=== PATIENT | female | born 1980 | race Caucasian/White ===

== ENCOUNTER 2019-07-01 11:19 | Outpatient (CLI) | payer MEDICAID, SELFPAY ==
--- NOTE | 2019-07-01 | USCV_ITS ---
RhiannonisamarCindy Age: 38 Gender: F : 1980 Exam Date: 07/01/2019 12:41 Ordering Phys: Lj Joseph MD Technologist: Winter Hassan Exam Location: [facility] – [place] Indication: CHEST PAIN WITH DYSPNEA Rhythm: Sinus Patient History: Chest pain, Hyperlipidemia, Smoker Cardiac Medications: Statin Medications in past 24 hours: NONE Contrast: Stress Results Protocol: Raphael Total dose(mL): Exercise Duration (min:sec): 09:00 METS: 10.2 Resting HR: 85 Resting BP: 104 / 77 Peak HR: 164 Peak BP: 173 / 77 Max Predicted HR: 183 90 % Max Predicted HR Target HR: 156 Double Product: [id number] Stress Summary: The patient's target heart rate was achieved The hemodynamic response to exercise was normal Normal blood pressure response BP Response: Normal Reason for Termination: Test terminated after reaching target heart rate (85% max predicted) Cardiac Symptoms: Short of Breath ECG Analysis Resting ECG: Resting EKG shows sinus rhythm with an incomplete right bundle branch block and a right axis deviation. Stress ECG: Stress EKG showed no obvious ST segment depressions however at the end of exercise there was significant baseline artifact making the interpretation of the EKG impossible at that time. Otherwise, no obvious EKG changes. Arrhythmia: None MEASUREMENTS (Male/Female) Normal Values FINDINGS No ST segment changes with exercise to suggest ischemia Normal resting left ventricular size and function No wall motion disturbances with exercise to suggest ischemia. CONCLUSIONS Stress echocardiogram negative for ischemia or infarction. Dr. Grayson Georges MD (Electronically Signed) Final Date: 01 July 2019 17:46 C MTDD
[2019-07-01 11:53] VITALS: BMI 33.8
--- NOTE | 2019-07-01 11:58 | SUR.PREOP ---
Patient reports no pain or discomfort prior to the start of the procedure.
--- NOTE | 2019-07-01 12:08 | ECG_ITS ---
NAME OF STUDY: TREADMILL STRESS ECHOCARDIOGRAM INDICATION: [CHEST PAIN WITH DYSPNEA] This examination was dictated under a different electronic health record. Please see that information for details. Electronically Signed On 07-01-2019 17:43:50 [employer] by Grayson Georges M.D. [email or web address]
[2019-07-01 13:19] VITALS: BP 134/67; PULSE 91
== END 2019-07-01 11:20 | disposition home or self-care (01) ==
LOC: CDL 11:21
PROVIDERS: Family Provider Family Medicine; PCP Family Medicine; Visit Provider Family Medicine
DX: I45.10 Unspecified right bundle-branch block (principal); R07.89 Other chest pain
CPT/HCPCS: 93017; 93350

== ENCOUNTER 2019-09-14 15:57 | Outpatient (CLI) | payer MEDICAID, SELFPAY ==
--- NOTE | 2019-09-14 16:17 | XR_ITS ---
WS: [id number] XR KUB [id number] REASON FOR EXAM: right flank pain FINDINGS: The right kidney appears to be of normal size although this is poorly seen due to overridin g fecal stasis. The lumbar spine and bony pelvis were normal. No air-fluid levels are seen. A small calcified density is seen in the region of the lower left kidney. XR/XR KUB [id number] IMPRESSION: Right flank does not show definite calculi. A small calcified density of measures approximately 1 to 2 mm along the inferio r pole of the left kidney The remaining abdomen essentially normal.
== END 2019-09-14 15:58 | disposition home or self-care (01) ==
LOC: RAD 16:00
PROVIDERS: Family Provider Family Medicine; PCP Family Medicine; Visit Provider Urology
DX: R10.9 Unspecified abdominal pain (principal)
CPT/HCPCS: 74018; 81001

== ENCOUNTER 2019-09-22 17:39 | Emergency (ER) | payer MEDICAID, SELFPAY ==
[2019-09-22] VITALS (7 sets, daily range): BP systolic 113–140; BP diastolic 78–107; PULSE 90–108; RESP 16–18; TEMP 36.9; O2SAT 98–100; BMI 32.9
[2019-09-22 18:57] LABS: Basophils # 0.1 10^3/uL (0.0-0.1); Basophils % 0.7 %; Eosinophils # 0.3 10^3/uL (0.0-0.8); Eosinophils % 1.8 %; Hematocrit 46.3 % (37.0-47.0); Hemoglobin 15.1 g/dL (11.5-15.3); Lymphocytes # 3.9 10^3/uL (0.8-4.8); Mean Corpuscular HGB Conc 32.6 g/dL (30.0-36.0); Mean Corpuscular Hemoglobin 30.5 pg (28.0-34.0); Mean Corpuscular Volume 93.5 fL (81-99); Mean Platelet Volume 9.2 fL (7.4-10.4); Monocytes # 0.7 10^3/uL (0.2-0.9); Monocytes % 5.3 %; Neutrophils % 63.8 %; Nucleated Red Blood Cells % 0 %; Platelet Count 284 10^3/cmm (130-400); Red Blood Count 4.95 10^6/uL (4.1-5.3); Red Cell Distribution Width 12.5 % (12.1-15.1); White Blood Count 14.1 10^3/uL (4.0-10.0)
[2019-09-22 19:13] LABS: HCG, Serum Qual Negative (Negative)
[2019-09-22 19:19] LABS: Alanine Aminotransferase 19 U/L (0-33); Albumin Level 4.5 g/dL (3.5-5.2); Alkaline Phosphatase 78 IU/L (35-105); Aspartate Amino Transferase 17 U/L (0-32); Blood Urea Nitrogen 14 mg/dL (6-20); Calcium 9.2 mg/dL (8.5-10.5); Carbon Dioxide 22 mmol/L (22-29); Globulin 2.4 g/dL (1.3-4.6); Glomerular Filtration Rate 94.2 mL/min (90-130); Glucose 110 mg/dL (65-115); Lipase 19 U/L (13-60); Total Bilirubin 0.3 mg/dL (0.15-1.2); Total Protein 6.9 g/dL (6.6-8.7)
[2019-09-22 19:24] LABS: Anion Gap 15.4 (5-19); Chloride 106 mmol/L (98-107); Osmolality Calculated 287 mOsm/kg (285-295); Potassium 3.4 mmol/L (3.5-5.1); Sodium 140 mmol/L (136-145)
--- NOTE | 2019-09-22 19:26 | ED_ITS ---
HPI - Abdominal Pain General: Chief Complaint: Abdominal Pain Stated Complaint: RIGHT SIDE PAIN Time Seen by Provider: 09/22/19 19:26 Source: patient Mode of arrival: ambulatory Limitations: no limitations History of Present Illness: HPI narrative: Patient comes in today with a 2 to 3-week history of right upper quadrant abdominal pain. Patient states that pain has persisted for the last 2 weeks which worsened last night. Patient was seen at [facility] and noted to have elevated white count and was referred to the ER due to that. Patient appears in moderate pain. Patient appears in no acute distress. Respirations are even lungs are clear to auscultation. Vital signs are normal. Associated Symptoms: Reports nausea Review of Systems General: Reports: 10 or more systems reviewed and unremarkable except in HPI and below GI: Reports: abdominal pain and nausea PFSH ED PFSH: Medical History (Updated 09/22/19 @ 21:20 by NAYAN Travis) Asthma COPD (chronic obstructive pulmonary disease) Dyslipidemia Right flank pain Right renal stone Surgical History Hx of section Hx of exploratory laparotomy Hx of hysterectomy Hx of tonsillectomy Hx of tubal ligation Family History Other CAD (coronary artery disease) Social History Smoking and tobacco status: current every day smoker Alcohol intake: never Adopted: No Caregiver/support person: No Lives independently: No Household members: children Marital status: Single Current occupational status: disabled History of recent travel: No Current gender identity: Female Physical Exam Const: COMMON NORMALS: no acute distress and patient oriented x3 GENERAL APPEARANCE: cooperative HENMT: COMMON NORMALS: normocephalic, TM's normal bilaterally and Normal external nose present HEAD & SCALP: normal to inspection and normocephalic NOSE: Normal external nose present TYMPANIC MEMBRANE: TM's normal bilaterally MOUTH: Normal oral and palatal mucosa present THROAT: posterior oropharynx normal Eye: GENERAL EYE: appearance normal, both eyes and all related structures Neck/C-Spine: COMMON NORMALS: full ROM Lymph: LYMPHATIC: no lymphadenopathy noted Chest: COMMONS NORMALS: normal inspection of the chest Resp: COMMON NORMALS: normal respiratory effort EFFORT & INSPECTION: Yes able to speak in complete sentences Cardio: COMMON NORMALS: regular rate and regular rhythm RATE: regular rate RHYTHM: regular rhythm GI: AUSCULTATION: Yes normoactive bowel sounds PALPATION: Yes Tenderness to palpation present (GI) (Right upper quadrant tenderness to light palpation. Positive Dutton's. Negative rebound. Guarding is present.) : COMMON NORMALS: Yes no CVA tenderness BLADDER/KIDNEY EXAM: Yes no CVA tenderness Back/Pelvis: COMMON NORMALS: no CVA tenderness and thoracic and lumbar spine normal to inspection Extremity: COMMON NORMALS: normal to inspection Neuro: COMMON NORMALS: patient oriented x3 and moves all extremities Psych: COMMON NORMALS: mental status grossly normal and cooperative Skin: COMMON NORMALS: no rashes or lesions noted GENERAL SKIN EXAM: no rashes or lesions noted Course Vital Signs: Vital signs: Vital Signs Temperature 98.5 F 09/22/19 17:57 Pulse Rate 95 09/22/19 21:38 Respiratory Rate 18 09/22/19 21:38 Blood Pressure 113/78 09/22/19 21:38 Pulse Oximetry 99 09/22/19 21:38 MDM - Abdominal Pain MDM Narrative: Medical decision making narrative: Patient comes in today for concerns of right flank pain. Patient was seen in urgent care and referred to the ER due to elevated white blood cell count. On exam patient has some right upper quadrant abdominal pain with some guarding. Bowel sounds are present. Patient ambulates without discomfort. Patient appears well. Vital signs were normal. Differential diagnosis includes appendicitis, cholecystitis, bowel obstruction, pyelonephritis, renal calculi, back pain. CT scan of the abdomen pelvis noted no stool hydronephrosis, no cholecystitis, no pancreatitis, no obstructing renal calculi, a right ovarian cyst approximately 2 cm. Laboratory values noted a white count of 14,000, clean urine, and CMP with a potassium of 3.4. Patient was given 500 mL's of fluid with ondansetron and 2 mg of morphine with minimal relief. Reviewed exam with patient with recommendations for rufus atment of low back pain. Discussed the stones that were noted in her kidneys but they did not indicate any sign of infection or obstruction. Patient was recommended to follow-up with primary care for further treatment and evaluation, or return to the ER for high fever or worsening symptoms. Patient agreed with plan. Lab Data: Labs: Lab Results 09/22/19 09/22/1909/21/20 Range/Units 18:50 18:50 18:50 WBC 14.1 H (4.0-10.0) 10^3/ uL RBC 4.95 (4.1-5.3) 10^6/u L Hgb 15.1 (11.5-15.3) g/dL Hct 46.3 (37.0-47.0) % MCV 93.5 (81-99) fL MCH 30.5 (28.0-34.0) pg MCHC 32.6 (30.0-36.0) g/dL RDW 12.5 (12.1-15.1) % Plt Count 284 (130-400) 10^3/c mm MPV 9.2 (7.4-10.4) fL Neut % (Auto) 63.8 % Lymph % (Auto) 28.0 % Redwood % (Auto) 5.3 % Eos % (Auto) 1.8 % Baso % (Auto) 0.7 % Neut # (Auto) 9.0 H (1.8-7.7) 10^3/u L Lymph # (Auto) 3.9 (0.8-4.8) 10^3/u L Redwood # (Auto) 0.7 (0.2-0.9) 10^3/u L Eos # (Auto) 0.3 (0.0-0.8) 10^3/u L Baso # (Auto) 0.1 (0.0-0.1) 10^3/u L Nucleated RBC % (a uto) 0 % Nucleated RBCs # 0.0 /100WBC Sodium 140 (136-145) mmol/L Potassium 3.4 L (3.5-5.1) mmol/L Chloride 106 (98-107) mmol/L Carbon Dioxide 22 (22-29) mmol/L Anion Gap 15.4 (5-19) BUN 14 (6-20) mg/dL Creatinine 0.7 (0.5-0.9) mg/dL GFR Calculation 94.2 (90-130) mL/min Glucose 110 (65-115) mg/dL Calculated Osmolal ity 287 (285-295) mOsm/k g Calcium 9.2 (8.5-10.5) mg/dL Total Bilirubin 0.3 (0.15-1.2) mg/dL AST 17 (0-32) U/L ALT 19 (0-33) U/L Alkaline Phosphata se 78 (35-105) IU/L Total Protein 6.9 (6.6-8.7) g/dL Albumin 4.5 (3.5-5.2) g/dL Globulin 2.4 (1.3-4.6) g/dL Lipase 19 (13-60) U/L HCG, Qual Negative (Negative) Urine Color (Yellow) Urine Appearance (CLEAR) Urine pH (5-7) Ur Specific Gravit y (1.005-1.030) Urine Protein (Negative) Urine Glucose (UA) (Normal) Urine Ketones (Negative) Urine Blood (Negative) Urine Nitrate (Negative) Urine Bilirubin (NEGATIVE) Urine Urobilinogen (Negative) mg/dL Ur Leukocyte Nga ase (Negative) Urine RBC (0-2) /hpf Urine WBC (0-5) /hpf Ur Squamous Epith Cells (0-5) Urine Bacteria (NONE) 09/22/19 09/22/19 Range/Units 21:50 21:50 WBC (4.0-10.0) 10^3/ uL RBC (4.1-5.3) 10^6/u L Hgb (11.5-15.3) g/dL Hct (37.0-47.0) % MCV (81-99) fL MCH (28.0-34.0) pg MCHC (30.0-36.0) g/dL RDW (12.1-15.1) % Plt Count (130-400) 10^3/c mm MPV (7.4-10.4) fL Neut % (Auto) % Lymph % (Auto) % Redwood % (Auto) % Eos % (Auto) % Baso % (Auto) % Neut # (Auto) (1.8-7.7) 10^3/u L Lymph # (Auto) (0.8-4.8) 10^3/u L Redwood # (Auto) (0.2-0.9) 10^3/u L Eos # (Auto) (0.0-0.8) 10^3/u L Baso # (Auto) (0.0-0.1) 10^3/u L Nucleated RBC % (a uto) % Nucleated RBCs # /100WBC Sodium (136-145) mmol/L Potassium (3.5-5.1) mmol/L Chloride (98-107) mmol/L Carbon Dioxide (22-29) mmol/L Anion Gap (5-19) BUN (6-20) mg/dL Creatinine (0.5-0.9) mg/dL GFR Calculation (90-130) mL/min Glucose (65-115) mg/dL Calculated Osmolal ity (285-295) mOsm/k g Calcium (8.5-10.5) mg/dL Total Bilirubin (0.15-1.2) mg/dL AST (0-32) U/L ALT (0-33) U/L Alkaline Phosphata se (35-105) IU/L Total Protein (6.6-8.7) g/dL Albumin (3.5-5.2) g/dL Globulin (1.3-4.6) g/dL Lipase (13-60) U/L HCG, Qual Negative (Negative) Urine Color Yellow (Yellow) Urine Appearance Clear (CLEAR) Urine pH 7 (5-7) Ur Specific Gravit y 1.005 (1.005-1.030) Urine Protein Neg (Negative) Urine Glucose (UA) Norm (Normal) Urine Ketones Negative (Negative) Urine Blood Neg (Negative) Urine Nitrate Negative (Negative) Urine Bilirubin Neg (NEGATIVE) Urine Urobilinogen Norm (Negative) mg/dL Ur Leukocyte Nga ase Negative (Negative) Urine RBC None (0-2) /hpf Urine WBC None (0-5) /hpf Ur Squamous Epith Cells 0-4 H (0-5) Urine Bacteria Trace (NONE) Discharge Plan Discharge Patient Disposition: Home, Self-Care Clinical Impression: Right flank pain Condition: Stable Prescriptions: No Action bupropion HCl [Wellbutrin XL] 300 mg tablet extended release 24 hr 300 mg PO QAM RF: 0 topiramate [Topamax] 50 mg tablet 50 mg PO DAILY RF: 0 atorvastatin 40 mg tablet 10 mg PO DAILY RF: 0 albuterol sulfate 1.25 mg/3 mL solution for nebulization 1.25 mg INHALATION QID PRN (Reason: Shortness Of Breath) RF: 0 amitriptyline 100 mg tablet 100 mg PO DAILY RF: 0 hydrocodone-acetaminophen 5-325 mg tablet 1 tab PO Q6H PRN (Reason: Pain) RF: 0 budesonide-formoterol [Symbicort] 160-4.5 mcg/actuation HFA aerosol inhaler 2 puff INHALATION BID RF: 0 diclofenac sodium 75 mg tablet,delayed release (DR/EC) 75 mg PO BID RF: 0 zonisamide [Zonegran] 100 mg capsule 200 mg PO DAILY RF: 0 cetirizine [All Day Allergy (cetirizine)] 10 mg tablet 10 mg PO DAILY RF: 0 tamsulosin 0.4 mg capsule 0.4 mg PO DAILY Qty: 30 RF: 0 ibuprofen 800 mg Tablet 800 mg PO Q8H PRN (Reason: Pain) RF: 0 Discharge Orders: Discharge Order (Routine); Ordered 09/22/19 Ordered By: Noé Potter Referrals: Lj Joseph MD [Primary Care Provider] - Discharge Diet: Usual diet Discharge Activity: Increase activity as tolerated Patient Instructions: Abdominal Pain (ED) Activity Restrictions/Additional Instructions: Drink plenty of fluids. Activity as tolerated. Return to the ER for high fever or blood in the stool or vomit. Acetaminophen or ibuprofen for pain. Follow-up with primary care in 1 week for recheck. Coding Level of Care Code ED Education Department Chair for Debig Fwd Exam Comprehensive
--- NOTE | 2019-09-22 19:33 | CTR_ITS ---
PROCEDURE INFORMATION: Exam: CT Abdomen And Pelvis With Contrast Exam date and time: 09/22/2019 7:48 PM Age: 38 years old Clinical indication: Abdominal pain; Localized; Right upper quadrant (ruq); Prior surgery; Surgery type: Exploratory, , tubal, hysto; Additional info: Right upper quad pain, nausea TECHNIQUE: Imaging protocol: Computed tomography of the abdomen and pelvis with intravenous contrast. Radiation optimization: All CT scans at this facility use at least one of these dose optimization techniques: automated exposure control; mA and/or kV adjustment per patient size (includes targeted exams where dose is matched to clinical indication); or iterative reconstruction. Contrast material: OMNI 300; Contrast volume: 95 ml; Contrast route: IV; COMPARISON: CT Abdomen/Pelvis Renal [id number] 11/20/2017 5:59 PM RADIATION DOSE METRICS: Total DLP: 1231.69 mGy-cm FINDINGS: Liver: Normal. No mass. Gallbladder and bile ducts: Normal. No calcified stones. No ductal dilation. Pancreas: Normal. No ductal dilation. Spleen: Normal. No splenomegaly. Adrenals: Normal. No mass. Kidneys and ureters: Bilateral nonobstructing renal calyceal stones. Stomach and bowel: Unremarkable. No obstruction. No mucosal thickening. Appendix: Normal appendix. Intraperitoneal space: Unremarkable. No free air. No significant fluid collection. Vasculature: One or more calcified pelvic phleboliths. Lymph nodes: Unremarkable. No enlarged lymph nodes. Bladder: Unremarkable as visualized. Reproductive: 2.1 cm right ovarian cyst. Stable hysterectomy. Bones/joints: Unremarkable. No acute fracture. Soft tissues: Unremarkable. CT/CT abdomen pelvis w con* [id number] IMPRESSION: 1. Bilateral nonobstructing renal calyceal stones. 2. 2.1 cm right ovarian cyst. Radiation Dose CTDIVOL = (mGy): DLP = 1231.69 (mGy-cm)
[2019-09-22] MEDS: iohexol 300 mg/mL 100 mL Btl IV (19:54)
[2019-09-22] MEDS: sodium chloride 0.9% 500 ML 999 ML IV (20:28)
[2019-09-22] MEDS: morphine 4 mg/mL SDV 1 mL 2 MG IVP (20:29)
[2019-09-22] MEDS: ondansetron 2 mg/ML SDV 2 mL 4 MG IVP (20:34)
[2019-09-22 22:02] LABS: HCG Qualitative Urine. Negative (Negative)
[2019-09-22 22:09] LABS: Bilirubin Urine Neg (NEGATIVE); Blood Urine Neg (Negative); Glucose Urine UA Norm (Normal); Ketones Urine Negative (Negative); Leukocyte Esterase Urine Negative (Negative); Nitrate Urine Negative (Negative); Protein Urine Neg (Negative); Specific Gravity, Urine 1.005 (1.005-1.030); Urine Appearance Clear (CLEAR); Urine Color Yellow (Yellow); Urobilinogen Urine Norm (Negative); pH Urine 7 (5-7)
[2019-09-22 22:10] LABS: Add Urine Culture? No; Bacteria Urine TRACE; Squamous Epithelial Cell Urine 0-4 (0-5)
== END 2019-09-22 22:57 | disposition home or self-care (01) ==
PROVIDERS: Emergency Medicine; Emergency Provider Nurse Practitioner Family; PCP Family Medicine
DX: R10.9 Unspecified abdominal pain (principal); J44.9 Chronic obstructive pulmonary disease, unspecified; E78.5 Hyperlipidemia, unspecified; F17.210 Nicotine dependence, cigarettes, uncomplicated
CPT/HCPCS: 12345; 36415; 74177; 80053; 81001; 81025; 83690; 84703; 85025; 96361; 96374; 96375; 99283; J2270; J2405; J7040; Q9967

== ENCOUNTER → 2020-01-20 12:47 | Outpatient (BNVA) | payer MEDICAID, SELFPAY | PROVIDERS: PCP Family Medicine; Referring Provider Family Medicine; Visit Provider Anesthesiology Pain Medicine | DX: M54.42 Lumbago with sciatica, left side (principal); M47.816 Spondylosis without myelopathy or radiculopathy, lumbar region; M54.16 Radiculopathy, lumbar region; M54.9 Dorsalgia, unspecified; Z79.891 Long term (current) use of opiate analgesic | CPT/HCPCS: 99203; 99204 ==

== ENCOUNTER 2020-02-03 10:02 | Outpatient (CLI) | payer MEDICAID, SELFPAY ==
--- NOTE | 2020-02-03 10:07 | MR_ITS ---
WS: [id number] MRI LUMBAR SPINE NONCONTRAST HISTORY: M54.16 Radiculopathy, lumbar region COMPARISON: None available. TECHNIQUE: Sagittal and axial multisequence imaging is submitted. Foraminal disc osteophyte complexes at C4-5, greatest on the RIGHT Posterior lumbar alignment is normal. There is mild disc space narrowing and desiccation at L2-3. Hyp ertrophic osteophytic ridging around the L2 and L3 vertebral bodies with posterior encroachment upon the ventral thecal sac. Otherwise disc spaces are well-maintained. No marrow edema or fracture. Conus terminates normally at L1-2 disc level. L1-L2: Small amount of fluid in the RIGHT facet joint no stenosis. L2-L3: Mild annular disc bulging and osteophytic ridging. Disc osteophyte encroaches upon the ventral thecal sac resulting in mild central and bilateral foraminal stenosis. Moderate bilateral subarticul ar recess stenosis with encroachment upon the L3 nerve roots. L3-L4: Mild annular disc bulging and osteophytic ridging. Mild central, subarticular recess and bilat eral foraminal stenosis. L4-L5: Mild annular disc bulging. Very mild subarticular recess and foraminal stenosis. L5-S1: Mild annular disc bulging with mild bilateral foraminal narrowing. No focal disc protrusion. Visualized retroperitoneum is normal. LEFT renal vein is retroaortic. MR/MR lumbar spine wo con* [id number] IMPRESSION: 1. Disc osteophyte encroachment upon the thecal sac at L2-3. 2. Mild central and bilateral foraminal stenosis with moderate bilateral subar ticular recess stenosis at the L2-3 level. 3. Mild central, subarticular recess and foraminal stenosis at L3-4. 4. Mild subarticular recess and foraminal stenosis at L4-5. 5. Mild bilateral foraminal narrowing at L5-S1.
--- NOTE | 2020-02-03 11:00 | XR_ITS ---
WS: [id number] LATERAL LUMBAR SPINE: 3 view. Lateral radiographs are performed in upright neutral, flexion and extension to the patient's toleranc e. HISTORY: pain COMPARISON: 01/12/2015 Posterior lumbar alignment is normal. Mild hypertrophic endplate changes at the L2 and L3 levels proj ect posteriorly. Similar pattern to the prior study. With flexion and extension no lumbar spine insta bility. XR/XR lumbar spine f/e only [id number] IMPRESSION: No lumbar spine instability.
== END 2020-02-03 10:03 | disposition home or self-care (01) ==
LOC: RADWPI 10:04
PROVIDERS: PCP Family Medicine; Visit Provider Anesthesiology Pain Medicine
DX: M47.816 Spondylosis without myelopathy or radiculopathy, lumbar region (principal); M54.16 Radiculopathy, lumbar region; M25.78 Osteophyte, vertebrae; M48.061 Spinal stenosis, lumbar region without neurogenic claudication
CPT/HCPCS: 72120; 72148

== ENCOUNTER → 2020-02-17 10:44 | Outpatient (BNVA) | payer MEDICAID, SELFPAY | PROVIDERS: PCP Family Medicine; Visit Provider Anesthesiology Pain Medicine | DX: M25.552 Pain in left hip (principal); M25.511 Pain in right shoulder; M54.9 Dorsalgia, unspecified; F17.210 Nicotine dependence, cigarettes, uncomplicated; Z79.891 Long term (current) use of opiate analgesic | CPT/HCPCS: 99213; 99214 ==

== ENCOUNTER → 2020-04-13 14:09 | Outpatient (BNVA) | payer MEDICAID, SELFPAY | PROVIDERS: PCP Family Medicine; Visit Provider Anesthesiology Pain Medicine | DX: G89.29 Other chronic pain (principal); M54.9 Dorsalgia, unspecified; M25.552 Pain in left hip; M25.511 Pain in right shoulder; F17.210 Nicotine dependence, cigarettes, uncomplicated | CPT/HCPCS: 99212; 99213 ==

== ENCOUNTER → 2020-11-28 14:42 | Outpatient (BNVA) | payer MEDICAID, SELFPAY | PROVIDERS: PCP Family Medicine; Referring Provider Family Medicine; Visit Provider Orthopaedic Surgery | DX: M54.9 Dorsalgia, unspecified (principal) | CPT/HCPCS: 72120 ==

== ENCOUNTER 2020-12-18 00:58 | Emergency (ER) | payer MEDICAID, SELFPAY ==
[2020-12-18 01:10] VITALS: BP 130/87; PULSE 96; RESP 24; TEMP 36.4; O2SAT 98; BMI 34.7
--- NOTE | 2020-12-18 01:19 | W.ED.BACK ---
HPI - Back Pain/Injury General: Chief Complaint: Back Pain/Injury Stated Complaint: ABD AND BACK PAIN Time Seen by Provider: 12/18/20 01:06 History of Present Illness: HPI Narrative: Patient is a 40-year-old female comes to the ED with left flank pain. Patient says she has a history of kidney stones and thinks this pain is similar to her past episodes. She started having some pain yesterday in her left flank but it was mild. Today her pain continued to get worse and she rates her left flank pain a 10 out of 10. She says it radiates up to the left lower quadrant of her abdomen. She says she is having decreased urine output but denies any other urinary symptoms. Endorses having some nausea but has not had an episode of emesis. Associated symptoms: Reports nausea; Deny abdominal pain, chills, dysuria, fatigue, fever(s), hematuria or vomiting Review of Systems Const: Denies: fever(s), chills or fatigue Eyes: Denies: change in vision or eye discomfort ENMT: Denies: throat pain, odynophagia, nasal discharge or nasal congestion Card: Denies: chest pain, palpitations, edema, swelling of feet/ankles, dyspnea on exertion or orthopnea Resp: Denies: dyspnea, productive cough or non-productive cough GI: Reports: nausea; Denies: abdominal pain, vomiting, diarrhea, constipation or hematochezia : Reports: flank pain and oliguria; Denies: dysuria or hematuria Musc: Denies: neck pain, back pain or extremity swelling Skin/Breast: Denies: rash or new lesions Neuro: Denies: headache(s), numbness in extremities or weakness in extremities PFSH ED PFSH: Medical History Asthma COPD (chronic obstructive pulmonary disease) Dyslipidemia Right flank pain Right renal stone Surgical History Hx of section Hx of exploratory laparotomy Hx of hysterectomy Hx of tonsillectomy Hx of tubal ligation Family History Other CAD (coronary artery disease) Social History Smoking and tobacco status: never smoked Alcohol intake: never Adopted: No Caregiver/support person: No Lives independently: No Household members: children Marital status: Single Current occupational status: disabled History of recent travel: No Current gender identity: Female Physical Exam Const: COMMON NORMALS: patient oriented x3 and alert GENERAL APPEARANCE: cooperative; not comfortable (Uncomfortable due to left flank pain) HENMT: COMMON NORMALS: normocephalic HEAD & SCALP: normocephalic MOUTH: Normal oral and palatal mucosa present THROAT: posterior oropharynx normal and uvula midline Neck/C-Spine: COMMON NORMALS: supple GENERAL: Yes normal visual inspection Resp: COMMON NORMALS: normal respiratory effort, No retractions, No use of accessory muscles and clear to auscultation bilaterally AUSCULTATION: clear to auscultation bilaterally Cardio: COMMON NORMALS: regular rate, regular rhythm, S1 normal heart sound present, S2 normal heart sound present, No gallops present (Cardio), No clicks present (Cardio), No murmurs present (Cardio) and Peripheral pulses 2+ throughout RATE: regular rate RHYTHM: regular rhythm HEART SOUNDS: S1 normal heart sound present and S2 normal heart sound present PERIPHERAL PULSES: Peripheral pulses 2+ throughout GI: COMMON NORMALS: Normal to inspection, nondistended, normoactive bowel sounds present, Soft to palpation, non-tender and no masses PALPATION: Yes Soft to palpation : BLADDER/KIDNEY EXAM: Yes CVA tenderness Back/Pelvis: GENERAL BACK: Yes CVA tenderness CVA tenderness: left Extremity: COMMON NORMALS: normal to inspection Neuro: COMMON NORMALS: patient oriented x3 and moves all extremities SENSORIUM/ORIENTATION: Yes alert Skin: GENERAL SKIN EXAM: dry skin Course Reevaluation(s): Reevaluation #1: After patient received the dose of IV Toradol her pain had completely resolved. She now rates her pain a 0 out of 10. She is comfortable and ready to be discharged home. Time: 03:08 Vital Signs: Vital signs: Vital Signs Temperature 97.6 F 12/18/20 01:10 Pulse Rate 96 12/18/20 01:10 Respiratory Rate 22 H 12/18/20 02:33 Blood Pressure 130/87 12/18/20 01:10 Pulse Oximetry 98 12/18/20 01:10 MDM - Back Pain/Injury MDM Narrative: Medical decision making narrative: Patient is a 40-year-old female comes to the ED with left flank pain. Patient has a history of kidney stones. Patient has left CVA tenderness upon exam. White blood cell count 11.8 and creatinine was 1.3 but the rest of CBC, CMP were unremarkable. UA showed a lot of red blood cells but no signs of infection. hCG negative. CT of abdomen showed a 5 mm kidney stone on left side near the UVJ. Patient was given IV fluids, Zofran and morphine and her pain moderately improved. After patient received Toradol IV her pain went down to 0 and completely resolved. Patient diagnosed with left kidney stone and elevated creatinine level. She was discharged home with a prescription for [place] for pain, naproxen, Zofran and Flomax. I placed order with case management for patient to be referred to Dr. Bartholomew for further evaluation. I told her to strain urine to catch stone and she can bring stone and to Dr. Bartholomew's office for it to be analyzed. Return ED precautions given. Patient was told case operator will contact her in the next couple days to set up appoint with Dr. Bartholomew. Patient understood agree with plan. Lab Data: Attestation: I reviewed the patient's lab results. Labs: Lab Results 12/18/20 12/18/20 12/18/20 Range/Units 01:20 01:35 01:35 WBC 11.8 H (4.0-10.0) 10^3/ uL RBC 4.83 (4.1-5.3) 10^6/u L Hgb 14.3 (11.5-15.3) g/dL Hct 43.0 (37.0-47.0) % MCV 89.0 (81-99) fL MCH 29.6 (28.0-34.0) pg MCHC 33.3 (30.0-36.0) g/dL RDW 12.4 (12.1-15.1) % Plt Count 331 (130-400) 10^3/c mm MPV 9.6 (7.4-10.4) fL Neut % (Auto) 64.0 % Lymph % (Auto) 25.9 % [place] % (Auto) 5.9 % Eos % (Auto) 3.1 % Baso % (Auto) 0.8 % Neut # (Auto) 7.54 (1.8-7.7) 10^3/u L Lymph # (Auto) 3.1 (0.8-4.8) 10^3/u L [place] # (Auto) 0.7 (0.2-0.9) 10^3/u L Eos # (Auto) 0.4 (0.0-0.8) 10^3/u L Baso # (Auto) 0.1 (0.0-0.1) 10^3/u L Nucleated RBC % (a uto) 0 % Nucleated RBCs # 0.0 /100WBC Sodium 140 (136-145) mmol/L Potassium 4.0 (3.5-5.1) mmol/L Chloride 108 H (98-107) mmol/L Carbon Dioxide 19 L (22-29) mmol/L Anion Gap 17.0 (5-19) BUN 9 (6-20) mg/dL Creatinine 1.3 H (0.5-0.9) mg/dL GFR Calculation 45.6 L (90-130) mL/min Glucose 109 (65-115) mg/dL Calculated Osmolal ity 289 (285-295) mOsm/k g Calcium 9.0 (8.5-10.5) mg/dL Total Bilirubin 0.4 (0.15-1.2) mg/dL AST 16 (0-32) U/L ALT 17 (0-33) U/L Alkaline Phosphata se 103 (35-105) IU/L Total Protein 6.6 (6.6-8.7) g/dL Albumin 4.4 (3.5-5.2) g/dL Globulin 2.2 (1.3-4.6) g/dL Lipase 22 (13-60) U/L HCG, Qual (Negative) Urine Color Yellow (Yellow) Urine Appearance Sl hazy (CLEAR) Urine pH 5 (5-7) Ur Specific Gravit y 1.025 (1.005-1.030) Urine Protein Trace (Negative) Urine Glucose (UA) Norm (Normal) Urine Ketones Negative (Negative) Urine Blood 3+ H (Negative) Urine Nitrate Negative (Negative) Urine Bilirubin Neg (Negative) Urine Urobilinogen Norm (Negative) mg/dL Ur Leukocyte Nga ase Negative (Negative) Urine RBC >100 H (0-2) /hpf Urine WBC 0-4 H (0-5) /hpf Ur Squamous Epith Cells 5-10 H (0-5) /hpf Calcium Oxalate Cr ystal 0-4 H /hpf Amorphous Sediment Not Reportable Urine Bacteria 1+ H (NONE) /hpf 12/18/20 Range/Units 01:35 WBC (4.0-10.0) 10^3/ uL RBC (4.1-5.3) 10^6/u L Hgb (11.5-15.3) g/dL Hct (37.0-47.0) % MCV (81-99) fL MCH (28.0-34.0) pg MCHC (30.0-36.0) g/dL RDW (12.1-15.1) % Plt Count (130-400) 10^3/c mm MPV (7.4-10.4) fL Neut % (Auto) % Lymph % (Auto) % [place] % (Auto) % Eos % (Auto) % Baso % (Auto) % Neut # (Auto) (1.8-7.7) 10^3/u L Lymph # (Auto) (0.8-4.8) 10^3/u L [place] # (Auto) (0.2-0.9) 10^3/u L Eos # (Auto) (0.0-0.8) 10^3/u L Baso # (Auto) (0.0-0.1) 10^3/u L Nucleated RBC % (a uto) % Nucleated RBCs # /100WBC Sodium (136-145) mmol/L Potassium (3.5-5.1) mmol/L Chloride (98-107) mmol/L Carbon Dioxide (22-29) mmol/L Anion Gap (5-19) BUN (6-20) mg/dL Creatinine (0.5-0.9) mg/dL GFR Calculation (90-130) mL/min Glucose (65-115) mg/dL Calculated Osmolal ity (285-295) mOsm/k g Calcium (8.5-10.5) mg/dL Total Bilirubin (0.15-1.2) mg/dL AST (0-32) U/L ALT (0-33) U/L Alkaline Phosphata se (35-105) IU/L Total Protein (6.6-8.7) g/dL Albumin (3.5-5.2) g/dL Globulin (1.3-4.6) g/dL Lipase (13-60) U/L HCG, Qual Negative (Negative) Urine Color (Yellow) Urine Appearance (CLEAR) Urine pH (5-7) Ur Specific Gravit y (1.005-1.030) Urine Protein (Negative) Urine Glucose (UA) (Normal) Urine Ketones (Negative) Urine Blood (Negative) Urine Nitrate (Negative) Urine Bilirubin (Negative) Urine Urobilinogen (Negative) mg/dL Ur Leukocyte Nga ase (Negative) Urine RBC (0-2) /hpf Urine WBC (0-5) /hpf Ur Squamous Epith Cells (0-5) /hpf Calcium Oxalate Cr ystal /hpf Amorphous Sediment Urine Bacteria (NONE) /hpf Imaging Data^: CT Abd/Pel: Attestation: I personally reviewed and interpreted this imaging study as follows: Radiologist's impression: [place] [address] CT Scan Report Signed Patient: Cindy Rodarte Unit #: [id number] : 1980 Age/Sex: 40 / F ADM Date: 12/18/20 Loc: ER Room/Bed: Attending Dr: Ordering Provider/Ordering MD: Lenny Buitrago Date of Service: 12/18/20 Procedure(s): CT kidney stone [id number] Accession Number(s): [id number] Report Number: [id number] PROCEDURE INFORMATION: Exam: CT Abdomen And Pelvis Without Contrast Exam date and time: 12/18/2020 1:25 AM Age: 40 years old Clinical indication: Abdominal pain; Flank; Left; Prior surgery; Surgery date: 6+ months; Surgery type: Hyst; Additional info: Left flank pain, history of kidney stones TECHNIQUE: Imaging protocol: Computed tomography of the abdomen and pelvis without contrast. Radiation optimization: All CT scans at this facility use at least one of these dose optimization techniques: automated exposure control; mA and/or kV adjustment per patient size (includes targeted exams where dose is matched to clinical indication); or iterative reconstruction. COMPARISON: CT abdomen pelvis w con* [id number] 09/22/2019 7:52 PM RADIATION DOSE METRICS: Total DLP (mGy-cm): 1594.09 FINDINGS: Liver: Normal. No mass. Gallbladder and bile ducts: Normal. No calcified stones. No ductal dilation. Pancreas: Normal. No ductal dilation. Spleen: Normal. No splenomegaly. Adrenal glands: Normal. No mass. Kidneys and ureters: Bilateral nonobstructing renal calyceal stones. 5 mm distal left ureteral stone, 1 cm proximal to the left UVJ with moderate to severe left hydronephrosis. Stomach and bowel: Unremarkable. No obstruction. No mucosal thickening. Appendix: Normal appendix. Intraperitoneal space: Unremarkable. No free air. No significant fluid collection. Vasculature: One or more calcified pelvic phleboliths. Lymph nodes: Unremarkable. No enlarged lymph nodes. Urinary bladder: Unremarkable as visualized. Reproductive: Unremarkable as visualized. Bones/joints: Mild to moderate multilevel spine degenerative changes including degenerative disc disease, spondylosis and facet degenerative changes. Soft tissues: Unremarkable. CT/CT kidney stone [id number] IMPRESSION: 5 mm distal left ureteral stone, 1 cm proximal to the left UVJ with moderate to severe left hydronephrosis. Radiation Dose CTDIVOL = (mGy): DLP = 1594.09 (mGy-cm) Dictated By: Gume Cartwright MD Signed By: Gume Cartwright MD Signed Date/Time: 12/18/20232 DD/ 0 Discharge Plan Discharge Patient Disposition: Home Clinical Impression: Kidney stone on left side, Creatinine elevation Condition: Stable Prescriptions: New naproxen 500 mg tablet 500 mg PO BID PRN (Reason: pain) Qty: 20 RF: 0 Zofran 4 mg tablet 4 mg PO Q8H PRN (Reason: nausea and vomiting) Qty: 15 RF: 0 tamsulosin 0.4 mg capsule 0.4 mg PO DAILY Qty: 20 RF: 0 No Action tizanidine 4 mg tablet 4 mg PO BID PRN (Reason: muscle spasticity) Qty: 60 RF: 0 bupropion HCl [Wellbutrin XL] 300 mg tablet extended release 24 hr 300 mg PO QAM RF: 0 topiramate [Topamax] 50 mg tablet 50 mg PO DAILY RF: 0 atorvastatin 40 mg tablet 10 mg PO DAILY RF: 0 albuterol sulfate 1.25 mg/3 mL solution for nebulization 1.25 mg INHALATION QID PRN (Reason: Shortness Of Breath) RF: 0 amitriptyline 100 mg tablet 100 mg PO DAILY RF: 0 budesonide-formoterol [Symbicort] 160-4.5 mcg/actuation HFA aerosol inhaler 2 puff INHALATION BID RF: 0 diclofenac sodium 75 mg tablet,delayed release (DR/EC) 75 mg PO BID RF: 0 zonisamide [Zonegran] 100 mg capsule 200 mg PO DAILY RF: 0 cetirizine [All Day Allergy (cetirizine)] 10 mg tablet 10 mg PO DAILY RF: 0 ibuprofen 800 mg Tablet 800 mg PO Q8H PRN (Reason: Pain) RF: 0 Discharge Orders: Discharge ED (Routine); Ordered 12/18/20 Ordered By: Lenny Buitrago Referrals: Lj Joseph MD [Primary Care Provider] - Discharge Diet: Regular Discharge Activity: Resume usual activity Patient Instructions: Kidney Stones (ED), Opioid Safety Activity Restrictions/Additional Instructions: Follow-up with medical provider as directed. Case management should be contacting you in the next several days to set up an appointment with Dr. Bartholomew the urologist. Strain urine to catch stone and drink lots of fluid to stay hydrated and help pass stone. Bring passed kidney stone in to Dr. Bartholomew at appointment for it to be analyzed. Take medications as prescribed. You can take ibuprofen or Aleve for any pain or fevers. Return to the ER or your medical provider if condition worsens. Please read and understand discharge instructions. If any questions, please ask. Coding Level of Care Code ED Silk Screen Cutter for Nannette Fwd Exam Comprehensive
--- NOTE | 2020-12-18 01:25 | CTR_ITS ---
PROCEDURE INFORMATION: Exam: CT Abdomen And Pelvis Without Contrast Exam date and time: 12/18/2020 1:25 AM Age: 40 years old Clinical indication: Abdominal pain; Flank; Left; Prior surgery; Surgery date: 6+ months; Surgery type: Hyst; Additional info: Left flank pain, history of kidney stones TECHNIQUE: Imaging protocol: Computed tomography of the abdomen and pelvis without contrast. Radiation optimization: All CT scans at this facility use at least one of these dose optimization techniques: automated exposure control; mA and/or kV adjustment per patient size (includes targeted exams where dose is matched to clinical indication); or iterative reconstruction. COMPARISON: CT abdomen pelvis w con* [id number] 09/22/2019 7:52 PM RADIATION DOSE METRICS: Total DLP (mGy-cm): 1594.09 FINDINGS: Liver: Normal. No mass. Gallbladder and bile ducts: Normal. No calcified stones. No ductal dilation. Pancreas: Normal. No ductal dilation. Spleen: Normal. No splenomegaly. Adrenal glands: Normal. No mass. Kidneys and ureters: Bilateral nonobstructing renal calyceal stones. 5 mm distal left ureteral stone, 1 cm proximal to the left UVJ with moderate to severe left hydronephrosis. Stomach and bowel: Unremarkable. No obstruction. No mucosal thickening. Appendix: Normal appendix. Intraperitoneal space: Unremarkable. No free air. No significant fluid collection. Vasculature: One or more calcified pelvic phleboliths. Lymph nodes: Unremarkable. No enlarged lymph nodes. Urinary bladder: Unremarkable as visualized. Reproductive: Unremarkable as visualized. Bones/joints: Mild to moderate multilevel spine degenerative changes including degenerative disc disease, spondylosis and facet degenerative changes. Soft tissues: Unremarkable. CT/CT kidney stone [id number] IMPRESSION: 5 mm distal left ureteral stone, 1 cm proximal to the left UVJ with moderate to severe left hydronephrosis. Radiation Dose CTDIVOL = (mGy): DLP = 1594.09 (mGy-cm)
[2020-12-18 01:32] LABS: Urine Appearance SL Hazy (CLEAR); Urine Color Yellow (Yellow)
[2020-12-18 01:33] LABS: Bilirubin Urine Neg (Negative); Blood Urine 3+ (Negative); Glucose Urine UA Norm (Normal); Ketones Urine Negative (Negative); Leukocyte Esterase Urine Negative (Negative); Nitrate Urine Negative (Negative); Protein Urine Trace (Negative); Specific Gravity, Urine 1.025 (1.005-1.030); Urobilinogen Urine Norm (Negative); pH Urine 5 (5-7)
[2020-12-18 01:34] LABS: Add Urine Culture? Yes; Bacteria Urine 1+ /hpf; Calcium Oxalate Crystals Urine 0-4 /hpf; RBC Urine >100 /hpf (0-2); WBC Urine 0-4 /hpf (0-5)
[2020-12-18 01:36] VITALS: RESP 22
[2020-12-18] MEDS: morphine 4 mg/mL SDV 1 mL IVP ×2 (01:36→02:33)
[2020-12-18] MEDS: sodium chloride 0.9% 500 ML 999 ML IV (01:37)
[2020-12-18] MEDS: ondansetron 2 mg/ML SDV 2 mL 4 MG IVP (01:39)
[2020-12-18 01:41] LABS: Basophils # 0.1 10^3/uL (0.0-0.1); Basophils % 0.8 %; Eosinophils # 0.4 10^3/uL (0.0-0.8); Eosinophils % 3.1 %; Hemoglobin 14.3 g/dL (11.5-15.3); Lymphocytes # 3.1 10^3/uL (0.8-4.8); Lymphocytes % 25.9 %; Mean Corpuscular HGB Conc 33.3 g/dL (30.0-36.0); Mean Corpuscular Hemoglobin 29.6 pg (28.0-34.0); Mean Platelet Volume 9.6 fL (7.4-10.4); Monocytes # 0.7 10^3/uL (0.2-0.9); Monocytes % 5.9 %; Neutrophils # 7.54 10^3/uL (1.8-7.7); Nucleated Red Blood Cells % 0 %; Platelet Count 331 10^3/cmm (130-400); Red Blood Count 4.83 10^6/uL (4.1-5.3); Red Cell Distribution Width 12.4 % (12.1-15.1); White Blood Count 11.8 10^3/uL (4.0-10.0)
[2020-12-18 01:52] LABS: HCG, Serum Qual Negative (Negative)
[2020-12-18 02:03] LABS: Alanine Aminotransferase 17 U/L (0-33); Albumin Level 4.4 g/dL (3.5-5.2); Alkaline Phosphatase 103 IU/L (35-105); Aspartate Amino Transferase 16 U/L (0-32); Blood Urea Nitrogen 9 mg/dL (6-20); Carbon Dioxide 19 mmol/L (22-29); Chloride 108 mmol/L (98-107); Globulin 2.2 g/dL (1.3-4.6); Glomerular Filtration Rate 45.6 mL/min (90-130); Glucose 109 mg/dL (65-115); Lipase 22 U/L (13-60); Osmolality Calculated 289 mOsm/kg (285-295); Sodium 140 mmol/L (136-145); Total Bilirubin 0.4 mg/dL (0.15-1.2); Total Protein 6.6 g/dL (6.6-8.7)
[2020-12-18 02:33] VITALS: RESP 22
[2020-12-18] MEDS: sodium chloride 0.9% 1,000 ML 999 ML IV (02:34)
[2020-12-18] MEDS: tamsulosin 0.4 mg Capsule PO (02:40)
[2020-12-18] MEDS: ketorolac 30 mg/mL INJ IVP (02:40)
[2020-12-18] MEDS: HYDROcodone-acetaminophen 7.5-325 mg Tablet 1 TAB PO (03:34)
[2020-12-18 03:38] VITALS: BP 130/87; PULSE 101; RESP 22; TEMP 36.4; O2SAT 98
--- NOTE | 2020-12-18 09:33 | DCPLANNER ---
employee communications manager had message to schedule a follow up appointment for patient with Dr. Bartholomew. employee communications manager called the office of Dr. Bartholomew, spoke with Yaya. employee communications manager was told that patients information would be printed and reviewed. Clinic will call patient with appointment information.
--- NOTE | 2020-12-19 07:41 | DCPLANNER ---
Patient has a follow up appointment scheduled for Saturday, December 19, 2020 at 10:[address] Bartholomew. Clinic will call patient with appointment information.
--- NOTE | 2020-12-29 14:44 | DCPLANNER ---
Patient had a follow up appointment scheduled for 12.19.[address] Bartholomew - patient did not attend appointment.
== END 2020-12-18 03:43 | disposition home or self-care (01) ==
PROVIDERS: Emergency Provider Physician Assistant; PCP Family Medicine
DX: N20.0 Calculus of kidney (principal); R79.89 Other specified abnormal findings of blood chemistry; J44.9 Chronic obstructive pulmonary disease, unspecified; E78.5 Hyperlipidemia, unspecified; Z87.442 Personal history of urinary calculi
CPT/HCPCS: 74176; 80053; 81001; 83690; 84703; 85025; 87086; 96361; 96374; 96375; 96376; 99284; J1885; J2270; J2405; J7030; J7040

== ENCOUNTER → 2020-12-20 11:09 | Outpatient (BNVA) | payer MEDICAID, SELFPAY | PROVIDERS: PCP Family Medicine; Visit Provider Internal Medicine Rheumatology | DX: M25.511 Pain in right shoulder (principal); M25.552 Pain in left hip; N20.0 Calculus of kidney | CPT/HCPCS: 99203; 99204 ==

== ENCOUNTER 2020-12-25 14:32 | Outpatient (CLI) | payer MEDICAID, SELFPAY ==
--- NOTE | 2020-12-25 14:40 | XRR_ITS ---
PROCEDURE INFORMATION: Exam: XR Abdomen Exam date and time: 12/25/2020 2:40 PM Age: 40 years old Clinical indication: Condition or disease; Kidney or ureter condition; Calculus (stone) in kidney; Prior surgery; Surgery type: C section x5, tubal, partial hysterectomy; Additional info: Stones, kub ozh 12/19/20 @ 2:15 pm appt to follow TECHNIQUE: Imaging protocol: XR of the abdomen. Views: Frontal supine view of the abdomen. 1 View. COMPARISON: CT kidney stone [id number] 12/18/2020 1:51 AM FINDINGS: Gastrointestinal tract: Prominent stool, without bowel dilatation. Organs: Subcentimeter pelvic calcifications, in the setting of three mm obstructing distal left ureteral calculus on previous CT. Partial obscuration of the renal fossa by bowel gas and stool. Subcentimeter bilateral renal calculi or demonstrated on previous CT. Bones/joints: Unremarkable. XR/XR KUB [id number] IMPRESSION: 1. Subcentimeter pelvic calcifications, in the setting of three mm obstructing distal left ureteral calculus on previous CT. 2. Partial obscuration of the renal fossa by bowel gas and stool. Subcentimeter bilateral renal calculi or demonstrated on previous CT.
== END 2020-12-25 14:33 | disposition home or self-care (01) ==
PROVIDERS: PCP Family Medicine; Visit Provider Nurse Practitioner Family
DX: N20.0 Calculus of kidney (principal)
CPT/HCPCS: 74018; 81003

== ENCOUNTER 2021-01-02 15:16 | Outpatient (CLI) | payer MEDICAID, SELFPAY ==
--- NOTE | 2021-01-02 15:15 | XR_ITS ---
WS: [id number] Exam: XR KUB [id number] Date/Time of Exam: 01/02/2021 3:15 PM Reason For Exam: ureteral stone Comparison 12/25/2020. At least one 3 mm calcification superimposes the lower pole the right kidney and may represent a bola l stone. No calcifications seen over the left kidney. No bowel obstruction or free air. Organ margins are unremarkable in appearance. Regional bony structures appear normal. XR/XR KUB [id number] IMPRESSION: 1. 3 mm calcification superimposing the lower pole the right kidney that may re present a renal stone. 2. No acute abdominal process.
== END 2021-01-02 15:17 | disposition home or self-care (01) ==
LOC: RAD 15:19
PROVIDERS: PCP Family Medicine; Visit Provider Urology
DX: N20.1 Calculus of ureter (principal); N20.0 Calculus of kidney
CPT/HCPCS: 74018; 81003

== ENCOUNTER 2021-01-04 16:32 | Outpatient (CLI) | payer MEDICAID, SELFPAY ==
--- NOTE | 2021-01-04 16:45 | MR_ITS ---
WS: [id number] MRI RIGHT SHOULDER HISTORY: M25.511 - Pain in right shoulder COMPARISON: None available. TECHNIQUE: Multiplanar sequences of the shoulder joint are submitted. Minimal hypertrophic changes at the AC joint. No significant encroachment upon the rotator cuff. Ther e is a very small amount of fluid in the subdeltoid bursa. No os acromion. Biceps tendon remains norm ally positioned. Tiny insertion site tear supraspinatus tendon anteriorly. There is also additional moderate tendinopa thy in the distal few centimeters of the supraspinatus tendon. No additional rotator cuff tears are i dentified. No muscle atrophy or retraction. No significant degenerative changes at the glenohumeral j oint and humeral head. No labral tear. MR/MR shoulder RT wo con* [id number] IMPRESSION: 1. Tiny insertion site tear of the anterior supraspinatus tendon with addition al moderate tendinopathy in the distal tendon. 2. No muscle atrophy or retraction. 3. No significant AC joint arthritis.
== END 2021-01-04 16:33 | disposition home or self-care (01) ==
LOC: RADSHAW 16:37
PROVIDERS: PCP Family Medicine; Visit Provider Internal Medicine Rheumatology
DX: M25.511 Pain in right shoulder (principal)
CPT/HCPCS: 73221

== ENCOUNTER 2021-02-06 15:49 | Outpatient (CLI) | payer MEDICAID, SELFPAY ==
--- NOTE | 2021-02-06 | MR_ITS ---
NOTE: Report was unsigned for reason: Order was edited. Original Signature date and time was: 02/06/21 @ [id number] MRI CERVICAL SPINE NONCONTRAST TECHNIQUE: Sagittal T1, T2 and STIR imaging. Axial T2, gradient, and fiesta imaging. CLINICAL INFORMATION: Numbness COMPARISON: None. FINDINGS: Straightening with slight reversal of the normal cervical lordosis. Small central protrusions at C3-C4 and C4-C5 with mild central canal stenosis C3-4 and mild to moderate central canal stenosis C4-5 with slight contact of the cervical cord. C2-C3: Normal. C3-C4: Left pericentral disc osteophyte protrusion with slight indentation left ventral cervical cord. Mild central canal stenosis. Mild left foraminal narrowing. Right foramen is patent. C4-C5: Disc osteophyte complex with endplate ridging. Mild to moderate central canal stenosis. Moderate right and mild left bony foraminal narrowing. C5-C6: No significant disc bulging. Spinal canal and foramen are patent. Mild facet arthropathy. C6-C7: Mild osteophytic ridging. Mild left and no significant right foraminal narrowing. Spinal canal is patent. C7-T1: Mild disc osteophytic ridging. Mild left and no significant right foraminal narrowing. Spinal canal is patent. Visualized brain stem structures: Normal. Prevertebral soft tissues: Normal. [facility] spin wo con* [id number] IMPRESSION: 1. Straightening with slight reversal of the normal cervical lordosis. Small d isc osteophyte protrusions C3-C4 and C4-C5. 2. Left pericentral disc osteophyte protrusion C3-C4 with slight indentation o n cervical cord and mild central canal stenosis. 3. Disc osteophyte complex C4-5 with mild to moderate central canal stenosis. Moderate right bony foraminal narrowing. 4. Mild left C6-7 and C7-T1 bony foraminal narrowing.
--- NOTE | 2021-02-06 15:58 | MR_ITS ---
WS: [id number] MRI CERVICAL SPINE NONCONTRAST TECHNIQUE: Sagittal T1, T2 and STIR imaging. Axial T2, gradient, and fiesta imaging. CLINICAL INFORMATION: Numbness COMPARISON: None. FINDINGS: Straightening with slight reversal of the normal cervical lordosis. Small central protrusions at C3-C 4 and C4-C5 with mild central canal stenosis C3-4 and mild to moderate central canal stenosis C4-5 wi th slight contact of the cervical cord. C2-C3: Normal. C3-C4: Left pericentral disc osteophyte protrusion with slight indentation left ventral cervical cord . Mild central canal stenosis. Mild left foraminal narrowing. Right foramen is patent. C4-C5: Disc osteophyte complex with endplate ridging. Mild to moderate central canal stenosis. Modera te right and mild left bony foraminal narrowing. C5-C6: No significant disc bulging. Spinal canal and foramen are patent. Mild facet arthropathy. C6-C7: Mild osteophytic ridging. Mild left and no significant right foraminal narrowing. Spinal canal is patent. C7-T1: Mild disc osteophytic ridging. Mild left and no significant right foraminal narrowing. Spinal canal is patent. Visualized brain stem structures: Normal. Prevertebral soft tissues: Normal.
== END 2021-02-06 15:50 | disposition home or self-care (01) ==
PROVIDERS: PCP Family Medicine; Visit Provider Orthopaedic Surgery
DX: R20.0 Anesthesia of skin (principal); M48.02 Spinal stenosis, cervical region
CPT/HCPCS: 72141; 72148

== ENCOUNTER → 2021-02-27 16:16 | Outpatient (BNVA) | payer MEDICAID, SELFPAY | PROVIDERS: PCP Family Medicine; Referring Provider Orthopaedic Surgery; Visit Provider Orthopaedic Surgery | DX: M47.892 Other spondylosis, cervical region (principal); M54.2 Cervicalgia | CPT/HCPCS: 72050 ==

== ENCOUNTER → 2021-03-08 10:16 | Outpatient (BNVA) | payer MEDICAID, SELFPAY | PROVIDERS: PCP Family Medicine; Referring Provider Orthopaedic Surgery; Visit Provider Anesthesiology Pain Medicine | DX: G89.29 Other chronic pain (principal); M25.511 Pain in right shoulder; R20.0 Anesthesia of skin; M54.2 Cervicalgia; M54.50 Low back pain, unspecified; M25.552 Pain in left hip | CPT/HCPCS: 99214 ==

== ENCOUNTER 2021-05-02 20:00 | Outpatient (CLI) | payer MEDICAID, SELFPAY | END 2021-05-02 20:01 | disposition home or self-care (01) | LOC: SLEEP 05-03 07:37 | PROVIDERS: PCP Family Medicine; Visit Provider Family Medicine | DX: G47.10 Hypersomnia, unspecified (principal); R06.83 Snoring; R53.83 Other fatigue | CPT/HCPCS: 95810 ==

== ENCOUNTER → 2021-06-19 10:32 | Outpatient (BNVA) | payer MEDICAID, SELFPAY | PROVIDERS: PCP Family Medicine; Referring Provider Orthopaedic Surgery; Visit Provider Specialist | DX: R20.0 Anesthesia of skin (principal); R20.2 Paresthesia of skin; Z87.891 Personal history of nicotine dependence | CPT/HCPCS: 95909 ==

== ENCOUNTER → 2021-06-26 10:37 | Outpatient (BNVA) | payer MEDICAID, SELFPAY | PROVIDERS: PCP Family Medicine; Visit Provider Anesthesiology Pain Medicine | DX: G89.29 Other chronic pain (principal); M54.2 Cervicalgia; M54.50 Low back pain, unspecified; M25.552 Pain in left hip; Z87.891 Personal history of nicotine dependence | CPT/HCPCS: 99214 ==

== ENCOUNTER → 2021-07-16 13:23 | Outpatient (BNVA) | payer MEDICAID, SELFPAY | PROVIDERS: PCP Family Medicine; Visit Provider Anesthesiology Pain Medicine | DX: G89.29 Other chronic pain (principal); F17.210 Nicotine dependence, cigarettes, uncomplicated; M54.12 Radiculopathy, cervical region | CPT/HCPCS: 62321; J1100 ==

== ENCOUNTER → 2021-07-31 09:10 | Outpatient (BNVA) | payer MEDICAID, SELFPAY | PROVIDERS: PCP Family Medicine; Visit Provider Anesthesiology Pain Medicine | DX: G89.29 Other chronic pain (principal); M54.2 Cervicalgia; M54.50 Low back pain, unspecified; Z87.891 Personal history of nicotine dependence | CPT/HCPCS: 99214 ==

== ENCOUNTER → 2021-08-06 12:38 | Outpatient (BNVA) | payer MEDICAID, SELFPAY | PROVIDERS: PCP Family Medicine; Visit Provider Anesthesiology Pain Medicine | DX: G89.29 Other chronic pain (principal); M54.16 Radiculopathy, lumbar region; M54.2 Cervicalgia; M25.551 Pain in right hip; Z87.891 Personal history of nicotine dependence | CPT/HCPCS: 64483; 64484; J1100; J3490 ==

== ENCOUNTER → 2021-08-10 10:12 | Outpatient (BNVA) | payer MEDICAID, SELFPAY | PROVIDERS: PCP Family Medicine; Visit Provider Internal Medicine Critical Care Medicine | DX: J45.909 Unspecified asthma, uncomplicated (principal); J31.0 Chronic rhinitis; J32.9 Chronic sinusitis, unspecified; Z87.891 Personal history of nicotine dependence; E78.5 Hyperlipidemia, unspecified; J44.9 Chronic obstructive pulmonary disease, unspecified; R06.02 Shortness of breath | CPT/HCPCS: 36415; 82785; 86003; 99214 ==

== ENCOUNTER → 2021-08-16 12:12 | Outpatient (BNVA) | payer MEDICAID, SELFPAY | PROVIDERS: PCP Family Medicine; Referring Provider Orthopaedic Surgery; Visit Provider Specialist | DX: M54.2 Cervicalgia (principal); M54.9 Dorsalgia, unspecified; G89.29 Other chronic pain; Z87.891 Personal history of nicotine dependence | CPT/HCPCS: 95886; 95907; 99202 ==

== ENCOUNTER → 2021-08-21 10:21 | Outpatient (BNVA) | payer MEDICAID, SELFPAY | PROVIDERS: PCP Family Medicine; Visit Provider Anesthesiology Pain Medicine | DX: G89.29 Other chronic pain (principal); M54.50 Low back pain, unspecified; M54.2 Cervicalgia; M25.511 Pain in right shoulder; M25.552 Pain in left hip; Z87.891 Personal history of nicotine dependence | CPT/HCPCS: 99214 ==

== ENCOUNTER → 2021-08-29 14:56 | Outpatient (BNVA) | payer MEDICAID, SELFPAY | PROVIDERS: PCP Family Medicine; Visit Provider Anesthesiology Pain Medicine | DX: G89.29 Other chronic pain (principal); M54.2 Cervicalgia; M25.511 Pain in right shoulder; M25.551 Pain in right hip; Z87.891 Personal history of nicotine dependence; M47.816 Spondylosis without myelopathy or radiculopathy, lumbar region | CPT/HCPCS: 64493; 64494; 64495; J3490 ==

== ENCOUNTER → 2021-09-12 09:48 | Outpatient (BNVA) | payer MEDICAID, SELFPAY | PROVIDERS: PCP Family Medicine; Visit Provider Anesthesiology Pain Medicine | DX: G89.29 Other chronic pain (principal); M54.50 Low back pain, unspecified; M54.2 Cervicalgia; Z87.891 Personal history of nicotine dependence | CPT/HCPCS: 99214 ==

== ENCOUNTER 2021-11-01 22:57 | Observation (INO) | payer MEDICAID, SELFPAY ==
[2021-11-01 23:38] VITALS: BP 121/83; PULSE 93; RESP 18; TEMP 36.7; O2SAT 99; BMI 37.0
--- NOTE | 2021-11-02 01:14 | CTR_ITS ---
PROCEDURE INFORMATION: Exam: CT Abdomen And Pelvis Without Contrast Exam date and time: 11/02/2021 1:26 AM Age: 40 years old Clinical indication: Abdominal pain; Right; Prior surgery; Surgery type: Csection. Partial hysterectomy. Tubal ligation. Patient HX: C/O RT flank pain. ; Additional info: Right flank pain TECHNIQUE: Imaging protocol: Computed tomography of the abdomen and pelvis without contrast. Radiation optimization: All CT scans at this facility use at least one of these dose optimization techniques: automated exposure control; mA and/or kV adjustment per patient size (includes targeted exams where dose is matched to clinical indication); or iterative reconstruction. COMPARISON: CT kidney stone [id number] 12/18/2020 1:51 AM RADIATION DOSE METRICS: Total DLP (mGy-cm): 1578.87 FINDINGS: Liver: Normal. No mass. Gallbladder and bile ducts: The gallbladder appears contracted. Pancreas: Normal. No ductal dilation. Spleen: Normal. No splenomegaly. Adrenal glands: Normal. No mass. Kidneys and ureters: There are bilateral nonobstructing renal calculi present. The largest the right measures 4.2 mm, the largest on the left measures 3.3 mm. Stomach and bowel: Unremarkable. No obstruction. No mucosal thickening. Appendix: The appendix is dilated to 7.6 mm. There is hyperdense material seen within the appendiceal lumen. There are gas densities seen intraluminally within the appendix is well. There are no inflammatory changes seen however to suggest appendicitis. In view of the patient's symptoms however, mild appendicitis cannot be excluded. Intraperitoneal space: Unremarkable. No free air. No significant fluid collection. Vasculature: Unremarkable. No abdominal aortic aneurysm. Lymph nodes: Unremarkable. No enlarged lymph nodes. Urinary bladder: Unremarkable as visualized. Reproductive: Status post hysterectomy. Bones/joints: Unremarkable. No acute fracture. Soft tissues: Unremarkable. CT/CT kidney stone [id number] IMPRESSION: 1. The appendix is mildly prominent measuring 7.6 mm and contains hyperdense material intraluminally. However, there are some intraluminal gas densities present and there are no inflammatory changes seen within the adjacent appendiceal mesentery to suggest appendicitis. However in view the patient's clinical findings, mild appendicitis cannot be entirely excluded. 2. Bilateral nonobstructing renal calculi
--- NOTE | 2021-11-02 01:16 | W.ED.ABDPA2 ---
HPI - Abdominal Pain General: Chief Complaint: Abdominal Pain Stated Complaint: R side pain Time Seen by Provider: 11/02/21 01:10 Source: patient Mode of arrival: ambulatory Limitations: no limitations History of Present Illness: 40-year-old female states roughly 7 to 8 hours ago he started having right flank pain. States it seemed to be intermittent but is gotten worse. States pain is currently an 8 out of 10 she states she had hit kidney stones before and it feels similar. She denies any worsening improving factors denies any dysuria she has had nausea denies any vomiting. Denies any fevers. Associated Symptoms: Denies chills, diarrhea, fever(s), nausea and vomiting Review of Systems Const: Denies: fever(s), chills, body aches or change in appetite Eyes: Denies: blurry vision or eye discomfort ENMT: Denies: throat pain or dental pain Card: Denies: chest pain Resp: Denies: dyspnea GI: Denies: abdominal pain, nausea, vomiting or diarrhea : Reports: flank pain Musc: Denies: neck pain or back pain Skin/Breast: Denies: rash Neuro: Denies: headache(s) Psych: Denies: depression Keith/Lymph: Denies: easy bruising All/Imm: Denies: urticaria PFSH ED PFSH: Medical History Asthma COPD (chronic obstructive pulmonary disease) Dyslipidemia Greater trochanteric pain syndrome Left hip Left ureteral stone Right flank pain Right renal stone Right shoulder pain Urolithiasis Surgical History Hx of section Hx of exploratory laparotomy Hx of hysterectomy Hx of tonsillectomy Hx of tubal ligation Family History Father Bleeding disorder Diabetes Hyperlipidemia CAD (coronary artery disease) Chronic kidney disease (CKD) Hypertension Seizure Family/Other Lung disease Liver disease Seizure Grandfather Lung disease Mother Stroke Migraine Liver disease Grandmother Cancer Social History Smoking and tobacco status: former smoker Second hand smoke exposure: No Smoking risk assessment/counseling performed?: No Alcohol intake: never Counseling given: No Counseling given: No Lives independently: Yes Household members: children Marital status: Single Current occupational status: disabled History of recent travel: No Current gender identity: Female Physical Exam Const: COMMON NORMALS: no acute distress, patient oriented x3 and healthy appearing HENMT: COMMON NORMALS: normocephalic and atraumatic HEAD & SCALP: normocephalic and atraumatic Eye: COMMON NORMALS: Equal, round and reactive pupils present and EOMs intact bilaterally PUPIL: Yes Equal, round and reactive pupils present Neck/C-Spine: COMMON NORMALS: full ROM and supple Chest: COMMONS NORMALS: normal inspection of the chest and normal palpation of entire chest wall Resp: COMMON NORMALS: normal respiratory effort, No retractions, No use of accessory muscles and clear to auscultation bilaterally AUSCULTATION: clear to auscultation bilaterally Cardio: COMMON NORMALS: regular rate, regular rhythm and No murmurs present (Cardio) RATE: regular rate RHYTHM: regular rhythm GI: COMMON NORMALS: Normal to inspection, nondistended, normoactive bowel sounds present, Soft to palpation, non-tender and no masses PALPATION: Yes Soft to palpation Extremity: COMMON NORMALS: normal to inspection and full ROM Neuro: COMMON NORMALS: patient oriented x3, moves all extremities and no focal motor deficits Psych: COMMON NORMALS: mental status grossly normal, Normal thought process present and cooperative THOUGHT PROCESS: Normal thought process present Skin: COMMON NORMALS: no rashes or lesions noted and no wounds GENERAL SKIN EXAM: no rashes or lesions noted Course Vital Signs: Vital signs: Vital Signs Temperature 98.0 F 11/01/21 23:38 Pulse Rate 93 11/01/21 23:38 Respiratory Rate 16 11/02/21 02:09 Blood Pressure 121/83 11/01/21 23:38 Pulse Oximetry 99 11/01/21 23:38 MDM - Abdominal Pain Medical Decision Making Patient presents here with abdominal pain. CT showed a possible early appendicitis. She does have some very mild tenderness I spoke to the surgeon along with patient will admit for observation for serial exams and white counts at this time. Lab Data : 11/02/21 01:42 11/02/21 01:42 Labs/Radiology: Radiology Impressions Abdomen/Pelvis CT 11/02/21 01:14 IMPRESSION: 1. The appendix is mildly prominent measuring 7.6 mm and contains hyperdense material intraluminally. However, there are some intraluminal gas densities present and there are no inflammatory changes seen within the adjacent appendiceal mesentery to suggest appendicitis. However in view the patient's clinical findings, mild appendicitis cannot be entirely excluded. 2. Bilateral nonobstructing renal calculi ADDENDUM: 11/02/21 0419 CRITICAL RESULT: THIS REPORT CONTAINS FINDINGS THAT MAY BE CRITICAL TO PATIENT CARE. The findings were verbally communicated via telephone conference with CARMELA Hemphill at 4:17 AM CDT on 11/02/2021. The findings were acknowledged and understood. Laboratory Results WBC 11.7 10^3/uL (4.0-10.0) H 11/02/21 01:42 RBC 4.76 10^6/uL (4.1-5.3) 11/02/21 01:42 Hgb 14.3 g/dL (11.5-15.3) 11/02/21 01:42 Hct 42.1 % (37.0-47.0) 11/02/21 01:42 MCV 88.4 fl (81-99) 11/02/21 01:42 MCH 30.0 pg (28.0-34.0) 11/02/21 01:42 MCHC 34.0 g/dL (30.0-36.0) 11/02/21 01:42 RDW 12.3 % (12.1-15.1) 11/02/21 01:42 Plt Count 298 10^3/cmm (130-400) 11/02/21 01:42 MPV 9.6 fL (7.4-10.4) 11/02/21 01:42 Lymph % (Auto) Not Reportable 11/02/21 01:42 [facility] % (Auto) Not Reportable 11/02/21 01:42 Lymph # (Auto) Not Reportable 11/02/21 01:42 [facility] # (Auto) Not Reportable 11/02/21 01:42 Total Counted 100 (0-100) 11/02/21 01:42 Atypical Lymphs % 3.0 % (0-5) 11/02/21 01:42 Absolute Neutrophils 6.6 10^3/cmm (1.4-6.5) H 11/02/21 01:42 Segmented Neutrophils 56 % 11/02/21 01:42 Abs Segm Neuts (Man) 6.6 10/cmm (1.6-7.1) 11/02/21 01:42 Band Neutrophils 0.0 % 11/02/21 01:42 Abs Band Neuts (Man) 0.0 10^3/cmm (0.0-1.2) 11/02/21 01:42 Absolute Lymphocytes 4.4 10^3/cmm (1.2-3.4) H 11/02/21 01:42 Lymphocytes (Manual) 35 % 11/02/21 01:42 Monocytes (Manual) 4.0 % 11/02/21 01:42 Absolute Monocytes 0.5 10^3/cmm (0.1-0.6) 11/02/21 01:42 Eosinophils (Manual) 2 % 11/02/21 01:42 Absolute Eosinophils 0.2 10^3/cmm (0.0-0.7) 11/02/21 01:42 Basophils (Manual) 0.0 % 11/02/21 01:42 Absolute Basophils 0.0 10^3/cmm (0.0-0.2) 11/02/21 01:42 Platelet Estimate Normal (Normal) 11/02/21 01:42 Sodium 139 mmol/L (136-145) 11/02/21 01:42 Potassium 4.1 mmol/L (3.5-5.1) 11/02/21 01:42 Chloride 107 mmol/L (98-107) 11/02/21 01:42 Carbon Dioxide 21 mmol/L (22-29) L 11/02/21 01:42 Anion Gap 15.1 (5-19) 11/02/21 01:42 BUN 12 mg/dL (6-20) 11/02/21 01:42 Creatinine 0.7 mg/dL (0.5-0.9) 11/02/21 01:42 GFR Calculation 93.2 mL/min (90-130) 11/02/21 01:42 Glucose 119 mg/dL (65-115) H 11/02/21 01:42 Calculated Osmolality 289 mOsm/kg (285-295) 11/02/21 01:42 Calcium 9.0 mg/dL (8.5-10.5) 11/02/21 01:42 Total Bilirubin 0.3 mg/dL (0.15-1.2) 11/02/21 01:42 AST 14 U/L (0-32) 11/02/21 01:42 ALT 16 U/L (0-33) 11/02/21 01:42 Alkaline Phosphatase 85 IU/L (35-105) 11/02/21 01:42 Total Protein 6.9 g/dL (6.6-8.7) 11/02/21 01:42 Albumin 4.5 g/dL (3.5-5.2) 11/02/21 01:42 Globulin 2.4 g/dL (1.3-4.6) 11/02/21 01:42 Lipase 21 U/L (13-60) 11/02/21 01:42 Urine Color Yellow (Yellow) 11/02/21 00:01 Urine Appearance Cloudy (CLEAR) 11/02/21 00:01 Urine pH 7 (5-7) 11/02/21 00:01 Ur Specific [place] 1.015 (1.005-1.030) 11/02/21 00:01 Urine Protein Neg (Negative) 11/02/21 00:01 Urine Glucose (UA) Norm (Normal) 11/02/21 00:01 Urine Ketones Negative (Negative) 11/02/21 00:01 Urine Blood Neg (Negative) 11/02/21 00:01 Urine Nitrate Negative (Negative) 11/02/21 00:01 Urine Bilirubin Neg (Negative) 11/02/21 00:01 Urine Urobilinogen Norm mg/dL (Negative) 11/02/21 00:01 Ur Leukocyte Esterase Negative (Negative) 11/02/21 00:01 Discharge Plan Discharge Patient Disposition: Placed in Observation Clinical Impression: Appendicitis Qualifiers: Appendicitis type: unspecified Qualified Code(s): K37 - Unspecified appendicitis Coding Level of Care Code ED [employer]r for [facility] Fwd Exam Comprehensive
[2021-11-02 01:54] LABS: Hematocrit 42.1 % (37.0-47.0); Hemoglobin 14.3 g/dL (11.5-15.3); Mean Corpuscular Volume 88.4 fl (81-99); Mean Platelet Volume 9.6 fL (7.4-10.4); Platelet Count 298 10^3/cmm (130-400); Red Blood Count 4.76 10^6/uL (4.1-5.3); Red Cell Distribution Width 12.3 % (12.1-15.1); White Blood Count 11.7 10^3/uL (4.0-10.0)
[2021-11-02 02:09] VITALS: RESP 16
[2021-11-02 02:09] LABS: Add Urine Microscopic? NO; Charge for UA Resulting for Rev
[2021-11-02] MEDS: sodium chloride 0.9% 1,000 ML 999 ML IV (02:09)
[2021-11-02] MEDS: HYDROmorphone 1 mg/mL INJ 1 mL IVP (02:09)
[2021-11-02] MEDS: ondansetron 2 mg/ML SDV 2 mL 4 MG IVP ×2 (02:10→05:10)
[2021-11-02 02:11] LABS: Alanine Aminotransferase 16 U/L (0-33); Albumin Level 4.5 g/dL (3.5-5.2); Alkaline Phosphatase 85 IU/L (35-105); Anion Gap 15.1 (5-19); Aspartate Amino Transferase 14 U/L (0-32); Blood Urea Nitrogen 12 mg/dL (6-20); Carbon Dioxide 21 mmol/L (22-29); Chloride 107 mmol/L (98-107); Globulin 2.4 g/dL (1.3-4.6); Glomerular Filtration Rate 93.2 mL/min (90-130); Glucose 119 mg/dL (65-115); Lipase 21 U/L (13-60); Osmolality Calculated 289 mOsm/kg (285-295); Potassium 4.1 mmol/L (3.5-5.1); Sodium 139 mmol/L (136-145); Total Bilirubin 0.3 mg/dL (0.15-1.2); Total Protein 6.9 g/dL (6.6-8.7)
[2021-11-02 02:18] LABS: Absolute Eosinophils 0.2 10^3/cmm (0.0-0.7); Absolute Neutrophil 6.6 10^3/cmm (1.4-6.5); Absolute Segmented Neutrophil 6.6 10/cmm (1.6-7.1); Eosinophils 2 %; Lymphocytes 35 %; Lymphocytes Absolute 4.4 10^3/cmm (1.2-3.4); Monocytes Absolute 0.5 10^3/cmm (0.1-0.6); Platelet Estimate Normal (Normal); Segmented Neutrophils 56 %; Total Cells Counted 100 (0-100)
[2021-11-02 02:21] LABS: Bilirubin Urine Neg (Negative); Blood Urine Neg (Negative); Glucose Urine UA Norm (Normal); Ketones Urine Negative (Negative); Leukocyte Esterase Urine Negative (Negative); Nitrate Urine Negative (Negative); Protein Urine Neg (Negative); Specific Gravity, Urine 1.015 (1.005-1.030); Urine Appearance Cloudy (CLEAR); Urine Color Yellow (Yellow); Urobilinogen Urine Norm (Negative); pH Urine 7 (5-7)
[2021-11-02] MEDS: piperacillin-tazobactam 3.375 GM in sodium chloride 0.9% (plus) 50 ML IV (05:00)
[2021-11-02] MEDS: sodium chloride 0.9% 1,000 ML 100 ML IV ×2 (05:37→15:25)
--- NOTE | 2021-11-02 05:42 | PM.HP ---
Providers/Chief Complaint Admitting Physician: Bhaskar Drew MD Primary Care Provider: Lj Joseph MD Chief Complaint: R side pain History of Present Illness Ms. Cindy Rodarte is a pleasant 40 year old female presents to the emergency department with right flank pain. Mostly intermittent yet it did get worse. Patient had history of kidney stones in the past and she feels it is about the same. Nothing seems to make it better or worse. Reports nausea but no vomiting. No evidence of fevers chills dysuria or diarrhea. Further blood work showed leukocytosis of 11.7, hemoglobin 14.3, creatinine 0.7 otherwise normal lab values. CT of the abdomen pelvis was done and showed; 1. The appendix is mildly prominent measuring 7.6 mm and contains hyperdense material intraluminally. However, there are some intraluminal gas densities present and there are no inflammatory changes seen within the adjacent appendiceal mesentery to suggest appendicitis. However in view the patient's clinical findings, mild appendicitis cannot be entirely excluded. 2. Bilateral nonobstructing renal calculi. General surgery was consulted for further evaluation and potential management. On further evaluating the patient on the floor. Patient reports that the pain started on the right flank not at the periumbilical area. Currently she feels better and she denies any abdominal pain. Review of Systems General: Reports: 10 or more systems reviewed and unremarkable except in HPI and below Medications/Allergies Home Medications Medication Instructions Recorded Confirmed Last Taken Type amitriptyline 100 mg tablet 100 mg PO DAILY 09/14/19 09/12/21 Unknown History bupropion HCl 300 mg 24 hr tablet, 300 mg PO QAM 09/14/19 09/12/21 09/21/19 History extended release (Wellbutrin XL) cetirizine 10 mg tablet (All Day 10 mg PO DAILY 09/14/19 09/12/21 Unknown History Allergy (cetirizine)) diclofenac sodium 75 mg 75 mg PO BID 09/14/19 09/12/21 Unknown History tablet,delayed release zonisamide 100 mg capsule 200 mg PO DAILY cap 09/14/19 09/12/21 09/20/19 History (Zonegran) ibuprofen 800 mg tablet 800 mg PO Q8H PRN 09/22/19 09/12/21 Unknown History spironolactone 25 mg tablet 25 mg PO DAILY 01/02/21 09/12/21 Unknown History albuterol sulfate 1.25 mg/3 mL 1.25 mg INHALATION QID PRN 01/24/21 09/12/21 Unknown History solution for nebulization albuterol sulfate 90 mcg/actuation 2 puff INHALATION Q6H PRN 01/24/21 09/12/21 Unknown History aerosol inhaler bacitracin zinc 500 unit/gram 1 applic TOPICAL DAILY 01/24/21 09/12/21 Unknown History topical ointment (Antibiotic (bacitracin zinc)) potassium chloride 20 mEq 20 meq PO DAILY 01/24/21 09/12/21 Unknown History tablet,extended release(part/cryst) topiramate 50 mg capsule 50 mg PO DAILY 03/08/21 09/12/21 Unknown History sprinkle,extended release 24 hr atorvastatin 40 mg tablet 20 mg PO DAILY tab 06/19/21 09/12/21 Unknown History cholecalciferol (vitamin D3) 1,250 PO 06/19/21 09/12/21 Unknown History mcg (50,000 unit) capsule mecobalamin (vitamin B12) 1,000 3,000 mcg PO DAILY tab 06/19/21 09/12/21 Unknown History mcg chewable tablet (B12 Active) mupirocin 2 % topical ointment 1 applic TOPICAL BID 06/19/21 09/12/21 Unknown History terbinafine HCl 1 % topical cream 1 applic TOPICAL BID 06/19/21 09/12/21 Unknown History (Antifungal (terbinafine)) fluticasone propionate 110 2 puff INHALATION BID 30 Days #12 g 08/10/21 09/12/21 Unknown Rx mcg/actuation HFA aerosol inhaler (Flovent HFA) fluticasone propionate 50 1 spray INTRANASAL BID 30 Days #16 08/10/21 09/12/21 Unknown Rx mcg/actuation nasal g spray,suspension (Flonase Allergy Relief) magnesium oxide mg PO 08/10/21 09/12/21 Unknown History acyclovir 400 mg tablet 400 mg PO DAILY 09/12/21 09/12/21 Unknown History metformin 500 mg 24 hr 500 mg PO DAILY 09/12/21 09/12/21 Unknown History tablet,extended release Allergies Allergy/AdvReac Type Severity Reaction Status Date / Time adhesive tape Allergy ALGY-Rash Verified 11/02/21 05:45 Tetracyclines Allergy ALGY-Rash Verified 11/02/21 05:45 PFSH Acute PFSH: Medical History Asthma COPD (chronic obstructive pulmonary disease) Dyslipidemia Greater trochanteric pain syndrome Left hip Left ureteral stone Right flank pain Right renal stone Right shoulder pain Urolithiasis Surgical History Hx of section Hx of exploratory laparotomy Hx of hysterectomy Hx of tonsillectomy Hx of tubal ligation Family History Father Bleeding disorder Diabetes Hyperlipidemia CAD (coronary artery disease) Chronic kidney disease (CKD) Hypertension Seizure Family/Other Lung disease Liver disease Seizure Grandfather Lung disease Mother Stroke Migraine Liver disease Grandmother Cancer Social History Smoking and tobacco status: former smoker Second hand smoke exposure: No Smoking risk assessment/counseling performed?: No Alcohol intake: never Counseling given: No Counseling given: No Lives independently: Yes Household members: children Marital status: Single Current occupational status: disabled History of recent travel: No Current gender identity: Female Vitals/I&O/Wt Last Vital Signs Temp 98.0 F 11/01/21 23:38 Pulse 93 11/01/21 23:38 Resp 16 11/02/21 02:09 BP 121/83 11/01/21 23:38 Pulse Ox 99 11/01/21 23:38 11/01/21 11/01/21 11/02/21 14:59 22:59 06:59 Intake Total 1050 / 1050 Balance 1050 / 1050 Weight last 48 hrs Weight 196 lb Physical Exam Const: COMMON NORMALS: no acute distress and patient oriented x3 GENERAL APPEARANCE: cooperative ORIENTATION/CONSCIOUSNESS: Yes awake, Yes oriented to person, Yes oriented to place and Yes oriented to time HENMT: COMMON NORMALS: normocephalic HEAD & SCALP: normocephalic Eye: COMMON NORMALS: Equal, round and reactive pupils present and no scleral icterus PUPIL: Yes Equal, round and reactive pupils present Lymph: LYMPHATIC: no lymphadenopathy noted Chest: COMMONS NORMALS: normal inspection of the chest Resp: COMMON NORMALS: normal respiratory effort and clear to auscultation bilaterally AUSCULTATION: clear to auscultation bilaterally Cardio: COMMON NORMALS: S1 normal heart sound present and S2 normal heart sound present; negative for No murmurs present (Cardio) HEART SOUNDS: S1 normal heart sound present and S2 normal heart sound present GI: COMMON NORMALS: Soft to palpation; negative for No hepatosplenomegaly present INSPECTION: Yes normal to inspection PALPATION: Yes Soft to palpation, No Firmness to palpation present (GI), Yes Tenderness to palpation present (GI) Details: RUQ and other (No evidence of localized tenderness or rigidity at McBurney's point), No Guarding due to palpation present (GI), No Rigid due to palpation and No No hepatosplenomegaly present Neuro: COMMON NORMALS: patient oriented x3 SENSORIUM/ORIENTATION: Yes oriented to person, Yes oriented to place and Yes oriented to time Psych: COMMON NORMALS: mental status grossly normal Skin: COMMON NORMALS: no rashes or lesions noted GENERAL SKIN EXAM: no rashes or lesions noted Data : 11/02/21 01:42 11/02/21 01:42 A&P Assessment and plan (1) Appendicitis: After history taking which the patient does not give a classic history of acute appendicitis, and per physical examination there are no distinct tenderness at the right lower quadrant and after reviewing the chart with my personal interpretation. I do appreciate intraluminal gas within the appendix. IV fluid hydration Patient was started on Zosyn in the ER we will continue that Repeated physical exam We will plan to review the images with our radiologist Assurance and education All questions have been answered and all concerns have been addressed to patient's satisfaction. Status: Suspected Qualifiers: Appendicitis type: unspecified Qualified Code(s): K37 - Unspecified appendicitis Attestations Medical Necessity Statement*: Observation status for repeated physical examination and IV fluid resuscitation with potential intervention Time Spent in Patient Care: 16 - 35 minutes Coding Level of Care Code Acute Title Assistant for [facility] Fwd Exam Comprehensive Diagnoses Appendicitis K37 Appendicitis type: unspecified
[2021-11-02 05:45] VITALS: BMI 37.2
[2021-11-02 06:39] VITALS: BP 107/74; PULSE 74; RESP 16; TEMP 36.4; O2SAT 98
[2021-11-02 07:28] VITALS: BP 104/68; PULSE 78; RESP 14; TEMP 36.2; O2SAT 97
[2021-11-02 11:25] VITALS: BP 104/68; PULSE 75; RESP 16; TEMP 36.4; O2SAT 97
[2021-11-02 16:42] VITALS: BP 99/63; PULSE 75; RESP 18; TEMP 36.6; O2SAT 96
[2021-11-02] MEDS: famotidine 20 mg/2 mL INJ IVP (18:39)
[2021-11-02 20:00] VITALS: BP 100/69; PULSE 69; RESP 18; TEMP 36.6; O2SAT 98
[2021-11-03] VITALS (7 sets, daily range): BP systolic 99–123; BP diastolic 65–84; PULSE 70–85; RESP 16–19; TEMP 36.5–36.8; O2SAT 97–98
[2021-11-03] MEDS: sodium chloride 0.9% 1,000 ML 100 ML IV ×2 (01:08→11:09)
[2021-11-03 05:18] LABS: Basophils # 0.1 10^3/uL (0.0-0.1); Basophils % 0.7 %; Eosinophils # 0.4 10^3/uL (0.0-0.8); Hematocrit 37.4 % (37.0-47.0); Hemoglobin 12.6 g/dL (11.5-15.3); Lymphocytes # 3.7 10^3/uL (0.8-4.8); Lymphocytes % 37.3 %; Mean Corpuscular HGB Conc 33.7 g/dL (30.0-36.0); Mean Corpuscular Hemoglobin 29.9 pg (28.0-34.0); Mean Corpuscular Volume 88.8 fl (81-99); Mean Platelet Volume 9.7 fL (7.4-10.4); Monocytes # 0.5 10^3/uL (0.2-0.9); Monocytes % 5.2 %; Neutrophils # 5.17 10^3/uL (1.8-7.7); Neutrophils % 52.6 %; Nucleated Red Blood Cells % 0 %; Platelet Count 255 10^3/cmm (130-400); Red Blood Count 4.21 10^6/uL (4.1-5.3); Red Cell Distribution Width 12.3 % (12.1-15.1); White Blood Count 9.8 10^3/uL (4.0-10.0)
[2021-11-03 05:34] LABS: Blood Urea Nitrogen 6 mg/dL (6-20); Carbon Dioxide 18 mmol/L (22-29); Chloride 112 mmol/L (98-107); Glomerular Filtration Rate 111.3 mL/min (90-130); Glucose 81 mg/dL (65-115); Osmolality Calculated 285 mOsm/kg (285-295); Sodium 139 mmol/L (136-145)
[2021-11-03] MEDS: famotidine 20 mg/2 mL INJ IVP (06:15)
--- NOTE | 2021-11-03 07:21 | P.SS_ITS ---
Short Stay Summary Providers Date of Admit/Discharge: 11/03/21 Attending Provider: Bhaskar Drew MD Primary Care Provider: Lj Joseph MD Chief Complaint: R side pain HPI History of Present Illness Ms. Cindy Rodarte is a pleasant 40 year old female presents to the emergency department with right flank pain.? Mostly intermittent yet it did get worse.? Patient had history of kidney stones in the past and she feels it is about the same.? Nothing seems to make it better or worse.? Reports nausea but no vomiting.? No evidence of fevers chills dysuria or diarrhea. Further blood work showed leukocytosis of 11.7, hemoglobin 14.3, creatinine 0.[address] lab values. CT of the abdomen pelvis was done and showed; 1. The appendix is mildly prominent measuring 7.6 mm and contains hyperdense material intraluminally. However, there are some intraluminal gas densities present and there are no inflammatory changes seen within the adjacent appendiceal mesentery to suggest appendicitis. However in view the patient's clinical findings, mild appendicitis cannot be entirely excluded. 2. Bilateral nonobstructing renal calculi. General surgery was consulted for further evaluation and potential management. On further evaluating the patient on the floor.? Patient reports that the pain started on the right flank not at the periumbilical area.? Currently she feels better and she denies any abdominal pain. Patient is responding well to conservative measures. Images were discussed with our radiologist and no evidence of acute appendicitis. I did review the images of the CT scan with Dr. Ahumada our radiologist.? And she does not believe that the patient has radiological appendicitis.? From surgical standpoint of view on repeat clinical examination no appreciated tenderness or localized rigidity. I will plan to start the patient on clear liquid diet and keep her n.p.o. after midnight for repeated physical exam in the morning with repeat CBC and BMP in the a.m. Assurance and education All questions have been answered and all concerns have been addressed to pat costa's satisfaction. Review of Systems General: Reports: 10 or more systems reviewed and unremarkable except in HPI and below Home Meds/Allergies Home Medications and Allergies Home Medications Medication Instructions Recorded Confirmed Type amitriptyline 100 mg tablet 100 mg PO BEDTIME PRN 09/14/19 11/02/21 History bupropion HCl 300 mg 24 hr tablet, 300 mg PO QAM 09/14/19 11/02/21 History extended release (Wellbutrin XL) cetirizine 10 mg tablet (All Day 10 mg PO DAILY PRN 09/14/19 11/02/21 History Allergy (cetirizine)) diclofenac sodium 75 mg 75 mg PO BID PRN 09/14/19 11/02/21 History tablet,delayed release zonisamide 100 mg capsule 300 mg PO QAM cap 09/14/19 11/02/21 History (Zonegran) ibuprofen 800 mg tablet 800 mg PO Q8H PRN 09/22/19 11/02/21 History spironolactone 25 mg tablet 25 mg PO DAILY 01/02/21 11/02/21 History albuterol sulfate 90 mcg/actuation 2 puff INHALATION QID PRN 01/24/21 11/02/21 History aerosol inhaler bacitracin zinc 500 unit/gram 1 applic TOPICAL DAILY PRN 01/24/21 11/02/21 History topical ointment (Antibiotic (bacitracin zinc)) mupirocin 2 % topical ointment 1 applic TOPICAL BID PRN 06/19/21 11/02/21 History terbinafine HCl 1 % topical cream 1 applic TOPICAL BID PRN 06/19/21 11/02/21 History (Antifungal (terbinafine)) acyclovir 400 mg tablet 400 mg PO TID PRN 09/12/21 11/02/21 History albuterol sulfate 2.5 mg INHALATION QID PRN 11/02/21 11/02/21 History atorvastatin 20 mg tablet 20 mg PO QAM 11/02/21 11/02/21 History cholecalciferol (vitamin D3) 1,250 50,000 unit PO .TWICE A WEEK 11/02/21 11/02/21 History mcg (50,000 unit) tablet (Dialyvite Vitamin D3 Max) cyanocobalamin (vitamin B-12) 2,500 mcg PO Q7D 11/02/21 11/02/21 History 2,500 mcg sublingual tablet (Vitamin B-12) magnesium 200 mg tablet 200 mg PO DAILY 11/02/21 11/02/21 History metformin 500 mg tablet,extended 500 mg PO DAILY 11/02/21 11/02/21 History release 24 hr potassium chloride 10 mEq 10 meq PO DAILY 11/02/21 11/02/21 History tablet,extended release prednisone 20 mg tablet 40 mg PO DAILY 11/02/21 11/02/21 History topiramate 50 mg tablet 50 mg PO QAM 11/02/21 11/02/21 History Allergies Allergy/AdvReac Type Severity Reaction Status Date / Time adhesive tape Allergy ALGY-Rash Verified 11/02/21 05:45 Tetracyclines Allergy ALGY-Rash Verified 11/02/21 05:45 PFSH Acute PFSH: Medical History (Updated 11/03/21 @ 07:23 by Bhaskar Drew MD) Appendicitis Asthma COPD (chronic obstructive pulmonary disease) Dyslipidemia Greater trochanteric pain syndrome Left hip Left ureteral stone Right flank pain Right renal stone Right shoulder pain Urolithiasis Surgical History Hx of section Hx of exploratory laparotomy Hx of hysterectomy Hx of tonsillectomy Hx of tubal ligation Family History Father Bleeding disorder Diabetes Hyperlipidemia CAD (coronary artery disease) Chronic kidney disease (CKD) Hypertension Seizure Family/Other Lung disease Liver disease Seizure Grandfather Lung disease Mother Stroke Migraine Liver disease Grandmother Cancer Social History Smoking and tobacco status: former smoker Second hand smoke exposure: No Smoking risk assessment/counseling performed?: No Alcohol intake: never Counseling given: No Counseling given: No Lives independently: Yes Household members: children Marital status: Single Current occupational status: disabled History of recent travel: No Current gender identity: Female Vitals/I&O/Wt Last Vital Signs Temp 97.8 F 11/03/21 04:00 Pulse 70 11/03/21 07:19 Resp 17 11/03/21 07:19 BP 100/65 11/03/21 07:19 Pulse Ox 97 11/03/21 07:19 11/02/21 11/03/21 11/03/21 22:59 06:59 14:59 Intake Total 1609 1970 971.667 / 2941.667 Output Total 725 / 725 Balance 885 / 1245 971.667 / 2216.667 Weight last 48 hrs Weight 197 lb 2 oz Weight 196 lb Physical Exam Narrative: Patient is conscious alert oriented X3 No apparent distress BMI 37 Head and neck examination PERRLA no masses no cervical lymphadenopathy no jaundice Cardiac examination audible S1-S2 no murmurs no gallops no arrhythmias Chest is clear bilateral,abscence of Rhonchi or wheezes,no surgical emphysema Abdomen nontender nondistended soft no organomegaly guarding or rigidity/no signs of peritonitis Extremities no cyanosis no clubbing no edema Hospital Course Admission Diagnoses Suspecting acute appendicitis Hospital Course Patient maintained to have adequate urine output, stable vital signs and trending down leukocytosis to normal levels. Tolerating p.o. and adequate urine output, passing gas had a bowel movement. Complaining of right-sided abdominal pain but less intense otherwise physical examination does not show any evidence of clinically detected acute appendicitis. Patient's pain is slightly referred to the right groin but no guarding or rigidity at McBurney's point. Patient reports history of kidney stones in the past. On evening rounds around 4 PM Patient's clinical exam is unremarkable and she feels a lot better after she had a bowel movement. Discharge Summary Patient is meeting the appropriate criteria for safe discharge home with the plan to follow-up as an outpatient at my office. With focus on appropriate hydration and avoid constipation. SSS Data Data Completed and Pending: Completed Studies During Hospitalization Category Date Time Status CT abdomen renal stone [CT kidney s tone 51105] Urgent Cat Scan 11/02/21 01:14 Completed Diagnoses at Discharge Discharge Diagnosis (1) Appendicitis: Status: Ruled-out Qualifiers: Appendicitis type: unspecified Qualified Code(s): K37 - Unspecified appendicitis Discharge Plan Discharge Patient Disposition: Home Condition: Stable Prescriptions: Continued spironolactone 25 mg tablet 25 mg PO DAILY 0RF albuterol sulfate 90 mcg/actuation HFA aerosol inhaler 2 puff inhalation QID PRN (Reason: Shortness Of Breath Or Wheezing) 0RF bacitracin zinc [Antibiotic (bacitracin zinc)] 500 unit/gram ointment 1 applic topical DAILY PRN (Reason: unknown) 0RF fluticasone propionate [Flonase Allergy Relief] 50 mcg/actuation spray,suspension 1 spray intranasal BID 30 Days Qty: 16 3RF Rx Instructions: administer into each nostril Flovent HFA 110 mcg/actuation HFA aerosol inhaler 2 puff inhalation BID 30 Days Qty: 12 5RF mupirocin 2 % ointment 1 applic topical BID PRN (Reason: unknown) 0RF terbinafine HCl [Antifungal (terbinafine)] 1 % cream 1 applic topical BID PRN (Reason: unknown) 0RF bupropion HCl [Wellbutrin XL] 300 mg tablet extended release 24 hr 300 mg PO QAM 0RF amitriptyline 100 mg tablet 100 mg PO BEDTIME PRN (Reason: unknown) 0RF diclofenac sodium 75 mg tablet,delayed release (DR/EC) 75 mg PO BID PRN (Reason: Pain) 0RF zonisamide [Zonegran] 100 mg capsule 300 mg PO QAM 0RF cetirizine [All Day Allergy (cetirizine)] 10 mg tablet 10 mg PO DAILY PRN (Reason: Allergy Symptoms) 0RF acyclovir 400 mg tablet 400 mg PO TID PRN (Reason: Cold Sores) 0RF ibuprofen 800 mg Tablet 800 mg PO Q8H PRN (Reason: Pain) 0RF atorvastatin 20 mg Tablet 20 mg PO QAM 0RF Vitamin B-12 2,500 mcg Tablet, Sublingual 2,500 mcg PO Q7D 0RF Rx Instructions: on fri albuterol sulfate 2.5 mg /3 mL (0.083 %) Solution For Nebulization 2.5 mg INHALATION QID PRN (Reason: Shortness Of Breath) 0RF prednisone 20 mg Tablet 40 mg PO DAILY 0RF Rx Instructions: for 5 days (rx filled 11/01/21) potassium chloride 10 mEq Tablet Extended Release 10 meq PO DAILY 0RF metformin 500 mg Tablet Extended Release 24 Hr 500 mg PO DAILY 0RF magnesium 200 mg Tablet 200 mg PO DAILY 0RF topiramate 50 mg Tablet 50 mg PO QAM 0RF Dialyvite Vitamin D3 Max 1,250 mcg (50,000 unit) Tablet 50,000 unit PO .TWICE A WEEK 0RF Discharge Orders: Discharge Order (Routine); Ordered 11/03/21 Ordered By: Bhaskar Drew Referrals: Bhaskar Drew MD [Physician] - 6 Weeks (Return to surgery office in 1 week) Lj Joseph MD [Primary Care Provider] - 7-10 days (Please call [phone] to schedule a follow up appointment with Dr. Joseph's office for 7- 10 days. Thank you.) Discharge Diet: Advance as tolerated Discharge Activity: Increase activity as tolerated Patient Instructions: Acute Abdominal Pain (DC), Opioid Safety Activity Restrictions/Additional Instructions: Plan of care; Review the CT scan findings with the patient Return to primary care provider Avoid constipation High Fiber diet; As Fiber softens the stool and helps prevent constipation. High-fiber foods include: ? Beans and legumes ? Bran, whole wheat bread and whole grain cereals such as oatmeal ? Brown and wild rice ? Fruits such as apples, bananas and pears ? Vegetables such as broccoli, carrots, corn and squash ? Whole wheat pasta The target is to eat 25 to 30 grams of fiber daily. Drink at least 8 cups of fluid daily. Fluid will help soften your stool.Exercise also promotes bowel movement and helps prevent constipation. Weight management Return to the ER for any worsening symptoms in the form of nausea, vomiting, fevers or abdominal pain. Assurance and education All questions have been answered Attestations Medical Necessity Statement*: Observation status Time Spent in Patient Care*: greater than 30 min Status at Discharge: Cognitive status at discharge: cognitively intact , Behavioral status at discharge: cooperative , Functional status at discharge: independent ambulation Overall status at discharge: patient is progressing back to baseline Quality Metrics Clinical Quality Measures: [ No reported AMI, CVA or VTE this stay ] Coding Level of Care Code [employer] Diagnoses Appendicitis K37 Appendicitis type: unspecified
[2021-11-03] MEDS: predniSONE 20 mg Tablet 40 MG PO (08:29)
[2021-11-03] MEDS: glycerin adult supp 1 EACH PR (09:34)
== END 2021-11-03 17:05 | disposition home or self-care (01) ==
LOC: ER 11-02 04:27 → MEDSURG 11-02 04:32
PROVIDERS: Admitting Provider Surgery; Emergency Provider Emergency Medicine; PCP Family Medicine; Visit Provider Surgery
DX: K37 Unspecified appendicitis (principal); Z87.891 Personal history of nicotine dependence; J44.9 Chronic obstructive pulmonary disease, unspecified; E78.5 Hyperlipidemia, unspecified
CPT/HCPCS: 36415; 74176; 80048; 80053; 81003; 83690; 85007; 85025; 96365; 96375; 99285; G0378; J1170; J2405; J2543; J3490; J7030; J7512

== ENCOUNTER → 2021-11-08 13:56 | Outpatient (BNVA) | payer MEDICAID, SELFPAY | PROVIDERS: PCP Family Medicine; Visit Provider Surgery | DX: Z09 Encounter for follow-up examination after completed treatment for conditions other than malignant neoplasm (principal) | CPT/HCPCS: 99213 ==

== ENCOUNTER → 2021-11-09 09:32 | Outpatient (BNVA) | payer MEDICAID, SELFPAY | PROVIDERS: PCP Family Medicine; Visit Provider Internal Medicine Critical Care Medicine | DX: J45.909 Unspecified asthma, uncomplicated (principal); J31.0 Chronic rhinitis; J32.9 Chronic sinusitis, unspecified; F17.210 Nicotine dependence, cigarettes, uncomplicated; E78.5 Hyperlipidemia, unspecified | CPT/HCPCS: 99214 ==

== ENCOUNTER 2021-12-19 07:46 | Outpatient (CLI) | payer MEDICAID, SELFPAY ==
--- NOTE | 2021-12-19 08:10 | XRR_ITS ---
PROCEDURE INFORMATION: Exam: XR Chest Exam date and time: 12/19/2021 8:45 AM Age: 41 years old Clinical indication: Shortness of breath; Patient HX: No chest complaints right now do get short of breath on excertion x 2 years TECHNIQUE: Imaging protocol: Radiologic exam of the chest. Views: 2 views. PA and Lateral COMPARISON: CR Chest 1 [place] [id number] 10/16/2018 4:00 AM FINDINGS: Lungs: There are normal lung volumes without interstitial or airspace opacities. Pleural spaces: There are no pleural effusions or pneumothorax. Heart/Mediastinum: The heart size is normal. The pulmonary vasculature is normal. The mediastinal contour is normal. The trachea is in the midline. Bones/joints: No acute abnormalities. XR/XR chest 2V* [id number] IMPRESSION: No chest radiographic evidence of acute cardiopulmonary disease.
--- NOTE | 2021-12-19 14:15 | PFTS_ITS ---
Date of Study:12/19/21 Date of Dictation: 12/24/2021 MECHANICS: Postbronchodilator forced vital capacity (FVC) is reduced. Postbronchodilator forced expiratory volume in one second (FEV1) is moderately reduced. FEV1/FVC is normal. There is no significant response to bronchodilator. FLOW VOLUME LOOP: Sloping of end expiratory limb suggestive of airflow obstruction . LUNG VOLUMES: Total lung capacity (TLC) is mildly reduced. Residual volume (RV) is increased. DIFFUSING CAPACITY FOR CARBON MONOXIDE: Normal . INTERPRETATION: The PFTs show mixed pattern. There is moderate restriction on spirometry. Lung volumes reflect air trapping and hyperinflation. There is no significant postbronchodilator response.? Gas transfer is normal.? Clinical correlation recommended. MTDD
== END 2021-12-19 07:47 | disposition home or self-care (01) ==
LOC: RT 07:47
PROVIDERS: PCP Family Medicine; Visit Provider Internal Medicine Critical Care Medicine
DX: R06.02 Shortness of breath (principal); J45.909 Unspecified asthma, uncomplicated
CPT/HCPCS: 71046; 94060; 94726; 94729; J7611

== ENCOUNTER 2022-01-07 13:07 | Outpatient (CLI) | payer MEDICAID, SELFPAY ==
--- NOTE | 2022-01-07 13:00 | XR_ITS ---
WS: [id number] Exam: XR KUB [id number] Date/Time of Exam: 01/07/2022 1:00 PM Reason For Exam: LEFT URETERAL STONE Comparison 01/02/2021. Small calcification superimposes the lower pole the left kidney and may represent renal calculi. No b owel obstruction or free air. No sign of organ enlargement. Nonspecific bilateral pelvic calcificatio ns. Bony structures are intact. XR/XR KUB [id number] IMPRESSION: 1. Small calcification superimposing the lower pole of the left kidney and may represent a small renal calculus. 2. No acute abdominal process.
== END 2022-01-07 13:08 | disposition home or self-care (01) ==
PROVIDERS: PCP Family Medicine; Visit Provider Urology
DX: N20.1 Calculus of ureter (principal); N20.9 Urinary calculus, unspecified; R35.0 Frequency of micturition
CPT/HCPCS: 74018; 81003; 99213

== ENCOUNTER 2022-01-28 06:45 | Outpatient (CLI) | payer MEDICAID, SELFPAY ==
--- NOTE | 2022-01-28 07:16 | MR_ITS ---
WS: [id number] MRI LUMBAR SPINE NONCONTRAST HISTORY: CHRONIC BACK PAIN COMPARISON: 02/03/2020 TECHNIQUE: Sagittal and axial multisequence imaging is submitted. Disc and osteophyte encroachment upon the cervical canal at C4-5. Normal lumbar alignment with no compression fractures or marrow edema. Mild disc desiccation at L2-3 with disc space narrowing. Similar to the prior examination. Conus terminates normally at L1-2 disc level. L1-L2: Mild ligamentum flavum hypertrophy and a small amount of fluid in the RIGHT facet joint. L2-L3: Moderate annular disc bulging with osteophytic ridging. Shallow central disc protrusion. Ligam entum flavum and facet joint hypertrophy. Encroachment into the ventral thecal sac. There is moderate central with bilateral subarticular recess and mild foraminal stenosis. Most significant encroachmen t upon the traversing L3 nerve roots bilaterally. Similar to the prior study. L3-L4: Mild annular disc bulging with ligamentum flavum and facet arthritis. Very shallow LEFT forami nal disc protrusion. No significant stenosis. There is only mild central, subarticular recess and laureen ateral foraminal narrowing. L4-L5: Mild annular disc bulging with ligamentum flavum and facet arthritis. Very mild encroachment i nto the subarticular recesses and foramen. No high-grade stenosis. L5-S1: LEFT foraminal shallow disc protrusion. There may be very slight encroachment and contact on t he LEFT exiting L5 nerve root. Paravertebral soft tissues are negative. MR/MR lumbar spine wo con* [id number] IMPRESSION: 1. No significant interval change in appearance of the lumbar spine since 02/02. 2. Continued moderate central and bilateral subarticular recess and mild louie inal stenosis at L2-3. There is moderate encroachment upon the traversing L3 ne rve roots. 3. Very shallow LEFT foraminal disc protrusion L5-S1 with very slight encroach ment upon the LEFT L5 nerve root. 4. Mild central, bilateral subarticular recess and foraminal stenosis at L3-4.
== END 2022-01-28 06:46 | disposition home or self-care (01) ==
LOC: RAD 06:46
PROVIDERS: PCP Family Medicine; Visit Provider Family Medicine
DX: M54.9 Dorsalgia, unspecified (principal)
CPT/HCPCS: 72148

== ENCOUNTER → 2022-02-11 08:48 | Outpatient (BNVA) | payer MEDICAID, SELFPAY | PROVIDERS: PCP Family Medicine; Visit Provider Internal Medicine Critical Care Medicine | DX: J45.909 Unspecified asthma, uncomplicated (principal); J31.0 Chronic rhinitis; J32.9 Chronic sinusitis, unspecified; J82.83 Eosinophilic asthma; R05.9 Cough, unspecified; F17.210 Nicotine dependence, cigarettes, uncomplicated | CPT/HCPCS: 71046; 99214 ==

== ENCOUNTER 2022-03-17 08:08 | Emergency (ER) | payer MEDICAID, SELFPAY ==
[2022-03-17 08:14] VITALS: BP 135/99; PULSE 100; RESP 17; TEMP 36.8; O2SAT 100; BMI 36.1
[2022-03-17] MEDS: ketorolac 30 mg/mL INJ IVP (08:36)
[2022-03-17 08:38] VITALS: BP 116/94; PULSE 85; RESP 25; O2SAT 97
--- NOTE | 2022-03-17 08:51 | ED_ITS ---
Documented by User: Evy Stock PA-C 03/17/22 10:34 HPI - Female Genitourinary General: Chief complaint: Urogenital-Female Stated complaint: urinary pain Time Seen by Provider: 03/17/22 08:13 Source: patient Mode of arrival: ambulatory Limitations: no limitations History of Present Illness: 41-year-old female presents to the ER today for right flank, low back, and urinary pain. Patient reports this started 2 days ago. Patient was seen at [facility] and started on Bactrim at that time. Patient was told her UA showed red cells and white cells. Patient was started on the Bactrim and began it and Azo Standard that night. Patient reports she had no symptoms until about 4 AM this morning. Patient reports she woke up with significant right low back pain and pain in her bladder. Patient reports she feels the need to constantly go to the bathroom. Patient does report a history of kidney stones and this feels similar. Patient denies any fever or chills. Patient denies any nausea or vomiting at this time. Patient rates her pain a 9 out of 10 currently. She reports this pain is not spasm-like but rather constant. Review of Systems General: Reports: 10 or more systems reviewed and unremarkable except in HPI and below PFSH ED 2 PFSH: Medical History Appendicitis Asthma COPD (chronic obstructive pulmonary disease) Dyslipidemia Greater trochanteric pain syndrome Left hip Left ureteral stone Right flank pain Right renal stone Right shoulder pain Urinary frequency Urolithiasis Surgical History Hx of section Hx of exploratory laparotomy Hx of hysterectomy Hx of tonsillectomy Hx of tubal ligation Family History Father Bleeding disorder Diabetes Hyperlipidemia CAD (coronary artery disease) Chronic kidney disease (CKD) Hypertension Seizure Family/Other Lung disease Liver disease Seizure Grandfather Lung disease Mother Stroke Migraine Liver disease Grandmother Cancer Social History Smoking and tobacco status: current every day smoker (0.5 ppd) cigarettes Packs smoked per day: 1 Years cigarettes smoked: 23 [ Other cigarette details: started at age 17] Second hand smoke exposure: No Smoking risk assessment/counseling performed?: No Alcohol intake: never Counseling given: No Counseling given: No Lives independently: Yes Household members: children Marital status: Single Current occupational status: disabled History of recent travel: No Current gender identity: Female Physical Exam Const: COMMON NORMALS: average body habitus, patient oriented x3, no limitati ons, healthy appearing, alert and well nourished; apparent distress (Patient is tearful and uncomfortable) HENMT: COMMON NORMALS: normocephalic, atraumatic, external ears normal and moist oral mucous membranes HEAD & SCALP: normocephalic and atraumatic EXTERNAL EAR: Yes external ears normal Eye: COMMON NORMALS: conjunctivae normal CONJUNCTIVA: Yes conjunctivae normal Resp: COMMON NORMALS: normal respiratory effort EFFORT & INSPECTION: Yes able to speak in complete sentences Cardio: COMMON NORMALS: regular rate and regular rhythm RATE: regular rate RHYTHM: regular rhythm GI: COMMON NORMALS: Normal to inspection, nondistended, normoactive bowel sounds present and Soft to palpation; negative for non-tender (Patient has suprapubic tenderness in addition to right flank tenderness) PALPATION: Yes Soft to palpation : COMMON NORMALS: Yes no CVA tenderness BLADDER/KIDNEY EXAM: Yes no CVA tenderness Back/Pelvis: COMMON NORMALS: no CVA tenderness Extremity: COMMON NORMALS: normal to inspection and full ROM Neuro: COMMON NORMALS: patient oriented x3 SENSORIUM/ORIENTATION: Yes alert Psych: COMMON NORMALS: mental status grossly normal, Normal thought process present and cooperative THOUGHT PROCESS: Normal thought process present Skin: COMMON NORMALS: no rashes or lesions noted and no wounds GENERAL SKIN EXAM: no rashes or lesions noted Course ED course: Patient presents for bladder and right flank pain x3 days. Patient reports she was started on Bactrim 2 days ago in addition to Azo Standard. Patient reports she is feeling okay until about 4 AM this morning when the pain worsened. Patient reports a constant need to urinate in addition to constant pain into the right flank. Patient has a history of kidney stones. We will go ahead and get a UA and lab work at this time. We will consider a CT pending lab and UA results. Vital Signs: Vital signs: Vital Signs Temperature 98.3 F 03/17/22 08:14 Pulse Rate 89 03/17/22 10:41 Respiratory Rate 25 H 03/17/22 08:38 Blood Pressure 116/94 03/17/22 08:38 Pulse Oximetry 98 03/17/22 10:41 Oxygen Delivery Me thod 03/17/22 08:38 MDM - Female Medical Decision Making Labs mostly unremarkable. CT was performed and patient appears to have a 3 to 4 mm calculus in the distal right ureter. This likely will pass without any problems. We will treat patient with tamsulosin, ketorolac, and Zofran for nausea. Patient does report significant improvement with the Toradol given in the ER. Patient has a history of kidney stones and is established with Dr. Bartholomew here in [facility]. She will contact him for a follow-up appointment. Patient knows to push fluids and strain urine. She will finish the Bactrim she was given at the walk-in. Return to the ER with new or worsening symptoms. Patient verbalized understanding and was in agreement with the treatment plan. Lab Data : 03/17/22 08:03 03/17/22 08:03 Radiology Impressions Abdomen/Pelvis CT 03/17/22 09:34 IMPRESSION: Mild right hydroureteronephrosis secondary to a 3-4 mm calculus in the distal right ureter. Laboratory Results WBC 8.6 10^3/uL (4.0-10.0) 03/17/22 08:03 RBC 5.01 10^6/uL (4.1-5.3) 03/17/22 08:03 Hgb 14.9 g/dL (11.5-15.3) 03/17/22 08:03 Hct 45.6 % (37.0-47.0) 03/17/22 08:03 MCV 91.0 fl (81-99) 03/17/22 08:03 MCH 29.7 pg (28.0-34.0) 03/17/22 08:03 MCHC 32.7 g/dL (30.0-36.0) 03/17/22 08:03 RDW 12.2 % (12.1-15.1) 03/17/22 08:03 Plt Count 315 10^3/cmm (130-400) 03/17/22 08:03 MPV 9.4 fL (7.4-10.4) 03/17/22 08:03 Neut % (Auto) 57.4 % 03/17/22 08:03 Lymph % (Auto) 31.3 % 03/17/22 08:03 Bee % (Auto) 5.9 % 03/17/22 08:03 Eos % (Auto) 4.2 % 03/17/22 08:03 Baso % (Auto) 0.9 % 03/17/22 08:03 Neut # (Auto) 4.93 10^3/uL (1.8-7.7) 03/17/22 08:03 Lymph # (Auto) 2.7 10^3/uL (0.8-4.8) 03/17/22 08:03 Bee # (Auto) 0.5 10^3/uL (0.2-0.9) 03/17/22 08:03 Eos # (Auto) 0.4 10^3/uL (0.0-0.8) 03/17/22 08:03 Baso # (Auto) 0.1 10^3/uL (0.0-0.1) 03/17/22 08:03 Nucleated RBC % (auto) 0 % 03/17/22 08:03 Nucleated RBCs # 0.0 /100WBC 03/17/22 08:03 Sodium 136 mmol/L (136-145) 03/17/22 08:03 Potassium 3.6 mmol/L (3.5-5.1) 03/17/22 08:03 Chloride 104 mmol/L (98-107) 03/17/22 08:03 Carbon Dioxide 19 mmol/L (22-29) L 03/17/22 08:03 Anion Gap 16.6 (5-19) 03/17/22 08:03 BUN 13 mg/dL (6-20) 03/17/22 08:03 Creatinine 0.9 mg/dL (0.5-0.9) 03/17/22 08:03 GFR Calculation 69.3 mL/min (90-130) L 03/17/22 08:03 Glucose 90 mg/dL (65-115) 03/17/22 08:03 Calculated Osmolality 282 mOsm/kg (285-295) L 03/17/22 08:03 Calcium 9.3 mg/dL (8.5-10.5) 03/17/22 08:03 Total Bilirubin 0.3 mg/dL (0.15-1.2) 03/17/22 08:03 AST 16 U/L (0-32) 03/17/22 08:03 ALT 17 U/L (0-33) 03/17/22 08:03 Alkaline Phosphatase 96 U/L (35-105) 03/17/22 08:03 Total Protein 7.6 g/dL (6.6-8.7) 03/17/22 08:03 Albumin 4.6 g/dL (3.5-5.2) 03/17/22 08:03 Globulin 3.0 g/dL (1.3-4.6) 03/17/22 08:03 HCG, Qual Negative (Negative) 03/17/22 08:03 Urine Color [place] (Yellow) 03/17/22 08:03 Urine Appearance Clear (CLEAR) 03/17/22 08:03 Urine pH 5 (5-7) 03/17/22 08:03 Ur Specific [place] 1.030 (1.005-1.030) 03/17/22 08:03 Urine Protein TNP 03/17/22 08:03 Urine Glucose (UA) TNP 03/17/22 08:03 Urine Ketones TNP 03/17/22 08:03 Urine Blood TNP 03/17/22 08:03 Urine Nitrate TNP 03/17/22 08:03 Urine Bilirubin TNP 03/17/22 08:03 Urine Urobilinogen TNP 03/17/22 08:03 Ur Leukocyte Esterase TNP 03/17/22 08:03 Urine RBC 15-25 /hpf (0-2) H 03/17/22 08:03 Urine WBC None /hpf (0-5) 03/17/22 08:03 Ur Squamous Epith Cells 5-10 /hpf (0-5) H 03/17/22 08:03 Amorphous Sediment Not Reportable 03/17/22 08:03 Urine Bacteria 1+ /hpf (NONE) H 03/17/22 08:03 Urine Mucus Trace /hpf 03/17/22 08:03 Critical Care Time Critical Care Time: Critical Care Time: No Discharge Plan Discharge Patient Disposition: Home Clinical Impression: Urolithiasis Qualifiers: Urinary calculus location: ureter Qualified Code(s): N20.1 - Calculus of ureter Condition: Stable Prescriptions: New tamsulosin 0.4 mg capsule 0.4 mg PO DAILY Qty: 14 0RF ketorolac 10 mg tablet 10 mg PO Q8H PRN (Reason: pain) 3 Days Qty: 9 0RF ondansetron HCl 4 mg tablet 4 mg PO Q8H PRN (Reason: nausea and vomiting) 4 Days Qty: 12 0RF No Action spironolactone 25 mg tablet 25 mg PO DAILY albuterol sulfate 90 mcg/actuation HFA aerosol inhaler 2 puff inhalation QID PRN (Reason: Shortness Of Breath Or Wheezing) bacitracin zinc [Antibiotic (bacitracin zinc)] 500 unit/gram ointment 1 applic topical DAILY PRN (Reason: unknown) mupirocin 2 % ointment 1 applic topical BID PRN (Reason: unknown) terbinafine HCl [Antifungal (terbinafine)] 1 % cream 1 applic topical BID PRN (Reason: unknown) bupropion HCl [Wellbutrin XL] 300 mg tablet extended release 24 hr 300 mg PO QAM amitriptyline 100 mg tablet 100 mg PO BEDTIME PRN (Reason: unknown) diclofenac sodium 75 mg tablet,delayed release (DR/EC) 75 mg PO BID PRN (Reason: Pain) zonisamide [Zonegran] 100 mg capsule 300 mg PO QAM cetirizine [All Day Allergy (cetirizine)] 10 mg tablet 10 mg PO DAILY PRN (Reason: Allergy Symptoms) acyclovir 400 mg tablet 400 mg PO TID PRN (Reason: Cold Sores) benzonatate 200 mg capsule 200 mg PO TID PRN (Reason: cough) 30 Days Qty: 90 4RF budesonide-formoterol [Symbicort] 160-4.5 mcg/actuation HFA aerosol inhaler 2 puff inhalation Q12H 30 Days Qty: 10.2 4RF fluticasone propionate [Flonase Allergy Relief] 50 mcg/actuation spray,suspension 1 spray intranasal BID 30 Days Qty: 16 3RF Rx Instructions: administer into each nostril montelukast [Singulair] 10 mg tablet 10 mg PO DAILY 90 Days Qty: 90 0RF ibuprofen 800 mg Tablet 800 mg PO Q8H PRN (Reason: Pain) atorvastatin 20 mg Tablet 20 mg PO QAM Vitamin B-12 2,500 mcg Tablet, Sublingual 2,500 mcg PO Q7D Rx Instructions: on fri albuterol sulfate 2.5 mg /3 mL (0.083 %) Solution For Nebulization 2.5 mg INHALATION QID PRN (Reason: Shortness Of Breath) potassium chloride 10 mEq Tablet Extended Release 10 meq PO DAILY metformin 500 mg Tablet Extended Release 24 Hr 500 mg PO DAILY magnesium 200 mg Tablet 200 mg PO DAILY topiramate 50 mg Tablet 50 mg PO QAM Dialyvite Vitamin D3 Max 1,250 mcg (50,000 unit) Tablet 50,000 unit PO .TWICE A WEEK Discharge Orders: Discharge ED (Routine); Ordered 03/17/22 Ordered By: Evy Stock Referrals: Lj Joseph MD [Primary Care Provider] - Discharge Diet: Usual diet Discharge Activity: Resume usual activity Patient Instructions: Opioid Safety, Pain Management Activity Restrictions/Additional Instructions: Take medications as prescribed. Finish Bactrim as previously prescribed. Follow-up with urologist this week. Strain urine. Return to the ER with new or worsening symptoms. Coding Level of Care Code ED Corn Detasseler for Chg Fwd Exam Comprehensive Documented by User: Darrell Landa DO 03/19/22 10:19 HPI - Female Genitourinary General: Chief complaint: Urogenital-Female Stated complaint: urinary pain Time Seen by Provider: 03/17/22 08:13 [facility] ED PFSH: Medical History Appendicitis Asthma COPD (chronic obstructive pulmonary disease) Dyslipidemia Greater trochanteric pain syndrome Left hip Left ureteral stone Right flank pain Right renal stone Right shoulder pain Urinary frequency Urolithiasis Surgical History Hx of section Hx of exploratory laparotomy Hx of hysterectomy Hx of tonsillectomy Hx of tubal ligation Family History Father Bleeding disorder Diabetes Hyperlipidemia CAD (coronary artery disease) Chronic kidney disease (CKD) Hypertension Seizure Family/Other Lung disease Liver disease Seizure Grandfather Lung disease Mother Stroke Migraine Liver disease Grandmother Cancer Social History Smoking and tobacco status: current every day smoker (0.5 ppd) cigarettes Packs smoked per day: 1 Years cigarettes smoked: 23 [ Other cigarette details: started at age 17] Second hand smoke exposure: No Smoking risk assessment/counseling performed?: No Alcohol intake: never Counseling given: No Counseling given: No Lives independently: Yes Household members: children Marital status: Single Current occupational status: disabled History of recent travel: No Current gender identity: Female Course Vital Signs: Vital signs: Vital Signs Temperature 98.3 F 03/17/22 08:14 Pulse Rate 89 03/17/22 10:41 Respiratory Rate 25 H 03/17/22 08:38 Blood Pressure 116/94 03/17/22 08:38 Pulse Oximetry 98 03/17/22 10:41 Oxygen Delivery Me thod 03/17/22 08:38 MDM - Female Medical Decision Making Labs mostly unremarkable. CT was performed and patient appears to have a 3 to 4 mm calculus in the distal right ureter. This likely will pass without any problems. We will treat patient with tamsulosin, ketorolac, and Zofran for nausea. Patient does report significant improvement with the Toradol given in the ER. Patient has a history of kidney stones and is established with Dr. Abiel soares here in [facility]. She will contact him for a follow-up appointment. Patient knows to push fluids and strain urine. She will finish the Bactrim she was given at the walk-in. Return to the ER with new or worsening symptoms. Patient verbalized understanding and was in agreement with the treatment plan. Chart reviewed and patient discussed with midlevel. Agree with assessment and plan. Lab Data : 03/17/22 08:03 03/17/22 08:03 Radiology Impressions Abdomen/Pelvis CT 03/17/22 09:34 IMPRESSION: Mild right hydroureteronephrosis secondary to a 3-4 mm calculus in the distal right ureter. Laboratory Results WBC 8.6 10^3/uL (4.0-10.0) 03/17/22 08:03 RBC 5.01 10^6/uL (4.1-5.3) 03/17/22 08:03 Hgb 14.9 g/dL (11.5-15.3) 03/17/22 08:03 Hct 45.6 % (37.0-47.0) 03/17/22 08:03 MCV 91.0 fl (81-99) 03/17/22 08:03 MCH 29.7 pg (28.0-34.0) 03/17/22 08:03 MCHC 32.7 g/dL (30.0-36.0) 03/17/22 08:03 RDW 12.2 % (12.1-15.1) 03/17/22 08:03 Plt Count 315 10^3/cmm (130-400) 03/17/22 08:03 MPV 9.4 fL (7.4-10.4) 03/17/22 08:03 Neut % (Auto) 57.4 % 03/17/22 08:03 Lymph % (Auto) 31.3 % 03/17/22 08:03 Bee % (Auto) 5.9 % 03/17/22 08:03 Eos % (Auto) 4.2 % 03/17/22 08:03 Baso % (Auto) 0.9 % 03/17/22 08:03 Neut # (Auto) 4.93 10^3/uL (1.8-7.7) 03/17/22 08:03 Lymph # (Auto) 2.7 10^3/uL (0.8-4.8) 03/17/22 08:03 Bee # (Auto) 0.5 10^3/uL (0.2-0.9) 03/17/22 08:03 Eos # (Auto) 0.4 10^3/uL (0.0-0.8) 03/17/22 08:03 Baso # (Auto) 0.1 10^3/uL (0.0-0.1) 03/17/22 08:03 Nucleated RBC % (auto) 0 % 03/17/22 08:03 Nucleated RBCs # 0.0 /100WBC 03/17/22 08:03 Sodium 136 mmol/L (136-145) 03/17/22 08:03 Potassium 3.6 mmol/L (3.5-5.1) 03/17/22 08:03 Chloride 104 mmol/L (98-107) 03/17/22 08:03 Carbon Dioxide 19 mmol/L (22-29) L 03/17/22 08:03 Anion Gap 16.6 (5-19) 03/17/22 08:03 BUN 13 mg/dL (6-20) 03/17/22 08:03 Creatinine 0.9 mg/dL (0.5-0.9) 03/17/22 08:03 GFR Calculation 69.3 mL/min (90-130) L 03/17/22 08:03 Glucose 90 mg/dL (65-115) 03/17/22 08:03 Calculated Osmolality 282 mOsm/kg (285-295) L 03/17/22 08:03 Calcium 9.3 mg/dL (8.5-10.5) 03/17/22 08:03 Total Bilirubin 0.3 mg/dL (0.15-1.2) 03/17/22 08:03 AST 16 U/L (0-32) 03/17/22 08:03 ALT 17 U/L (0-33) 03/17/22 08:03 Alkaline Phosphatase 96 U/L (35-105) 03/17/22 08:03 Total Protein 7.6 g/dL (6.6-8.7) 03/17/22 08:03 Albumin 4.6 g/dL (3.5-5.2) 03/17/22 08:03 Globulin 3.0 g/dL (1.3-4.6) 03/17/22 08:03 HCG, Qual Negative (Negative) 03/17/22 08:03 Urine Color [place] (Yellow) 03/17/22 08:03 Urine Appearance Clear (CLEAR) 03/17/22 08:03 Urine pH 5 (5-7) 03/17/22 08:03 Ur Specific [place] 1.030 (1.005-1.030) 03/17/22 08:03 Urine Protein TNP 03/17/22 08:03 Urine Glucose (UA) TNP 03/17/22 08:03 Urine Ketones TNP 03/17/22 08:03 Urine Blood TNP 03/17/22 08:03 Urine Nitrate TNP 03/17/22 08:03 Urine Bilirubin TNP 03/17/22 08:03 Urine Urobilinogen TNP 03/17/22 08:03 Ur Leukocyte Esterase TNP 03/17/22 08:03 Urine RBC 15-25 /hpf (0-2) H 03/17/22 08:03 Urine WBC None /hpf (0-5) 03/17/22 08:03 Ur Squamous Epith Cells 5-10 /hpf (0-5) H 03/17/22 08:03 Amorphous Sediment Not Reportable 03/17/22 08:03 Urine Bacteria 1+ /hpf (NONE) H 03/17/22 08:03 Urine Mucus Trace /hpf 03/17/22 08:03 Discharge Plan Discharge Patient Disposition: Home Clinical Impression: Urolithiasis Qualifiers: Urinary calculus location: ureter Qualified Code(s): N20.1 - Calculus of ureter Condition: Stable Prescriptions: New tamsulosin 0.4 mg capsule 0.4 mg PO DAILY Qty: 14 0RF ketorolac 10 mg tablet 10 mg PO Q8H PRN (Reason: pain) 3 Days Qty: 9 0RF ondansetron HCl 4 mg tablet 4 mg PO Q8H PRN (Reason: nausea and vomiting) 4 Days Qty: 12 0RF No Action spironolactone 25 mg tablet 25 mg PO DAILY albuterol sulfate 90 mcg/actuation HFA aerosol inhaler 2 puff inhalation QID PRN (Reason: Shortness Of Breath Or Wheezing) bacitracin zinc [Antibiotic (bacitracin zinc)] 500 unit/gram ointment 1 applic topical DAILY PRN (Reason: unknown) mupirocin 2 % ointment 1 applic topical BID PRN (Reason: unknown) terbinafine HCl [Antifungal (terbinafine)] 1 % cream 1 applic topical BID PRN (Reason: unknown) bupropion HCl [Wellbutrin XL] 300 mg tablet extended release 24 hr 300 mg PO QAM amitriptyline 100 mg tablet 100 mg PO BEDTIME PRN (Reason: unknown) diclofenac sodium 75 mg tablet,delayed release (DR/EC) 75 mg PO BID PRN (Reason: Pain) zonisamide [Zonegran] 100 mg capsule 300 mg PO QAM cetirizine [All Day Allergy (cetirizine)] 10 mg tablet 10 mg PO DAILY PRN (Reason: Allergy Symptoms) acyclovir 400 mg tablet 400 mg PO TID PRN (Reason: Cold Sores) benzonatate 200 mg capsule 200 mg PO TID PRN (Reason: cough) 30 Days Qty: 90 4RF budesonide-formoterol [Symbicort] 160-4.5 mcg/actuation HFA aerosol inhaler 2 puff inhalation Q12H 30 Days Qty: 10.2 4RF fluticasone propionate [Flonase Allergy Relief] 50 mcg/actuation spray,suspension 1 spray intranasal BID 30 Days Qty: 16 3RF Rx Instructions: administer into each nostril montelukast [Singulair] 10 mg tablet 10 mg PO DAILY 90 Days Qty: 90 0RF ibuprofen 800 mg Tablet 800 mg PO Q8H PRN (Reason: Pain) atorvastatin 20 mg Tablet 20 mg PO QAM Vitamin B-12 2,500 mcg Tablet, Sublingual 2,500 mcg PO Q7D Rx Instructions: on fri albuterol sulfate 2.5 mg /3 mL (0.083 %) Solution For Nebulization 2.5 mg INHALATION QID PRN (Reason: Shortness Of Breath) potassium chloride 10 mEq Tablet Extended Release 10 meq PO DAILY metformin 500 mg Tablet Extended Release 24 Hr 500 mg PO DAILY magnesium 200 mg Tablet 200 mg PO DAILY topiramate 50 mg Tablet 50 mg PO QAM Dialyvite Vitamin D3 Max 1,250 mcg (50,000 unit) Tablet 50,000 unit PO .TWICE A WEEK Discharge Orders: Discharge ED (Routine); Ordered 03/17/22 Ordered By: Evy Stock Referrals: Lj Joseph MD [Primary Care Provider] - Discharge Diet: Usual diet Discharge Activity: Resume usual activity Patient Instructions: Opioid Safety, Pain Management Activity Restrictions/Additional Instructions: Take medications as prescribed. Finish Bactrim as previously prescribed. Follow-up with urologist this week. Strain urine. Return to the ER with new or worsening symptoms. Coding Level of Care Code ED Corn Detasseler for Nannette Fwes Exam Comprehensive
[2022-03-17 09:03] LABS: Basophils # 0.1 10^3/uL (0.0-0.1); Basophils % 0.9 %; Eosinophils # 0.4 10^3/uL (0.0-0.8); Eosinophils % 4.2 %; Hematocrit 45.6 % (37.0-47.0); Hemoglobin 14.9 g/dL (11.5-15.3); Lymphocytes # 2.7 10^3/uL (0.8-4.8); Lymphocytes % 31.3 %; Mean Corpuscular HGB Conc 32.7 g/dL (30.0-36.0); Mean Corpuscular Hemoglobin 29.7 pg (28.0-34.0); Mean Platelet Volume 9.4 fL (7.4-10.4); Monocytes # 0.5 10^3/uL (0.2-0.9); Monocytes % 5.9 %; Neutrophils # 4.93 10^3/uL (1.8-7.7); Neutrophils % 57.4 %; Nucleated Red Blood Cells % 0 %; Platelet Count 315 10^3/cmm (130-400); Red Blood Count 5.01 10^6/uL (4.1-5.3); Red Cell Distribution Width 12.2 % (12.1-15.1); White Blood Count 8.6 10^3/uL (4.0-10.0)
[2022-03-17 09:17] LABS: Alanine Aminotransferase 17 U/L (0-33); Albumin Level 4.6 g/dL (3.5-5.2); Alkaline Phosphatase 96 U/L (35-105); Anion Gap 16.6 (5-19); Aspartate Amino Transferase 16 U/L (0-32); Blood Urea Nitrogen 13 mg/dL (6-20); Calcium 9.3 mg/dL (8.5-10.5); Carbon Dioxide 19 mmol/L (22-29); Chloride 104 mmol/L (98-107); Glomerular Filtration Rate 69.3 mL/min (90-130); Glucose 90 mg/dL (65-115); Osmolality Calculated 282 mOsm/kg (285-295); Potassium 3.6 mmol/L (3.5-5.1); Sodium 136 mmol/L (136-145); Total Bilirubin 0.3 mg/dL (0.15-1.2); Total Protein 7.6 g/dL (6.6-8.7)
[2022-03-17 09:20] LABS: HCG Qualitative Urine. Negative (Negative)
[2022-03-17 09:30] LABS: Urine Appearance Clear (CLEAR); Urine Color Orange (Yellow); pH Urine 5 (5-7)
[2022-03-17 09:31] LABS: Add Urine Microscopic? YES
--- NOTE | 2022-03-17 09:34 | CTR_ITS ---
PROCEDURE INFORMATION: Exam: CT Abdomen And Pelvis Without Contrast Exam date and time: 03/17/2022 10:57 AM Age: 41 years old Clinical indication: Abdominal pain; Flank; Right; Additional info: R flank pain TECHNIQUE: Imaging protocol: Computed tomography of the abdomen and pelvis without contrast. Radiation optimization: All CT scans at this facility use at least one of these dose optimization techniques: automated exposure control; mA and/or kV adjustment per patient size (includes targeted exams where dose is matched to clinical indication); or iterative reconstruction. COMPARISON: CT kidney stone [id number] 11/02/2021 1:26 AM RADIATION DOSE METRICS: Total DLP (mGy-cm): 798.9 FINDINGS: Liver: Normal. No mass. Gallbladder and bile ducts: Normal. No calcified stones. No ductal dilation. Pancreas: Normal. No ductal dilation. Spleen: Normal. No splenomegaly. Adrenal glands: Normal. No mass. Kidneys and ureters: Tiny nonobstructing bilateral renal calculi. Mild right hydroureteronephrosis secondary to a 3-4 mm calculus in the distal right ureter. Stomach and bowel: Unremarkable. No obstruction. No mucosal thickening. Appendix: No evidence of appendicitis. Intraperitoneal space: Unremarkable. No free air. No significant fluid collection. Vasculature: Unremarkable. No abdominal aortic aneurysm. Lymph nodes: Unremarkable. No enlarged lymph nodes. Urinary bladder: Unremarkable as visualized. Reproductive: Hysterectomy. Bones/joints: Unremarkable. No acute fracture. Soft tissues: Tiny fat containing periumbilical hernia. CT/CT abdomen pelvis wo con [id number] IMPRESSION: Mild right hydroureteronephrosis secondary to a 3-4 mm calculus in the distal right ureter.
[2022-03-17 09:35] LABS: RBC Urine 15-25 /hpf (0-2)
[2022-03-17 09:37] LABS: Mucus Urine TRACE /hpf
[2022-03-17 09:38] LABS: Add Urine Culture? No; Bacteria Urine 1+ /hpf
[2022-03-17 10:41] VITALS: PULSE 89; O2SAT 98
== END 2022-03-17 10:44 | disposition home or self-care (01) ==
PROVIDERS: Emergency Provider Physician Assistant; PCP Family Medicine
DX: N13.2 Hydronephrosis with renal and ureteral calculous obstruction (principal); F17.210 Nicotine dependence, cigarettes, uncomplicated
CPT/HCPCS: 74176; 80053; 81001; 81025; 85025; 96374; 99285; J1885

== ENCOUNTER 2022-03-20 10:20 | Outpatient (CLI) | payer MEDICAID, SELFPAY ==
--- NOTE | 2022-03-20 10:48 | XR_ITS ---
WS: [id number] KUB, AP view, 03/20/2022 Clinical Data: STONES Comparison: KUB, 01/07/2022. Findings: No abnormal intraabdominal masses or calcifications are seen. There is no dilatated small bowel or ev idence of obstruction. There is a moderate amount of fecal material throughout the colon. There are phleboliths in the true pelvis. XR/XR KUB [id number] Impression: Negative KUB.
== END 2022-03-20 10:21 | disposition home or self-care (01) ==
LOC: RAD 10:21
PROVIDERS: PCP Family Medicine; Visit Provider Urology
DX: N20.1 Calculus of ureter (principal)
CPT/HCPCS: 74018; 81003; 82365; 88300; 99213

== ENCOUNTER → 2022-06-14 09:33 | Outpatient (BNVA) | payer MEDICAID, SELFPAY | PROVIDERS: PCP Family Medicine; Visit Provider Internal Medicine Pulmonary Disease | DX: J45.909 Unspecified asthma, uncomplicated (principal); J31.0 Chronic rhinitis; J32.9 Chronic sinusitis, unspecified; F17.210 Nicotine dependence, cigarettes, uncomplicated | CPT/HCPCS: 99214 ==

== ENCOUNTER 2022-08-17 15:21 | Emergency (ER) | payer MEDICAID, SELFPAY ==
[2022-08-17 15:29] VITALS: BP 145/108; PULSE 87; RESP 16; TEMP 36.7; O2SAT 99
--- NOTE | 2022-08-17 15:40 | ECG_ITS ---
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 Measurements Intervals [place] Rate: 82 P: 137 VT: 159 QRS: 135 QRSD: 105 T: 115 QT: 372 QTc: 437 Interpretive Statements SINUS RHYTHM POSSIBLE RIGHT VENTRICULAR HYPERTROPHY [SOME/ALL OF: PROMINENT R IN V1, LATE TRANSITION, RAD, CYRIL, SSS] Compared to ECG 10/16/2018 03:42:54 Incomplete right bundle-branch block no longer present Electronically Signed On 08-17-2022 21:45:55 CDT by Solitario Nettles M.D. [id number]
--- NOTE | 2022-08-17 15:40 | CTR_ITS ---
PROCEDURE INFORMATION: Exam: CT Head Without Contrast Exam date and time: 08/17/2022 3:49 PM Age: 41 years old Clinical indication: Numbness / parasthesia; Bilateral; Additional info: Facial numbness TECHNIQUE: Imaging protocol: Computed tomography of the head without contrast. Radiation optimization: All CT scans at this facility use at least one of these dose optimization techniques: automated exposure control; mA and/or kV adjustment per patient size (includes targeted exams where dose is matched to clinical indication); or iterative reconstruction. REPORTING DATA: Count of CT and Cardiac NM exams in prior 12 months: This patient has received 2 known CTs and 0 known cardiac nuclear medicine studies in the 12 months prior to the current study. COMPARISON: MR cervical spin wo con* [id number] 02/06/2021 4:04 PM RADIATION DOSE METRICS: Total DLP (mGy-cm): 1069.98 FINDINGS: Brain: Normal. No hemorrhage. Unremarkable white matter. No mass effect. Cerebral ventricles: No ventriculomegaly. Paranasal sinuses: Visualized sinuses are unremarkable. No fluid levels. Mastoid air cells: Visualized mastoid air cells are well aerated. Bones/joints: Unremarkable. No acute fracture. Soft tissues: Unremarkable. CT/CT head wo con* [id number] IMPRESSION: No acute intracranial abnormality.
--- NOTE | 2022-08-17 15:43 | W.ED.NEUROSD ---
HPI - Neuro Symptoms/Deficit General: Chief Complaint: Neuro Symptoms/Deficit Stated Complaint: dizziness, n/v Time Seen by Provider: 08/17/22 15:26 History of Present Illness: Patient presents to the ER with complaints of nausea and not feeling good x3 days. Patient has had a sinus infection and is finishing up her 10-day round of antibiotics. Patient complains of nausea to the point that she is not taking her diabetes medicine. Patient also complains of facial numbness for about the last 3 hours. Onset (ago): day(s) (Nausea not feeling good x3 days numbness x3 hours) Location: left face and right face History of same: No Severity: mild Quality: numb (Mild numbness things do not feel right) Relieving factors: none Exacerbating factors: none On Anticoagulants: No Associated symptoms: Reports nausea; Deny chest pain or headache(s) Treatments Prior to Arrival: none Review of Systems General: Reports: 10 or more systems reviewed and unremarkable except in HPI and below Const: Denies: fever(s) or chills Eyes: Denies: change in vision or photophobia ENMT: Denies: throat pain Card: Denies: chest pain, palpitations or irregular heart rhythm Resp: Denies: dyspnea, productive cough or non-productive cough GI: Reports: nausea; Denies: abdominal pain : Denies: flank pain, difficulty voiding or dysuria Musc: Denies: neck pain, back pain or extremity pain Skin/Breast: Denies: rash or pruritus Neuro: Denies: headache(s), numbness in extremities or weakness in extremities Psych: Denies: anxiety or depression PFSH ED PFSH: Medical History Appendicitis Asthma COPD (chronic obstructive pulmonary disease) Dyslipidemia Greater trochanteric pain syndrome Left hip Left ureteral stone Right flank pain Right renal stone Right shoulder pain Urinary frequency Urolithiasis Surgical History Hx of section Hx of exploratory laparotomy Hx of hysterectomy Hx of tonsillectomy Hx of tubal ligation Family History Father Bleeding disorder Diabetes Hyperlipidemia CAD (coronary artery disease) Chronic kidney disease (CKD) Hypertension Seizure Family/Other Lung disease Liver disease Seizure Grandfather Lung disease Mother Stroke Migraine Liver disease Grandmother Cancer Social History Smoking and tobacco status: current every day smoker (0.5 ppd) cigarettes Packs smoked per day: 1 Years cigarettes smoked: 23 [ Other cigarette details: started at age 17] Second hand smoke exposure: No Smoking risk assessment/counseling performed?: No Alcohol intake: never Counseling given: No Counseling given: No Lives independently: Yes Household members: children Marital status: Single Current occupational status: disabled Current gender identity: Female Physical Exam Const: COMMON NORMALS: no acute distress, average body habitus, patient oriented x3, no limitations, healthy appearing, alert and well nourished HENMT: COMMON NORMALS: normocephalic, atraumatic, hearing grossly normal bilaterally, external ears normal, Normal external nose present and moist oral mucous membranes HEAD & SCALP: normocephalic and atraumatic NOSE: Normal external nose present EXTERNAL EAR: Yes external ears normal Eye: COMMON NORMALS: Equal, round and reactive pupils present, EOMs intact bilaterally, conjunctivae normal and no scleral icterus CONJUNCTIVA: Yes conjunctivae normal PUPIL: Yes Equal, round and reactive pupils present Neck/C-Spine: COMMON NORMALS: full ROM, no lymphadenopathy, supple, no meningeal signs, no JVD and Thyroid normal THYROID: Thyroid normal Lymph: LYMPHATIC: no lymphadenopathy noted Chest: COMMONS NORMALS: normal inspection of the chest and normal palpation of entire chest wall Resp: COMMON NORMALS: normal respiratory effort, No retractions, No use of accessory muscles and clear to auscultation bilaterally AUSCULTATION: clear to auscultation bilaterally Cardio: COMMON NORMALS: no JVD, regular rate, regular rhythm, S1 normal heart sound present, S2 normal heart sound present, No gallops present (Cardio), No clicks present (Cardio), No murmurs present (Cardio) and No rub (Cardio) RATE: regular rate RHYTHM: regular rhythm HEART SOUNDS: S1 normal heart sound present and S2 normal heart sound present GI: COMMON NORMALS: Normal to inspection, nondistended, normoactive bowel sounds present, Soft to palpation, non-tender, No hepatosplenomegaly present and no masses PALPATION: Yes Soft to palpation and Yes No hepatosplenomegaly present Extremity: COMMON NORMALS: normal to inspection Neuro: COMMON NORMALS: patient oriented x3, CN's II-XII intact bilaterally, moves all extremities, no focal motor deficits and no sensory deficits noted SENSORIUM/ORIENTATION: Yes alert MENINGEAL SIGNS: Yes no meningeal signs Course Vital Signs: Vital signs: Vital Signs Temperature 98.1 F 08/17/22 15:29 Pulse Rate 80 08/17/22 17:05 Respiratory Rate 16 08/17/22 17:05 Blood Pressure 123/85 08/17/22 17:05 Pulse Oximetry 97 08/17/22 17:05 Oxygen Delivery Me thod 08/17/22 17:05 MDM - Neuro Symptoms/Deficit Medical Decision Making Patient presents to the ER with complaints of nausea not feeling good times last 3 days and development of facial numbness since about 1:00 today upon talking to the patient and performing a physical exam lab work was ordered that showed white count 12,000 hemoglobin 16.4, platelets of 330, metabolic panel, magnesium, CRP were benign. Also a head CT was performed that was negative. All of these were discussed with the patient. Patient will be discharged home with some Zofran to Control her nausea and she is to follow-up with her family practice doctor in the next week. Differential Diagnosis Unlikely carpal tunnel syndrome, convulsions, delirium, subarachnoid hemorrhage, peripheral neuropathy, cerebrovascular accident, multiple sclerosis or transient cerebral ischemia Medical Records I reviewed the patient's medical records. Lab Data I reviewed the patient's lab results. 08/17/22 17:02 08/17/22 17:[address] 08/17/22 15:40 IMPRESSION: No acute intracranial abnormality. Laboratory Results WBC 12.0 10^3/uL (4.0-10.0) H 08/17/22 17:02 RBC 5.48 10^6/uL (4.1-5.3) H 08/17/22 17:02 Hgb 16.4 g/dL (11.5-15.3) H 08/17/22 17:02 Hct 49.7 % (37.0-47.0) H 08/17/22 17:02 MCV 90.7 fl (81-99) 08/17/22 17:02 MCH 29.9 pg (28.0-34.0) 08/17/22 17:02 MCHC 33.0 g/dL (30.0-36.0) 08/17/22 17:02 RDW 12.6 % (12.1-15.1) 08/17/22 17:02 Plt Count 330 10^3/cmm (130-400) 08/17/22 17:02 MPV 9.3 fL (7.4-10.4) 08/17/22 17:02 Neut % (Auto) 63.6 % 08/17/22 17:02 Lymph % (Auto) 28.5 % 08/17/22 17:02 [place] % (Auto) 5.0 % 08/17/22 17:02 Eos % (Auto) 1.9 % 08/17/22 17:02 Baso % (Auto) 0.6 % 08/17/22 17:02 Neut # (Auto) 7.63 10^3/uL (1.8-7.7) 08/17/22 17:02 Lymph # (Auto) 3.4 10^3/uL (0.8-4.8) 08/17/22 17:02 [place] # (Auto) 0.6 10^3/uL (0.2-0.9) 08/17/22 17:02 Eos # (Auto) 0.2 10^3/uL (0.0-0.8) 08/17/22 17:02 Baso # (Auto) 0.1 10^3/uL (0.0-0.1) 08/17/22 17:02 Nucleated RBC % (auto) 0 % 08/17/22 17:02 Nucleated RBCs # 0.0 /100WBC 08/17/22 17:02 Sodium 136 mmol/L (136-145) 08/17/22 17:31 Potassium 4.4 mmol/L (3.5-5.1) 08/17/22 17:31 Chloride 102 mmol/L (98-107) 08/17/22 17:31 Carbon Dioxide 22 mmol/L (22-29) 08/17/22 17:31 Anion Gap 16.4 (5-19) 08/17/22 17:31 BUN 10 mg/dL (6-20) 08/17/22 17:31 Creatinine 0.6 mg/dL (0.5-0.9) 08/17/22 17:31 GFR Calculation 110.7 mL/min (90-130) 08/17/22 17:31 Glucose 84 mg/dL (65-115) 08/17/22 17:31 Calculated Osmolality 280 mOsm/kg (285-295) L 08/17/22 17:31 Calcium 8.9 mg/dL (8.5-10.5) 08/17/22 17:31 Magnesium 2.2 mg/dL (1.7-2.3) 08/17/22 17:31 Total Bilirubin 0.4 mg/dL (0.15-1.2) 08/17/22 17:31 AST 24 U/L (0-32) 08/17/22 17:31 ALT 22 U/L (0-33) 08/17/22 17:31 Alkaline Phosphatase 66 U/L (35-105) 08/17/22 17:31 C-Reactive Protein 3.6 mg/L (0.0-4.9) 08/17/22 17:31 Total Protein 7.0 g/dL (6.6-8.7) 08/17/22 17:31 Albumin 3.9 g/dL (3.5-5.2) 08/17/22 17:31 Globulin 3.1 g/dL (1.3-4.6) 08/17/22 17:31 Urine Color Straw (Yellow) 08/17/22 16:14 Urine Appearance Clear (CLEAR) 08/17/22 16:14 Urine pH 7 (5-7) 08/17/22 16:14 Ur Specific [place] 1.005 (1.005-1.030) 08/17/22 16:14 Urine Protein Neg (Negative) 08/17/22 16:14 Urine Glucose (UA) Norm (Normal) 08/17/22 16:14 Urine Ketones Negative (Negative) 08/17/22 16:14 Urine Blood Neg (Negative) 08/17/22 16:14 Urine Nitrate Negative (Negative) 08/17/22 16:14 Urine Bilirubin Neg (Negative) 08/17/22 16:14 Urine Urobilinogen Norm mg/dL (Negative) 08/17/22 16:14 Ur Leukocyte Esterase Negative (Negative) 08/17/22 16:14 EKG Data EKG 1: I personally reviewed and interpreted this EKG as follows: EKG interpretation date: 08/17/22 EKG interpretation time: 15:59 Prior EKG tracings: not available for review Interpretation: EKG showed normal sinus rhythm with ventricular rate 82 bpm, MA interval 159, QRS duration 105, QTc of 411, possible right ventricular hypertrophy, no ST-T wave changes Discharge Plan Discharge Patient Disposition: Home Clinical Impression: Facial paresthesia, Nausea Condition: Stable Prescriptions: New ondansetron 4 mg tablet,disintegrating 4 mg PO Q8H PRN (Reason: nausea and vomiting) Qty: 10 0RF No Action spironolactone 25 mg tablet 25 mg PO DAILY albuterol sulfate 90 mcg/actuation HFA aerosol inhaler 2 puff inhalation QID PRN (Reason: Shortness Of Breath Or Wheezing) bacitracin zinc [Antibiotic (bacitracin zinc)] 500 unit/gram ointment 1 applic topical DAILY PRN (Reason: unknown) mupirocin 2 % ointment 1 applic topical BID PRN (Reason: unknown) terbinafine HCl [Antifungal (terbinafine)] 1 % cream 1 applic topical BID PRN (Reason: unknown) bupropion HCl [Wellbutrin XL] 300 mg tablet extended release 24 hr 300 mg PO QAM amitriptyline 100 mg tablet 100 mg PO BEDTIME PRN (Reason: unknown) diclofenac sodium 75 mg tablet,delayed release (DR/EC) 75 mg PO BID PRN (Reason: Pain) zonisamide [Zonegran] 100 mg capsule 300 mg PO QAM cetirizine [All Day Allergy (cetirizine)] 10 mg tablet 10 mg PO DAILY PRN (Reason: Allergy Symptoms) acyclovir 400 mg tablet 400 mg PO TID PRN (Reason: Cold Sores) benzonatate 200 mg capsule 200 mg PO TID PRN (Reason: cough) 30 Days Qty: 90 4RF budesonide-formoterol [Symbicort] 160-4.5 mcg/actuation HFA aerosol inhaler 2 puff inhalation Q12H 30 Days Qty: 10.2 4RF montelukast [Singulair] 10 mg tablet 10 mg PO DAILY 90 Days Qty: 90 0RF fluticasone propionate [Flonase Allergy Relief] 50 mcg/actuation spray,suspension 1 spray intranasal BID 30 Days Qty: 16 3RF Rx Instructions: administer into each nostril ibuprofen 800 mg Tablet 800 mg PO Q8H PRN (Reason: Pain) atorvastatin 20 mg Tablet 20 mg PO QAM Vitamin B-12 2,500 mcg Tablet, Sublingual 2,500 mcg PO Q7D Rx Instructions: on fri albuterol sulfate 2.5 mg /3 mL (0.083 %) Solution For Nebulization 2.5 mg INHALATION QID PRN (Reason: Shortness Of Breath) potassium chloride 10 mEq Tablet Extended Release 10 meq PO DAILY metformin 500 mg Tablet Extended Release 24 Hr 500 mg PO DAILY magnesium 200 mg Tablet 200 mg PO DAILY topiramate 50 mg Tablet 50 mg PO QAM Dialyvite Vitamin D3 Max 1,250 mcg (50,000 unit) Tablet 50,000 unit PO .TWICE A WEEK tamsulosin 0.4 mg capsule 0.4 mg PO DAILY Qty: 14 0RF Discharge Orders: Discharge ED (Routine); Ordered 08/17/22 Ordered By: Sean Cuevas Referrals: Lj Joseph MD [Primary Care Provider] - 1 week Discharge Activity: Resume usual activity Patient Instructions: Acute Nausea and Vomiting (ED), Paresthesia (ED) Coding Level of Care Code ED Science Education Professor for Nannette Levin
[2022-08-17 16:45] LABS: Add Urine Microscopic? NO; Charge for UA Resulting for Rev
[2022-08-17 16:54] LABS: Urine Appearance Clear (CLEAR); Urine Color Straw (Yellow)
[2022-08-17 16:55] LABS: Bilirubin Urine Neg (Negative); Blood Urine Neg (Negative); Glucose Urine UA Norm (Normal); Ketones Urine Negative (Negative); Leukocyte Esterase Urine Negative (Negative); Nitrate Urine Negative (Negative); Protein Urine Neg (Negative); Specific Gravity, Urine 1.005 (1.005-1.030); Urobilinogen Urine Norm (Negative); pH Urine 7 (5-7)
[2022-08-17] MEDS: sodium chloride 0.9% 1,000 ML 999 ML IV (17:03)
[2022-08-17 17:05] VITALS: BP 123/85; PULSE 80; RESP 16; O2SAT 97
[2022-08-17 17:13] LABS: Basophils # 0.1 10^3/uL (0.0-0.1); Basophils % 0.6 %; Eosinophils # 0.2 10^3/uL (0.0-0.8); Eosinophils % 1.9 %; Hematocrit 49.7 % (37.0-47.0); Hemoglobin 16.4 g/dL (11.5-15.3); Lymphocytes # 3.4 10^3/uL (0.8-4.8); Lymphocytes % 28.5 %; Mean Corpuscular Hemoglobin 29.9 pg (28.0-34.0); Mean Corpuscular Volume 90.7 fl (81-99); Mean Platelet Volume 9.3 fL (7.4-10.4); Monocytes # 0.6 10^3/uL (0.2-0.9); Neutrophils # 7.63 10^3/uL (1.8-7.7); Neutrophils % 63.6 %; Nucleated Red Blood Cells % 0 %; Platelet Count 330 10^3/cmm (130-400); Red Blood Count 5.48 10^6/uL (4.1-5.3); Red Cell Distribution Width 12.6 % (12.1-15.1)
[2022-08-17 17:59] LABS: Albumin Level 3.9 g/dL (3.5-5.2); Alkaline Phosphatase 66 U/L (35-105); Blood Urea Nitrogen 10 mg/dL (6-20); C Reactive Protein 3.6 mg/L (0.0-4.9); Calcium 8.9 mg/dL (8.5-10.5); Carbon Dioxide 22 mmol/L (22-29); Chloride 102 mmol/L (98-107); Globulin 3.1 g/dL (1.3-4.6); Glomerular Filtration Rate 110.7 mL/min (90-130); Glucose 84 mg/dL (65-115); Magnesium 2.2 mg/dL (1.7-2.3); Osmolality Calculated 280 mOsm/kg (285-295); Sodium 136 mmol/L (136-145); Total Bilirubin 0.4 mg/dL (0.15-1.2)
[2022-08-17 18:07] LABS: Alanine Aminotransferase 22 U/L (0-33); Anion Gap 16.4 (5-19); Aspartate Amino Transferase 24 U/L (0-32); Potassium 4.4 mmol/L (3.5-5.1)
== END 2022-08-17 18:41 | disposition home or self-care (01) ==
PROVIDERS: Emergency Provider Emergency Medicine; PCP Family Medicine
DX: R11.0 Nausea (principal); R20.2 Paresthesia of skin; Z79.84 Long term (current) use of oral hypoglycemic drugs; F17.210 Nicotine dependence, cigarettes, uncomplicated; J44.9 Chronic obstructive pulmonary disease, unspecified; E78.5 Hyperlipidemia, unspecified
CPT/HCPCS: 36415; 70450; 80053; 81003; 83735; 85025; 86140; 93005; 99285; J7030

== ENCOUNTER → 2022-12-24 15:34 | Outpatient (BNVA) | payer MEDICAID, SELFPAY | PROVIDERS: PCP Family Medicine; Referring Provider Family Medicine; Visit Provider Orthopaedic Surgery | DX: M48.061 Spinal stenosis, lumbar region without neurogenic claudication (principal); M50.221 Other cervical disc displacement at C4-C5 level; M50.222 Other cervical disc displacement at C5-C6 level; G89.29 Other chronic pain | CPT/HCPCS: 72110; 99214 ==

== ENCOUNTER 2023-03-05 13:43 | Emergency (ER) | payer MEDICAID, SELFPAY ==
[2023-03-05 14:02] VITALS: BP 119/82; PULSE 91; RESP 18; TEMP 36.6; O2SAT 97; BMI 38.7
--- NOTE | 2023-03-05 14:20 | CTR_ITS ---
PROCEDURE INFORMATION: Exam: CT Abdomen And Pelvis With Contrast Exam date and time: 03/05/2023 3:31 PM Age: 42 years old Clinical indication: Abdominal tenderness; Abdominal pain; Other: Generalized; Prior surgery; Surgery date: 6+ months; Surgery type: Hyst, c-sections, btl; Additional info: Abd pain TECHNIQUE: Imaging protocol: Computed tomography of the abdomen and pelvis with contrast. Radiation optimization: All CT scans at this facility use at least one of these dose optimization techniques: automated exposure control; mA and/or kV adjustment per patient size (includes targeted exams where dose is matched to clinical indication); or iterative reconstruction. Contrast material: OMNI 350; Contrast volume: 100 ml; Contrast route: INTRAVENOUS (IV); REPORTING DATA: Count of CT and Cardiac NM exams in prior 12 months: This patient has received 2 known CTs and 0 known cardiac nuclear medicine studies in the 12 months prior to the current study. COMPARISON: CT abdomen pelvis wo con [id number] 03/17/2022 10:57 AM RADIATION DOSE METRICS: Total DLP (mGy-cm): 947.13 FINDINGS: Liver: Normal. No mass. Gallbladder and bile ducts: Normal. No calcified stones. No ductal dilation. Pancreas: Normal. No ductal dilation. Spleen: Normal. No splenomegaly. Adrenal glands: Normal. No mass. Kidneys and ureters: Normal. No hydronephrosis. Stomach and bowel: Unremarkable. No obstruction. No mucosal thickening. Appendix: No evidence of appendicitis. Intraperitoneal space: Unremarkable. No free air. No significant fluid collection. Vasculature: Calcified phleboliths noted in the pelvis. No abdominal aortic aneurysm. Lymph nodes: Unremarkable. No enlarged lymph nodes. Urinary bladder: Unremarkable as visualized. Reproductive: 3.4 cm simple appearing right adnexal cyst noted. There is also a simple appearing 2.2 cm right ovarian cyst. Hysterectomy. Bones/joints: No acute fracture. Soft tissues: Unremarkable. CT/CT abdomen pelvis w con* [id number] IMPRESSION: 1. No acute findings. 2. A couple of right ovarian/adnexal cyst noted measuring up to 3.4 cm in size.
--- NOTE | 2023-03-05 14:33 | ED_ITS ---
HPI - Abdominal Pain General: Chief Complaint: Abdominal Pain Stated Complaint: urogenital/abd pain, itching Time Seen by Provider: 03/05/23 14:15 Source: patient Mode of arrival: ambulatory Limitations: no limitations History of Present Illness: 42-year-old female states she been having lower abdominal pain over the last 2 days she was seen by her PCP yesterday and states she had a urinalysis that was negative. States continued to have sharp pain in her pelvic region she denies any vaginal discharge. She denies any fevers or dysuria. States she also had a rash to her arms and her neck that is very pruritic but states that does not seem to be causing the pain. Associated Symptoms: Denies chills, diarrhea, dysuria, fever(s), nausea and vomiting Review of Systems Const: Denies: fever(s), chills, body aches or change in appetite Eyes: Denies: blurry vision or eye discomfort ENMT: Denies: throat pain or dental pain Card: Denies: chest pain Resp: Denies: dyspnea GI: Reports: abdominal pain; Denies: nausea, vomiting or diarrhea : Denies: dysuria Musc: Denies: neck pain or back pain Skin/Breast: Reports: rash Neuro: Denies: headache(s) PFSH ED PFSH: Medical History Appendicitis Asthma COPD (chronic obstructive pulmonary disease) Dyslipidemia Greater trochanteric pain syndrome Left hip Left ureteral stone Right flank pain Right renal stone Right shoulder pain Urinary frequency Urolithiasis Surgical History Hx of section Hx of exploratory laparotomy Hx of hysterectomy Hx of tonsillectomy Hx of tubal ligation Family History Father Bleeding disorder Diabetes Hyperlipidemia CAD (coronary artery disease) Chronic kidney disease (CKD) Hypertension Seizure Family/Other Lung disease Liver disease Seizure Grandfather Lung disease Mother Stroke Migraines Liver disease Grandmother Cancer Social History Smoking and tobacco/nicotine status: current every day tobacco/nicotine user (0.5 ppd) cigarettes Packs smoked per day: 1 Years cigarettes smoked: 23 [ Other cigarette details: started at age 17] Second hand smoke exposure: No Alcohol intake: never Substance/Drug Use: never Lives independently: Yes Household members: children Marital status: Single Current occupational status: disabled Do you think of yourself as: Straight/Heterosexual Current gender identity: Female Physical Exam Const: COMMON NORMALS: no acute distress, patient oriented x3 and healthy appearing HENMT: COMMON NORMALS: normocephalic and atraumatic HEAD & SCALP: normocephalic and atraumatic Neck/C-Spine: COMMON NORMALS: full ROM and supple Chest: COMMONS NORMALS: normal inspection of the chest and normal palpation of entire chest wall Resp: COMMON NORMALS: normal respiratory effort, No retractions, No use of accessory muscles and clear to auscultation bilaterally AUSCULTATION: clear to auscultation bilaterally Cardio: COMMON NORMALS: regular rate, regular rhythm and No murmurs present (Cardio) RATE: regular rate RHYTHM: regular rhythm GI: COMMON NORMALS: Normal to inspection, nondistended, normoactive bowel sounds present, Soft to palpation and no masses PALPATION: Yes Soft to palpation OTHER: Suprapubic tenderness Extremity: COMMON NORMALS: normal to inspection and full ROM Neuro: COMMON NORMALS: patient oriented x3, moves all extremities and no focal motor deficits Psych: COMMON NORMALS: mental status grossly normal, Normal thought process present and cooperative THOUGHT PROCESS: Normal thought process present Skin: COMMON NORMALS: no wounds NARRATIVE SKIN EXAM: pruritic rash to arms and trunk Course Vital Signs: Vital signs: Vital Signs Temperature 97.9 F 03/05/23 14:02 Pulse Rate 86 03/05/23 15:36 Respiratory Rate 16 03/05/23 15:36 Blood Pressure 112/87 03/05/23 15:36 Pulse Oximetry 95 03/05/23 15:36 Oxygen Delivery Me thod Room Air 03/05/23 15:36 MDM - Abdominal Pain Medical Decision Making Patient presents here with abdominal pain she does have an ovarian cyst she has no signs of torsion no UTI she also is a rash likely allergic in nature its improved with Benadryl and Pepcid to continue Benadryl at home we will prescribe her pain meds nausea medicine she is to follow-up with PCP and return if worsening. Medical Records I reviewed the patient's medical records. Lab Data I reviewed the patient's lab results. 10/25/23 14:54 03/05/23 14:54 Labs/Radiology: Radiology Impressions Abdomen/Pelvis CT 03/05/23 14:20 IMPRESSION: 1. No acute findings. 2. A couple of right ovarian/adnexal cyst noted measuring up to 3.4 cm in size. Laboratory Results WBC 10.98 10^3/uL (3.29-11.43) 03/05/23 14:54 RBC 5.07 10^6/uL (3.85-5.65) 03/05/23 14:54 Hgb 15.50 g/dL (11.27-16.99) 03/05/23 14:54 Hct 45.9 % (36-47) 03/05/23 14:54 MCV 90.5 fl (85-98) 03/05/23 14:54 MCH 30.6 pg (27-33) 03/05/23 14:54 MCHC 33.8 g/dL (30-55) 03/05/23 14:54 RDW 12.4 % (12.1-15.1) 03/05/23 14:54 Plt Count 292 10^3/cmm (157-399) 03/05/23 14:54 MPV 8.9 fL (7.4-10.4) 03/05/23 14:54 Neut % (Auto) 68.9 % 03/05/23 14:54 Lymph % (Auto) 23.2 % 03/05/23 14:54 [place] % (Auto) 5.5 % 03/05/23 14:54 Eos % (Auto) 1.5 % 03/05/23 14:54 Baso % (Auto) 0.5 % 03/05/23 14:54 Neut # (Auto) 7.57 10^3/uL (1.8-7.7) 03/05/23 14:54 Lymph # (Auto) 2.6 10^3/uL (0.8-4.8) 03/05/23 14:54 [place] # (Auto) 0.6 10^3/uL (0.2-0.9) 03/05/23 14:54 Eos # (Auto) 0.2 10^3/uL (0.0-0.8) 03/05/23 14:54 Baso # (Auto) 0.1 10^3/uL (0.0-0.1) 03/05/23 14:54 Nucleated RBC % (auto) 0 % 03/05/23 14:54 Nucleated RBCs # 0.0 /100WBC 03/05/23 14:54 Sodium 137 mmol/L (136-145) 03/05/23 14:54 Potassium 4.3 mmol/L (3.5-5.1) 03/05/23 14:54 Chloride 104 mmol/L (98-107) 03/05/23 14:54 Carbon Dioxide 23 mmol/L (22-29) 03/05/23 14:54 Anion Gap 14.3 (5-19) 03/05/23 14:54 BUN 8 mg/dL (6-20) 03/05/23 14:54 Creatinine 0.5 mg/dL (0.5-0.9) 03/05/23 14:54 GFR Calculation 136.0 mL/min (90-130) H 03/05/23 14:54 Glucose 99 mg/dL (65-115) 03/05/23 14:54 Calculated Osmolality 282 mOsm/kg (285-295) L 03/05/23 14:54 Calcium 9.3 mg/dL (8.5-10.5) 03/05/23 14:54 Total Bilirubin 0.7 mg/dL (0.15-1.2) 03/05/23 14:54 AST 14 U/L (0-32) 03/05/23 14:54 ALT 15 U/L (0-33) 03/05/23 14:54 Alkaline Phosphatase 78 U/L (35-105) 03/05/23 14:54 Total Protein 6.7 g/dL (6.6-8.7) 03/05/23 14:54 Albumin 4.1 g/dL (3.5-5.2) 03/05/23 14:54 Globulin 2.6 g/dL (1.3-4.6) 03/05/23 14:54 Lipase 17 U/L (13-60) 03/05/23 14:54 Urine Color Light yellow (Yellow) 03/05/23 14:54 Urine Appearance Clear (CLEAR) 03/05/23 14:54 Urine pH 5 (5-7) 03/05/23 14:54 Ur Specific [place] 1.010 (1.005-1.030) 03/05/23 14:54 Urine Protein Neg (Negative) 03/05/23 14:54 Urine Glucose (UA) Norm (Normal) 03/05/23 14:54 Urine Ketones Negative (Negative) 03/05/23 14:54 Urine Blood Neg (Negative) 03/05/23 14:54 Urine Nitrate Negative (Negative) 03/05/23 14:54 Urine Bilirubin Neg (Negative) 03/05/23 14:54 Urine Urobilinogen Norm mg/dL (Negative) 03/05/23 14:54 Ur Leukocyte Esterase Negative (Negative) 03/05/23 14:54 All radiology interpretation(s) finalized by discharge Discharge Plan Discharge Patient Disposition: Home Clinical Impression: Abdominal pain, Ovarian cyst, Rash Condition: Stable Prescriptions: New hydrocodone-acetaminophen 5-325 mg tablet 1 tab PO Q6H PRN (Reason: pain) Qty: 14 0RF ondansetron 4 mg tablet,disintegrating 4 mg PO Q6H PRN (Reason: nausea and vomiting) Qty: 14 0RF No Action spironolactone 25 mg tablet 25 mg PO DAILY bacitracin zinc [Antibiotic (bacitracin zinc)] 500 unit/gram ointment 1 applic topical DAILY PRN (Reason: unknown) mupirocin 2 % ointment 1 applic topical BID PRN (Reason: unknown) terbinafine HCl [Antifungal (terbinafine)] 1 % cream 1 applic topical BID PRN (Reason: unknown) bupropion HCl [Wellbutrin XL] 300 mg tablet extended release 24 hr 300 mg PO QAM amitriptyline 100 mg tablet 100 mg PO BEDTIME PRN (Reason: unknown) diclofenac sodium 75 mg tablet,delayed release (DR/EC) 75 mg PO BID PRN (Reason: Pain) zonisamide [Zonegran] 100 mg capsule 300 mg PO QAM cetirizine [All Day Allergy (cetirizine)] 10 mg tablet 10 mg PO DAILY PRN (Reason: Allergy Symptoms) acyclovir 400 mg tablet 400 mg PO TID PRN (Reason: Cold Sores) benzonatate 200 mg capsule 200 mg PO TID PRN (Reason: cough) 30 Days Qty: 90 4RF albuterol sulfate 90 mcg/actuation HFA aerosol inhaler 2 puff inhalation QID PRN (Reason: Shortness Of Breath Or Wheezing) Qty: 8.5 6RF budesonide-formoterol [Symbicort] 160-4.5 mcg/actuation HFA aerosol inhaler 2 puff inhalation Q12H Qty: 10.2 6RF montelukast [Singulair] 10 mg tablet 10 mg PO DAILY 90 Days Qty: 90 0RF fluticasone propionate [Flonase Allergy Relief] 50 mcg/actuation spray,suspension 1 spray intranasal BID 30 Days Qty: 16 3RF Rx Instructions: administer into each nostril albuterol sulfate 2.5 mg /3 mL (0.083 %) solution for nebulization 2.5 mg INHALATION QID PRN (Reason: Shortness Of Breath) Qty: 180 6RF ibuprofen 800 mg Tablet 800 mg PO Q8H PRN (Reason: Pain) atorvastatin 20 mg Tablet 20 mg PO QAM Vitamin B-12 2,500 mcg Tablet, Sublingual 2,500 mcg PO Q7D Rx Instructions: on fri potassium chloride 10 mEq Tablet Extended Release 10 meq PO DAILY metformin 500 mg Tablet Extended Release 24 Hr 500 mg PO DAILY magnesium 200 mg Tablet 200 mg PO DAILY topiramate 50 mg Tablet 50 mg PO QAM Dialyvite Vitamin D3 Max 1,250 mcg (50,000 unit) Tablet 50,000 unit PO .TWICE A WEEK tamsulosin 0.4 mg capsule 0.4 mg PO DAILY Qty: 14 0RF ondansetron 4 mg tablet,disintegrating 4 mg PO Q8H PRN (Reason: nausea and vomiting) Qty: 10 0RF Discharge Orders: Discharge ED (Routine); Ordered 03/05/23 Ordered By: Eli Coburn Referrals: Lj Joseph MD [Primary Care Provider] - 1-3 days Discharge Diet: Advance as tolerated Discharge Activity: Resume usual activity Patient Instructions: Abdominal Pain (ED), Opioid Safety Coding Level of Care Code ED Personal Protection Specialist for Nannette Levin
[2023-03-05 14:59] LABS: Basophils # 0.1 10^3/uL (0.0-0.1); Basophils % 0.5 %; Eosinophils # 0.2 10^3/uL (0.0-0.8); Eosinophils % 1.5 %; Hematocrit 45.9 % (36-47); Lymphocytes # 2.6 10^3/uL (0.8-4.8); Lymphocytes % 23.2 %; Mean Corpuscular HGB Conc 33.8 g/dL (30-55); Mean Corpuscular Hemoglobin 30.6 pg (27-33); Mean Corpuscular Volume 90.5 fl (85-98); Mean Platelet Volume 8.9 fL (7.4-10.4); Monocytes # 0.6 10^3/uL (0.2-0.9); Monocytes % 5.5 %; Neutrophils # 7.57 10^3/uL (1.8-7.7); Neutrophils % 68.9 %; Nucleated Red Blood Cells % 0 %; Platelet Count 292 10^3/cmm (157-399); Red Blood Count 5.07 10^6/uL (3.85-5.65); Red Cell Distribution Width 12.4 % (12.1-15.1); White Blood Count 10.98 10^3/uL (3.29-11.43)
[2023-03-05] MEDS: ondansetron 2 mg/ML SDV 2 mL 4 MG IVP (15:13)
[2023-03-05] MEDS: diphenhydrAMINE 50 mg/mL SDV 1mL IVP (15:18)
[2023-03-05] MEDS: famotidine 20 mg/2 mL INJ 40 MG IVP (15:18)
[2023-03-05 15:21] VITALS: RESP 16
[2023-03-05] MEDS: morphine 4 mg/mL SDV 1 mL IVP (15:21)
[2023-03-05 15:25] LABS: Alanine Aminotransferase 15 U/L (0-33); Albumin Level 4.1 g/dL (3.5-5.2); Alkaline Phosphatase 78 U/L (35-105); Anion Gap 14.3 (5-19); Aspartate Amino Transferase 14 U/L (0-32); Blood Urea Nitrogen 8 mg/dL (6-20); Calcium 9.3 mg/dL (8.5-10.5); Carbon Dioxide 23 mmol/L (22-29); Chloride 104 mmol/L (98-107); Globulin 2.6 g/dL (1.3-4.6); Glucose 99 mg/dL (65-115); Lipase 17 U/L (13-60); Osmolality Calculated 282 mOsm/kg (285-295); Potassium 4.3 mmol/L (3.5-5.1); Sodium 137 mmol/L (136-145); Total Bilirubin 0.7 mg/dL (0.15-1.2); Total Protein 6.7 g/dL (6.6-8.7)
[2023-03-05] MEDS: iohexol 350 mg/mL 500 mL Btl (per mL) IV (15:33)
[2023-03-05 15:36] VITALS: BP 112/87; PULSE 86; RESP 16; O2SAT 95
[2023-03-05 15:45] LABS: Add Urine Microscopic? NO; Charge for UA Resulting for Rev
[2023-03-05 15:57] LABS: Bilirubin Urine Neg (Negative); Blood Urine Neg (Negative); Glucose Urine UA Norm (Normal); Ketones Urine Negative (Negative); Leukocyte Esterase Urine Negative (Negative); Nitrate Urine Negative (Negative); Protein Urine Neg (Negative); Urine Appearance Clear (CLEAR); Urine Color Light yellow (Yellow); Urobilinogen Urine Norm (Negative); pH Urine 5 (5-7)
[2023-03-05 16:45] VITALS: BP 139/98; PULSE 82; O2SAT 94
== END 2023-03-05 16:46 | disposition home or self-care (01) ==
PROVIDERS: Emergency Provider Emergency Medicine; PCP Family Medicine
DX: N83.201 Unspecified ovarian cyst, right side (principal); R21 Rash and other nonspecific skin eruption; Z79.84 Long term (current) use of oral hypoglycemic drugs; F17.210 Nicotine dependence, cigarettes, uncomplicated; J44.9 Chronic obstructive pulmonary disease, unspecified; E78.5 Hyperlipidemia, unspecified
CPT/HCPCS: 36415; 74177; 80053; 81003; 83690; 85025; 96374; 96375; 99285; J1200; J2270; J2405; J3490

== ENCOUNTER 2023-04-09 11:01 | Outpatient (RCR) | payer MEDICAID, SELFPAY | END 2023-04-10 23:59 | disposition home or self-care (01) | LOC: SPT 11:01 | PROVIDERS: PCP Family Medicine; Visit Provider Orthopaedic Surgery | DX: M54.50 Low back pain, unspecified (principal); G89.29 Other chronic pain | CPT/HCPCS: 97161 ==

== ENCOUNTER 2023-04-11 06:00 | Outpatient (RCR) | payer MEDICAID, SELFPAY | END 2023-05-11 23:59 | disposition home or self-care (01) | LOC: SPT 06:00 | PROVIDERS: PCP Family Medicine; Visit Provider Orthopaedic Surgery | DX: M54.50 Low back pain, unspecified (principal); G89.29 Other chronic pain | CPT/HCPCS: 97110 ==

== ENCOUNTER 2023-05-12 06:00 | Outpatient (RCR) | payer MEDICAID, SELFPAY | END 2023-06-11 23:59 | disposition home or self-care (01) | LOC: SPT 06:00 | PROVIDERS: PCP Family Medicine; Visit Provider Orthopaedic Surgery | DX: M54.50 Low back pain, unspecified (principal); G89.29 Other chronic pain | CPT/HCPCS: 97110 ==

== ENCOUNTER → 2023-06-26 12:53 | Outpatient (BNVA) | payer MEDICAID, SELFPAY | PROVIDERS: PCP Family Medicine; Visit Provider Orthopaedic Surgery | DX: M21.70 Unequal limb length (acquired), unspecified site (principal); R21 Rash and other nonspecific skin eruption; G89.29 Other chronic pain; M47.22 Other spondylosis with radiculopathy, cervical region; M54.50 Low back pain, unspecified; M54.2 Cervicalgia; R26.89 Other abnormalities of gait and mobility | CPT/HCPCS: 99214 ==

== ENCOUNTER → 2023-07-16 11:01 | Outpatient (BNVA) | payer MEDICAID, SELFPAY | PROVIDERS: PCP Family Medicine; Visit Provider Podiatrist Foot & Ankle Surgery | DX: M21.70 Unequal limb length (acquired), unspecified site (principal); M79.605 Pain in left leg; R26.9 Unspecified abnormalities of gait and mobility; E11.9 Type 2 diabetes mellitus without complications; Z79.84 Long term (current) use of oral hypoglycemic drugs | CPT/HCPCS: 99203 ==

== ENCOUNTER → 2023-07-23 10:47 | Outpatient (BNVA) | payer MEDICAID, SELFPAY | PROVIDERS: PCP Family Medicine; Visit Provider Nurse Practitioner Family | DX: L08.9 Local infection of the skin and subcutaneous tissue, unspecified (principal); D48.5 Neoplasm of uncertain behavior of skin; B35.3 Tinea pedis; L57.8 Other skin changes due to chronic exposure to nonionizing radiation; D22.39 Melanocytic nevi of other parts of face; L81.3 Cafe au lait spots; R55 Syncope and collapse | CPT/HCPCS: 11104; 99204 ==

== ENCOUNTER 2023-07-30 12:19 | Outpatient (CLI) | payer MEDICAID, SELFPAY ==
--- NOTE | 2023-07-30 12:24 | XR_ITS ---
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 Findings: The measurement of the right femur from the superior femoral head to the medial femoral condyle was 4 3.5 cm. The measurement of the left femur from the superior femoral head to the medial femoral condyl e was 42.0 cm Measurement of the right lower extremity length from the medial femoral condyle to the tibial plateau was 31.3 cm. Measurement of the left lower extremity length from the medial femoral condyle to the t ibial plateau was 32.0 cm. Impression: 1. Right femoral length 43.5 cm, left femoral length 42.0 cm. 2. Right tibial length 31.3 cm, left tibial length 32.0 cm.
== END 2023-07-30 12:20 | disposition home or self-care (01) ==
LOC: RAD 12:21
PROVIDERS: PCP Family Medicine; Visit Provider Podiatrist Foot & Ankle Surgery
DX: M21.70 Unequal limb length (acquired), unspecified site (principal); R26.9 Unspecified abnormalities of gait and mobility
CPT/HCPCS: 77073

== ENCOUNTER → 2023-08-07 13:14 | Outpatient (BNVA) | payer MEDICAID, SELFPAY | PROVIDERS: PCP Family Medicine; Visit Provider Orthopaedic Surgery | DX: M54.9 Dorsalgia, unspecified (principal); M47.22 Other spondylosis with radiculopathy, cervical region | CPT/HCPCS: 72050; 72110; 99214 ==

== ENCOUNTER → 2023-09-02 09:06 | Outpatient (BNVA) | payer MEDICAID, SELFPAY | PROVIDERS: PCP Family Medicine; Visit Provider Nurse Practitioner Family | DX: L23.9 Allergic contact dermatitis, unspecified cause (principal); L70.0 Acne vulgaris; L57.8 Other skin changes due to chronic exposure to nonionizing radiation; D22.39 Melanocytic nevi of other parts of face; L81.3 Cafe au lait spots | CPT/HCPCS: 99214 ==

== ENCOUNTER 2023-09-09 23:15 | Emergency (ER) | payer MEDICAID, SELFPAY ==
[2023-09-09 23:16] VITALS: BP 160/114; PULSE 105; RESP 18; TEMP 36.6; O2SAT 98; BMI 38.7
[2023-09-09 23:39] LABS: Add Urine Microscopic? NO; Charge for UA Resulting for Rev
[2023-09-09 23:44] LABS: Bilirubin Urine Neg (Negative); Blood Urine Neg (Negative); Glucose Urine UA Norm (Normal); Ketones Urine Negative (Negative); Leukocyte Esterase Urine Negative (Negative); Nitrate Urine Negative (Negative); Protein Urine Neg (Negative); Urine Appearance Clear (CLEAR); Urine Color Yellow (Yellow); Urobilinogen Urine Neg (Negative); pH Urine 7 (5-7)
--- NOTE | 2023-09-09 23:47 | CTR_ITS ---
PROCEDURE INFORMATION: Exam: CT Abdomen And Pelvis With Contrast Exam date and time: 09/10/2023 12:17 AM Age: 42 years old Clinical indication: Abdominal pain; Prior surgery; Surgery date: 6+ months; Surgery type: Hyst, ; Additional info: Rlq pain TECHNIQUE: Imaging protocol: Computed tomography of the abdomen and pelvis with contrast. Radiation optimization: All CT scans at this facility use at least one of these dose optimization techniques: automated exposure control; mA and/or kV adjustment per patient size (includes targeted exams where dose is matched to clinical indication); or iterative reconstruction. Contrast material: OMNI 350; Contrast volume: 100 ml; Contrast route: INTRAVENOUS (IV); COMPARISON: CT abdomen pelvis w con* [id number] 03/05/2023 3:31 PM RADIATION DOSE METRICS: Total DLP (mGy-cm): 907.8 FINDINGS: Liver: Hepatic steatosis. Gallbladder and bile ducts: Normal. No calcified stones. No ductal dilation. Pancreas: Normal. No ductal dilation. Spleen: Normal. No splenomegaly. Adrenal glands: Normal. No mass. Kidneys and ureters: Mild right hydronephrosis and hydroureter without obstructing lesion, please correlate for possible infection. Negative for obstructing calculus seen. A calcified phlebolith is seen in the right deep pelvis, however, appears extrinsic to the ureter. Bilateral punctate nonobstructing renal calyceal stones. Stomach and bowel: Unremarkable. No obstruction. No mucosal thickening. Appendix: No evidence of appendicitis. Intraperitoneal space: Unremarkable. No free air. No significant fluid collection. Vasculature: See Kidneys and ureters finding. Lymph nodes: Unremarkable. No enlarged lymph nodes. Urinary bladder: Unremarkable as visualized. Reproductive: Unremarkable as visualized. Bones/joints: Unremarkable. No acute fracture. Soft tissues: Small umbilical hernia containing omentum. CT/CT abdomen pelvis w con* [id number] IMPRESSION: 1. Mild right hydronephrosis and hydroureter without obstructing lesion, please correlate for possible infection. Negative for obstructing calculus seen. A calcified phlebolith is seen in the right deep pelvis, however, appears extrinsic to the ureter. 2. Small umbilical hernia containing omentum. 3. Hepatic steatosis. 4. Bilateral punctate nonobstructing renal calyceal stones.
--- NOTE | 2023-09-09 23:50 | ED_ITS ---
HPI - Abdominal Pain 2 General: Chief Complaint: Abdominal Pain Stated Complaint: right abdomen pain Time Seen by Provider: 09/09/23 23:18 Source: patient Mode of arrival: ambulatory Limitations: no limitations History of Present Illness: 42-year-old female states been having ri ght lower quadrant pain for the last 2 to 3 days. States she had a history of kidney stones and this felt similar she denies any vomiting she had some nausea denies any fevers states she had some radiation the right upper quadrant pain is mainly in the right lower quadrant. Patient still has her appendix. Associated Symptoms: Reports nausea; Denies chills, diarrhea, dysuria, fever(s) and vomiting Review of Systems 2 Const: Denies: fever(s), chills, body aches or change in appetite ENMT: Denies: throat pain or dental pain Card: Denies: chest pain Resp: Denies: dyspnea GI: Reports: abdominal pain and nausea; Denies: vomiting or diarrhea : Denies: dysuria Musc: Denies: neck pain or back pain Skin/Breast: Denies: rash Neuro: Denies: headache(s) PFSH ED 2 PFSH: Medical History Urinary frequency Appendicitis Urolithiasis Left ureteral stone Greater trochanteric pain syndrome Left hip Right shoulder pain Asthma COPD (chronic obstructive pulmonary disease) Dyslipidemia Right renal stone Right flank pain Surgical History Hx of section Hx of tonsillectomy Hx of exploratory laparotomy Hx of hysterectomy Hx of tubal ligation Family History Father Bleeding disorder Diabetes Hyperlipidemia CAD (coronary artery disease) Chronic kidney disease (CKD) Hypertension Seizure Family/Other Lung disease Liver disease Seizure Grandfather Lung disease Mother Stroke Migraines Liver disease Grandmother Cancer Social History Smoking and tobacco/nicotine status: current every day tobacco/nicotine user (0.5 ppd) cigarettes Packs smoked per day: 1 Years cigarettes smoked: 23 [ Other cigarette details: started at age 17] Second hand smoke exposure: No Alcohol intake: never Substance/Drug Use: never Lives independently: Yes Household members: children Marital status: Single Current occupational status: disabled Do you think of yourself as: Straight/Heterosexual Current gender identity: Female Physical Exam 2 Const: COMMON NORMALS: no acute distress, patient oriented x3 and healthy appearing HENMT: COMMON NORMALS: normocephalic and atraumatic HEAD & SCALP: n ormocephalic and atraumatic Eye: COMMON NORMALS: conjunctivae normal CONJUNCTIVA: Yes conjunctivae normal Neck/C-Spine: COMMON NORMALS: full ROM and supple Chest: COMMONS NORMALS: normal inspection of the chest and normal palpation of entire chest wall Resp: COMMON NORMALS: normal respiratory effort, No retractions, No use of accessory muscles and clear to auscultation bilaterally AUSCULTATION: clear to auscultation bilaterally Cardio: COMMON NORMALS: regular rate, regular rhythm and No murmurs present (Cardio) RATE: regular rate RHYTHM: regular rhythm GI: COMMON NORMALS: Normal to inspection, nondistended, normoactive bowel sounds present, Soft to palpation, non-tender and no masses PALPATION: Yes Soft to palpation Extremity: COMMON NORMALS: normal to inspection and full ROM Neuro: COMMON NORMALS: patient oriented x3, moves all extremities and no focal motor deficits Psych: COMMON NORMALS: mental status grossly normal, Normal thought process present and cooperative THOUGHT PROCESS: Normal thought process present Skin: COMMON NORMALS: no rashes or lesions noted and no wounds GENERAL SKIN EXAM: no rashes or lesions noted Course 2 Vital Signs: Vital signs: Vital Signs Temperature 97.9 F 09/09/23 23:16 Pulse Rate 83 09/10/23 00:46 Respiratory Rate 16 09/10/23 00:08 Blood Pressure 110/78 09/10/23 00:46 Pulse Oximetry 96 09/10/23 00:46 Oxygen Delivery Me thod Room Air 09/10/23 00:46 MDM - Abdominal Pain Medical Decision Making Patient presents here with abdominal pain CT scan blood work urine here are all normal her exam is benign she is stable for discharge she is follow-up PCP return if worsening she understands agrees to plan. Medical Records I reviewed the patient's medical records. Lab Data I reviewed the patient's lab results. 09/09/23 23:40 09/09/23 23:40 Labs/Radiology: Radiology Impressions Abdomen/Pelvis CT 09/09/23 23:47 IMPRESSION: 1. Mild right hydronephrosis and hydroureter without obstructing lesion, please correlate for possible infection. Negative for obstructing calculus seen. A calcified phlebolith is seen in the right deep pelvis, however, appears extrinsic to the ureter. 2. Small umbilical hernia containing omentum. 3. Hepatic steatosis. 4. Bilateral punctate nonobstructing renal calyceal stones. Laboratory Results WBC 11.18 10^3/uL (3.29-11.43) 09/09/23 23:40 RBC 5.00 10^6/uL (3.85-5.65) 09/09/23 23:40 Hgb 14.90 g/dL (11.27-16.99) 09/09/23 23:40 Hct 44.8 % (36-47) 09/09/23 23:40 MCV 89.6 fl (85-98) 09/09/23 23:40 MCH 29.8 pg (27-33) 09/09/23 23:40 MCHC 33.3 g/dL (30-55) 09/09/23 23:40 RDW 12.3 % (12.1-15.1) 09/09/23 23:40 Plt Count 292 10^3/cmm (157-399) 09/09/23 23:40 MPV 8.7 fL (7.4-10.4) 09/09/23 23:40 Neut % (Auto) 59.1 % 09/09/23 23:40 Lymph % (Auto) 32.1 % 09/09/23 23:40 [place] % (Auto) 5.2 % 09/09/23 23:40 Eos % (Auto) 2.6 % 09/09/23 23:40 Baso % (Auto) 0.6 % 09/09/23 23:40 Neut # (Auto) 6.61 10^3/uL (1.8-7.7) 09/09/23 23:40 Lymph # (Auto) 3.6 10^3/uL (0.8-4.8) 09/09/23 23:40 [place] # (Auto) 0.6 10^3/uL (0.2-0.9) 09/09/23 23:40 Eos # (Auto) 0.3 10^3/uL (0.0-0.8) 09/09/23 23:40 Baso # (Auto) 0.1 10^3/uL (0.0-0.1) 09/09/23 23:40 Nucleated RBC % (auto) 0 % 09/09/23 23:40 Nucleated RBCs # 0.0 /100WBC 09/09/23 23:40 Sodium 134 mmol/L (136-145) L 09/09/23 23:40 Potassium 3.8 mmol/L (3.5-5.1) 09/09/23 23:40 Chloride 101 mmol/L (98-107) 09/09/23 23:40 Carbon Dioxide 23 mmol/L (22-29) 09/09/23 23:40 Anion Gap 13.8 (5-19) 09/09/23 23:40 BUN 12 mg/dL (6-20) 09/09/23 23:40 Creatinine 0.7 mg/dL (0.5-0.9) 09/09/23 23:40 GFR Calculation 92.2 mL/min (90-130) 09/09/23 23:40 Glucose 151 mg/dL (65-115) H 09/09/23 23:40 Calculated Osmolality 281 mOsm/kg (285-295) L 09/09/23 23:40 Calcium 8.8 mg/dL (8.5-10.5) 09/09/23 23:40 Total Bilirubin 0.4 mg/dL (0.15-1.2) 09/09/23 23:40 AST 16 U/L (0-32) 09/09/23 23:40 ALT 18 U/L (0-33) 09/09/23 23:40 Alkaline Phosphatase 84 U/L (35-105) 09/09/23 23:40 Total Protein 7.2 g/dL (6.6-8.7) 09/09/23 23:40 Albumin 4.1 g/dL (3.5-5.2) 09/09/23 23:40 Globulin 3.1 g/dL (1.3-4.6) 09/09/23 23:40 Lipase 25 U/L (13-60) 09/09/23 23:40 HCG, Qual Negative (Negative) 09/09/23 23:40 Urine Color Yellow (Yellow) 09/09/23 23:29 Urine Appearance Clear (CLEAR) 09/09/23 23:29 Urine pH 7 (5-7) 09/09/23 23:29 Ur Specific Dent 1.010 (1.005-1.030) 09/09/23 23:29 Urine Protein Neg (Negative) 09/09/23 23:29 Urine Glucose (UA) Norm (Normal) 09/09/23 23:29 Urine Ketones Negative (Negative) 09/09/23 23:29 Urine Blood Neg (Negative) 09/09/23 23:29 Urine Nitrate Negative (Negative) 09/09/23 23:29 Urine Bilirubin Neg (Negative) 09/09/23 23:29 Urine Urobilinogen Neg mg/dL (Negative) 09/09/23 23:29 Ur Leukocyte Esterase Negative (Negative) 09/09/23 23:29 All radiology interpretation(s) finalized by discharge Discharge Plan Discharge Patient Disposition: Home Clinical Impression: Abdominal pain Condition: Stable Prescriptions: No Action spironolactone 25 mg tablet 25 mg PO DAILY bacitracin zinc [Antibiotic (bacitracin zinc)] 500 unit/gram ointment 1 applic topical DAILY PRN (Reason: unknown) mupirocin 2 % ointment 1 applic topical BID PRN (Reason: unknown) terbinafine HCl [Antifungal (terbinafine)] 1 % cream 1 applic topical BID PRN (Reason: unknown) bupropion HCl [Wellbutrin XL] 300 mg tablet extended release 24 hr 300 mg PO QAM amitriptyline 100 mg tablet 100 mg PO BEDTIME PRN (Reason: unknown) diclofenac sodium 75 mg tablet,delayed release (DR/EC) 75 mg PO BID PRN (Reason: Pain) zonisamide [Zonegran] 100 mg capsule 300 mg PO QAM cetirizine [All Day Allergy (cetirizine)] 10 mg tablet 10 mg PO DAILY PRN (Reason: Allergy Symptoms) acyclovir 400 mg tablet 400 mg PO TID PRN (Reason: Cold Sores) benzonatate 200 mg capsule 200 mg PO TID PRN (Reason: cough) 30 Days Qty: 90 4RF albuterol sulfate 90 mcg/actuation HFA aerosol inhaler 2 puff inhalation QID PRN (Reason: Shortness Of Breath Or Wheezing) Qty: 8.5 6RF montelukast [Singulair] 10 mg tablet 10 mg PO DAILY Qty: 90 6RF (DME) Diabetic shoes with 3 sets of insers and a heel lift to left 3/4 inch See Rx Instructions .Route .MEDSUPPLY Qty: 1 0RF Rx Instructions: As directed daily living medical albuterol sulfate 2.5 mg /3 mL (0.083 %) solution for nebulization 2.5 mg INHALATION QID PRN (Reason: Shortness Of Breath) Qty: 180 6RF fluticasone propionate [Flonase Allergy Relief] 50 mcg/actuation spray,suspension 1 spray intranasal BID Qty: 16 3RF Rx Instructions: administer into each nostril budesonide-formoterol [Symbicort] 160-4.5 mcg/actuation HFA aerosol inhaler 2 puff inhalation Q12H Qty: 10.2 6RF ibuprofen 800 mg Tablet 800 mg PO Q8H PRN (Reason: Pain) hydrocodone-acetaminophen 5-325 mg tablet 1 tab PO Q6H PRN (Reason: pain) Qty: 14 0RF ondansetron 4 mg tablet,disintegrating 4 mg PO Q6H PRN (Reason: nausea and vomiting) Qty: 14 0RF atorvastatin 20 mg Tablet 20 mg PO QAM Vitamin B-12 2,500 mcg Tablet, Sublingual 2,500 mcg PO Q7D Rx Instructions: on fri potassium chloride 10 mEq Tablet Extended Release 10 meq PO DAILY metformin 500 mg Tablet Extended Release 24 Hr 500 mg PO DAILY magnesium 200 mg Tablet 200 mg PO DAILY topiramate 50 mg Tablet 50 mg PO QAM Dialyvite Vitamin D3 Max 1,250 mcg (50,000 unit) Tablet 50,000 unit PO .TWICE A WEEK tamsulosin 0.4 mg capsule 0.4 mg PO DAILY Qty: 14 0RF ondansetron 4 mg tablet,disintegrating 4 mg PO Q8H PRN (Reason: nausea and vomiting) Qty: 10 0RF Discharge Orders: Discharge ED (Routine); Ordered 09/10/23 Ordered By: Eli Coburn Referrals: Lj Joseph MD [Primary Care Provider] - 1-3 days Discharge Activity: Resume usual activity Patient Instructions: Abdominal Pain (ED) Coding Level of Care Code ED Furniture Refinisher for Nannette Levin
[2023-09-09 23:59] LABS: Basophils # 0.1 10^3/uL (0.0-0.1); Basophils % 0.6 %; Eosinophils # 0.3 10^3/uL (0.0-0.8); Eosinophils % 2.6 %; Hematocrit 44.8 % (36-47); Lymphocytes # 3.6 10^3/uL (0.8-4.8); Lymphocytes % 32.1 %; Mean Corpuscular HGB Conc 33.3 g/dL (30-55); Mean Corpuscular Hemoglobin 29.8 pg (27-33); Mean Corpuscular Volume 89.6 fl (85-98); Mean Platelet Volume 8.7 fL (7.4-10.4); Monocytes # 0.6 10^3/uL (0.2-0.9); Monocytes % 5.2 %; Neutrophils # 6.61 10^3/uL (1.8-7.7); Neutrophils % 59.1 %; Nucleated Red Blood Cells % 0 %; Platelet Count 292 10^3/cmm (157-399); Red Cell Distribution Width 12.3 % (12.1-15.1); White Blood Count 11.18 10^3/uL (3.29-11.43)
[2023-09-10 00:01] VITALS: BP 144/94; PULSE 90; RESP 16; O2SAT 99
[2023-09-10 00:03] LABS: HCG, Serum Qual Negative (Negative)
[2023-09-10] MEDS: ondansetron 2 mg/ML SDV 2 mL 4 MG IVP (00:06)
[2023-09-10 00:08] VITALS: RESP 16; O2SAT 98
[2023-09-10] MEDS: morphine 4 mg/mL SDV 1 mL IVP (00:08)
[2023-09-10 00:11] LABS: Alanine Aminotransferase 18 U/L (0-33); Albumin Level 4.1 g/dL (3.5-5.2); Alkaline Phosphatase 84 U/L (35-105); Anion Gap 13.8 (5-19); Aspartate Amino Transferase 16 U/L (0-32); Blood Urea Nitrogen 12 mg/dL (6-20); Calcium 8.8 mg/dL (8.5-10.5); Carbon Dioxide 23 mmol/L (22-29); Chloride 101 mmol/L (98-107); Creatinine Clr Calc Pharmacy 109.9867; Globulin 3.1 g/dL (1.3-4.6); Glomerular Filtration Rate 92.2 mL/min (90-130); Glucose 151 mg/dL (65-115); Lipase 25 U/L (13-60); Osmolality Calculated 281 mOsm/kg (285-295); Potassium 3.8 mmol/L (3.5-5.1); Sodium 134 mmol/L (136-145); Total Bilirubin 0.4 mg/dL (0.15-1.2); Total Protein 7.2 g/dL (6.6-8.7)
[2023-09-10] MEDS: iohexol 350 mg/mL 500 mL Btl (per mL) IV (00:19)
[2023-09-10 00:46] VITALS: BP 110/78; PULSE 83; O2SAT 96
[2023-09-10 01:06] VITALS: BP 110/78; PULSE 87; RESP 16; O2SAT 96
== END 2023-09-10 01:05 | disposition home or self-care (01) ==
PROVIDERS: Emergency Provider Emergency Medicine; PCP Family Medicine
DX: R10.31 Right lower quadrant pain (principal); Z79.84 Long term (current) use of oral hypoglycemic drugs; F17.210 Nicotine dependence, cigarettes, uncomplicated; J44.9 Chronic obstructive pulmonary disease, unspecified; E78.5 Hyperlipidemia, unspecified
CPT/HCPCS: 36415; 74177; 80053; 81003; 83690; 84703; 85025; 96374; 96375; 99285; J2270; J2405; Q9967

== ENCOUNTER → 2023-09-17 11:23 | Outpatient (BNVA) | payer MEDICAID, SELFPAY | PROVIDERS: PCP Family Medicine; Visit Provider Podiatrist Foot & Ankle Surgery | DX: M21.70 Unequal limb length (acquired), unspecified site (principal); R26.9 Unspecified abnormalities of gait and mobility | CPT/HCPCS: 99213 ==

== ENCOUNTER → 2023-09-18 11:15 | Outpatient (BNVA) | payer MEDICAID, SELFPAY | PROVIDERS: PCP Family Medicine; Visit Provider Internal Medicine Pulmonary Disease | DX: J45.909 Unspecified asthma, uncomplicated (principal); J31.0 Chronic rhinitis; J32.9 Chronic sinusitis, unspecified; F17.210 Nicotine dependence, cigarettes, uncomplicated | CPT/HCPCS: 99214 ==

== ENCOUNTER 2023-09-22 10:46 | Outpatient (CLI) | payer MEDICAID, SELFPAY ==
--- NOTE | 2023-09-22 11:00 | MR_ITS ---
WS: [id number] MRI LUMBAR SPINE NONCONTRAST HISTORY: back pain COMPARISON: 01/28/2022 TECHNIQUE: Sagittal and axial multisequence imaging is submitted. Disc and osteophyte encroachment upon the ventral thecal sac at C3-4 and C4-5 similar to the prior ex amination. Artifact through the central lumbar spine is in part related to patient's body habitus. Disc spaces are slightly narrowed and desiccated at L1-2 and L2-3. No fractures or marrow edema. Conus terminates normally at L1-2 disc level. L1-L2: Mild bilateral foraminal narrowing is new since 01/28/2022. Mild facet arthritis. L2-L3: Diffuse annular disc bulging with osteophytic ridging. Facet joint arthritis. Disc encroaches upon the ventral thecal sac and the subarticular recesses. Moderate central with bilateral subarticul ar recess and foraminal stenosis. There is disc and osteophyte contact on the L2 and L3 nerve roots. Stenosis has progressed since the prior study. L3-L4: Diffuse annular disc bulging with osteophytic ridging and facet arthritis. Foramina poorly vis ualized due to artifact. There is at least mild foraminal stenosis. Mild central and subarticular rec ess encroachment. L4-L5: Diffuse annular disc bulging with ligamentum flavum and facet arthritis. Disc encroachment upo n the ventral thecal sac and subarticular recesses. Mild central and subarticular recess encroachment . Moderate foraminal stenosis which has progressed since the prior study. L5-S1: Mild annular disc bulging. Mild osteophytic ridging. Disc encroachment upon the ventral thecal sac. There is disc contact on the L5 and S1 nerve roots. Mild to moderate bilateral foraminal stenos is. Paravertebral soft tissues are normal. Retroaortic LEFT renal vein. MR/MR lumbar spine wo con* [id number] IMPRESSION: 1. Quality of this examination is compromised by patient's body habitus. There is artifact through the mid lumbar spine spine. 2. Overall progression of degenerative disc, facet and ligamentum flavum hyper trophy since 01/28/2022. 3. L2-3: Marked osteophytic ridging and facet disease. Moderate central with b ilateral subarticular recess and foraminal stenosis. Progression of stenosis si nce the prior study. 4. L3-4: Mild central, bilateral subarticular recess and foraminal stenosis. A rtifact at this level. Stenosis may be underestimated. Small foraminal disc pro trusions cannot be excluded. 5. L4-5: Moderate foraminal stenosis with mild central and subarticular recess encroachment. 6. L5-S1: Mild to moderate bilateral foraminal stenosis. Disc contacts the L5 and S1 nerve roots.
== END 2023-09-22 10:47 | disposition home or self-care (01) ==
LOC: RAD 10:46
PROVIDERS: PCP Family Medicine; Visit Provider Orthopaedic Surgery
DX: M54.2 Cervicalgia (principal); M54.9 Dorsalgia, unspecified; G89.29 Other chronic pain; M48.061 Spinal stenosis, lumbar region without neurogenic claudication; M48.07 Spinal stenosis, lumbosacral region
CPT/HCPCS: 72148

== ENCOUNTER 2023-10-01 09:39 | Outpatient (CLI) | payer MEDICAID, SELFPAY ==
--- NOTE | 2023-10-01 10:00 | NM_ITS ---
WS: [id number] NUCLEAR MEDICINE HIDA SCAN WITH GALLBLADDER EJECTION FRACTION HISTORY: ABDOMINAL PAIN COMPARISON: CT 09/10/2023 TECHNIQUE: The patient was intravenously injected with 7.6 mCi of TC99m Mebrofenin. Immediate imaging over the right upper quadrant was followed by 5 minute image and additional images for a total of 60 minutes. Normal uptake of radiotracer throughout the liver. Activity identified in the gallbladder at 10 minutes and well distended by 60 minutes. Activity in the proximal small bowel was seen by 30 minutes. Good washout of the radiotracer from the liver by 60 minutes. The patient then drank 8 ounces of Ensure Plus. Ejection fraction at 70 minutes was 96%. Normal GB ej ection fraction is 35-75%. Post fatty meal symptoms: None. NM/NM hepatobiliary w phar* [id number] IMPRESSION: 1. Normal HIDA scan. 2. Normal gallbladder ejection fraction.
== END 2023-10-01 09:40 | disposition home or self-care (01) ==
LOC: RAD 09:40
PROVIDERS: PCP Family Medicine; Visit Provider Family Medicine
DX: R10.9 Unspecified abdominal pain (principal)
CPT/HCPCS: 78227; A9537

== ENCOUNTER → 2023-10-07 10:28 | Outpatient (BNVA) | payer MEDICAID, SELFPAY | PROVIDERS: PCP Family Medicine; Referring Provider Family Medicine; Visit Provider Internal Medicine Cardiovascular Disease | DX: Z98.890 Other specified postprocedural states (principal); E11.9 Type 2 diabetes mellitus without complications; Z79.84 Long term (current) use of oral hypoglycemic drugs; M25.559 Pain in unspecified hip; M54.2 Cervicalgia; M54.9 Dorsalgia, unspecified; G89.29 Other chronic pain; J44.9 Chronic obstructive pulmonary disease, unspecified; F17.210 Nicotine dependence, cigarettes, uncomplicated | CPT/HCPCS: 99203 ==

== ENCOUNTER → 2023-10-09 11:16 | Outpatient (BNVA) | payer MEDICAID, SELFPAY | PROVIDERS: PCP Family Medicine; Visit Provider Orthopaedic Surgery | DX: M54.2 Cervicalgia (principal); Z09 Encounter for follow-up examination after completed treatment for conditions other than malignant neoplasm; M47.22 Other spondylosis with radiculopathy, cervical region | CPT/HCPCS: 99214 ==

== ENCOUNTER → 2023-10-14 09:18 | Outpatient (BNVA) | payer MEDICAID, SELFPAY | PROVIDERS: PCP Family Medicine; Visit Provider Nurse Practitioner Family | DX: L23.9 Allergic contact dermatitis, unspecified cause (principal); B35.1 Tinea unguium; L57.8 Other skin changes due to chronic exposure to nonionizing radiation; L81.3 Cafe au lait spots | CPT/HCPCS: 99214 ==

== ENCOUNTER 2023-10-24 11:20 | Outpatient (CLI) | payer MEDICAID, SELFPAY ==
--- NOTE | 2023-10-24 11:30 | USCV_ITS ---
RhiannonisamarCindy Age: 42 Gender: F : 1980 Exam Date: 10/24/2023 11:33 Ordering Phys: Grayson Georges MD ([email or web address]) Technologist: MICHAEL Exam Location: [facility] – [place] Indication: Bilat ablasion. pain and edema HISTORY: Lower extremity pain. Lower extremity swelling. PROCEDURES: Venous duplex imaging was performed in bilateral lower extremities. The following venous structures were evaluated: common femoral vein, profunda vein, proximal portion of the greater saphenous vein, superficial femoral vein, and the popliteal vein. In addition, the posterior tibial and peroneal trunk were evaluated. Serial compression, augmentation maneuvers, and spectral Doppler flow evaluation were performed. FINDINGS: No evidence of DVT seen in any vessel visualized at this time. CONCLUSIONS RT GSV with no flow above knee LT GSV is patent and compressible above the knee No evidence of right lower extremity DVT. No evidence of left lower extremity DVT. Dejon Ortiz MD (Electronically Signed) Final Date: 24 October 2023 13:00 S
== END 2023-10-24 11:21 | disposition home or self-care (01) ==
LOC: RAD 11:20
PROVIDERS: PCP Family Medicine; Visit Provider Internal Medicine Cardiovascular Disease
DX: Z98.890 Other specified postprocedural states (principal); R93.6 Abnormal findings on diagnostic imaging of limbs
CPT/HCPCS: 93970

== ENCOUNTER 2023-11-03 10:33 | Outpatient (CLI) | payer MEDICAID, SELFPAY ==
--- NOTE | 2023-11-03 11:00 | MR_ITS ---
WS: [id number] MR CERVICAL SPINE WO/W COMPARISON: MRI 2020 HISTORY: Neck Pain TECHNIQUE: Sagittal T1, T2 and T2 inversion recovery; axial T2, T2 gradient and fiesta. Post gadolini um imaging with fat saturation technique. FINDINGS:Straightening of the normal cervical lordosis. Disc protrusions worse at C3-C4 and C4-C5 sim ilar to previous. No abnormal gadolinium enhancement. Incidental benign hemangioma C5 vertebral body. C2-3: Spinal canal and foramen are patent. C3-4: LEFT paracentral disc osteophyte protrusion with indentation on the cervical cord and mild cent ral canal stenosis unchanged. Mild bilateral foraminal narrowing. C4-5: Disc osteophyte complex with slight indentation of the cervical cord with mild to moderate cent ral canal stenosis appears unchanged. Moderate bilateral bony foraminal narrowing. Mild facet arthrop athy. C5-6: Mild disc bulging with endplate ridging. Mild LEFT and no significant RIGHT foraminal narrowing . Moderate facet arthropathy. C6-7: No significant disc bulging. Mild facet arthropathy. Mild LEFT greater than RIGHT bony foramina l narrowing. C7-T1: Mild LEFT and no significant RIGHT foraminal narrowing. Spinal canal is patent. MR/MR cervical spine wo/w [id number] IMPRESSION: 1. Overall no significant changes compared to previous. 2. Mild central canal stenosis C3-C4 and mild to moderate central canal stenos is C4-5 with slight indentation of the cervical cord. This is similar to previo us. 3. Bony foraminal narrowing appears unchanged. 4. Moderate bilateral bony foraminal narrowing at C4-5 due to eccentric disc b ulging. 5. Cord signal is normal. 6. No abnormal gadolinium enhancement.
[2023-11-03] MEDS: gadobenate dimeglumine 20 mL vial IV (11:14)
== END 2023-11-03 10:34 | disposition home or self-care (01) ==
LOC: RAD 10:33
PROVIDERS: PCP Family Medicine; Visit Provider Orthopaedic Surgery
DX: M48.02 Spinal stenosis, cervical region (principal); M99.61 Osseous and subluxation stenosis of intervertebral foramina of cervical region; M50.321 Other cervical disc degeneration at C4-C5 level; M25.78 Osteophyte, vertebrae
CPT/HCPCS: 72156; A9577

== ENCOUNTER 2023-11-21 14:00 | Outpatient (CLI) | payer MEDICAID, SELFPAY ==
--- NOTE | 2023-11-21 14:00 | USCV_ITS ---
Cindy Rodarte Age: 43 Gender: F : 1980 Exam Date: 11/21/2023 14:03 Ordering Phys: Grayson Georges MD ([email or web address]) Technologist: [place] [facility] [place]: HISTORY: PROCEDURES: FINDINGS: no dvt or reflux in deep system bilateral gsv stripping The right lower extremity venous system was interrogated. The deep veins are found to be easily compressible with a spontaneous flow. The right greater saphenous vein was stripped found to be stripped. The small saphenous vein on the right side was found to be easily compressible. No significant reflux was noted. No significant venous reflux was noted in the deep veins as well. CONCLUSIONS No significant venous reflux in the above-mentioned identifiable veins on the right lower extremity Greater saphenous vein was found to be absent(had venous stripping in the past) No DVT in the above-mentioned veins. Dr Solitario Nettles MD [facility] (Electronically Signed) Final Date: 25 November 2023 08:04 S
== END 2023-11-21 14:01 | disposition home or self-care (01) ==
PROVIDERS: PCP Family Medicine; Visit Provider Internal Medicine Cardiovascular Disease
DX: M79.604 Pain in right leg (principal); M79.605 Pain in left leg
CPT/HCPCS: 93970

== ENCOUNTER 2023-11-29 02:20 | Emergency (ER) | payer MEDICAID, SELFPAY ==
[2023-11-29] VITALS (7 sets, daily range): BP systolic 90–169; BP diastolic 61–118; PULSE 71–93; RESP 16–27; TEMP 36.7; O2SAT 93–98; BMI 40.4
--- NOTE | 2023-11-29 02:40 | CTR_ITS ---
PROCEDURE INFORMATION: Exam: CT Abdomen And Pelvis Without Contrast Exam date and time: 11/29/2023 2:52 AM Age: 43 years old Clinical indication: Abdominal pain; Prior surgery; Surgery date: 6+ months; Surgery type: Hysterectomy. Csection x 5. Patient HX: C/O left flank pain. History of nephrolithiasis. ; Additional info: Left flank pain, HX of stones TECHNIQUE: Imaging protocol: Computed tomography of the abdomen and pelvis without contrast. Radiation optimization: All CT scans at this facility use at least one of these dose optimization techniques: automated exposure control; mA and/or kV adjustment per patient size (includes targeted exams where dose is matched to clinical indication); or iterative reconstruction. COMPARISON: CT abdomen pelvis w con* [id number] 09/10/2023 12:17 AM RADIATION DOSE METRICS: Total DLP (mGy-cm): 911.19 FINDINGS: Lungs: Lung bases are clear as visualized. Heart: Base of heart is unremarkable as visualized. Liver: Normal. No mass. Gallbladder and biliary ducts: Gallbladder is decompressed. Pancreas: Normal. No ductal dilation. Spleen: Normal. No splenomegaly. Adrenal glands: Normal. No mass. Kidneys and ureters: Bilateral nonobstructive nephrolithiasis. Stomach and bowel: Mild colonic stool burden. Appendix: No evidence of appendicitis. Intraperitoneal space: Unremarkable. No free air. No significant fluid collection. Vasculature: Unremarkable. No abdominal aortic aneurysm. Lymph nodes: Unremarkable. No enlarged lymph nodes. Urinary bladder: Unremarkable as visualized. Reproductive: Status post hysterectomy. Bones/joints: Degenerative change of the visualized osseous structures. Soft tissues: Postsurgical change of the lower anterior abdominal wall. CT/CT kidney stone [id number] IMPRESSION: 1. No acute findings. 2. Bilateral nonobstructive nephrolithiasis. 3. Additional findings as above.
--- NOTE | 2023-11-29 02:41 | ED_ITS ---
HPI - Abdominal Pain 2 General: Chief Complaint: Abdominal Pain Stated Complaint: Abd pain Time Seen by Provider: 11/29/23 02:37 History of Present Illness: Patient presents to the ER with left flank pain that radiates to her left lower quadrant pelvic region. This pain is sharp and crampy in nature comes in waves started around 2300 hrs. Patient denies any nausea vomiting diarrhea has not taken any pain medicine for, denies any dysuria hematuria urgency frequency. Patient does have a history of kidney stones. Patient has had a hysterectomy. Review of Systems 2 General: Reports: 10 or more systems reviewed and unremarkable except in HPI and below PFSH ED 2 PFSH: Medical History Urinary frequency Appendicitis Urolithiasis Left ureteral stone Greater trochanteric pain syndrome Left hip Right shoulder pain Asthma COPD (chronic obstructive pulmonary disease) Dyslipidemia Right renal stone Right flank pain Surgical History Status post laser ablation of incompetent vein Hx of section Hx of tonsillectomy Hx of exploratory laparotomy Hx of hysterectomy Hx of tubal ligation Family History Father Bleeding disorder Diabetes Hyperlipidemia CAD (coronary artery disease) Chronic kidney disease (CKD) Hypertension Seizure Family/Other Lung disease Liver disease Seizure Grandfather Lung disease Mother Stroke Migraines Liver disease Grandmother Cancer Social History Smoking and tobacco/nicotine status: current every day tobacco/nicotine user cigarettes Packs smoked per day: 1 Years cigarettes smoked: 23 [ Other cigarette details: started at age 17] Second hand smoke exposure: No Alcohol intake: never Substance/Drug Use: never Lives independently: Yes Household members: children Marital status: Single Current occupational status: disabled Do you think of yourself as: Straight/Heterosexual Current gender identity: Female Physical Exam 2 Const: COMMON NORMALS: no acute distress, average body habitus, patient oriented x3, no limitations, healthy appearing, alert and well nourished HENMT: COMMON NORMALS: normocephalic, atraumatic, hearing grossly normal bilaterally, external ears normal, Normal external nose present and moist oral mucous membranes HEAD & SCALP: normocephalic and atraumatic NOSE: Normal external nose present EXTERNAL EAR: Yes external ears normal Neck/C-Spine: COMMON NORMALS: no JVD Chest: COMMONS NORMALS: normal inspection of the chest and normal palpation of entire chest wall Resp: COMMON NORMALS: normal respiratory effort, No retractions, No use of accessory muscles and clear to auscultation bilaterally AUSCULTATION: clear to auscultation bilaterally Cardio: COMMON NORMALS: no JVD, regular rate, regular rhythm, S1 normal heart sound present, S2 normal heart sound present, No gallops present (Cardio), No clicks present (Cardio), No murmurs present (Cardio) and No rub (Cardio) R ATE: regular rate RHYTHM: regular rhythm HEART SOUNDS: S1 normal heart sound present and S2 normal heart sound present GI: COMMON NORMALS: Normal to inspection, nondistended, normoactive bowel sounds present, Soft to palpation, No hepatosplenomegaly present and no masses; negative for non-tender (Tender to palpate left flank area positive Rodrigo's punch) PALPATION: Yes Soft to palpation and Yes No hepatosplenomegaly present Neuro: COMMON NORMALS: patient oriented x3 SENSORIUM/ORIENTATION: Yes alert Course 2 Vital Signs: Vital signs: Vital Signs Temperature 98.0 F 11/29/23 02:21 Pulse Rate 89 11/29/23 05:33 Respiratory Rate 19 H 11/29/23 05:33 Blood Pressure 95/68 11/29/23 05:33 Pulse Oximetry 97 11/29/23 05:33 Oxygen Delivery Me thod Room Air 11/29/23 05:33 MDM - Abdominal Pain Medical Decision Making Patient had lab work and abdominal pelvic CT scan renal protocol, lab work was benign and the CT scan of the abdomen pelvis showed bilateral nonobstructive stones in the kidneys. Patient will be discharged from the ER. Differential Diagnosis Likely abdominal pain and calculus of kidney; Unlikely acute appendicitis, constipation, diverticulitis, endometriosis, gastroenteritis, pancreatitis or small bowel obstruction Medical Records I reviewed the patient's medical records. Lab Data I reviewed the patient's lab results. 11/29/23 02:48 11/29/23 02:48 Labs/Radiology: Radiology Impressions Abdomen/Pelvis CT 11/29/23 02:40 IMPRESSION: 1. No acute findings. 2. Bilateral nonobstructive nephrolithiasis. 3. Additional findings as above. Laboratory Results WBC 11.30 10^3/uL (3.29-11.43) 11/29/23 02:48 RBC 4.89 10^6/uL (3.85-5.65) 11/29/23 02:48 Hgb 14.50 g/dL (11.27-16.99) 11/29/23 02:48 Hct 43.3 % (36-47) 11/29/23 02:48 MCV 88.5 fl (85-98) 11/29/23 02:48 MCH 29.7 pg (27-33) 11/29/23 02:48 MCHC 33.5 g/dL (30-55) 11/29/23 02:48 RDW 12.9 % (12.1-15.1) 11/29/23 02:48 Plt Count 297 10^3/cmm (157-399) 11/29/23 02:48 MPV 8.8 fL (7.4-10.4) 11/29/23 02:48 Neut % (Auto) 55.0 % 11/29/23 02:48 Lymph % (Auto) 35.0 % 11/29/23 02:48 [place] % (Auto) 5.7 % 11/29/23 02:48 Eos % (Auto) 3.1 % 11/29/23 02:48 Baso % (Auto) 0.8 % 11/29/23 02:48 Neut # (Auto) 6.22 10^3/uL (1.8-7.7) 11/29/23 02:48 Lymph # (Auto) 4.0 10^3/uL (0.8-4.8) 11/29/23 02:48 [place] # (Auto) 0.6 10^3/uL (0.2-0.9) 11/29/23 02:48 Eos # (Auto) 0.4 10^3/uL (0.0-0.8) 11/29/23 02:48 Baso # (Auto) 0.1 10^3/uL (0.0-0.1) 11/29/23 02:48 Nucleated RBC % (auto) 0 % 11/29/23 02:48 Nucleated RBCs # 0.0 /100WBC 11/29/23 02:48 Sodium 138 mmol/L (136-145) 11/29/23 02:48 Potassium 3.6 mmol/L (3.5-5.1) 11/29/23 02:48 Chloride 102 mmol/L (98-107) 11/29/23 02:48 Carbon Dioxide 22 mmol/L (22-29) 11/29/23 02:48 Anion Gap 17.6 (5-19) 11/29/23 02:48 BUN 12 mg/dL (6-20) 11/29/23 02:48 Creatinine 0.9 mg/dL (0.5-0.9) 11/29/23 02:48 GFR Calculation 68.7 mL/min (90-130) L 11/29/23 02:48 Glucose 133 mg/dL (65-115) H 11/29/23 02:48 Calculated Osmolality 288 mOsm/kg (285-295) 11/29/23 02:48 Calcium 8.7 mg/dL (8.5-10.5) 11/29/23 02:48 Total Bilirubin 0.5 mg/dL (0.15-1.2) 11/29/23 02:48 AST 19 U/L (0-32) 11/29/23 02:48 ALT 22 U/L (0-33) 11/29/23 02:48 Alkaline Phosphatase 88 U/L (35-105) 11/29/23 02:48 Total Protein 7.0 g/dL (6.6-8.7) 11/29/23 02:48 Albumin 4.2 g/dL (3.5-5.2) 11/29/23 02:48 Globulin 2.8 g/dL (1.3-4.6) 11/29/23 02:48 Urine Color Yellow (Yellow) 11/29/23 03:05 Urine Appearance Clear (CLEAR) 11/29/23 03:05 Urine pH 6.5 (5-7) 11/29/23 03:05 Ur Specific [place] 1.020 (1.005-1.030) 11/29/23 03:05 Urine Protein Neg (Negative) 11/29/23 03:05 Urine Glucose (UA) Norm (Normal) 11/29/23 03:05 Urine Ketones Negative (Negative) 11/29/23 03:05 Urine Blood Neg (Negative) 11/29/23 03:05 Urine Nitrate Negative (Negative) 11/29/23 03:05 Urine Bilirubin Neg (Negative) 11/29/23 03:05 Urine Urobilinogen 1 mg/dL (Negative) H 11/29/23 03:05 Ur Leukocyte Esterase Negative (Negative) 11/29/23 03:05 All radiology interpretation(s) finalized by discharge Discharge Plan Discharge Patient Disposition: Home Clinical Impression: Calculus of kidney Condition: Stable Prescriptions: New ketorolac 10 mg tablet 10 mg PO Q8H PRN (Reason: kidney stone pain ) Qty: 14 0RF Rx Instructions: maximum total duration of 5 days No Action spironolactone 25 mg tablet 25 mg PO DAILY bacitracin zinc [Antibiotic (bacitracin zinc)] 500 unit/gram ointment 1 applic topical DAILY PRN (Reason: unknown) mupirocin 2 % ointment 1 applic topical BID PRN (Reason: unknown) terbinafine HCl [Antifungal (terbinafine)] 1 % cream 1 applic topical BID PRN (Reason: unknown) bupropion HCl [Wellbutrin XL] 300 mg tablet extended release 24 hr 300 mg PO QAM amitriptyline 100 mg tablet 100 mg PO BEDTIME PRN (Reason: unknown) diclofenac sodium 75 mg tablet,delayed release (DR/EC) 75 mg PO BID PRN (Reason: Pain) zonisamide [Zonegran] 100 mg capsule 300 mg PO QAM cetirizine [All Day Allergy (cetirizine)] 10 mg tablet 10 mg PO DAILY PRN (Reason: Allergy Symptoms) acyclovir 400 mg tablet 400 mg PO TID PRN (Reason: Cold Sores) benzonatate 200 mg capsule 200 mg PO TID PRN (Reason: cough) 30 Days Qty: 90 4RF montelukast [Singulair] 10 mg tablet 10 mg PO DAILY Qty: 90 6RF (DME) Diabetic shoes with 3 sets of insers and a heel lift to left 3/4 inch See Rx Instructions .Route .MEDSUPPLY Qty: 1 0RF Rx Instructions: As directed daily living medical albuterol sulfate 2.5 mg /3 mL (0.083 %) solution for nebulization 2.5 mg INHALATION QID PRN (Reason: Shortness Of Breath) Qty: 180 6RF fluticasone propionate [Flonase Allergy Relief] 50 mcg/actuation spray,suspension 1 spray intranasal BID Qty: 16 3RF Rx Instructions: administer into each nostril budesonide-formoterol [Symbicort] 160-4.5 mcg/actuation HFA aerosol inhaler 2 puff inhalation Q12H Qty: 10.2 6RF levalbuterol tartrate 45 mcg/actuation HFA aerosol inhaler 2 inh inhalation Q6H PRN (Reason: shortness of breath or wheezing) Qty: 15 6RF levalbuterol tartrate [Xopenex HFA] 45 mcg/actuation HFA aerosol inhaler 2 inh inhalation Q6H Qty: 15 6RF ibuprofen 800 mg Tablet 800 mg PO Q8H PRN (Reason: Pain) atorvastatin 20 mg Tablet 20 mg PO QAM Vitamin B-12 2,500 mcg Tablet, Sublingual 2,500 mcg PO Q7D Rx Instructions: on fri potassium chloride 10 mEq Tablet Extended Release 10 meq PO DAILY metformin 500 mg Tablet Extended Release 24 Hr 500 mg PO DAILY magnesium 200 mg Tablet 200 mg PO DAILY topiramate 50 mg Tablet 50 mg PO QAM Dialyvite Vitamin D3 Max 1,250 mcg (50,000 unit) Tablet 50,000 unit PO .TWICE A WEEK Discharge Orders: Discharge ED (Routine); Ordered 11/29/23 Ordered By: Sean Cuevas Referrals: Lj Joseph MD [Primary Care Provider] - 1 week Patient Instructions: Kidney Stones (ED) Activity Restrictions/Additional Instructions: Your CT scan showed you have bilateral kidney stones, however these are very small so you should be able to pass these without any complications other than pain. You have been prescribed ketorolac tablets please use these when you are pain appears to be from your kidney stones and hold your other anti- inflammatories such as diclofenac or ibuprofen while taking these pills. Please follow-up with your family practice physician within the next 7 to 10 days for further evaluation and treatment. Coding Level of Care Code ED Prompt Care Rn for Nannette Levin
[2023-11-29 02:54] LABS: Basophils # 0.1 10^3/uL (0.0-0.1); Basophils % 0.8 %; Eosinophils # 0.4 10^3/uL (0.0-0.8); Eosinophils % 3.1 %; Hematocrit 43.3 % (36-47); Mean Corpuscular HGB Conc 33.5 g/dL (30-55); Mean Corpuscular Hemoglobin 29.7 pg (27-33); Mean Corpuscular Volume 88.5 fl (85-98); Mean Platelet Volume 8.8 fL (7.4-10.4); Monocytes # 0.6 10^3/uL (0.2-0.9); Monocytes % 5.7 %; Neutrophils # 6.22 10^3/uL (1.8-7.7); Nucleated Red Blood Cells % 0 %; Platelet Count 297 10^3/cmm (157-399); Red Blood Count 4.89 10^6/uL (3.85-5.65); Red Cell Distribution Width 12.9 % (12.1-15.1)
[2023-11-29] MEDS: ketorolac 30 mg/mL INJ IVP (03:00)
[2023-11-29] MEDS: ondansetron 2 mg/ML SDV 2 mL 4 MG IVP (03:00)
[2023-11-29 03:12] LABS: Alanine Aminotransferase 22 U/L (0-33); Albumin Level 4.2 g/dL (3.5-5.2); Alkaline Phosphatase 88 U/L (35-105); Anion Gap 17.6 (5-19); Aspartate Amino Transferase 19 U/L (0-32); Blood Urea Nitrogen 12 mg/dL (6-20); Calcium 8.7 mg/dL (8.5-10.5); Carbon Dioxide 22 mmol/L (22-29); Chloride 102 mmol/L (98-107); Creatinine Clr Calc Pharmacy 86.7806; Globulin 2.8 g/dL (1.3-4.6); Glomerular Filtration Rate 68.7 mL/min (90-130); Glucose 133 mg/dL (65-115); Osmolality Calculated 288 mOsm/kg (285-295); Potassium 3.6 mmol/L (3.5-5.1); Sodium 138 mmol/L (136-145); Total Bilirubin 0.5 mg/dL (0.15-1.2)
[2023-11-29 03:14] LABS: Add Urine Microscopic? NO; Charge for UA Resulting for Rev
[2023-11-29 03:21] LABS: Bilirubin Urine Neg (Negative); Blood Urine Neg (Negative); Glucose Urine UA Norm (Normal); Ketones Urine Negative (Negative); Leukocyte Esterase Urine Negative (Negative); Nitrate Urine Negative (Negative); Protein Urine Neg (Negative); Urine Appearance Clear (CLEAR); Urine Color Yellow (Yellow); Urobilinogen Urine 1 mg/dL (Negative); pH Urine 6.5 (5-7)
== END 2023-11-29 05:49 | disposition home or self-care (01) ==
PROVIDERS: Emergency Provider Emergency Medicine; PCP Family Medicine
DX: N20.0 Calculus of kidney (principal); F17.210 Nicotine dependence, cigarettes, uncomplicated; J44.9 Chronic obstructive pulmonary disease, unspecified; E78.5 Hyperlipidemia, unspecified; Z87.442 Personal history of urinary calculi
CPT/HCPCS: 74176; 80053; 81003; 85025; 96374; 96375; 99285; J1885; J2405

== ENCOUNTER 2023-12-09 01:33 | Emergency (ER) | payer MEDICAID, SELFPAY ==
[2023-12-09 01:39] VITALS: BP 147/90; PULSE 96; RESP 16; TEMP 36.6; O2SAT 98; BMI 40.6
--- NOTE | 2023-12-09 01:53 | ED_ITS ---
HPI - Abdominal Pain 2 General: Chief Complaint: Abdominal Pain Stated Complaint: Abd Pain Rt Side Time Seen by Provider: 12/09/23 01:51 History of Present Illness: Patient presents to the ER with complaints of right-sided abdominal pain that radiates up into her right flank. Patient says she has typical urinary urgency but other night she is not having any more urinary frequency than normal. Patient [place] any pain burning etc. Patient just found out approximately 9 days ago she had bilateral kidney stones. She feels about the same way now she felt when she then. Review of Systems 2 General: Reports: 10 or more systems reviewed and unremarkable except in HPI and below PFSH ED 2 PFSH: Medical History Urinary frequency Appendicitis Urolithiasis Left ureteral stone Greater trochanteric pain syndrome Left hip Right shoulder pain Asthma COPD (chronic obstructive pulmonary disease) Dyslipidemia Right renal stone Right flank pain Surgical History Status post laser ablation of incompetent vein Hx of section Hx of tonsillectomy Hx of exploratory laparotomy Hx of hysterectomy Hx of tubal ligation Family History Father Bleeding disorder Diabetes Hyperlipidemia CAD (coronary artery disease) Chronic kidney disease (CKD) Hypertension Seizure Family/Other Lung disease Liver disease Seizure Grandfather Lung disease Mother Stroke Migraines Liver disease Grandmother Cancer Social History Smoking and tobacco/nicotine status: current every day tobacco/nicotine user cigarettes Packs smoked per day: 1 Years cigarettes smoked: 23 [ Other cigarette details: started at age 17] Second hand smoke exposure: No Alcohol intake: never Substance/Drug Use: never Lives independently: Yes Household members: children Marital status: Single Current occupational status: disabled Do you think of yourself as: Straight/Heterosexual Current gender identity: Female Physical Exam 2 Const: COMMON NORMALS: no acute distress, average body habitus, patient oriented x3, no limitations, healthy appearing, alert and well nourished HENMT: COMMON NORMALS: normocephalic, atraumatic, hearing grossly normal bilaterally, external ears normal, Normal external nose present and moist oral mucous membranes HEAD & SCALP: normocephalic and atraumatic NOSE: Normal external nose present EXTERNAL EAR: Yes external ears normal Neck/C-Spine: COMMON NORMALS: no JVD Chest: COMMONS NORMALS: normal inspection of the chest and normal palpation of entire chest wall Resp: COMMON NORMALS: normal respiratory effort, No retractions, No use of accessory muscles and clear to auscultation bilaterally AUSCULTATION: clear to auscultation bilaterally Cardio: COMMON NORMALS: no JVD, regular rate, regular rhythm, S1 normal heart sound present, S2 normal heart sound present, No gallops present (Cardio), No clicks present (Cardio), No murmurs present (Cardio) and No rub (Cardio) R ATE: regular rate RHYTHM: regular rhythm HEART SOUNDS: S1 normal heart sound present and S2 normal heart sound present GI: COMMON NORMALS: Normal to inspection, nondistended, normoactive bowel sounds present, Soft to palpation, non-tender, No hepatosplenomegaly present and no masses PALPATION: Yes Soft to palpation and Yes No hepatosplenomegaly present Neuro: COMMON NORMALS: patient oriented x3 SENSORIUM/ORIENTATION: Yes alert Course 2 Vital Signs: Vital signs: Vital Signs Temperature 97.9 F 12/09/23 01:39 Pulse Rate 96 12/09/23 01:39 Respiratory Rate 16 12/09/23 02:18 Blood Pressure 132/95 12/09/23 02:18 Pulse Oximetry 96 12/09/23 02:18 Oxygen Delivery Me thod Room Air 12/09/23 02:18 MDM - Abdominal Pain Medical Decision Making Patient CBC CMP and UA all essentially fairly benign. Patient was given 1 shot of Toradol and she said helped the pain immensely. Patient's pain went down enough she is ready to go home. Patient will be discharged home with another prescription for Toradol tablets. Differential Diagnosis Likely abdominal pain and calculus of kidney Medical Records I reviewed the patient's medical records. Lab Data I reviewed the patient's lab results. 12/09/23 02:05 12/09/23 02:05 Labs/Radiology: Laboratory Results WBC 11.58 10^3/uL (3.29-11.43) H 12/09/23 02:05 RBC 4.80 10^6/uL (3.85-5.65) 12/09/23 02:05 Hgb 14.30 g/dL (11.27-16.99) 12/09/23 02:05 Hct 42.4 % (36-47) 12/09/23 02:05 MCV 88.3 fl (85-98) 12/09/23 02:05 MCH 29.8 pg (27-33) 12/09/23 02:05 MCHC 33.7 g/dL (30-55) 12/09/23 02:05 RDW 12.8 % (12.1-15.1) 12/09/23 02:05 Plt Count 271 10^3/cmm (157-399) 12/09/23 02:05 MPV 8.8 fL (7.4-10.4) 12/09/23 02:05 Neut % (Auto) 60.2 % 12/09/23 02:05 Lymph % (Auto) 30.2 % 12/09/23 02:05 [place] % (Auto) 5.5 % 12/09/23 02:05 Eos % (Auto) 3.0 % 12/09/23 02:05 Baso % (Auto) 0.7 % 12/09/23 02:05 Neut # (Auto) 6.96 10^3/uL (1.8-7.7) 12/09/23 02:05 Lymph # (Auto) 3.5 10^3/uL (0.8-4.8) 12/09/23 02:05 [place] # (Auto) 0.6 10^3/uL (0.2-0.9) 12/09/23 02:05 Eos # (Auto) 0.4 10^3/uL (0.0-0.8) 12/09/23 02:05 Baso # (Auto) 0.1 10^3/uL (0.0-0.1) 12/09/23 02:05 Nucleated RBC % (auto) 0 % 12/09/23 02:05 Nucleated RBCs # 0.0 /100WBC 12/09/23 02:05 Sodium 139 mmol/L (136-145) 12/09/23 02:05 Potassium 3.7 mmol/L (3.5-5.1) 12/09/23 02:05 Chloride 108 mmol/L (98-107) H 12/09/23 02:05 Carbon Dioxide 20 mmol/L (22-29) L 12/09/23 02:05 Anion Gap 14.7 (5-19) 12/09/23 02:05 BUN 12 mg/dL (6-20) 12/09/23 02:05 Creatinine 0.6 mg/dL (0.5-0.9) 12/09/23 02:05 GFR Calculation 109.6 mL/min (90-130) 12/09/23 02:05 Glucose 139 mg/dL (65-115) H 12/09/23 02:05 Calculated Osmolality 290 mOsm/kg (285-295) 12/09/23 02:05 Calcium 8.8 mg/dL (8.5-10.5) 12/09/23 02:05 Total Bilirubin 0.3 mg/dL (0.15-1.2) 12/09/23 02:05 AST 16 U/L (0-32) 12/09/23 02:05 ALT 26 U/L (0-33) 12/09/23 02:05 Alkaline Phosphatase 79 U/L (35-105) 12/09/23 02:05 Total Protein 6.9 g/dL (6.6-8.7) 12/09/23 02:05 Albumin 4.1 g/dL (3.5-5.2) 12/09/23 02:05 Globulin 2.8 g/dL (1.3-4.6) 12/09/23 02:05 Urine Color Yellow (Yellow) 12/09/23 02:05 Urine Appearance Clear (CLEAR) 12/09/23 02:05 Urine pH 5 (5-7) 12/09/23 02:05 Ur Specific [place] 1.020 (1.005-1.030) 12/09/23 02:05 Urine Protein Neg (Negative) 12/09/23 02:05 Urine Glucose (UA) Norm (Normal) 12/09/23 02:05 Urine Ketones Negative (Negative) 12/09/23 02:05 Urine Blood Neg (Negative) 12/09/23 02:05 Urine Nitrate Negative (Negative) 12/09/23 02:05 Urine Bilirubin Neg (Negative) 12/09/23 02:05 Urine Urobilinogen Neg mg/dL (Negative) 12/09/23 02:05 Ur Leukocyte Esterase Negative (Negative) 12/09/23 02:05 All radiology interpretation(s) finalized by discharge Discharge Plan Discharge Patient Disposition: Home Clinical Impression: Renal colic on right side Condition: Stable Prescriptions: New ketorolac 10 mg tablet 10 mg PO Q8H Qty: 14 0RF Rx Instructions: maximum total duration of 5 days from all oral, intranasal, or parenteral formulations No Action spironolactone 25 mg tablet 25 mg PO DAILY bacitracin zinc [Antibiotic (bacitracin zinc)] 500 unit/gram ointment 1 applic topical DAILY PRN (Reason: unknown) mupirocin 2 % ointment 1 applic topical BID PRN (Reason: unknown) terbinafine HCl [Antifungal (terbinafine)] 1 % cream 1 applic topical BID PRN (Reason: unknown) bupropion HCl [Wellbutrin XL] 300 mg tablet extended release 24 hr 300 mg PO QAM amitriptyline 100 mg tablet 100 mg PO BEDTIME PRN (Reason: unknown) diclofenac sodium 75 mg tablet,delayed release (DR/EC) 75 mg PO BID PRN (Reason: Pain) zonisamide [Zonegran] 100 mg capsule 300 mg PO QAM cetirizine [All Day Allergy (cetirizine)] 10 mg tablet 10 mg PO DAILY PRN (Reason: Allergy Symptoms) acyclovir 400 mg tablet 400 mg PO TID PRN (Reason: Cold Sores) benzonatate 200 mg capsule 200 mg PO TID PRN (Reason: cough) 30 Days Qty: 90 4RF montelukast [Singulair] 10 mg tablet 10 mg PO DAILY Qty: 90 6RF (DME) Diabetic shoes with 3 sets of insers and a heel lift to left 3/4 inch See Rx Instructions .Route .MEDSUPPLY Qty: 1 0RF Rx Instructions: As directed daily living medical albuterol sulfate 2.5 mg /3 mL (0.083 %) solution for nebulization 2.5 mg INHALATION QID PRN (Reason: Shortness Of Breath) Qty: 180 6RF fluticasone propionate [Flonase Allergy Relief] 50 mcg/actuation spray,suspension 1 spray intranasal BID Qty: 16 3RF Rx Instructions: administer into each nostril budesonide-formoterol [Symbicort] 160-4.5 mcg/actuation HFA aerosol inhaler 2 puff inhalation Q12H Qty: 10.2 6RF levalbuterol tartrate 45 mcg/actuation HFA aerosol inhaler 2 inh inhalation Q6H PRN (Reason: shortness of breath or wheezing) Qty: 15 6RF levalbuterol tartrate [Xopenex HFA] 45 mcg/actuation HFA aerosol inhaler 2 inh inhalation Q6H Qty: 15 6RF ibuprofen 800 mg Tablet 800 mg PO Q8H PRN (Reason: Pain) ketorolac 10 mg tablet 10 mg PO Q8H PRN (Reason: kidney stone pain ) Qty: 14 0RF Rx Instructions: maximum total duration of 5 days atorvastatin 20 mg Tablet 20 mg PO QAM Vitamin B-12 2,500 mcg Tablet, Sublingual 2,500 mcg PO Q7D Rx Instructions: on fri potassium chloride 10 mEq Tablet Extended Release 10 meq PO DAILY metformin 500 mg Tablet Extended Release 24 Hr 500 mg PO DAILY magnesium 200 mg Tablet 200 mg PO DAILY topiramate 50 mg Tablet 50 mg PO QAM Dialyvite Vitamin D3 Max 1,250 mcg (50,000 unit) Tablet 50,000 unit PO .TWICE A WEEK Discharge Orders: Discharge ED (Routine); Ordered 12/09/23 Ordered By: Sean Cuevas Referrals: Lj Joseph MD [Primary Care Provider] - 1 week Patient Instructions: Abdominal Pain (ED), Renal Colic (ED) Activity Restrictions/Additional Instructions: Thank you for choosing [facility] for your healthcare needs today. Please realize that you were seen in the emergency department and that we are providing you with an emergency medical screening exam and this may not be a complete and all exclusive of all testing and/or medical workup we may need to determine your element or severity of your illness. It is very important that you follow-up as instructed with your primary care provider or specialist for the additional evaluation and to discuss your medical treatment plan. You may return to the emergency department should you have concerns or if your condition changes or worsens in any way. Coding Level of Care Code ED Director Zone for Nannette Levin
[2023-12-09 02:16] LABS: Add Urine Microscopic? NO; Charge for UA Resulting for Rev
[2023-12-09 02:17] LABS: Basophils # 0.1 10^3/uL (0.0-0.1); Basophils % 0.7 %; Eosinophils # 0.4 10^3/uL (0.0-0.8); Hematocrit 42.4 % (36-47); Lymphocytes # 3.5 10^3/uL (0.8-4.8); Lymphocytes % 30.2 %; Mean Corpuscular HGB Conc 33.7 g/dL (30-55); Mean Corpuscular Hemoglobin 29.8 pg (27-33); Mean Corpuscular Volume 88.3 fl (85-98); Mean Platelet Volume 8.8 fL (7.4-10.4); Monocytes # 0.6 10^3/uL (0.2-0.9); Monocytes % 5.5 %; Neutrophils # 6.96 10^3/uL (1.8-7.7); Neutrophils % 60.2 %; Nucleated Red Blood Cells % 0 %; Platelet Count 271 10^3/cmm (157-399); Red Cell Distribution Width 12.8 % (12.1-15.1); White Blood Count 11.58 10^3/uL (3.29-11.43)
[2023-12-09 02:18] VITALS: BP 132/95; RESP 16; O2SAT 96
[2023-12-09 02:28] LABS: Bilirubin Urine Neg (Negative); Blood Urine Neg (Negative); Glucose Urine UA Norm (Normal); Ketones Urine Negative (Negative); Leukocyte Esterase Urine Negative (Negative); Nitrate Urine Negative (Negative); Protein Urine Neg (Negative); Urine Appearance Clear (CLEAR); Urine Color Yellow (Yellow); Urobilinogen Urine Neg (Negative); pH Urine 5 (5-7)
[2023-12-09 02:33] LABS: Alanine Aminotransferase 26 U/L (0-33); Albumin Level 4.1 g/dL (3.5-5.2); Alkaline Phosphatase 79 U/L (35-105); Anion Gap 14.7 (5-19); Aspartate Amino Transferase 16 U/L (0-32); Blood Urea Nitrogen 12 mg/dL (6-20); Calcium 8.8 mg/dL (8.5-10.5); Carbon Dioxide 20 mmol/L (22-29); Chloride 108 mmol/L (98-107); Creatinine Clr Calc Pharmacy 130.5203; Globulin 2.8 g/dL (1.3-4.6); Glomerular Filtration Rate 109.6 mL/min (90-130); Glucose 139 mg/dL (65-115); Osmolality Calculated 290 mOsm/kg (285-295); Potassium 3.7 mmol/L (3.5-5.1); Sodium 139 mmol/L (136-145); Total Bilirubin 0.3 mg/dL (0.15-1.2); Total Protein 6.9 g/dL (6.6-8.7)
[2023-12-09] MEDS: ketorolac 30 mg/mL INJ IM (02:43)
[2023-12-09 03:01] VITALS: BP 123/87; PULSE 92; RESP 18; O2SAT 96
[2023-12-09 03:02] VITALS: BP 123/87; PULSE 68; RESP 16; O2SAT 97
== END 2023-12-09 03:09 | disposition home or self-care (01) ==
PROVIDERS: Emergency Provider Emergency Medicine; PCP Family Medicine
DX: N23 Unspecified renal colic (principal); Z79.84 Long term (current) use of oral hypoglycemic drugs; F17.210 Nicotine dependence, cigarettes, uncomplicated; J44.9 Chronic obstructive pulmonary disease, unspecified; E78.5 Hyperlipidemia, unspecified
CPT/HCPCS: 36415; 80053; 81003; 85025; 96372; 99284; J1885

== ENCOUNTER → 2024-01-01 11:14 | Outpatient (BNVA) | payer MEDICAID, SELFPAY | PROVIDERS: PCP Family Medicine; Visit Provider Psychiatry & Neurology Neurology | DX: R20.0 Anesthesia of skin (principal); R20.2 Paresthesia of skin | CPT/HCPCS: 95885; 95910 ==

== ENCOUNTER → 2024-01-08 13:00 | Outpatient (BNVA) | payer MEDICAID, SELFPAY | PROVIDERS: PCP Family Medicine; Visit Provider Orthopaedic Surgery | DX: M54.12 Radiculopathy, cervical region (principal) | CPT/HCPCS: 99214 ==

== ENCOUNTER 2024-01-13 09:05 | Outpatient (CLI) | payer MEDICAID, SELFPAY ==
[2024-01-13 09:26] VITALS: PULSE 103; RESP 18; O2SAT 97
[2024-01-13] MEDS: albuterol 2.5 mg/3 mL Neb INHALATION (09:26)
[2024-01-13 09:30] VITALS: PULSE 108
== END 2024-01-13 09:06 | disposition home or self-care (01) ==
PROVIDERS: PCP Family Medicine; Visit Provider Family Medicine
DX: J44.9 Chronic obstructive pulmonary disease, unspecified (principal)
CPT/HCPCS: 94060; 94726; 94729; J7613

== ENCOUNTER 2024-01-15 06:00 | Outpatient (CLI) | payer MEDICAID, SELFPAY | END 2024-01-15 06:01 | disposition home or self-care (01) | LOC: CDL 01-16 06:31 | PROVIDERS: PCP Family Medicine; Visit Provider Internal Medicine Cardiovascular Disease | DX: Z01.818 Encounter for other preprocedural examination (principal); E11.9 Type 2 diabetes mellitus without complications | CPT/HCPCS: 36415; 80053; 81003; 81015; 83036; 85025 ==

== ENCOUNTER → 2024-01-15 14:00 | Outpatient (BNVA) | payer MEDICAID, SELFPAY | PROVIDERS: PCP Family Medicine; Visit Provider Internal Medicine Cardiovascular Disease | DX: R07.2 Precordial pain (principal); M79.604 Pain in right leg; M79.605 Pain in left leg; R06.02 Shortness of breath; I73.9 Peripheral vascular disease, unspecified; Z72.0 Tobacco use | CPT/HCPCS: 99204 ==

== ENCOUNTER → 2024-01-21 14:52 | Outpatient (BNVA) | payer MEDICAID, SELFPAY | PROVIDERS: PCP Family Medicine; Visit Provider Podiatrist Foot & Ankle Surgery | DX: M79.671 Pain in right foot (principal); M79.672 Pain in left foot; M72.2 Plantar fascial fibromatosis; M21.70 Unequal limb length (acquired), unspecified site; R26.9 Unspecified abnormalities of gait and mobility | CPT/HCPCS: 73630; 99213 ==

== ENCOUNTER 2024-01-22 23:49 | Emergency (ER) | payer MEDICAID, SELFPAY ==
--- NOTE | 2024-01-22 23:53 | ECG_ITS ---
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 Measurements Intervals [place] Rate: 114 P: 52 VA: 135 QRS: 75 QRSD: 97 T: 16 QT: 326 QTc: 451 Interpretive Statements SINUS TACHYCARDIA LOW QRS VOLTAGE IN PRECORDIAL LEADS [QRS DEFLECTION < 1.0 mV IN CHEST LEADS] INCOMPLETE RIGHT BUNDLE BRANCH BLOCK [90+ ms QRS DURATION, TERMINAL R IN V1/V2, 40+ ms S IN I/aVL/V4/V5/V6] ABNORMAL RHYTHM ECG Compared to ECG 08/17/2022 15:59:10 Low QRS voltage now present Incomplete right bundle-branch block now present Sinus rhythm no longer present Atrial abnormality no longer present Electronically Signed On 01-23-2024 16:49:08 CDT by Solitario Nettles M.D. [email or web address]
[2024-01-22 23:55] VITALS: BP 160/111; PULSE 114; RESP 18; TEMP 36.6; O2SAT 98
[2024-01-23 00:06] VITALS: PULSE 108; RESP 22; O2SAT 97
[2024-01-23 00:15] LABS: Basophils # 0.1 10^3/uL (0.0-0.1); Basophils % 0.7 %; Eosinophils # 0.3 10^3/uL (0.0-0.8); Eosinophils % 2.5 %; Hematocrit 45.4 % (36-47); Lymphocytes # 3.3 10^3/uL (0.8-4.8); Lymphocytes % 26.2 %; Mean Corpuscular HGB Conc 33.9 g/dL (30-55); Mean Corpuscular Hemoglobin 30.3 pg (27-33); Mean Corpuscular Volume 89.4 fl (85-98); Monocytes # 0.6 10^3/uL (0.2-0.9); Monocytes % 5.1 %; Neutrophils # 8.26 10^3/uL (1.8-7.7); Neutrophils % 65.2 %; Nucleated Red Blood Cells % 0 %; Platelet Count 305 10^3/cmm (157-399); Red Blood Count 5.08 10^6/uL (3.85-5.65); Red Cell Distribution Width 12.8 % (12.1-15.1); White Blood Count 12.67 10^3/uL (3.29-11.43)
--- NOTE | 2024-01-23 00:16 | ED_ITS ---
HPI - Chest Pain 2 General: Chief Complaint: Chest Pain Stated Complaint: CP Time Seen by Provider: 01/22/24 23:50 History of Present Illness: 43-year-old female with history of kidne y stones, asthma and hyperlipidemia who presents to the emergency room with chest pain. Is been going on and off for couple days now. She has noticed some tingling around her mouth. Pressure central chest and is a pressure and ache. No cough. No fevers. No abdominal pain. No nausea or vomiting. No cardiac history. Related Data Home Medications Medication Instructions Recorded Confirmed amitriptyline 100 mg tablet 100 mg PO BEDTIME PRN unknown 09/14/19 01/21/24 bupropion HCl 300 mg 24 hr tablet, 300 mg PO QAM 09/14/19 01/21/24 extended release (Wellbutrin XL) cetirizine 10 mg tablet (All Day 10 mg PO DAILY PRN Allergy Symptoms 09/14/19 01/21/24 Allergy (cetirizine)) diclofenac sodium 75 mg 75 mg PO BID PRN Pain 09/14/19 01/21/24 tablet,delayed release zonisamide 100 mg capsule 300 mg PO QAM 09/14/19 01/21/24 (Zonegran) ibuprofen 800 mg tablet 800 mg PO Q8H PRN Pain 09/22/19 01/21/24 spironolactone 25 mg tablet 25 mg PO DAILY 01/02/21 01/21/24 bacitracin zinc 500 unit/gram 1 applic topical DAILY PRN unknown 01/24/21 01/21/24 topical ointment (Antibiotic (bacitracin zinc)) mupirocin 2 % topical ointment 1 applic topical BID PRN unknown 06/19/21 01/21/24 terbinafine HCl 1 % topical cream 1 applic topical BID PRN unknown 06/19/21 01/21/24 (Antifungal (terbinafine)) acyclovir 400 mg tablet 400 mg PO TID PRN Cold Sores 09/12/21 01/21/24 atorvastatin 20 mg tablet 20 mg PO QAM 11/02/21 01/21/24 cholecalciferol (vitamin D3) 1,250 50,000 unit PO .TWICE A WEEK 11/02/21 01/21/24 mcg (50,000 unit) tablet (Dialyvite Vitamin D3 Max) cyanocobalamin (vitamin B-12) 2,500 mcg PO Q7D 11/02/21 01/21/24 2,500 mcg sublingual tablet (Vitamin B-12) magnesium 200 mg tablet 200 mg PO DAILY 11/02/21 01/21/24 metformin 500 mg tablet,extended 500 mg PO DAILY 11/02/21 01/21/24 release 24 hr potassium chloride 10 mEq 10 meq PO DAILY 11/02/21 01/21/24 tablet,extended release topiramate 50 mg tablet 50 mg PO QAM 11/02/21 01/21/24 Previous Rx's Medication Instructions Recorded benzonatate 200 mg capsule 200 mg PO TID PRN cough 30 days 02/11/22 #90 caps montelukast 10 mg tablet 10 mg PO DAILY #90 tabs 07/15/23 (Singulair) Diabetic shoes with 3 sets of #1 ea 07/22/23 insers and a heel lift to left 3/4 inch albuterol sulfate 2.5 mg/3 mL 2.5 mg (3 mL) inhalation QID PRN 08/15/23 (0.083 %) solution for nebulization Shortness Of Breath #180 mL budesonide-formoterol HFA 160 2 puff inhalation Q12H asthma 08/15/23 mcg-4.5 mcg/actuation aerosol #10.2 grams inhaler (Symbicort) fluticasone propionate 50 1 spray intranasal BID #16 grams 08/15/23 mcg/actuation nasal spray,suspension (Flonase Allergy Relief) ketorolac 10 mg tablet 10 mg PO Q8H PRN kidney stone pain 11/29/23 #14 tabs cilostazol 50 mg tablet 50 mg PO BID #270 tabs 01/15/24 isosorbide mononitrate 30 mg 30 mg PO DAILY #90 tabs 01/15/24 tablet,extended release 24 hr nitroglycerin 0.4 mg sublingual 0.4 mg sublingual Q5M PRN chest 01/15/24 tablet pain #20 tabs Allergies Allergy/AdvReac Type Severity Reaction Status Date / Time adhesive tape Allergy ALGY-Rash Verified 01/22/24 23:59 Tetracyclines Allergy ALGY-Rash Verified 01/22/24 23:59 Review of Systems 2 Narrative: Constitutional symptoms: Negative except as documented in HPI. Skin symptoms: Negative except as documented in HPI. Eye symptoms: Negative except as documented in HPI. ENMT symptoms: Negative except as documented in HPI. Respiratory symptoms: Negative except as documented in HPI. Cardiovascular symptoms: Negative except as documented in HPI. Gastrointestinal symptoms: Negative except as documented in HPI. Genitourinary symptoms: Negative except as documented in HPI. Musculoskeletal symptoms: Negative except as documented in HPI. Neurologic symptoms: Negative except as documented in HPI. Psychiatric symptoms: Negative except as documented in HPI. Endocrine symptoms: Negative except as documented in HPI. PFSH ED 2 PFSH: Medical History Tobacco abuse Shortness of breath Urinary frequency Appendicitis Urolithiasis Left ureteral stone Greater trochanteric pain syndrome Left hip Right shoulder pain Asthma COPD (chronic obstructive pulmonary disease) Dyslipidemia Right renal stone Right flank pain Surgical History Status post laser ablation of incompetent vein Hx of section Hx of tonsillectomy Hx of exploratory laparotomy Hx of hysterectomy Hx of tubal ligation Family History Father Bleeding disorder Diabetes Hyperlipidemia CAD (coronary artery disease) Chronic kidney disease (CKD) Hypertension Seizure Family/Other Lung disease Liver disease Seizure Grandfather Lung disease Mother Stroke Migraines Liver disease Grandmother Cancer Social History Smoking and tobacco/nicotine status: never used tobacco/nicotine Second hand smoke exposure: No Alcohol intake: never Substance/Drug Use: never Lives independently: Yes Household members: children Marital status: Single Current occupational status: disabled Do you think of yourself as: Straight/Heterosexual Current gender identity: Female Physical Exam 2 Narrative: EXAM NARRATIVE: General: Alert, no acute distress. Skin: Warm, dry. Head: Normocephalic, atraumatic. Neck: Supple, trachea midline. Eye: Extraocular movements are intact. Ears, nose, mouth and throat: mucosa moist. Cardiovascular: Regular, Normal peripheral perfusion. Respiratory: Lungs are clear to auscultation, respirations are non-labored, breath sounds are equal, Symmetrical chest wall expansion. Gastrointestinal: Soft, Nontender, Non distended Musculoskeletal: Normal ROM, no deformity. Neurological: Alert and oriented, No focal neurological deficit observed. Psychiatric: Cooperative, appropriate mood & affect. Course 2 Vital Signs: Vital signs: Vital Signs Temperature 97.8 F 01/22/24 23:55 Pulse Rate 104 H 01/23/24 00:45 Respiratory Rate 22 H 01/23/24 00:45 Blood Pressure 131/99 01/23/24 00:45 Pulse Oximetry 98 01/23/24 00:45 Oxygen Delivery Me thod Room Air 01/22/24 23:55 MDM - Chest Pain Medical Decision Making Differential diagnosis for patient with chest pain includes but is not limited to and based on the above HPI, review of systems and physical exam: Pneumonia. unstable angina. angina. Acute coronary syndrome / [place]. Pulmonary embolism. Costochondritis / musculoskeletal. Pleurisy. Pericarditis. Esophageal spasm. Pancreatis. Cholecystitis. Orders placed to evaluate differential diagnosis based on the above differential, HPI and physical exam EKG: Time 2353. Rate 114. Sinus tachycardia, No ST-T changes, no ectopy, normal DC & QRS intervals, This was reviewed and interpreted by myself the ER physician. 2355 Lab Review: Laboratory results were reviewed and interpreted by myself the emergency room physician. White count mildly elevated 12.6. No anemia. No renal failure. D-dimer is negative so she does not have a blood clot. Serial troponins are negative. I reviewed the patient's medical record. HEART Pathway for Early Discharge in Acute Chest Pain from [employer] on 01/23/2024 All calculations should be rechecked by clinician prior to use RESULT SUMMARY: 1 points HEART Pathway Score Low risk 0.9-1.7% 30-day MACE Repeat troponin at 3 hours and if negative, discharge home with outpatient follow-up. INPUTS: History ?> 0 = Slightly suspicious EKG ?> 0 = Normal Age ?> 0 = <45 Risk factors ?> 1 = 1-2 risk factors Initial troponin ?> 0 = <=ormal limit Reexamination: Patient remained stable. No increased work of breathing. No altered mental status. No focal motor deficits. Assessment and plan: Noncardiac chest pain - Discharged home - Discussed findings and plan with patient. Answered any questions. - All laboratory values were reviewed and interpreted personally by myself, the ER physician - All imaging was reviewed and interpreted personally by myself, the ER physician. - Evaluation and treatment of this problem were appropriate in the emergency setting Lab Data 01/23/24 00:09 01/23/24 00:09 Laboratory Results WBC 12.67 10^3/uL (3.29-11.43) H 01/23/24 00:09 RBC 5.08 10^6/uL (3.85-5.65) 01/23/24 00:09 Hgb 15.40 g/dL (11.27-16.99) 01/23/24 00:09 Hct 45.4 % (36-47) 01/23/24 00:09 MCV 89.4 fl (85-98) 01/23/24 00:09 MCH 30.3 pg (27-33) 01/23/24 00:09 MCHC 33.9 g/dL (30-55) 01/23/24 00:09 RDW 12.8 % (12.1-15.1) 01/23/24 00:09 Plt Count 305 10^3/cmm (157-399) 01/23/24 00:09 MPV 9.0 fL (7.4-10.4) 01/23/24 00:09 Neut % (Auto) 65.2 % 01/23/24 00:09 Lymph % (Auto) 26.2 % 01/23/24 00:09 Rincon % (Auto) 5.1 % 01/23/24 00:09 Eos % (Auto) 2.5 % 01/23/24 00:09 Baso % (Auto) 0.7 % 01/23/24 00:09 Neut # (Auto) 8.26 10^3/uL (1.8-7.7) H 01/23/24 00:09 Lymph # (Auto) 3.3 10^3/uL (0.8-4.8) 01/23/24 00:09 [place] # (Auto) 0.6 10^3/uL (0.2-0.9) 01/23/24 00:09 Eos # (Auto) 0.3 10^3/uL (0.0-0.8) 01/23/24 00:09 Baso # (Auto) 0.1 10^3/uL (0.0-0.1) 01/23/24 00:09 Nucleated RBC % (auto) 0 % 01/23/24 00:09 Nucleated RBCs # 0.0 /100WBC 01/23/24 00:09 D-Dimer 0.31 ug/mLFEU (0-0.59) 01/23/24 00:09 Specimen Type Arterial 01/23/24 00:40 Sample Site Radial, right 01/23/24 00:40 ABG pH 7.44 (7.35-7.45) 01/23/24 00:40 ABG pCO2 36.2 mmHg (35-45) 01/23/24 00:40 ABG pO2 84.8 mmHg (80.0-100.0) 01/23/24 00:40 ABG PO2/FiO2 Ratio 403 01/23/24 00:40 ABG HCO3 24.4 mmol/L (22-26) 01/23/24 00:40 ABG O2 Saturation 98.4 01/23/24 00:40 ABG Base Excess 0.5 mmol/L (-2.0-2.0) 01/23/24 00:40 Chay Test Pos 01/23/24 00:40 A-a O2 Gradient 2.3 mmHg (5-10) L 01/23/24 00:40 Hematocrit 46.3 % (37-47) 01/23/24 00:40 Hgb O2 Saturation 90.3 % (95-100) L 01/23/24 00:40 Carboxyhemoglobin 7.1 %THgb (0.4-20.1) 01/23/24 00:40 Methemoglobin 1.1 % (0.4-1.5) 01/23/24 00:40 Total Hemoglobin 15.1 g/dL (12-16) 01/23/24 00:40 Sodium 141.0 mmol/L (131-143) 01/23/24 00:40 Potassium 3.6 mmol/L (3.5-5.0) 01/23/24 00:40 Glucose 123.0 mg/dL (70-115) H 01/23/24 00:40 Ionized Calcium 1.2 mmol/L (1.1-1.4) 01/23/24 00:40 O2 Delivery Device Room air 01/23/24 00:40 FiO2 21.0 % 01/23/24 00:40 Manager Recruiting ID [id number] 01/23/24 00:40 Sodium 141 mmol/L (136-145) 01/23/24 00:09 Potassium 4.1 mmol/L (3.5-5.1) 01/23/24 00:09 Chloride 106 mmol/L (98-107) 01/23/24 00:09 Carbon Dioxide 22 mmol/L (22-29) 01/23/24 00:09 Anion Gap 17.1 (5-19) 01/23/24 00:09 BUN 13 mg/dL (6-20) 01/23/24 00:09 Creatinine 0.6 mg/dL (0.5-0.9) 01/23/24 00:09 GFR Calculation 109.6 mL/min (90-130) 01/23/24 00:09 Glucose 161 mg/dL (65-115) H 01/23/24 00:09 Calculated Osmolality 296 mOsm/kg (285-295) H 01/23/24 00:09 Calcium 9.4 mg/dL (8.5-10.5) 01/23/24 00:09 Total Bilirubin 0.6 mg/dL (0.15-1.2) 01/23/24 00:09 AST 21 U/L (0-32) 01/23/24 00:09 ALT 25 U/L (0-33) 01/23/24 00:09 Alkaline Phosphatase 82 U/L (35-105) 01/23/24 00:09 Troponin T Baseline < 6 ng/L (0-10) 01/23/24 00:09 Troponin T 120 Minute 6.00 ng/L (0-10) 01/23/24 01:08 Delta Troponin T 0.13164 ABS# (0-10) 01/23/24 01:08 C-Reactive Protein 6.8 mg/L (0.0-4.9) H 01/23/24 00:09 Total Protein 6.6 g/dL (6.6-8.7) 01/23/24 00:09 Albumin 4.2 g/dL (3.5-5.2) 01/23/24 00:09 Globulin 2.4 g/dL (1.3-4.6) 01/23/24 00:09 No radiology studies performed this visit Discharge Plan Discharge Patient Disposition: Home Clinical Impression: Non-cardiac chest pain Condition: Stable Prescriptions: No Action spironolactone 25 mg tablet 25 mg PO DAILY bacitracin zinc [Antibiotic (bacitracin zinc)] 500 unit/gram ointment 1 applic topical DAILY PRN (Reason: unknown) mupirocin 2 % ointment 1 applic topical BID PRN (Reason: unknown) terbinafine HCl [Antifungal (terbinafine)] 1 % cream 1 applic topical BID PRN (Reason: unknown) bupropion HCl [Wellbutrin XL] 300 mg tablet extended release 24 hr 300 mg PO QAM amitriptyline 100 mg tablet 100 mg PO BEDTIME PRN (Reason: unknown) diclofenac sodium 75 mg tablet,delayed release (DR/EC) 75 mg PO BID PRN (Reason: Pain) zonisamide [Zonegran] 100 mg capsule 300 mg PO QAM cetirizine [All Day Allergy (cetirizine)] 10 mg tablet 10 mg PO DAILY PRN (Reason: Allergy Symptoms) cilostazol 50 mg tablet 50 mg PO BID Qty: 270 3RF isosorbide mononitrate 30 mg tablet extended release 24 hr 30 mg PO DAILY Qty: 90 3RF nitroglycerin 0.4 mg tablet, sublingual 0.4 mg sublingual Q5M PRN (Reason: chest pain) Qty: 20 3RF Rx Instructions: do not exceed 3 doses per episode acyclovir 400 mg tablet 400 mg PO TID PRN (Reason: Cold Sores) benzonatate 200 mg capsule 200 mg PO TID PRN (Reason: cough) 30 Days Qty: 90 4RF montelukast [Singulair] 10 mg tablet 10 mg PO DAILY Qty: 90 6RF (DME) Diabetic shoes with 3 sets of insers and a heel lift to left 3/4 inch See Rx Instructions .Route .MEDSUPPLY Qty: 1 0RF Rx Instructions: As directed daily living medical albuterol sulfate 2.5 mg /3 mL (0.083 %) solution for nebulization 2.5 mg INHALATION QID PRN (Reason: Shortness Of Breath) Qty: 180 6RF fluticasone propionate [Flonase Allergy Relief] 50 mcg/actuation spray,suspension 1 spray intranasal BID Qty: 16 3RF Rx Instructions: administer into each nostril budesonide-formoterol [Symbicort] 160-4.5 mcg/actuation HFA aerosol inhaler 2 puff inhalation Q12H Qty: 10.2 6RF ibuprofen 800 mg Tablet 800 mg PO Q8H PRN (Reason: Pain) ketorolac 10 mg tablet 10 mg PO Q8H PRN (Reason: kidney stone pain ) Qty: 14 0RF Rx Instructions: maximum total duration of 5 days atorvastatin 20 mg Tablet 20 mg PO QAM Vitamin B-12 2,500 mcg Tablet, Sublingual 2,500 mcg PO Q7D Rx Instructions: on fri potassium chloride 10 mEq Tablet Extended Release 10 meq PO DAILY metformin 500 mg Tablet Extended Release 24 Hr 500 mg PO DAILY magnesium 200 mg Tablet 200 mg PO DAILY topiramate 50 mg Tablet 50 mg PO QAM Dialyvite Vitamin D3 Max 1,250 mcg (50,000 unit) Tablet 50,000 unit PO .TWICE A WEEK Discharge Orders: Discharge ED (Routine); Ordered 01/23/24 Ordered By: Pavithra Lucero Referrals: Lj Joseph MD [Primary Care Provider] - Discharge Diet: Usual diet Discharge Activity: Increase activity as tolerated Patient Instructions: Noncardiac Chest Pain (ED) Activity Restrictions/Additional Instructions: Thank you for choosing [facility] for your healthcare needs today. Please realize this is an emergency room and that we are providing you with a medical screening exam and this may not be complete and all inclusive of all the testing and or work up that you may need to determine your ailment or severity of your illness. You have been screened and evaluated and felt safe for discharge. Health conditions do change or evolve sometimes and as such it is important that you follow up with your Primary Doctor to be re checked, 3-5 days is a general good time frame for follow up. You are always welcome to return to the ED for re assessment if your symptoms are worsening or you have new concerns Coding Level of Care Code ED [employer]osed [employer] Screen Watcher for Nannette Levin
[2024-01-23 00:26] VITALS: PULSE 101; RESP 23; O2SAT 98
[2024-01-23 00:45] VITALS: BP 131/99; PULSE 104; RESP 22; O2SAT 98
[2024-01-23 00:46] LABS: ABG PCO2 36.2 mmHg (35-45); ABG PH Result 7.44 (7.35-7.45); Alveolar-Arterial Oxygen Gradi 2.3 mmHg (5-10); Arterial Blood Gas Hematocrit 46.3 % (37-47); Base Excess ABG 0.5 mmol/L (-2.0-2.0); Blood Gas Allen Test Pos; Blood Gas Sample Type Arterial; Carboxyhemoglobin 7.1 %THgb (0.4-20.1); HCO3 ABG 24.4 mmol/L (22-26); HGB O2 Sat 90.3 % (95-100); Ionized Calcium Level - ABG 1.2 mmol/L (1.1-1.4); Methemoglobin 1.1 % (0.4-1.5); Oxygen Saturation ABG 98.4; PO2 ABG 84.8 mmHg (80.0-100.0); Potassium Level - ABG 3.6 mmol/L (3.5-5.0); Total Hemoglobin 15.1 g/dL (12-16)
[2024-01-23 00:47] LABS: Troponin(5th) Baseline < 6 ng/L (0-10)
[2024-01-23 00:48] LABS: Blood Gas Operator Identificat jlb; Blood Gas Sample Site Radial, right; Oxygen Device ROOM AIR; PO2 FiO2 Ratio Arterial Blood 403
[2024-01-23 00:50] LABS: D Dimer 0.31 ug/mLFEU (0-0.59)
[2024-01-23 00:54] LABS: Alanine Aminotransferase 25 U/L (0-33); Albumin Level 4.2 g/dL (3.5-5.2); Alkaline Phosphatase 82 U/L (35-105); Anion Gap 17.1 (5-19); Aspartate Amino Transferase 21 U/L (0-32); Blood Urea Nitrogen 13 mg/dL (6-20); C Reactive Protein 6.8 mg/L (0.0-4.9); Calcium 9.4 mg/dL (8.5-10.5); Carbon Dioxide 22 mmol/L (22-29); Chloride 106 mmol/L (98-107); Creatinine Clr Calc Pharmacy 131.9202; Globulin 2.4 g/dL (1.3-4.6); Glomerular Filtration Rate 109.6 mL/min (90-130); Glucose 161 mg/dL (65-115); Osmolality Calculated 296 mOsm/kg (285-295); Potassium 4.1 mmol/L (3.5-5.1); Sodium 141 mmol/L (136-145); Total Bilirubin 0.6 mg/dL (0.15-1.2); Total Protein 6.6 g/dL (6.6-8.7)
[2024-01-23 01:32] LABS: Troponin 5 2HR Delta 0.00001 ABS# (0-10)
[2024-01-23 01:52] VITALS: BP 110/91; PULSE 103; RESP 22; O2SAT 95
[2024-01-23 02:05] VITALS: BP 121/89; PULSE 97; O2SAT 97
== END 2024-01-23 02:07 | disposition home or self-care (01) ==
PROVIDERS: Emergency Provider Emergency Medicine; PCP Family Medicine
DX: R07.89 Other chest pain (principal); Z79.84 Long term (current) use of oral hypoglycemic drugs; R00.0 Tachycardia, unspecified; J44.9 Chronic obstructive pulmonary disease, unspecified; E78.5 Hyperlipidemia, unspecified
CPT/HCPCS: 36415; 80051; 80053; 82330; 82805; 84484; 85025; 85378; 86140; 93005; 99284

== ENCOUNTER 2024-02-03 10:02 | Outpatient (CLI) | payer MEDICAID, SELFPAY ==
--- NOTE | 2024-02-03 10:15 | USCV_ITS ---
Cindy Rodarte Age: 43 Gender: F : 1980 Exam Date: 02/03/2024 10:17 Ordering Phys: Gauri Zayas MD ([email or web address]) Technologist: Exam Location: [facility] [place] Indication: pad RIGHT LEFT Brachial 133.00 mmHg Brachial 137.00 mmHg Pressure (mmHg) Waveform Pressure (mmHg) Waveform 154.00 RN ANESTHESIOLOGY 145.00 136.00 DPA 145.00 1.10 Ankle/Brachial Index 0.98 131.00 Pre-Exercise Toe Pressure 134.00 0.96 Pre-Exercise Toe/Brachial Index 0.98 FINDINGS Resting AMY 0.98 on the left and 1.1 on the right side. Resting TBI of 0.96 on the right and 0.98 on the left CONCLUSIONS Normal resting ABIs and TBIs bilaterally suggesting no significant arterial obstruction. Dr Solitario Nettles MD [facility] (Electronically Signed) Final Date: 05 February 2024 22:17 S
== END 2024-02-03 10:03 | disposition home or self-care (01) ==
LOC: RAD 10:02
PROVIDERS: PCP Family Medicine; Visit Provider Internal Medicine Cardiovascular Disease
DX: M79.604 Pain in right leg (principal); M79.605 Pain in left leg
CPT/HCPCS: 93922

== ENCOUNTER 2024-02-03 11:33 | Outpatient (CLI) | payer MEDICAID, SELFPAY ==
--- NOTE | 2024-02-03 12:00 | USCV_ITS ---
Anatoly Rodarteina Age: 43 Gender: F : 1980 Exam Date: 02/03/2024 11:44 Ordering Phys: Gauri Zayas MD ([email or web address]) Technologist: [place] [facility] [place]: BP: 130 / 80 HR: 79 Rhythm: Sinus Technical Quality: Adequate MEASUREMENTS (Male / Female) Normal Values 2D ECHO LVOT Diameter 2.0 cm LV Ejection Fraction MOD 4C 71.6 % LV Ejection Fraction MOD 2C 64.4 % LV Ejection Fraction 2C AL 65.8 % LA Diameter 2.6 cm RA Systolic Volume 4C AL 40.7 ml RA Systolic Volume 4C MOD 39.3 ml LA Sys Volume AL 29.0 cm cubed LA Sys Volume Index AL 13.7 cm cubed/m squared Aorta at Sinotubular Diameter 2.6 cm IVC Diameter 2.0 cm M-MODE LA Ao Ratio MM 1.3 AV Cusp Separation MM 2.3 cm DOPPLER AV Peak Velocity 140.0 cm/s LVOT Peak Velocity 119.0 cm/s AV Area Cont Eq vti 2.6 cm squared AV Area Cont Eq pk 2.7 cm squared MV Peak Velocity 99.0 cm/s MV Area PHT 3.7 cm squared Mitral E to A Ratio 1.3 TR Peak Velocity 183.0 cm/s TR Peak Gradient 13.4 mmHg TV Peak E Velocity 70.0 cm/s Right Atrial Pressure 3.0 mmHg Pulmonary Artery Systolic Pressu 16.4 mmHg PV Peak Velocity 98.5 cm/s FINDINGS Left Ventricle Normal left ventricular cavity size. Normal left ventricular wall thickness. Normal left ventricular systolic function. Left ventricular ejection fraction is estimated at 60 %. Normal diastolic function. Right Ventricle The right ventricle is normal in size and function. Right Atrium The right atrium is normal in size. Left Atrium The left atrium is normal in size. Mitral Valve Structurally normal mitral valve. No mitral valve stenosis. Trace mitral valve regurgitation. Aortic Valve Aortic valve sclerosis without stenosis. No aortic valve regurgitation. Tricuspid Valve Structurally normal tricuspid valve without significant stenosis or regurgitation. Pulmonary artery systolic pressure is normal. Pulmonic Valve Structurally normal pulmonic valve without significant stenosis. There is no pulmonic regurgitation. Pericardium Normal pericardium without effusion. Aorta Normal ascending aorta dimension. IVC The inferior vena cava appears normal. CONCLUSIONS Normal left ventricular cavity size. Normal left ventricular wall thickness. Normal left ventricular systolic function. Left ventricular ejection fraction is estimated at 60 %. Normal diastolic function. No significant valve abnormalities. There is no pericardial effusion. Pulmonary artery systolic pressure is within normal limits. Right atrial pressure is around 5 mm of mercury. Gauri Zayas MD (Electronically Signed) Final Date: 13 February 2024 08:25 S
== END 2024-02-03 11:34 | disposition home or self-care (01) ==
LOC: RAD 11:33
PROVIDERS: PCP Family Medicine; Visit Provider Internal Medicine Cardiovascular Disease
DX: I35.0 Nonrheumatic aortic (valve) stenosis (principal); R06.02 Shortness of breath
CPT/HCPCS: 93306

== ENCOUNTER 2024-02-06 23:05 | Emergency (ER) | payer MEDICAID, SELFPAY ==
--- NOTE | 2024-02-06 23:06 | ECG_ITS ---
[facility] Test Date: 2024-02-06 Pat Name: Cindy Rodarte Department: Room: Gender: Female Intelligence Operations: : 1980 Requested By: Zina Santiago Order Number: [id number] Omer MD: Edy Preciado M.D. Measurements Intervals [place] Rate: 95 P: 47 TN: 135 QRS: 80 QRSD: 114 T: 55 QT: 352 QTc: 443 Interpretive Statements SINUS RHYTHM LOW QRS VOLTAGE IN PRECORDIAL LEADS [QRS DEFLECTION < 1.0 mV IN CHEST LEADS] INCOMPLETE RIGHT BUNDLE BRANCH BLOCK [90+ ms QRS DURATION, TERMINAL R IN V1/V2, 40+ ms S IN I/aVL/V4/V5/V6] Compared to ECG 01/22/2024 23:53:42 Sinus tachycardia no longer present Electronically Signed On 02-09-2024 18:52:27 CDT by Edy Preciado M.D. [id number]
[2024-02-06 23:08] VITALS: BP 139/102; PULSE 99; RESP 18; TEMP 36.7; O2SAT 98; BMI 40.6
--- NOTE | 2024-02-06 23:48 | ECG_ITS ---
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 Measurements Intervals [place] Rate: 88 P: 50 CT: 141 QRS: 82 QRSD: 96 T: 57 QT: 373 QTc: 453 Interpretive Statements SINUS RHYTHM INCOMPLETE RIGHT BUNDLE BRANCH BLOCK [90+ ms QRS DURATION, TERMINAL R IN V1/V2, 40+ ms S IN I/aVL/V4/V5/V6] Compared to ECG 02/06/2024 23:06:40 No significant changes Electronically Signed On 02-09-2024 18:52:21 CDT by Edy Preciado M.D. [id number]
--- NOTE | 2024-02-06 23:48 | XRR_ITS ---
PROCEDURE INFORMATION: Exam: XR Chest Exam date and time: 02/07/2024 12:07 AM Age: 43 years old Clinical indication: Pain; Chest pressure; Additional info: Chest pain TECHNIQUE: Imaging protocol: Radiologic exam of the chest. Views: 1 view. COMPARISON: CR XR chest 2V* [id number] 02/11/2022 9:49 AM FINDINGS: Lungs: Unremarkable. No consolidation. Pleural spaces: Unremarkable. No pleural effusion. No pneumothorax. Heart/Mediastinum: Unremarkable. No cardiomegaly. Bones/joints: Unremarkable. XR/XR chest 1V portable [id number] IMPRESSION: No acute findings.
--- NOTE | 2024-02-06 23:50 | ED_ITS ---
HPI - Chest Pain 2 General: Chief Complaint: Chest Pain Stated Complaint: CP,Left arm pain, Dizzy Time Seen by Provider: 02/06/24 23:33 History of Present Illness: 43-year-old female who comes in with angel[address] [facility] pain and left shoulder pain. The patient states the chest pain is short-lived, intermittent and started approximately an hour prior to arrival. She states the chest pain is now gone and she has got a aching in her left shoulder which is new and that started approximately 30 minutes ago while sitting in the waiting room. The patient's had multiple visits for chest pain in the past. She is in the process of being worked up and cleared for cervical surgery. She does have a chronic right shoulder pain when she lays down as well as numbness and tingling in her left forearm that they attribute to her cervical spine issues as well. She had a recent echo and is in the process of getting set up for a possible stress test to be cleared for surgery. She does complain of associated shortness of breath. She denies nausea or diaphoresis. Associated symptoms: Reports dyspnea; Deny fever(s) or palpitations Risk Factors: Coronary artery disease risk factors: diabetes, smoking history and hyperlipidemia Related Data Home Medications Medication Instructions Recorded Confirmed amitriptyline 100 mg tablet 100 mg PO BEDTIME PRN unknown 09/14/19 01/21/24 bupropion HCl 300 mg 24 hr tablet, 300 mg PO QAM 09/14/19 01/21/24 extended release (Wellbutrin XL) cetirizine 10 mg tablet (All Day 10 mg PO DAILY PRN Allergy Symptoms 09/14/19 01/21/24 Allergy (cetirizine)) diclofenac sodium 75 mg 75 mg PO BID PRN Pain 09/14/19 01/21/24 tablet,delayed release zonisamide 100 mg capsule 300 mg PO QAM 09/14/19 01/21/24 (Zonegran) ibuprofen 800 mg tablet 800 mg PO Q8H PRN Pain 09/22/19 01/21/24 spironolactone 25 mg tablet 25 mg PO DAILY 01/02/21 01/21/24 bacitracin zinc 500 unit/gram 1 applic topical DAILY PRN unknown 01/24/21 01/21/24 topical ointment (Antibiotic (bacitracin zinc)) mupirocin 2 % topical ointment 1 applic topical BID PRN unknown 06/19/21 01/21/24 terbinafine HCl 1 % topical cream 1 applic topical BID PRN unknown 06/19/21 01/21/24 (Antifungal (terbinafine)) acyclovir 400 mg tablet 400 mg PO TID PRN Cold Sores 09/12/21 01/21/24 atorvastatin 20 mg tablet 20 mg PO QAM 11/02/21 01/21/24 cholecalciferol (vitamin D3) 1,250 50,000 unit PO .TWICE A WEEK 11/02/21 01/21/24 mcg (50,000 unit) tablet (Dialyvite Vitamin D3 Max) cyanocobalamin (vitamin B-12) 2,500 mcg PO Q7D 11/02/21 01/21/24 2,500 mcg sublingual tablet (Vitamin B-12) magnesium 200 mg tablet 200 mg PO DAILY 11/02/21 01/21/24 metformin 500 mg tablet,extended 500 mg PO DAILY 11/02/21 01/21/24 release 24 hr potassium chloride 10 mEq 10 meq PO DAILY 11/02/21 01/21/24 tablet,extended release topiramate 50 mg tablet 50 mg PO QAM 11/02/21 01/21/24 Previous Rx's Medication Instructions Recorded benzonatate 200 mg capsule 200 mg PO TID PRN cough 30 days 02/11/22 #90 caps montelukast 10 mg tablet 10 mg PO DAILY #90 tabs 07/15/23 (Singulair) Diabetic shoes with 3 sets of #1 ea 07/22/23 insers and a heel lift to left 3/4 inch albuterol sulfate 2.5 mg/3 mL 2.5 mg (3 mL) inhalation QID PRN 08/15/23 (0.083 %) solution for nebulization Shortness Of Breath #180 mL budesonide-formoterol HFA 160 2 puff inhalation Q12H asthma 08/15/23 mcg-4.5 mcg/actuation aerosol #10.2 grams inhaler (Symbicort) fluticasone propionate 50 1 spray intranasal BID #16 grams 08/15/23 mcg/actuation nasal spray,suspension (Flonase Allergy Relief) ketorolac 10 mg tablet 10 mg PO Q8H PRN kidney stone pain 11/29/23 #14 tabs cilostazol 50 mg tablet 50 mg PO BID #270 tabs 01/15/24 isosorbide mononitrate 30 mg 30 mg PO DAILY #90 tabs 01/15/24 tablet,extended release 24 hr nitroglycerin 0.4 mg sublingual 0.4 mg sublingual Q5M PRN chest 01/15/24 tablet pain #20 tabs Compression Stockings #1 ea 02/03/24 Allergies Allergy/AdvReac Type Severity Reaction Status Date / Time adhesive tape Allergy ALGY-Rash Verified 02/03/24 09:44 Tetracyclines Allergy ALGY-Rash Verified 02/03/24 09:44 Review of Systems 2 Const: Denies: fever(s), chills or body aches Card: Reports: chest pain and lightheadedness; Denies: palpitations or irregular heart rhythm Resp: Reports: dyspnea Musc: Reports: extremity pain (Bilateral shoulder pain, left greater than right, left is new) Neuro: Reports: other (Pins and needle sensation in the left forearm related to cervical radiculop) PFSH ED 2 PFSH: Medical History Tobacco abuse Shortness of breath Urinary frequency Appendicitis Urolithiasis Left ureteral stone Greater trochanteric pain syndrome Left hip Right shoulder pain Asthma COPD (chronic obstructive pulmonary disease) Dyslipidemia Right renal stone Right flank pain Surgical History Status post laser ablation of incompetent vein Hx of section Hx of tonsillectomy Hx of exploratory laparotomy Hx of hysterectomy Hx of tubal ligation Family History Father Bleeding disorder Diabetes Hyperlipidemia CAD (coronary artery disease) Chronic kidney disease (CKD) Hypertension Seizure Family/Other Lung disease Liver disease Seizure Grandfather Lung disease Mother Stroke Migraines Liver disease Grandmother Cancer Social History Smoking and tobacco/nicotine status: never used tobacco/nicotine Second hand smoke exposure: No Alcohol intake: never Substance/Drug Use: never Lives independently: Yes Household members: children Marital status: Single Current occupational status: disabled Do you think of yourself as: Straight/Heterosexual Current gender identity: Female Physical Exam 2 Narrative: EXAM NARRATIVE: General: Alert, no acute distress. Skin: Warm, dry. Head: Normocephalic, atraumatic. Neck: Supple, trachea midline. Eye: Extraocular movements are intact. Ears, nose, mouth and throat: mucosa moist. Cardiovascular: Regular, Normal peripheral perfusion. Respiratory: Lungs are clear to auscultation, respirations are non-labored, breath sounds are equal, Symmetrical chest wall expansion; patient is tachypneic. Gastrointestinal: Soft, Nontender, Non distended Musculoskeletal: Normal ROM, no deformity. Neurological: Alert and oriented, No focal neurological deficit observed. Psychiatric: Cooperative, appropriate mood & affect. Course 2 ED course: Patient's been given aspirin and 1 sublingual nitroglycerin. Her D-dimer is negative. Her initial troponin is less than 6. EKG shows an incomplete right bundle branch block, no acute ischemic changes per my interpretation. Chest x- ray per my interpretation shows no effusion, no infiltrate or other acute findings. Will wait on the 2-hour troponin and repeat EKG. Likely this is not cardiac and I think that the shoulder pain is more likely related to her cervical radiculopathy. Vital Signs: Vital signs: Vital Signs Temperature 98.0 F 02/06/24 23:08 Pulse Rate 99 02/06/24 23:08 Respiratory Rate 18 02/06/24 23:08 Blood Pressure 139/102 02/06/24 23:08 Pulse Oximetry 98 02/06/24 23:08 Oxygen Delivery Me thod Room Air 02/06/24 23:08 MDM - Chest Pain Medical Decision Making 43-year-old female who presents with chest pain and associated shortness of breath. Patient is tachypneic. Differential includes GA, anxiety, chest wall pain, gastroesophageal reflux, radicular pain from her cervical radiculopathy into the shoulder, musculoskeletal, PE Patient's EKGs show no acute ischemic changes. She does have a right bundle branch block which has been present present, prior EKGs. She has had 2 serial cardiac enzymes which are negative, both 6 weakness no change. She was hyperventilating upon arrival and I suspect anxiety is contributing to her symptoms. Certainly some of her pain in her shoulders probably cervical radiculopathy. At this time, I do not feel she needs admission and feel she stable for discharge home. Do not feel this pain is cardiac in nature. Recommend she follow-up as scheduled for the stress test to clear her for surgery. Differential Diagnosis Likely acute myocardial infarction Lab Data Patient's glucose is slightly elevated at 147. She her white blood cell count slightly elevated at 13.94. Serial troponins are negative at 6. D-dimer is negative at 0.31. 02/07/24 00:01 02/07/24 00:01 Radiology Impressions Chest X-Ray 02/06/24 23:48 IMPRESSION: No acute findings. Laboratory Results WBC 13.94 10^3/uL (3.29-11.43) H 02/07/24 00:01 RBC 4.91 10^6/uL (3.85-5.65) 02/07/24 00:01 Hgb 14.90 g/dL (11.27-16.99) 02/07/24 00:01 Hct 43.9 % (36-47) 02/07/24 00:01 MCV 89.4 fl (85-98) 02/07/24 00:01 MCH 30.3 pg (27-33) 02/07/24 00:01 MCHC 33.9 g/dL (30-55) 02/07/24 00:01 RDW 12.7 % (12.1-15.1) 02/07/24 00:01 Plt Count 314 10^3/cmm (157-399) 02/07/24 00:01 MPV 9.2 fL (7.4-10.4) 02/07/24 00:01 Neut % (Auto) 58.9 % 02/07/24 00:01 Lymph % (Auto) 32.1 % 02/07/24 00:01 Love % (Auto) 5.3 % 02/07/24 00:01 Eos % (Auto) 2.7 % 02/07/24 00:01 Baso % (Auto) 0.6 % 02/07/24 00:01 Neut # (Auto) 8.21 10^3/uL (1.8-7.7) H 02/07/24 00:01 Lymph # (Auto) 4.5 10^3/uL (0.8-4.8) 02/07/24 00:01 Love # (Auto) 0.7 10^3/uL (0.2-0.9) 02/07/24 00:01 Eos # (Auto) 0.4 10^3/uL (0.0-0.8) 02/07/24 00:01 Baso # (Auto) 0.1 10^3/uL (0.0-0.1) 02/07/24 00:01 Nucleated RBC % (auto) 0 % 02/07/24 00:01 Nucleated RBCs # 0.0 /100WBC 02/07/24 00:01 D-Dimer 0.31 ug/mLFEU (0-0.59) 02/07/24 00:01 Sodium 141 mmol/L (136-145) 02/07/24 00:01 Potassium 4.1 mmol/L (3.5-5.1) 02/07/24 00:01 Chloride 105 mmol/L (98-107) 02/07/24 00:01 Carbon Dioxide 22 mmol/L (22-29) 02/07/24 00:01 Anion Gap 18.1 (5-19) 02/07/24 00:01 BUN 14 mg/dL (6-20) 02/07/24 00:01 Creatinine 0.7 mg/dL (0.5-0.9) 02/07/24 00:01 GFR Calculation 91.8 mL/min (90-130) 02/07/24 00:01 Glucose 147 mg/dL (65-115) H 02/07/24 00:01 Calculated Osmolality 295 mOsm/kg (285-295) 02/07/24 00:01 Calcium 9.1 mg/dL (8.5-10.5) 02/07/24 00:01 Total Bilirubin 0.2 mg/dL (0.15-1.2) 02/07/24 00:01 AST 15 U/L (0-32) 02/07/24 00:01 ALT 16 U/L (0-33) 02/07/24 00:01 Alkaline Phosphatase 84 U/L (35-105) 02/07/24 00:01 Troponin T Baseline < 6 ng/L (0-10) 02/07/24 00:01 Troponin T 120 Minute 6.00 ng/L (0-10) 02/07/24 02:01 Delta Troponin T 0.80456 ABS# (0-10) 02/07/24 02:01 Total Protein 6.5 g/dL (6.6-8.7) L 02/07/24 00:01 Albumin 4.1 g/dL (3.5-5.2) 02/07/24 00:01 Globulin 2.4 g/dL (1.3-4.6) 02/07/24 00:01 Lipase 25 U/L (13-60) 02/07/24 00:01 All radiology interpretation(s) finalized by discharge EKG Data EKG 1: I personally reviewed and interpreted this EKG as follows: EKG interpretation date: 02/06/24 EKG interpretation time: 23:15 Interpretation: No ST segment elevation or depression, incomplete right bundle branch block, no acute ischemic changes per my interpretation EKG 2: I personally reviewed and interpreted this EKG as follows: EKG interpretation date: 02/07/24 EKG interpretation time: 00:32 Prior EKG tracings: available for review Interpretation: Incomplete right bundle branch block, rate of 88, no acute ST segment elevation depression or acute ischemic changes per my interpretation, unchanged from prior EKG Clincial Decision Support The following clinical decision support tools were used to aid in care of the patient HEART Score -> History: Slightly Suspicous, EKG: Normal, Age: Less than 45 yrs, Risk Factors: >/=3 Risk Factors, HTN, diabetes, smoker Troponin: Baseline Trop <16 ng/L. Resulting HEART Score: 2. Discharge Plan Discharge Patient Disposition: Home Clinical Impression: Atypical chest pain, Cervical radiculopathy Condition: Stable Prescriptions: No Action spironolactone 25 mg tablet 25 mg PO DAILY bacitracin zinc [Antibiotic (bacitracin zinc)] 500 unit/gram ointment 1 applic topical DAILY PRN (Reason: unknown) mupirocin 2 % ointment 1 applic topical BID PRN (Reason: unknown) terbinafine HCl [Antifungal (terbinafine)] 1 % cream 1 applic topical BID PRN (Reason: unknown) bupropion HCl [Wellbutrin XL] 300 mg tablet extended release 24 hr 300 mg PO QAM amitriptyline 100 mg tablet 100 mg PO BEDTIME PRN (Reason: unknown) diclofenac sodium 75 mg tablet,delayed release (DR/EC) 75 mg PO BID PRN (Reason: Pain) zonisamide [Zonegran] 100 mg capsule 300 mg PO QAM cetirizine [All Day Allergy (cetirizine)] 10 mg tablet 10 mg PO DAILY PRN (Reason: Allergy Symptoms) cilostazol 50 mg tablet 50 mg PO BID Qty: 270 3RF isosorbide mononitrate 30 mg tablet extended release 24 hr 30 mg PO DAILY Qty: 90 3RF nitroglycerin 0.4 mg tablet, sublingual 0.4 mg sublingual Q5M PRN (Reason: chest pain) Qty: 20 3RF Rx Instructions: do not exceed 3 doses per episode acyclovir 400 mg tablet 400 mg PO TID PRN (Reason: Cold Sores) benzonatate 200 mg capsule 200 mg PO TID PRN (Reason: cough) 30 Days Qty: 90 4RF montelukast [Singulair] 10 mg tablet 10 mg PO DAILY Qty: 90 6RF (DME) Diabetic shoes with 3 sets of insers and a heel lift to left 3/4 inch See Rx Instructions .Route .MEDSUPPLY Qty: 1 0RF Rx Instructions: As directed daily living medical albuterol sulfate 2.5 mg /3 mL (0.083 %) solution for nebulization 2.5 mg INHALATION QID PRN (Reason: Shortness Of Breath) Qty: 180 6RF fluticasone propionate [Flonase Allergy Relief] 50 mcg/actuation spray,suspension 1 spray intranasal BID Qty: 16 3RF Rx Instructions: administer into each nostril budesonide-formoterol [Symbicort] 160-4.5 mcg/actuation HFA aerosol inhaler 2 puff inhalation Q12H Qty: 10.2 6RF (DME) Compression Stockings See Rx Instructions .Route .MEDSUPPLY Qty: 1 0RF Rx Instructions: As directed ibuprofen 800 mg Tablet 800 mg PO Q8H PRN (Reason: Pain) ketorolac 10 mg tablet 10 mg PO Q8H PRN (Reason: kidney stone pain ) Qty: 14 0RF Rx Instructions: maximum total duration of 5 days atorvastatin 20 mg Tablet 20 mg PO QAM Vitamin B-12 2,500 mcg Tablet, Sublingual 2,500 mcg PO Q7D Rx Instructions: on fri potassium chloride 10 mEq Tablet Extended Release 10 meq PO DAILY metformin 500 mg Tablet Extended Release 24 Hr 500 mg PO DAILY magnesium 200 mg Tablet 200 mg PO DAILY topiramate 50 mg Tablet 50 mg PO QAM Dialyvite Vitamin D3 Max 1,250 mcg (50,000 unit) Tablet 50,000 unit PO .TWICE A WEEK Discharge Orders: Discharge ED (Routine); Ordered 02/07/24 Ordered By: Zina Santiago Referrals: Lj Joseph MD [Primary Care Provider] - Discharge Diet: Advance as tolerated Discharge Activity: Increase activity as tolerated Patient Instructions: Chest Pain (DC), Anxiety (ED), Cervical Radiculopathy, Opioid Safety, Pain Management Activity Restrictions/Additional Instructions: Continue current medications. Take your regular anxiety medications as needed. Follow-up as scheduled with Dr. Keys for your stress testing. Return if your symptoms worsen Coding Level of Care Code ED Window Assembler for Nannette Levin
[2024-02-07] MEDS: aspirin 81 mg Chew Tablet 324 MG PO (00:01)
[2024-02-07] MEDS: nitroglycerin 0.4 mg sublingual Tablet SUBLINGUAL (00:02)
[2024-02-07 00:33] LABS: Basophils # 0.1 10^3/uL (0.0-0.1); Basophils % 0.6 %; Eosinophils # 0.4 10^3/uL (0.0-0.8); Eosinophils % 2.7 %; Hematocrit 43.9 % (36-47); Lymphocytes # 4.5 10^3/uL (0.8-4.8); Lymphocytes % 32.1 %; Mean Corpuscular HGB Conc 33.9 g/dL (30-55); Mean Corpuscular Hemoglobin 30.3 pg (27-33); Mean Corpuscular Volume 89.4 fl (85-98); Mean Platelet Volume 9.2 fL (7.4-10.4); Monocytes # 0.7 10^3/uL (0.2-0.9); Monocytes % 5.3 %; Neutrophils # 8.21 10^3/uL (1.8-7.7); Neutrophils % 58.9 %; Nucleated Red Blood Cells % 0 %; Platelet Count 314 10^3/cmm (157-399); Red Blood Count 4.91 10^6/uL (3.85-5.65); Red Cell Distribution Width 12.7 % (12.1-15.1); White Blood Count 13.94 10^3/uL (3.29-11.43)
[2024-02-07 00:34] LABS: D Dimer 0.31 ug/mLFEU (0-0.59)
[2024-02-07 00:38] LABS: Troponin(5th) Baseline < 6 ng/L (0-10)
[2024-02-07 00:41] LABS: Alanine Aminotransferase 16 U/L (0-33); Albumin Level 4.1 g/dL (3.5-5.2); Alkaline Phosphatase 84 U/L (35-105); Aspartate Amino Transferase 15 U/L (0-32); Blood Urea Nitrogen 14 mg/dL (6-20); Calcium 9.1 mg/dL (8.5-10.5); Carbon Dioxide 22 mmol/L (22-29); Chloride 105 mmol/L (98-107); Creatinine Clr Calc Pharmacy 111.8745; Globulin 2.4 g/dL (1.3-4.6); Glomerular Filtration Rate 91.8 mL/min (90-130); Glucose 147 mg/dL (65-115); Lipase 25 U/L (13-60); Osmolality Calculated 295 mOsm/kg (285-295); Sodium 141 mmol/L (136-145); Total Bilirubin 0.2 mg/dL (0.15-1.2); Total Protein 6.5 g/dL (6.6-8.7)
[2024-02-07 00:42] LABS: Anion Gap 18.1 (5-19); Potassium 4.1 mmol/L (3.5-5.1)
[2024-02-07 00:44] LABS: Slide Review Slide Review Perform
[2024-02-07 02:25] LABS: Troponin 5 2HR Delta 0.00001 ABS# (0-10)
[2024-02-07 02:44] VITALS: BP 138/105; PULSE 85; O2SAT 95
== END 2024-02-07 02:48 | disposition home or self-care (01) ==
PROVIDERS: Emergency Provider Emergency Medicine; PCP Family Medicine
DX: R07.89 Other chest pain (principal); M54.12 Radiculopathy, cervical region; Z79.84 Long term (current) use of oral hypoglycemic drugs; I45.10 Unspecified right bundle-branch block; R06.82 Tachypnea, not elsewhere classified; J44.9 Chronic obstructive pulmonary disease, unspecified; E78.5 Hyperlipidemia, unspecified
CPT/HCPCS: 36415; 71045; 80053; 83690; 84484; 85025; 85378; 93005; 99285

== ENCOUNTER 2024-02-11 08:32 | Outpatient (CLI) | payer MEDICAID, SELFPAY ==
[2024-02-11 08:45] VITALS: BMI 40.6
--- NOTE | 2024-02-11 08:45 | ECG_ITS ---
[facility] Test Date: 2024-02-11 Pat Name: Cindy Rodarte Department: Room: Gender: Female Inclusion Specialist: : 1980 Requested By: Gauri Zayas Order Number: [id number] Reading MD: Interpretive Statements Lung unchanged pre/post procedure; Intraprocedure shortess of breath; Symptoms resoled by discharge [id number]
--- NOTE | 2024-02-11 08:46 | NMCV_ITS ---
NM rui perf SPECT r/s* [id number] Cindy Rodarte Age: 43 Gender: F : 1980 Exam Date: 02/11/2024 08:46 Ordering Phys: Gauri Zayas MD ([email or web address]) Technologist: JACKIE Jordan Exam Location: [facility] Indications: cp STRESS TEST Please see separate stress test report in [facility] for full findings IMAGE PROTOCOL Rest/Stress 1 Lexiscan Day Radiopharmaceutical Dose (mCi) Administration Site Administered by Rest: Tc-99m 10.8 IV Sandrine Meredith, HAT BLOCKING MACHINE OPERATOR Sestamibi Stress:Tc-99m 32.8 IV Sandrine Benitezgle, HAT BLOCKING MACHINE OPERATOR Sestamibi Rest: 11-Feb-2024 60 Discovery 630 Stress: 11-Feb-2024 30 Discovery 630 0.4mg Lexiscan. Images obtained in supine and prone position. SPECT RESULTS Technical Quality: Good Raw Data Analysis: Breast attenuation Image Corrections: No attenuation or motion correction applied Summed Stress Score: 1 Summed Rest Score: 5 Summed Difference Score: 0 PERFUSION FINDINGS Medium sized area of persistently decreased tracer uptake noted in distal anterior and apical wall of the left ventricle suggestive of old myocardial infarction versus artifact in distal LAD territory. There is no ischemia noted. FUNCTIONAL RESULTS (calculated via Gated SPECT) Stress Image LV EF (%): 76 Stress EDV (mL):75 TID: 0.95 Stress ESV (mL):18 FUNCTIONAL FINDINGS: There is normal left ventricular systolic function. IMPRESSIONS Medium sized area of persistently decreased tracer uptake noted in the distal anterior and apical wall suggestive of old myocardial infarction versus apical artifact, there is no wall motion abnormality, there is no ischemia noted. This stress test is negative for ischemia. Gauri Zayas MD (Electronically Signed) Final Date: 13 February 2024 19:55 S
[2024-02-11] MEDS: regadenoson 0.4 Mg/5 ml Syringe IVP (10:08)
[2024-02-11 10:14] VITALS: BP 113/64; PULSE 90
== END 2024-02-11 08:33 | disposition home or self-care (01) ==
PROVIDERS: PCP Family Medicine; Visit Provider Internal Medicine Cardiovascular Disease
DX: R07.9 Chest pain, unspecified (principal); R94.39 Abnormal result of other cardiovascular function study; R06.02 Shortness of breath
CPT/HCPCS: 78452; 93017; A9500; J2785

== ENCOUNTER → 2024-02-13 08:03 | Outpatient (BNVA) | payer MEDICAID, SELFPAY | PROVIDERS: PCP Family Medicine; Visit Provider Nurse Practitioner Family | DX: B35.1 Tinea unguium (principal); L57.8 Other skin changes due to chronic exposure to nonionizing radiation; L81.3 Cafe au lait spots; L23.9 Allergic contact dermatitis, unspecified cause; L29.89 Other pruritus | CPT/HCPCS: 99213 ==

== ENCOUNTER 2024-02-25 15:02 | Observation (INO) | payer MEDICAID, SELFPAY ==
--- OUTSIDE RECORDS SUMMARY | 2024-02-18 12:46 | XMS_ITS ---
Author Name Unknown Organization [facility] Address [address] [place] [address] Care Team Providers Care Nozzle And Sleeve Worker Name Role Phone FABIÁN ROBLERO Unavailable [phone] REASON FOR VISIT Referral- Incontinence Encounters Encounter Location Date Provider Diagnosis [facility] [address] [place] [address] 02/03/2023 FABIÁN ROBLERO Plan Of Treatment No Information Progress Notes * Cindy RODARTEDOB:1980 (42 yo F)Acc No.[id number]:02/03/2023 Patient:?Cindy RODARTE :1980???Age:42 Y???Sex:Female Address:[address], [place] [address] * true * Date:? Generated for Power leung/Candy/eTransmitting on:?02/18/2024 12:45 PM CDT
--- OUTSIDE RECORDS SUMMARY | 2024-02-18 12:46 | XMS_ITS | Continuity of Care Document ---
Author Name Unknown Organization [facility] Address [address] [id number] [address] Phone Care Team Providers Care Test Pilot Name Role Phone Luciano NIKITA Balbina Unavailable Unavailable Allergies, Adverse Reactions, Alerts Substance Reaction Status Criticality adhesive Active No Information tetracycline Active No Information Medications Medication Instructions Dosage Effective Dates (start - stop) Status Comments SF 5000 Plus 1.1 % dental cream Use as toothpaste, brush for 2 min spit and do not rinse. Do not eat/drink for 30 min after use - Active SF 5000 Plus 1.1 % dental cream Use as toothpaste, brush for 2 min spit and do not rinse. Do not eat/drink for 30 min after use - Active spironolactone 25 mg tablet take 1 tablet by oral route every day 25 MG - Active terbinafine HCl 1 % topical cream apply by topical route every day to the affected and surrounding areas of skin 0.00 - Active potassium chloride ER 20 mEq tablet,extended release take 1 tablet by oral route every day with food 20 MEQ - Active mupirocin 2 % topical ointment apply by topical route 3 times every day a small amount to the affected area 0.00 - Active diclofenac sodium 75 mg tablet,delayed release take 1 tablet by oral route 2 times every day 75 MG - Active albuterol sulfate HFA 90 mcg/actuation aerosol inhaler inhale 2 puff by inhalation route every 4 - 6 hours as needed 180 MCG - Active Zonegran 100 mg capsule take 1 capsule by oral route every day 100 MG - Active atorvastatin 20 mg tablet take 1 tablet by oral route every day 20 MG - Active Vitamin B-12 50 mcg tablet - Active Zipsor 25 mg capsule take 1 capsule by oral route 4 times every day 25 MG - Active Symbicort 80 mcg-4.5 mcg/actuation HFA aerosol inhaler inhale 2 puff by inhalation route 2 times every day in the morning and evening 2.00 puff - Active ProAir HFA 90 mcg/actuation aerosol inhaler inhale 2 puff by inhalation route every 4 - 6 hours as needed - Active Flovent HFA 44 mcg/actuation aerosol inhaler inhale 2 puff by inhalation route 2 times every day - Active ibuprofen 800 mg tablet take 1 tablet by oral route 3 times every day with food 800 MG - Active bupropion HCl 75 mg tablet take 1 tablet by oral route 3 times every day 75 MG - Active amitriptyline 100 mg tablet take 1 tablet by oral route every day at bedtime 100 MG - Active zonisamide 25 mg capsule take 2 capsule by oral route 2 times every day 50 MG - Active Reusable Nebulizer Kit - Active Topamax 25 mg tablet take 1 tablet by oral route every day 25 MG - Active Vitamin D2 1,250 mcg (50,000 unit) capsule - Active cetirizine 5 mg tablet take 1 tablet by oral route 2 times every day 5 MG - Active montelukast (bulk) powder - Active fluticasone propionate 50 mcg/actuation nasal spray,suspension spray 1 - 2 spray by intranasal route every day in each nostril as needed 50-100 MCG - Active metformin 500 mg tablet take 1 tablet by oral route 2 times every day with morning and evening meals 500 MG - Active SF 5000 Plus 1.1 % dental cream Use as toothpaste, brush for 2 min spit and do not rinse. Do not eat/drink for 30 min after use - No Longer Active Procedures Procedure Date Periodontal Maintenance Resin-Based Composite ??? Two Surfaces, Anterior Duplicate Encounter Bitewings ??? Four Films Periodontal Maintenance Periodic Oral Eval ??? Est Patient - Baltazar lt Medicaid Caries High Risk Exempt From Sealant Measure Periodontal Maintenance Periodic Oral Eval ??? Est Patient - Bal[place]zar lt Medicaid Periodontal Maintenance Bitewings ??? Four Films Intraoral ??? Periapical First Film Intraoral ??? Periapical Each Additional Film Intraoral ??? Periapical Each Additional Film Resin-Based Composite ??? Two Surfaces, Posterior Resin-Based Composite ??? One Surface, P osterior Perio Probing Periodontal Maintenance Bitewings ??? Four Films Periodic Oral Evaluation ??? Established Patient Perio Probing Periodontal Maintenance Resin-Based Composite ??? Three Surfaces , Posterior Resin-Based Composite ??? One Surface, P osterior Resin-Based Composite ??? Two Surfaces, Posterior Resin-Based Composite ??? Three Surfaces , Posterior Resin-Based Composite ??? Three Surfaces , Anterior Caries Low Risk Exempt From Sealant Measure Treatment Plan Complete EDR Approval Note Caries High Risk Exempt From Sealant Measure Treatment Plan Complete Perio Probing Periodontal Maintenance Resin-Based Composite ??? Two Surfaces, Posterior Resin-Based Composite ??? Three Surfaces , Posterior EDR Approval Note Periodontal Scaling And Root Planing ??? Four Or Mor Periodontal Scaling And Root Planing ??? Four Or Mor Periodontal Scaling And Root Planing ??? Four Or Mor Periodontal Scaling And Root Planing ??? Four Or Mor EDR Approval Note Panoramic Film Bitewings ??? Four Films Intraoral ??? Periapical First Film Intraoral ??? Periapical Each Additional Film Intraoral ??? Periapical Each Additional Film Intraoral ??? Periapical Each Additional Film Comprehensive Oral Evaluation ??? New Or Established Caries High Risk Exempt From Sealant Measure Treatment Plan Complete EDR Approval Note Advance Directives Directive Yes / No Effective Date File Name No Information Encounters Encounter Description Practice Location Reason(s) For Visit Diagnoses Date Provider Providers Copied on Encounter [facility], [id number], [id number], [place] tel:[phone] [facility] No Information 4 Luciano Mortensen. [address], [place], [address], [place]. tel:[phone] [facility], [id number] 365[place], [address], [place] tel:[phone] [facility] Encounter for dental exam and cleaning w/o abnormal findings 4 Luciano Mortensen. [address], [place], [address], [place]. tel:[phone] Referring Provider: Balbina Wolf, [address] [place], [address] . tel:[phone] [facility], [id number] 869224[address]-Nd [facility], [place], [place], [address], [place] tel:[phone] [facility] No Information 4 Lucianovíctor Mortensen. [address], [place], [address], [place]. tel:[phone] Referring Provider: Balbina Wolf, [address] [place], [address] . tel:[phone] [facility], [id number] 400424[place], [address], [place] tel:[phone] [facility] Encounter for dental exam and cleaning w/o abnormal findings 3 Luciano Balbina. [address], [place], [address], [place]. tel:[phone] Referring Provider: Balbina Wolf, [address] [place], [address] . tel:[phone] [facility], [id number] 728463[address] [place], [place], [address], [place] tel:[phone] [facility] No Information 3 Cornell Freedman. [address] [place], [address], [place]. tel:[phone] Referring Provider: Long Sarabia, [address] [place], [address]. tel:[phone] [facility], [id number] 363460WW[place], [address], [place] tel:[phone] [facility] Encounter for dental exam and cleaning w/o abnormal findings 3 Luciano Balbina. [address], [place], [address], [place]. tel:[phone] Referring Provider: Balbina Wolf, [address] [place], [address] . tel:[phone] [facility], [id number] 680623XW-Fn [place], [address], [place] tel:[phone] [facility] No Information 2 Luciano Mortensen. [address], [place], [address], [place]. tel:[phone] Referring Provider: Balbina Wolf, [address] [place], [address] . tel:[phone] [facility], [id number] 695167[place], [address], [place] tel:[phone] [facility] No Information 2 Cornell Freedman. [address] [place], [address], [place]. tel:[phone] Referring Provider: Long Sarabia, [address] [place], [address]. tel:[phone] [facility], [id number] 835379[place], [address], [place] tel:[phone] [facility] No Information 2 No Information [facility], [id number] 137565XM[place], [address], [place] tel:[phone] [facility] No Information 2 No Information [facility], [id number] 969689VF[place], [address], [place] tel:[phone] [facility] Encounter for dental exam and cleaning w/o abnormal findings 2 No Information [facility], [id number] 523865EB-Du [facility], [place], [place], [address], [place] tel:[phone] [facility] Encounter for dental exam and cleaning w/o abnormal findings 2 No Information [facility], [id number] 247487ND-Wm [facility], [place], [place], [address], [place] tel:[phone] [facility] No Information 1 No Information [facility], [id number] 158687WE-Dv [facility], [place], [place], [address], [place] tel:[phone] [facility] No Information 1 No Information [facility], [id number] 280177OS-Tp [facility], [place], [place], [address], [place] tel:[phone] [facility] Encounter for dental exam and cleaning w/o abnormal findings 1 No Information Family History Family Member Type Diagnosis Age At Onset No Information Payers Payer name Insurance type Covered alliance party ID Maxim barnhart(s) D Medicaid [id number] Social History Type Description Quantity Date Captured Comments Alcohol Use Details No Caffeine Use Details Unknown Tobacco Use Status No Information Smoking Status No Information Sex Female Sexual Orientation Heterosexual Gender Identity Female Chief Complaint And Reason For Visit No Information Reason For Referral Reason For Referral No Information History Of Present Illness Encounter Date Complaint History Of Prese nt Illness No Information Functional Status Date Functional Assessmen t No Information Medications Administered Medication Instructions Dosage Effective Dates (start - stop) Status Comments SF 5000 Plus 1.1 % dental cream Use as toothpaste, brush for 2 min spit and do not rinse. Do not eat/drink for 30 min after use - No Longer Active Instructions Date Instruction Additional Infor mation No Information Assessments Type Assessment Date No Information Patient Care Teams Name Effective Dates (start - stop) Status Members No Information
--- OUTSIDE RECORDS SUMMARY | 2024-02-18 12:46 | XMS_ITS | Patient Health Record ---
Author Name Unknown Organization [facility] Address [address] [place] [address] Support Name Relationship Address Phone Cindy Rodarte Guarantor Unknown [phone] Reason For Referral No Information Problems Problem Type SNOMED Code ICD Code Onset Dates Problem Status W/U Status Risk Notes Problem Incontinence of urine (453949056) Incontinence of urine (R32) Active confirmed Plan Of Treatment No Information Insurance Providers Payer Name Payer Address Payer Phone Subscriber Number Group Number Insured Name Patient Relationship to Insured Coverage Start Date Coverage End Date [facility] [address] [address] [place], [place] [id number] Cindy Rodarte Self - patient is the insured
[2024-02-25] VITALS (23 sets, daily range): BP systolic 94–176; BP diastolic 61–90; PULSE 84–105; RESP 10–24; TEMP 36.1–36.7; O2SAT 91–98; BMI 40.6; BMI 41.8
--- OUTSIDE RECORDS SUMMARY | 2024-02-25 09:16 | XMS_ITS ---
Author Name Unknown Organization [facility] Address [address] [place] [address] Care Team Providers Care Investigator Claims Name Role Phone FABIÁN ROBLERO Unavailable [phone] REASON FOR VISIT Referral- Incontinence Encounters Encounter Location Date Provider Diagnosis [facility] [address] [place] [address] 02/03/2023 FABIÁN ROBLERO Plan Of Treatment No Information Progress Notes * Cindy RODARTEDOB:1980 (42 yo F)Acc No.[id number]:02/03/2023 Patient:?Cindy RODARTE :1980???Age:42 Y???Sex:Female Address[address], [place] [address] * true * Date:? Generated for Power leung/Candy/eTransmitting on:?02/25/2024 09:15 AM CDT
--- OUTSIDE RECORDS SUMMARY | 2024-02-25 09:16 | XMS_ITS | Patient Health Record ---
Author Name Unknown Organization [facility] Address [address] [place] [address] Support Name Relationship Address Phone Cindy Rodarte Guarantor Unknown Reason For Referral No Information Problems Problem Type SNOMED Code ICD Code Onset Dates Problem Status W/U Status Risk Notes Problem Incontinence of urine (655885062) Incontinence of urine (R32) Active confirmed Plan Of Treatment No Information Insurance Providers Payer Name Payer Address Payer Phone Subscriber Number Group Number Insured Name Patient Relationship to Insured Coverage Start Date Coverage End Date [facility] [address] [address] [place], [place] [id number] Cindy Rodarte Self - patient is the insured
--- NOTE | 2024-02-25 09:39 | W.PM.OPSUD ---
Surgery/Procedure H&P Update DATE OF PROCEDURE: February 25, 2024 DATE H&P PERFORMED: 02/03/24 H&P UPDATE INFORMATION: I have reviewed H&P completed within last 30 days, I have examined patient prior to procedure and No changes to prior documentation PREOP DIAGNOSIS: Cervical radiculopathy PLANNED PROCEDURE: Operation Date: 02/25/24 10:50 Proposed Procedures p Anterior Cervical Discectomy & Fusion ACDF w/ Anterior Interbody Fusion w/ Cage w/ Instrumentation w/ Allograft w/ Navigation(Not Applicable) - Devante Solomon DO
--- NOTE | 2024-02-25 10:12 | P.ANESASSM_ITS ---
Pre-Anesthetic Assessment Height/Weight: Height 5 ft 1 in Weight 215 lb Temp Pulse Resp BP Pulse Ox O2 Del Method 97.4 F L 88 16 121/83 96 Room Air 02/25/24 09:52 02/25/24 09:52 02/25/24 09:52 02/25/24 09:52 02/25/24 09:52 02/25/24 09:54 Preop Diagnosis: Cervical radiculopathy Operation Date: 02/25/24 10:50 Proposed Procedures p Anterior Cervical Discectomy & Fusion ACDF w/ Anterior Interbody Fusion w/ Cage w/ Instrumentation w/ Allograft w/ Navigation(Not Applicable) - Devante Solomon, DO Was Beta Cristina taken within 24 hours: N/A Was Clonidine taken within 24 hours: N/A Last intake: Intake Last Liquid Date 02/24/24 Last Liquid Time 23:50 Last Solid Date 02/24/24 Last Solid Time 23:55 Social Tobacco and No alcohol Exam alert, oriented x 3, clear to auscultation bilaterally and regular rate & rhythm Airway Submandibular: within normal limits Cervical ROM: within normal limits Mallampati: Class II Dentition: full Comments: Comments: Few missing back molars Anesthetic Plan ASA status: 3 Anesthesia: General Other: No prior issues with anesthesia NPO since yesterday evening History of smoking, COPD/asthma on chronic inhalers. Auscultation clear this a.m. Type 2 diabetes on metformin Hypertension on spironolactone, BMP ordered Negative stress test 02/11/2024 BMI 40 METs greater than 4 Plan for GETA Medications/Allergies Home Medications Medication Instructions Recorded Confirmed Last Taken Type amitriptyline 100 mg tablet 100 mg PO BEDTIME PRN unknown 09/14/19 02/24/24 02/20/24 History cetirizine 10 mg tablet (All Day 10 mg PO DAILY PRN Allergy Symptoms 09/14/19 02/24/24 Unknown History Allergy (cetirizine)) diclofenac sodium 75 mg 75 mg PO BID PRN Pain 09/14/19 02/24/24 02/16/24 History tablet,delayed release zonisamide 100 mg capsule 300 mg PO QAM 09/14/19 02/24/24 02/21/24 History (Zonegran) ibuprofen 800 mg tablet 800 mg PO Q8H PRN Pain 09/22/19 02/24/24 02/22/24 History spironolactone 25 mg tablet 25 mg PO DAILY 01/02/21 02/24/24 02/22/24 History bacitracin zinc 500 unit/gram 1 applic topical DAILY PRN unknown 01/24/21 02/24/24 Unknown History topical ointment (Antibiotic (bacitracin zinc)) mupirocin 2 % topical ointment 1 applic topical BID PRN unknown 06/19/21 02/24/24 Unknown History terbinafine HCl 1 % topical cream 1 applic topical BID PRN unknown 06/19/21 01/21/24 Unknown History (Antifungal (terbinafine)) atorvastatin 20 mg tablet 20 mg PO QAM 11/02/21 02/24/24 02/22/24 History cholecalciferol (vitamin D3) 1,250 50,000 unit PO .TWICE A WEEK 11/02/21 02/24/24 Unknown History mcg (50,000 unit) tablet (Dialyvite Vitamin D3 Max) cyanocobalamin (vitamin B-12) 2,500 mcg PO Q7D 11/02/21 02/24/24 02/12/24 History 2,500 mcg sublingual tablet (Vitamin B-12) magnesium 200 mg tablet 200 mg PO DAILY 11/02/21 02/24/24 02/22/24 History metformin 500 mg tablet,extended 500 mg PO DAILY 11/02/21 02/24/24 02/22/24 History release 24 hr potassium chloride 10 mEq 10 meq PO DAILY 11/02/21 02/24/24 02/22/24 History tablet,extended release montelukast 10 mg tablet 10 mg PO DAILY #90 tabs 07/15/23 02/24/24 02/22/24 Rx (Singulair) Diabetic shoes with 3 sets of #1 ea 07/22/23 01/21/24 Unknown Rx insers and a heel lift to left 3/4 inch albuterol sulfate 2.5 mg/3 mL 2.5 mg (3 mL) inhalation QID PRN 08/15/23 02/24/24 02/22/24 Rx (0.083 %) solution for nebulization Shortness Of Breath #180 mL budesonide-formoterol HFA 160 2 puff inhalation Q12H asthma 08/15/23 02/24/24 02/22/24 Rx mcg-4.5 mcg/actuation aerosol #10.2 grams inhaler (Symbicort) fluticasone propionate 50 1 spray intranasal BID #16 grams 08/15/23 02/24/24 02/22/24 Rx mcg/actuation nasal spray,suspension (Flonase Allergy Relief) cilostazol 50 mg tablet 50 mg PO BID #270 tabs 01/15/24 02/24/24 02/22/24 Rx isosorbide mononitrate 30 mg 30 mg PO DAILY #90 tabs 01/15/24 02/24/24 02/22/24 Rx tablet,extended release 24 hr nitroglycerin 0.4 mg sublingual 0.4 mg sublingual Q5M PRN chest 01/15/24 02/24/24 Unknown Rx tablet pain #20 tabs Compression Stockings #1 ea 02/03/24 Unknown Rx Bone Growth Stimulator #1 ea 02/16/24 Unknown Rx Allergies Allergy/AdvReac Type Severity Reaction Status Date / Time adhesive tape Allergy ALGY-Rash Verified 02/24/24 08:12 Tetracyclines Allergy ALGY-Rash Verified 02/24/24 08:12 [facility] Anesthesia Medical History Tobacco abuse Shortness of breath Urinary frequency Appendicitis Urolithiasis Left ureteral stone Greater trochanteric pain syndrome Left hip Right shoulder pain Asthma COPD (chronic obstructive pulmonary disease) Dyslipidemia Right renal stone Right flank pain Surgical History Status post laser ablation of incompetent vein Hx of section Hx of tonsillectomy Hx of exploratory laparotomy Hx of hysterectomy Hx of tubal ligation Family History Father Bleeding disorder Diabetes Hyperlipidemia CAD (coronary artery disease) Chronic kidney disease (CKD) Hypertension Seizure Family/Other Lung disease Liver disease Seizure Grandfather Lung disease Mother Stroke Migraines Liver disease Grandmother Cancer Social History Smoking and tobacco/nicotine status: never used tobacco/nicotine Second hand smoke exposure: No Alcohol intake: never Substance/Drug Use: never Lives independently: Yes Household members: children Marital status: Single Current occupational status: disabled Do you think of yourself as: Straight/Heterosexual Current gender identity: Female Data Anesthesia Cardiac Studies: Echocardiogram 02/03/24 Sestamibi Stress Test (Cardiology) 02/10 Stress Echocardiogram 07/01/19
[2024-02-25 10:17] LABS: Glucose Point of Care 122 mg/dL (70-110)
[2024-02-25] MEDS: sodium chloride 0.9% 1,000 ML 30 ML IV (10:39)
[2024-02-25 11:02] LABS: Anion Gap 13.9 (5-19); Blood Urea Nitrogen 13 mg/dL (6-20); Calcium 8.5 mg/dL (8.5-10.5); Carbon Dioxide 24 mmol/L (22-29); Chloride 106 mmol/L (98-107); Creatinine Clr Calc Pharmacy 156.6244; Glomerular Filtration Rate 135.3 mL/min (90-130); Glucose 122 mg/dL (65-115); Osmolality Calculated 291 mOsm/kg (285-295); Potassium 3.9 mmol/L (3.5-5.1); Sodium 140 mmol/L (136-145)
[2024-02-25] MEDS: ceFAZolin 2,000 mg SDV 2000 MG IVP ×2 (12:42→20:38)
[2024-02-25] MEDS: lidocaine-epi 1% 20 mL INJ INJECTION (13:29)
--- NOTE | 2024-02-25 15:00 | PM.OP ---
Operative Report Date of procedure: February 25, 2024 Pre-op diagnosis: Cervical radiculopathy Post-op diagnosis: same Surgeon: Devante Solomon DO Estimated blood loss (mL): 250 Procedure: 1. Anterior diskectomy C3/4 2. Anterior diskectomy C4/5 3. Insertion of cage C3/4 4. Insertion of cage C4/5 5. Instrumentation with anterior plate from C3-C5 6. Use of allograft The patient was taken to the operating room, where he underwent general endotracheal anesthesia without complications. He was then positioned supine on the operating table, and all areas of impingement were well padded. The arms were carefully padded and tucked at his sides. A roll was placed between the shoulder blades.. An x-ray was done to determine the appropriate level for the skin incision. The entire neck was then sterilely prepped and draped in the usual fashion. Neuromonitoring was attached prior to prepping. A transverse skin incision was made and carried down to the platysma muscle. This was then split in line with its fibers. Blunt dissection was carried down medial to the carotid sheath and lateral to the trachea and esophagus until the anterior cervical spine was visualized. A needle was placed into a disc and an x-ray was done to determine its location. The longus colli muscles were then elevated bilaterally with the electrocautery unit. Self-retaining retractors were placed deep to the longus colli muscle. Attention was brought to the C3/4 level that was confirmed on x-ray. A caspar pin was placed into the C3 vertebrae and the C4 vertebrae. The disk space was then distracted. The microscope was then brought in. A radical anterior discectomies were performed at C3/4. This included complete removal of the anterior annulus, nucleus, and posterior annulus. The posterior longitudinal ligament was removed as were the posterior osteophytes. Foraminotomies were then accomplished bilaterally. This was done using a high speed cecilio, kerrison rongeurs and curretes Once all of this was accomplished, the curved currette was used to check for any residual compression. The central canal was wide open as were the foramen. A high-speed bur was used to remove the cartilaginous endplates above and below the interspace. Bleeding cancellous bone was exposed. The disc space were measured and appropriate size cage were placed sterilely onto the field. Allograft graft was packed into the cages. The cage was then placed and there was good juxtaposition against the bleeding decorticated surfaces and good distraction of each interspace. Attention was brought to the next interspace. The [place] pins were removed. Bone wax was used to prevent any bleeding from occurring at the pin sites. Attention was brought to the C4/5 level that was confirmed on x-ray. A caspar pin was placed into the C4 vertebrae and the C5 vertebrae. The disk space was then distracted. The microscope was then brought in. A radical anterior discectomies were performed at C4/5. This included complete removal of the anterior annulus, nucleus, and posterior annulus. The posterior longitudinal ligament was removed as were the posterior osteophytes. Foraminotomies were then accomplished bilaterally. This was done using a high speed cecilio, kerrison rongeurs and curretes Once all of this was accomplished, the curved currette was used to check for any residual compression. The central canal was wide open as were the foramen. A high-speed bur was used to remove the cartilaginous endplates above and below the interspace. Bleeding cancellous bone was exposed. The disc space were measured and appropriate size cage were placed sterilely onto the field. Allograft graft was packed into the cages. The cage was then placed and there was good juxtaposition against the bleeding decorticated surfaces and good distraction of each interspace. The [place] pins were removed. Bone wax was used to prevent any bleeding from occurring at the pin sites. The appropriate size anterior cervical locking plate was chosen and bent into gentle lordosis. Two screws were then placed into each of the vertebral bodies at C3, C4 and C5. There was excellent purchase. A final x-ray was done confirming good position of the hardware and Cages. The locking screws were then applied, also with excellent purchase. Following a final copious irrigation, there was good hemostasis and no dural leaks. The carotid pulse was strong. The wounds were then closed in layers using 2-0 Vicryl suture for the platysma muscle, 2-0 Vicryl suture for the subcutaneous tissue, and 4-0 monocryl suture in a subcuticular skin closure. Glue was placed followed by application of a sterile dressing. The drain was hooked to bulb suction. A soft collar was applied. The patient was then carefully returned to the supine position on his hospital bed where he was reversed and extubated and taken to the recovery room having tolerated the procedure well.
--- NOTE | 2024-02-25 15:11 | XR_ITS ---
WS: [id number] Cervical spine, C-arm fluoroscopy views, 02/25/2024 Clinical Data: or pic, acdf Comparison: Cervical spine, 08/07/2023 Findings: Dr. Solomon performed an anterior cervical disc fusion XR/XR cervical spine 3V* [id number] Impression: Anterior cervical disc fusion.
[2024-02-25] MEDS: HYDROmorphone 1 mg/mL INJ 1 mL 0.5 MG IVP (15:33)
--- NOTE | 2024-02-25 15:36 | PC.NURSE ---
1506 - Per MARY KAY Merino start pt with IVP Dilaudid for pain control
[2024-02-25] MEDS: ketorolac 30 mg/mL INJ IVP (17:09)
[2024-02-25] MEDS: HYDROcodone-acetaminophen 5-325 mg Tablet PO ×2 (17:11→21:28)
[2024-02-25] MEDS: lactated ringers 1,000 ML 90 ML IV (17:12)
[2024-02-25] MEDS: docusate sodium 100 mg Capsule PO (17:12)
[2024-02-25] MEDS: cilostazol 100 mg Tablet 50 MG PO (17:13)
[2024-02-25] MEDS: fluticasone nasal spray 16gm Btl 1 SPRAY INTRANASAL (17:13)
[2024-02-25] MEDS: albuterol 2.5 mg/3 mL Neb INHALATION ×2 (17:19→20:53)
[2024-02-25] MEDS: budesonide 0.5 mg/2 mL Neb INHALATION (20:53)
[2024-02-25] MEDS: ondansetron 2 mg/ML SDV 2 mL 4 MG IVP (21:01)
[2024-02-26] VITALS: BP 99/66; PULSE 105; RESP 17; TEMP 36.7; O2SAT 94
[2024-02-26] MEDS: ketorolac 30 mg/mL INJ IVP (01:57)
[2024-02-26] MEDS: HYDROcodone-acetaminophen 5-325 mg Tablet PO ×2 (01:57→06:12)
--- NOTE | 2024-02-26 02:23 | PC.NURSE ---
Addendum entered by Agueda Thomas RN 02/26/24 06:43: Dr. Buitrago called back and was notified. Addendum entered by Agueda Thomas RN 02/26/24 06:32: Per dipping machine operator, Dr. Solomon is out today. Attempt to call Dr. Buitrago x1 to notify of hemovac coming out. No answer at this time. Addendum entered by Agueda Thomas RN 02/26/24 03:25: Tip of hemovac intact. Original Note: Patient's hemovac found out of patient upon rounding. Silverlon dressing removed from patient neck. Steri strips left in place, Suture cut and removed (due to hemovac already being out). New Silverlon dressing placed.
[2024-02-26] MEDS: ondansetron 2 mg/ML SDV 2 mL 4 MG IVP (03:00)
[2024-02-26] MEDS: lactated ringers 1,000 ML 90 ML IV (03:02)
[2024-02-26] MEDS: ceFAZolin 2,000 mg SDV 2000 MG IVP (03:02)
--- NOTE | 2024-02-26 03:22 | PC.NURSE ---
First dose of Cefazolin was pushed over 6 minutes. Shortly after, patient became nauseated and diaphoretic. Patient given PRN Zofran. Patient's VSS. Oxygen saturation 96 percent on room air. No rash, hives, itching, shortness of breath, or any other symptoms. The nausea and diaphoresis resolved within a few minutes. PRN Zofran given prior to second dose of Cefazolin. Second dose of Cefazolin pushed over 15 minutes. Patient tolerated well.
--- NOTE | 2024-02-26 03:31 | PC.NURSE ---
Patient states that she gets dizzy when she gets up and that she has been using the bedside commode instead of walking to the bathroom due to this. Patient educated to get up slowly and sit on the side of the bed before standing. Patient educated to not get up without assistance. VSS.
--- NOTE | 2024-02-26 03:36 | PC.NURSE ---
Patient states that she feels like she has something in her throat when she is awake and feels like her airway is being cut off when she sleeps. She states it keeps waking her up. This RN assessed patient's surgical incision and surrounding area and there were no abnormalities found. sample wrapper, Deann also came to patient bedside and assessed the patient's surgical incision and surrounding area and did not find any abnormalities. Patient's oxygen saturation 96 percent on room air. Patient on continuous pulse ox for monitoring.
[2024-02-26 04:00] VITALS: BP 99/64; PULSE 97; RESP 18; TEMP 36.6; O2SAT 95
[2024-02-26 07:46] VITALS: BP 108/70; PULSE 88; RESP 16; TEMP 36.8; O2SAT 97
--- NOTE | 2024-02-26 08:33 | P.DS_ITS ---
Discharge Providers Date of Admission: 02/25/24 15:02 Date of Discharge: February 26, 2024 Attending Provider at Admission: Devante Solomon DO Attending Provider at Discharge: Devante Solomon DO Primary Care Provider: Lj Joseph MD Reason for Visit Reason for Visit: M54.12 Physical Exam Narrative: Patient with some complaint of swelling she did have a protein shake last night. She is about to eat breakfast now. strength bilateral lower and upper extremities 5 out of 5 Discharge Data Studies Completed and Pending Completed Studies During Hospitalization Category Date Time Status XR cervical spine 3V* [id number] Routine Exams 02/25/24 15:11 Completed Pending at discharge Category Date Time Status C-arm Fluoroscopy [id number] Routine Exams 02/25/24 09:18 Taken Radiology Impressions Cervical Spine X-Ray 02/25/24 15:11 Impression: Anterior cervical disc fusion. Laboratory Results Sodium 140 mmol/L (136-145) 02/25/24 10:15 Potassium 3.9 mmol/L (3.5-5.1) 02/25/24 10:15 Chloride 106 mmol/L (98-107) 02/25/24 10:15 Carbon Dioxide 24 mmol/L (22-29) 02/25/24 10:15 Anion Gap 13.9 (5-19) 02/25/24 10:15 BUN 13 mg/dL (6-20) 02/25/24 10:15 Creatinine 0.5 mg/dL (0.5-0.9) 02/25/24 10:15 GFR Calculation 135.3 mL/min (90-130) H 02/25/24 10:15 Glucose 122 mg/dL (65-115) H 02/25/24 10:15 POC Glucose 122 mg/dL (70-110) H 02/25/24 10:13 Calculated Osmolality 291 mOsm/kg (285-295) 02/25/24 10:15 Calcium 8.5 mg/dL (8.5-10.5) 02/25/24 10:15 Vitals Last Vital Signs Temp 98.3 F 02/26/24 07:46 Pulse 88 02/26/24 07:46 Resp 16 02/26/24 07:46 BP 108/70 02/26/24 07:46 Pulse Ox 97 02/26/24 07:46 O2 Del Method Room Air 02/26/24 07:46 O2 Flow Rate 3 02/25/24 15:51 Discharge Plan Discharge Patient Disposition: Home Condition: Stable Prescriptions: New hydrocodone-acetaminophen 5-325 mg tablet 1 - 2 tab PO .Q4-6H Qty: 40 0RF Continued spironolactone 25 mg tablet 25 mg PO DAILY bacitracin zinc [Antibiotic (bacitracin zinc)] 500 unit/gram ointment 1 applic topical DAILY PRN (Reason: unknown) mupirocin 2 % ointment 1 applic topical BID PRN (Reason: unknown) amitriptyline 100 mg tablet 100 mg PO BEDTIME PRN (Reason: unknown) zonisamide [Zonegran] 100 mg capsule 300 mg PO QAM cetirizine [All Day Allergy (cetirizine)] 10 mg tablet 10 mg PO DAILY PRN (Reason: Allergy Symptoms) cilostazol 50 mg tablet 50 mg PO BID Qty: 270 3RF isosorbide mononitrate 30 mg tablet extended release 24 hr 30 mg PO DAILY Qty: 90 3RF nitroglycerin 0.4 mg tablet, sublingual 0.4 mg sublingual Q5M PRN (Reason: chest pain) Qty: 20 3RF Rx Instructions: do not exceed 3 doses per episode montelukast [Singulair] 10 mg tablet 10 mg PO DAILY Qty: 90 6RF (DME) Diabetic shoes with 3 sets of insers and a heel lift to left 3/4 inch See Rx Instructions .Route .MEDSUPPLY Qty: 1 0RF Rx Instructions: As directed daily living medical albuterol sulfate 2.5 mg /3 mL (0.083 %) solution for nebulization 2.5 mg INHALATION QID PRN (Reason: Shortness Of Breath) Qty: 180 6RF fluticasone propionate [Flonase Allergy Relief] 50 mcg/actuation spray,suspension 1 spray intranasal BID Qty: 16 3RF Rx Instructions: administer into each nostril budesonide-formoterol [Symbicort] 160-4.5 mcg/actuation HFA aerosol inhaler 2 puff inhalation Q12H Qty: 10.2 6RF (DME) Compression Stockings See Rx Instructions .Route .MEDSUPPLY Qty: 1 0RF Rx Instructions: As directed (DME) Bone Growth Stimulator See Rx Instructions .Route .MEDSUPPLY Qty: 1 0RF Rx Instructions: As directed atorvastatin 20 mg Tablet 20 mg PO QAM cyanocobalamin (vitamin B-12) [Vitamin B-12] 2,500 mcg Tablet, Sublingual 2,500 mcg PO Q7D Rx Instructions: on fri potassium chloride 10 mEq Tablet Extended Release 10 meq PO DAILY metformin 500 mg Tablet Extended Release 24 Hr 500 mg PO DAILY magnesium 200 mg Tablet 200 mg PO DAILY cholecalciferol (vitamin D3) [Dialyvite Vitamin D3 Max] 1,250 mcg (50,000 unit) Tablet 50,000 unit PO .TWICE A WEEK Held diclofenac sodium 75 mg tablet,delayed release (DR/EC) 75 mg PO BID PRN (Reason: Pain) Hold Instructions: Resume on 02/28/24. ibuprofen 800 mg Tablet 800 mg PO Q8H PRN (Reason: Pain) Hold Instructions: Resume on 02/27/24. Referrals: Devante Solomon, [Physician] - 1 week (We have notified your physician's clinic of the need for a follow-up appointment to be scheduled. If you have not heard from them within the next 2 business days, please call them directly. ) Lj Joseph MD [Primary Care Provider] - 4-7 days Discharge Diet: Advance as tolerated Discharge Activity: Limit activity as instructed Patient Instructions: Acute Wound Care (DC), Opioid Safety, Post Anesthesia Care Activity Restrictions/Additional Instructions: Thank you for choosing [facility] for your care! The following is a list of instructions, from your provider, to follow upon your discharge to ensure you have the optimal recovery from your recent injury or surgery. Anterior Cervical Discectomy and Fusion: What to Expect at Home Your Recovery Follow-up care is a woodson part of your treatment and safety. Be sure to make and go to all appointments, and call your doctor if you are having problems. If you do not already have a follow-up appointment made, call office in the next 1-3 days to make follow up appointment for 2 weeks at [phone]. It is also a good idea to know your test results and keep a list of the medicines you take. You can expect your neck to feel stiff or sore after surgery. This should improve in the weeks after surgery. But it may take 4 to 6 months for you to get better completely. You may have trouble sitting or standing in one position for very long and may need pain medicine in the weeks after your surgery. It may take 4 to 6 weeks to get back to your usual activities, but it may depend on what kind of surgery you had. Your throat will feel sore and it may be difficult to swallow for the first 3 days after your surgery. As long as you can get liquids down without difficulty, this should slowly improve, otherwise call our office or seek medical attention if it becomes increasingly difficult to get anything down including liquids. Avoid hot liquids for first 3-5 days. Soothing foods/liquids such as jello, pudding, and luke warm soups are re commended until swallowing improves. Staying elevated will also help, it's advised you keep propped up at while sleeping to help reduce the swelling. You may use an ice pack directly on your incision or around it on the front of your neck, using a cloth to protect your skin; and a heating pad to the back of your neck as needed. Do not use over the counter anti-inflammatory medications (Ibuprofen, Motrin, Aleve, Advil, etc) Taking these meds after having a fusion can delay fusion rates, we recommend you avoid them for the first 3 months after your surgery[address] Dr. Solomon may advise you to work with a physical therapist to strengthen the muscles around your neck and back - this will be discussed at your follow - up appointments. The pain or numbness you were having in your arms before surgery should get better or go away completely. This care sheet gives you a general idea about how long it will take for you to recover. But each person recovers at a different pace. Follow the steps below to get better as quickly as possible. How can you care for yourself at home? Activity ? Rest when you feel tired. Getting enough sleep will help you recover. ? Try to walk each day. Start by walking a little more than you did the day before. Bit by bit, increase the amount you walk. Walking boosts blood flow and helps prevent pneumonia and constipation. Walking may also decrease your muscle soreness after surgery. ? No lifting anything that is more that 5 pounds. This may include heavy grocery bags and milk containers, a heavy briefcase or backpack, cat litter or dog food bags, a child, or a vacuum guide rail cleaner. ? Avoid strenuous activities, such as bicycle riding, jogging, weightlifting, or aerobic exercise, until your doctor says it is okay. ? Do not drive until your follow-up visit after your surgery, or until your doctor says it isokay. ? Avoid taking long car trips for 2 to 4 weeks after surgery. Your neck may become tired and painful from sitting too long in one position. ? You will probably need to take 4 to 6 weeks off from work. It depends on the type of work you do and how you feel. ? You may have sex as soon as you feel able, but avoid positions that put stress on your neck or cause pain. Diet ? You can eat your normal diet. If your stomach is upset, try bland, low-fat foods like plain rice, broiled chicken, toast, and yogurt ? Drink plenty of fluids. If you have kidney, heart, or liver disease and have to limit fluids, talk with your doctor before you increase the amount of fluids you drink. ? You may notice that your bowel movements are not regular right after your surgery. This is common. Try to avoid constipation and straining with bowel movements. You may want to take a fiber supplement every day. If you have not had a bowel movement after a couple of days, ask your doctor about taking a mild laxative. Medicines ? Take pain medicines exactly as directed. 1. If Dr. Solomon gave you a prescription medicine for pain, take lt as prescribed. 2. Do not take two or more pain medicines at the same time unless the doctor told you to. Many pain medicines have acetaminophen, which is Tylenol. Too much acetaminophen {Tylenol) can be harmful. 3. If you think your pain pill is making you sick to your stomach: 4. Take your pills after meals (unless your doctor has told you not to). 5. Ask your Dr. for a different pain pill. Incisioncare ? Remove your dressing 48hours after your surgery. Ok to shower and get the incision wet. Do not overtly wash your incision. When done, pad dry, leave open to air thereafter. Avoid creams and ointments directly on your incision. ? Your sutures in the incision will dissolve and fall out on their own. ? Keep the area clean and dry. You may cover it with a gauze bandage if it weeps or rubs against clothing; if you choose to do this, change the dressing everyday. Other instructions ? Use a heating pad, hot water bottle, or gentle massage on your back to reduce stiffness. Avoid putting heat on your incision When should you call for help? ? Call 911 anytime you think you may need emergency care. For example, call if: ? You pass out (lose consciousness). ? You have sudden chest pain and shortness of breath, or you cough upblood. ? You cannot swallow. ? You have severe pain in your neck or back. ? Call your Dr. or seek immediate medical care if: ? You have pain that does not get better after you take pain pills. ? You have loose stitches, or your incision comes open. ? You have blood or fluid draining from the incision. ? You have signs of infection, such as: 1. Increased pain, swelling, warmth, or redness. 2. Red streaks leading from the site. 3. Pus draining from the site. 4. Swollen lymph nodes in your neck or armpits. 5. A fever. ? You have severe pain in your arms. ? You have new or increased weakness or numbness in your arms. ? Watch closely for any changes in your health, and be sure to contact your doctor if: ? You do not have a bowel movement after taking a laxative. Discharge Attestations Time Spent in Discharge Care*: less than 30 min Status at Discharge: Cognitive status at discharge: cognitively intact , Behavioral status at discharge: cooperative , Quality Metrics Clinical Quality Measures [ No reported AMI, CVA or VTE this stay] Coding Level of Care Code Acute Code for Chg Poonam
[2024-02-26] MEDS: magnesium oxide 400 mg tablet 200 MG PO (08:45)
[2024-02-26] MEDS: spironolactone 25 mg Tablet PO (08:46)
[2024-02-26] MEDS: isosorbide mononitrate ER 30 mg Tablet PO (08:46)
[2024-02-26] MEDS: atorvastatin 40 mg Tablet 20 MG PO (08:46)
[2024-02-26] MEDS: metformin XR 500 MG Tablet PO (08:46)
[2024-02-26] MEDS: cilostazol 100 mg Tablet 50 MG PO (08:46)
[2024-02-26] MEDS: zonisamide 100 MG Capsule 300 MG PO (08:47)
[2024-02-26 10:00] VITALS: PULSE 90; RESP 16; O2SAT 96
[2024-02-26] MEDS: albuterol 2.5 mg/3 mL Neb INHALATION (10:00)
[2024-02-26] MEDS: budesonide 0.5 mg/2 mL Neb INHALATION (10:00)
--- NOTE | 2024-02-26 10:58 | PC.NURSE ---
Pt refusing last dose of IV Cefazolin. Pt wishes for her IV to be taken out so she can d/c home.
[2024-02-26 11:07] VITALS: BP 108/67; PULSE 92; RESP 16; TEMP 36.6; O2SAT 94
--- NOTE | 2024-02-26 11:34 | PC.NURSE ---
D/C pending ride home.
== END 2024-02-26 12:07 | disposition home or self-care (01) ==
LOC: MEDSURG 15:03
PROVIDERS: Student in an Organized Health Care Education/Training Program; Admitting Provider Orthopaedic Surgery; PCP Family Medicine; Visit Provider Orthopaedic Surgery
PROC: 0RB30ZZ Excision of Cervical Vertebral Disc, Open Approach (ICD-10-PCS; CPT 22551; principal; 2024-02-25 10:30)
DX: M54.12 Radiculopathy, cervical region (principal)
CPT/HCPCS: 20930; 22551; 22552; 22845; 22853 ×2; 36416; 72040; 76000; 80048; 82962; 94640; 97110; 97161; C1713; C1763; C9359; G0378; J0131; J0330; J0690; J1100; J1170; J1885; J2250; J2405; J2704; J3490; J7030; J7120; J7613; J7626

== ENCOUNTER 2024-02-29 21:12 | Emergency (ER) | payer MEDICAID, SELFPAY ==
[2024-02-29 21:35] VITALS: BP 130/85; PULSE 111; RESP 20; TEMP 36.7; O2SAT 98
[2024-02-29 22:10] VITALS: BP 125/98; PULSE 119; RESP 17; O2SAT 96
[2024-02-29 22:40] VITALS: BP 115/91; PULSE 121; RESP 27; O2SAT 100
--- NOTE | 2024-02-29 22:40 | CTR_ITS ---
PROCEDURE INFORMATION: Exam: CT Neck With Contrast Exam date and time: 02/29/2024 10:58 PM Age: 43 years old Clinical indication: Dysphagia / difficulty swallowing; Prior surgery; Surgery date: 3-7 days post-operative; Surgery type: Acf 02/25/2024; Patient HX: C/O worsening dysphagia. Acf peformed 02/25/2024. ; Additional info: Difficulty swallowing, post op c spine surgery TECHNIQUE: Imaging protocol: Computed tomography of the neck with contrast. Radiation optimization: All CT scans at this facility use at least one of these dose optimization techniques: automated exposure control; mA and/or kV adjustment per patient size (includes targeted exams where dose is matched to clinical indication); or iterative reconstruction. Contrast material: OMNI 350; Contrast volume: 100 ml; Contrast route: INTRAVENOUS (IV); COMPARISON: MR cervical spine wo/w [id number] 11/03/2023 10:54 AM RADIATION DOSE METRICS: Total DLP (mGy-cm): 245.32 FINDINGS: Salivary glands: No acute abnormality. Glands are normal in size. Pharynx: No significant tonsillar enlargement. Posterior edema and mass effect with mild narrowing of the hypopharyngeal airway. Effaced right piriform recess. Prevertebral and retropharyngeal spaces: Prevertebral soft tissue swelling, edema and approximately 1.4 x 3.2 x 6.0 cm retropharyngeal collection containing fluid and a few tiny gas bubbles extending from the C3-C6 levels. Larynx: Grossly normal epiglottis. Thyroid: No acute abnormality. No enlarged or calcified nodules. Trachea: Normal. Lungs: No significant or acute abnormality of the visualized lung apices. Lymph nodes: Small nonspecific bilateral cervical lymph nodes. Bones/joints: Postop recent C3-C4 and C4-C5 multilevel ACDF with postsurgical changes and metallic hardware in place. Grossly normal cervical alignment and vertebral body height. Soft tissues: Right neck postoperative soft tissue swelling, fat stranding, mild subcutaneous emphysema and nidia-incisional fluid extending in between the medial right sternocleidomastoid and strap muscles, lateral to the larynx and posteriorly to the prevertebral space. CT/CT neck w con* [id number] IMPRESSION: 1. Postop recent C3-C4 and C4-C5 multilevel ACDF with postsurgical changes and metallic hardware in place. 2. Prevertebral soft tissue swelling, edema and approximately 1.4 x 3.2 x 6.0 cm retropharyngeal collection containing fluid and a few tiny gas bubbles extending from the C3-C6 levels. Differential diagnosis includes postoperative retropharyngeal effusion versus developing retropharyngeal abscess. 3. Right neck postoperative soft tissue swelling, fat stranding, mild subcutaneous emphysema and nidia-incisional fluid extending in between the medial right sternocleidomastoid and strap muscles, lateral to the larynx and posteriorly to the prevertebral space. Differential diagnosis includes residual postoperative changes and nidia-incisional fluid versus developing infection. THIS REPORT CONTAINS FINDINGS THAT MAY BE CRITICAL TO PATIENT CARE. The findings were verbally communicated via telephone conference with JAMSHID Owens at 1:00 AM CDT on 03/01/2024. The findings were acknowledged and understood.
[2024-02-29] MEDS: sodium chloride 0.9% 1,000 ML 999 ML IV (23:00)
[2024-02-29] MEDS: iohexol 350 mg/mL 500 mL Btl (per mL) IV (23:01)
[2024-02-29 23:10] VITALS: BP 127/93; PULSE 115; RESP 16; O2SAT 96
[2024-02-29 23:24] LABS: Basophils # 0.1 10^3/uL (0.0-0.1); Basophils % 0.5 %; Eosinophils # 0.3 10^3/uL (0.0-0.8); Eosinophils % 2.5 %; Hematocrit 41.8 % (36-47); Lymphocytes # 2.4 10^3/uL (0.8-4.8); Lymphocytes % 23.1 %; Mean Corpuscular HGB Conc 33.5 g/dL (30-55); Mean Corpuscular Hemoglobin 30.4 pg (27-33); Mean Corpuscular Volume 90.7 fl (85-98); Mean Platelet Volume 8.9 fL (7.4-10.4); Monocytes # 0.6 10^3/uL (0.2-0.9); Monocytes % 5.9 %; Neutrophils # 7.11 10^3/uL (1.8-7.7); Neutrophils % 67.6 %; Nucleated Red Blood Cells % 0 %; Platelet Count 313 10^3/cmm (157-399); Red Blood Count 4.61 10^6/uL (3.85-5.65); Red Cell Distribution Width 12.3 % (12.1-15.1); White Blood Count 10.51 10^3/uL (3.29-11.43)
[2024-02-29 23:40] VITALS: BP 128/82; PULSE 103; RESP 19; O2SAT 95
[2024-02-29 23:41] LABS: Chloride 100 mmol/L (98-107); Potassium 3.9 mmol/L (3.5-5.1)
[2024-02-29 23:57] LABS: Blood Urea Nitrogen 17 mg/dL (6-20); Calcium 8.6 mg/dL (8.5-10.5); Carbon Dioxide 25 mmol/L (22-29); Creatinine Clr Calc Pharmacy 156.6244; Glomerular Filtration Rate 135.3 mL/min (90-130); Glucose 101 mg/dL (65-115)
[2024-03-01] VITALS (11 sets, daily range): BP systolic 111–134; BP diastolic 79–100; PULSE 94–112; RESP 17–20; O2SAT 93–98
[2024-03-01 00:01] LABS: Rapid Strep A Test Negative (Negative)
[2024-03-01 00:01] LABS: Anion Gap 13.9 (5-19); Osmolality Calculated 282 mOsm/kg (285-295); Sodium 135 mmol/L (136-145)
--- NOTE | 2024-03-01 02:03 | ED_ITS ---
Documented by User: Jose Alberto Pettit MD 03/01/24 04:38 HPI - General Adult 2 General: Chief complaint: General Medical Stated complaint: 4 days post op cant swollow Time Seen by Provider: 02/29/24 22:08 History of Present Illness: This patient is a 43-year-old white female who presents to the emergency department stating that she is having difficulty swallowing. She states she has been choking on liquids. She has not had a fever. Patient had cervical spine fusion done by Dr. Solomon on Friday with anterior approach. Related Data Home Medications Medication Instructions Recorded Confirmed amitriptyline 100 mg tablet 100 mg PO BEDTIME PRN unknown 09/14/19 02/24/24 cetirizine 10 mg tablet (All Day 10 mg PO DAILY PRN Allergy Symptoms 09/14/19 02/24/24 Allergy (cetirizine)) diclofenac sodium 75 mg 75 mg PO BID PRN Pain 09/14/19 02/24/24 tablet,delayed release zonisamide 100 mg capsule 300 mg PO QAM 09/14/19 02/24/24 (Zonegran) ibuprofen 800 mg tablet 800 mg PO Q8H PRN Pain 09/22/19 02/24/24 spironolactone 25 mg tablet 25 mg PO DAILY 01/02/21 02/24/24 bacitracin zinc 500 unit/gram 1 applic topical DAILY PRN unknown 01/24/21 02/24/24 topical ointment (Antibiotic (bacitracin zinc)) mupirocin 2 % topical ointment 1 applic topical BID PRN unknown 06/19/21 02/24/24 atorvastatin 20 mg tablet 20 mg PO QAM 11/02/21 02/24/24 cholecalciferol (vitamin D3) 1,250 50,000 unit PO .TWICE A WEEK 11/02/21 02/24/24 mcg (50,000 unit) tablet (Dialyvite Vitamin D3 Max) cyanocobalamin (vitamin B-12) 2,500 mcg PO Q7D 11/02/21 02/24/24 2,500 mcg sublingual tablet (Vitamin B-12) magnesium 200 mg tablet 200 mg PO DAILY 11/02/21 02/24/24 metformin 500 mg tablet,extended 500 mg PO DAILY 11/02/21 02/24/24 release 24 hr potassium chloride 10 mEq 10 meq PO DAILY 11/02/21 02/24/24 tablet,extended release Previous Rx's Medication Instructions Recorded montelukast 10 mg tablet 10 mg PO DAILY #90 tabs 07/15/23 (Singulair) Diabetic shoes with 3 sets of #1 ea 07/22/23 insers and a heel lift to left 3/4 inch albuterol sulfate 2.5 mg/3 mL 2.5 mg (3 mL) inhalation QID PRN 08/15/23 (0.083 %) solution for nebulization Shortness Of Breath #180 mL budesonide-formoterol HFA 160 2 puff inhalation Q12H asthma 08/15/23 mcg-4.5 mcg/actuation aerosol #10.2 grams inhaler (Symbicort) fluticasone propionate 50 1 spray intranasal BID #16 grams 08/15/23 mcg/actuation nasal spray,suspension (Flonase Allergy Relief) cilostazol 50 mg tablet 50 mg PO BID #270 tabs 01/15/24 isosorbide mononitrate 30 mg 30 mg PO DAILY #90 tabs 01/15/24 tablet,extended release 24 hr nitroglycerin 0.4 mg sublingual 0.4 mg sublingual Q5M PRN chest 01/15/24 tablet pain #20 tabs Compression Stockings #1 ea 02/03/24 Bone Growth Stimulator #1 ea 02/16/24 hydrocodone 5 mg-acetaminophen 325 1 - 2 tab PO .Q4-6H #40 tabs 02/26/24 mg tablet methylprednisolone 4 mg tablets in See Rx Instructions PO .COMPLEX 03/01/24 a dose pack (Medrol (Romero)) #21 ea Allergies Allergy/AdvReac Type Severity Reaction Status Date / Time adhesive tape Allergy ALGY-Rash Verified 02/29/24 21:41 Tetracyclines Allergy ALGY-Rash Verified 02/29/24 21:41 Review of Systems 2 General: Reports: 10 or more systems reviewed and unremarkable except in HPI and below ENMT: Reports: throat pain and other (Difficulty swallowing.) PFSH ED 2 PFSH: Medical History Tobacco abuse Shortness of breath Urinary frequency Appendicitis Urolithiasis Left ureteral stone Greater trochanteric pain syndrome Left hip Right shoulder pain Asthma COPD (chronic obstructive pulmonary disease) Dyslipidemia Right renal stone Right flank pain Surgical History Status post laser ablation of incompetent vein Hx of section Hx of tonsillectomy Hx of exploratory laparotomy Hx of hysterectomy Hx of tubal ligation Family History Father Bleeding disorder Diabetes Hyperlipidemia CAD (coronary artery disease) Chronic kidney disease (CKD) Hypertension Seizure Family/Other Lung disease Liver disease Seizure Grandfather Lung disease Mother Stroke Migraines Liver disease Grandmother Cancer Social History Smoking and tobacco/nicotine status: never used tobacco/nicotine Second hand smoke exposure: No Alcohol intake: never Substance/Drug Use: never Lives independently: Yes Household members: children Marital status: Single Current occupational status: disabled Do you think of yourself as: Straight/Heterosexual Current gender identity: Female Physical Exam 2 Const: COMMON NORMALS: patient oriented x3 and no limitations GENERAL APPEARANCE: cooperative HENMT: COMMON NORMALS: normocephalic, atraumatic, Normal nasal mucous membranes and turbinates present and moist oral mucous membranes HEAD & SCALP: normal to inspection, normocephalic and atraumatic FACE & SINUS: n ormal facial exam NOSE: Normal nasal mucous membranes and turbinates present OTHER: Some mild diffuse edema of the posterior pharynx with mild erythema. Eye: COMMON NORMALS: Equal, round and reactive pupils present, EOMs intact bilaterally and conjunctivae normal GENERAL EYE: appearance normal, both eyes and all related structures CONJUNCTIVA: Yes conjunctivae normal PUPIL: Yes Equal, round and reactive pupils present Neck/C-Spine: COMMON NORMALS: supple and no JVD Chest: COMMONS NORMALS: normal inspection of the chest Resp: COMMON NORMALS: normal respiratory effort and clear to auscultation bilaterally AUSCULTATION: clear to auscultation bilaterally Cardio: COMMON NORMALS: no JVD, regular rate, regular rhythm, No gallops present (Cardio), No murmurs present (Cardio) and No rub (Cardio) RATE: r egular rate RHYTHM: regular rhythm GI: COMMON NORMALS: Normal to inspection, nondistended, normoactive bowel sounds present, Soft to palpation and non-tender AUSCULTATION: Yes normoactive bowel sounds PALPATION: Yes Soft to palpation : COMMON NORMALS: Yes no CVA tenderness BLADDER/KIDNEY EXAM: Yes no CVA tenderness Back/Pelvis: COMMON NORMALS: no CVA tenderness and thoracic and lumbar spine normal to inspection Extremity: COMMON NORMALS: normal to inspection Neuro: COMMON NORMALS: patient oriented x3 and CN's II-XII intact bilaterally Psych: COMMON NORMALS: mental status grossly normal, Normal thought process present and cooperative THOUGHT PROCESS: Normal thought process present Skin: COMMON NORMALS: no rashes or lesions noted, turgor normal and no jaundice GENERAL SKIN EXAM: no rashes or lesions noted and turgor normal Course 2 Vital Signs: Vital signs: Vital Signs Temperature 98.0 F 02/29/24 21:35 Pulse Rate 94 03/01/24 06:30 Respiratory Rate 17 03/01/24 06:30 Blood Pressure 129/93 03/01/24 06:30 Pulse Oximetry 95 03/01/24 06:30 Oxygen Delivery Me thod Room Air 03/01/24 06:30 MDM - General Adult Medical Decision Making CBC and BMP were normal. Strep test negative. CT of the soft tissue neck was read by the radiologist. She does have prevertebral soft tissue swelling and a retropharyngeal fluid collection. Patient was given 4.5 g of Zosyn IV and 10 mg of Decadron IV. I did call Dr. Solomon with no response. Nurses tell me he is scheduled for surgery as this morning and should be in the hospital by 6 AM. He we will keep the patient here until he gets here for his evaluation and recommendations. She is stable. Lab Data 02/29/24 23:18 02/29/24 23:[address] 02/29/24 22:40 IMPRESSION: 1. Postop recent C3-C4 and C4-C5 multilevel ACDF with postsurgical changes and metallic hardware in place. 2. Prevertebral soft tissue swelling, edema and approximately 1.4 x 3.2 x 6.0 cm retropharyngeal collection containing fluid and a few tiny gas bubbles extending from the C3-C6 levels. Differential diagnosis includes postoperative retropharyngeal effusion versus developing retropharyngeal abscess. 3. Right neck postoperative soft tissue swelling, fat stranding, mild subcutaneous emphysema and nidia-incisional fluid extending in between the medial right sternocleidomastoid and strap muscles, lateral to the larynx and posteriorly to the prevertebral space. Differential diagnosis includes residual postoperative changes and nidia-incisional fluid versus developing infection. THIS REPORT CONTAINS FINDINGS THAT MAY BE CRITICAL TO PATIENT CARE. The findings were verbally communicated via telephone conference with JAMSHID Owens at 1:00 AM CDT on 03/01/2024. The findings were acknowledged and understood. Laboratory Results WBC 10.51 10^3/uL (3.29-11.43) 02/29/24 23:18 RBC 4.61 10^6/uL (3.85-5.65) 02/29/24 23:18 Hgb 14.00 g/dL (11.27-16.99) 02/29/24 23:18 Hct 41.8 % (36-47) 02/29/24 23:18 MCV 90.7 fl (85-98) 02/29/24 23:18 MCH 30.4 pg (27-33) 02/29/24 23:18 MCHC 33.5 g/dL (30-55) 02/29/24 23:18 RDW 12.3 % (12.1-15.1) 02/29/24 23:18 Plt Count 313 10^3/cmm (157-399) 02/29/24 23:18 MPV 8.9 fL (7.4-10.4) 02/29/24 23:18 Neut % (Auto) 67.6 % 02/29/24 23:18 Lymph % (Auto) 23.1 % 02/29/24 23:18 Angelina % (Auto) 5.9 % 02/29/24 23:18 Eos % (Auto) 2.5 % 02/29/24 23:18 Baso % (Auto) 0.5 % 02/29/24 23:18 Neut # (Auto) 7.11 10^3/uL (1.8-7.7) 02/29/24 23:18 Lymph # (Auto) 2.4 10^3/uL (0.8-4.8) 02/29/24 23:18 Angelina # (Auto) 0.6 10^3/uL (0.2-0.9) 02/29/24 23:18 Eos # (Auto) 0.3 10^3/uL (0.0-0.8) 02/29/24 23:18 Baso # (Auto) 0.1 10^3/uL (0.0-0.1) 02/29/24 23:18 Nucleated RBC % (auto) 0 % 02/29/24 23:18 Nucleated RBCs # 0.0 /100WBC 02/29/24 23:18 Sodium 135 mmol/L (136-145) L 02/29/24 23:18 Potassium 3.9 mmol/L (3.5-5.1) 02/29/24 23:18 Chloride 100 mmol/L (98-107) 02/29/24 23:18 Carbon Dioxide 25 mmol/L (22-29) 02/29/24 23:18 Anion Gap 13.9 (5-19) 02/29/24 23:18 BUN 17 mg/dL (6-20) 02/29/24 23:18 Creatinine 0.5 mg/dL (0.5-0.9) 02/29/24 23:18 GFR Calculation 135.3 mL/min (90-130) H 02/29/24 23:18 Glucose 101 mg/dL (65-115) 02/29/24 23:18 Calculated Osmolality 282 mOsm/kg (285-295) L 02/29/24 23:18 Calcium 8.6 mg/dL (8.5-10.5) 02/29/24 23:18 Group A Strep Rapid Negative (Negative) 02/29/24 23:45 Discharge Plan Discharge Patient Disposition: Home Clinical Impression: Dysphagia, Status post cervical discectomy Condition: Stable Prescriptions: New methylprednisolone [Medrol (Romero)] 4 mg tablets,dose pack See Rx Instructions .ROUTE .COMPLEX Qty: 21 0RF Rx Instructions: orally per package directions No Action spironolactone 25 mg tablet 25 mg PO DAILY bacitracin zinc [Antibiotic (bacitracin zinc)] 500 unit/gram ointment 1 applic topical DAILY PRN (Reason: unknown) mupirocin 2 % ointment 1 applic topical BID PRN (Reason: unknown) amitriptyline 100 mg tablet 100 mg PO BEDTIME PRN (Reason: unknown) diclofenac sodium 75 mg tablet,delayed release (DR/EC) 75 mg PO BID PRN (Reason: Pain) Hold Instructions: Resume on 02/28/24. zonisamide [Zonegran] 100 mg capsule 300 mg PO QAM cetirizine [All Day Allergy (cetirizine)] 10 mg tablet 10 mg PO DAILY PRN (Reason: Allergy Symptoms) cilostazol 50 mg tablet 50 mg PO BID Qty: 270 3RF isosorbide mononitrate 30 mg tablet extended release 24 hr 30 mg PO DAILY Qty: 90 3RF nitroglycerin 0.4 mg tablet, sublingual 0.4 mg sublingual Q5M PRN (Reason: chest pain) Qty: 20 3RF Rx Instructions: do not exceed 3 doses per episode montelukast [Singulair] 10 mg tablet 10 mg PO DAILY Qty: 90 6RF (DME) Diabetic shoes with 3 sets of insers and a heel lift to left 3/4 inch See Rx Instructions .Route .MEDSUPPLY Qty: 1 0RF Rx Instructions: As directed daily living medical albuterol sulfate 2.5 mg /3 mL (0.083 %) solution for nebulization 2.5 mg INHALATION QID PRN (Reason: Shortness Of Breath) Qty: 180 6RF fluticasone propionate [Flonase Allergy Relief] 50 mcg/actuation spray,suspension 1 spray intranasal BID Qty: 16 3RF Rx Instructions: administer into each nostril budesonide-formoterol [Symbicort] 160-4.5 mcg/actuation HFA aerosol inhaler 2 puff inhalation Q12H Qty: 10.2 6RF (DME) Compression Stockings See Rx Instructions .Route .MEDSUPPLY Qty: 1 0RF Rx Instructions: As directed (DME) Bone Growth Stimulator See Rx Instructions .Route .MEDSUPPLY Qty: 1 0RF Rx Instructions: As directed ibuprofen 800 mg Tablet 800 mg PO Q8H PRN (Reason: Pain) Hold Instructions: Resume on 02/27/24. atorvastatin 20 mg Tablet 20 mg PO QAM cyanocobalamin (vitamin B-12) [Vitamin B-12] 2,500 mcg Tablet, Sublingual 2,500 mcg PO Q7D Rx Instructions: on fri potassium chloride 10 mEq Tablet Extended Release 10 meq PO DAILY metformin 500 mg Tablet Extended Release 24 Hr 500 mg PO DAILY magnesium 200 mg Tablet 200 mg PO DAILY cholecalciferol (vitamin D3) [Dialyvite Vitamin D3 Max] 1,250 mcg (50,000 unit) Tablet 50,000 unit PO .TWICE A WEEK hydrocodone-acetaminophen 5-325 mg tablet 1 - 2 tab PO .Q4-6H Qty: 40 0RF Discharge Orders: Discharge ED (Routine); Ordered 03/01/24 Ordered By: Darrell Landa Referrals: Lj Joseph MD [Primary Care Provider] - Discharge Diet: Soft Mechanical Discharge Activity: Limit activity as instructed Patient Instructions: Opioid Safety, Pain Management Activity Restrictions/Additional Instructions: Thank you for choosing [facility] for your healthcare needs today. It is very important that you follow up as instructed or that you return to the Emergency Department should you have concerns or if your condition changes or worsens in any way. You are seen today with complaints of swelling and difficult swallowing after your neck surgery. CT of your neck was reviewed by radiology there is some postoperative fluid changes. Your white count is not elevated. We reviewed your CT findings with the surgeon who did the procedure Dr. Solomon. He feels these are postop changes. There is no sign of infection at this time. We did place you on a steroid taper packet to begin tomorrow. Dr. Solomon would like to see you in the office tomorrow. You should call his office to make arrangements for a follow-up appointment tomorrow morning. Continue your current restrictions given to you at the time of discharge from the hospital after your neck surgery. Continue your previously prescribed pain medications as well. Coding Level of Care Code ED Patient Assessment Coordinator for Chg Fwd Documented by User: Darrell Landa DO 03/01/24 06:52 HPI - General Adult 2 General: Chief complaint: General Medical Stated complaint: 4 days post op cant swollow Time Seen by Provider: 02/29/24 22:08 Related Data Home Medications Medication Instructions Recorded Confirmed amitriptyline 100 mg tablet 100 mg PO BEDTIME PRN unknown 09/14/19 02/24/24 cetirizine 10 mg tablet (All Day 10 mg PO DAILY PRN Allergy Symptoms 09/14/19 02/24/24 Allergy (cetirizine)) diclofenac sodium 75 mg 75 mg PO BID PRN Pain 09/14/19 02/24/24 tablet,delayed release zonisamide 100 mg capsule 300 mg PO QAM 09/14/19 02/24/24 (Zonegran) ibuprofen 800 mg tablet 800 mg PO Q8H PRN Pain 09/22/19 02/24/24 spironolactone 25 mg tablet 25 mg PO DAILY 01/02/21 02/24/24 bacitracin zinc 500 unit/gram 1 applic topical DAILY PRN unknown 01/24/21 02/24/24 topical ointment (Antibiotic (bacitracin zinc)) mupirocin 2 % topical ointment 1 applic topical BID PRN unknown 06/19/21 02/24/24 atorvastatin 20 mg tablet 20 mg PO QAM 11/02/21 02/24/24 cholecalciferol (vitamin D3) 1,250 50,000 unit PO .TWICE A WEEK 11/02/21 02/24/24 mcg (50,000 unit) tablet (Dialyvite Vitamin D3 Max) cyanocobalamin (vitamin B-12) 2,500 mcg PO Q7D 11/02/21 02/24/24 2,500 mcg sublingual tablet (Vitamin B-12) magnesium 200 mg tablet 200 mg PO DAILY 11/02/21 02/24/24 metformin 500 mg tablet,extended 500 mg PO DAILY 11/02/21 02/24/24 release 24 hr potassium chloride 10 mEq 10 meq PO DAILY 11/02/21 02/24/24 tablet,extended release Previous Rx's Medication Instructions Recorded montelukast 10 mg tablet 10 mg PO DAILY #90 tabs 07/15/23 (Singulair) Diabetic shoes with 3 sets of #1 ea 07/22/23 insers and a heel lift to left 3/4 inch albuterol sulfate 2.5 mg/3 mL 2.5 mg (3 mL) inhalation QID PRN 08/15/23 (0.083 %) solution for nebulization Shortness Of Breath #180 mL budesonide-formoterol HFA 160 2 puff inhalation Q12H asthma 08/15/23 mcg-4.5 mcg/actuation aerosol #10.2 grams inhaler (Symbicort) fluticasone propionate 50 1 spray intranasal BID #16 grams 08/15/23 mcg/actuation nasal spray,suspension (Flonase Allergy Relief) cilostazol 50 mg tablet 50 mg PO BID #270 tabs 01/15/24 isosorbide mononitrate 30 mg 30 mg PO DAILY #90 tabs 01/15/24 tablet,extended release 24 hr nitroglycerin 0.4 mg sublingual 0.4 mg sublingual Q5M PRN chest 01/15/24 tablet pain #20 tabs Compression Stockings #1 ea 02/03/24 Bone Growth Stimulator #1 ea 02/16/24 hydrocodone 5 mg-acetaminophen 325 1 - 2 tab PO .Q4-6H #40 tabs 02/26/24 mg tablet methylprednisolone 4 mg tablets in See Rx Instructions PO .COMPLEX 03/01/24 a dose pack (Medrol (Romero)) #21 ea Allergies Allergy/AdvReac Type Severity Reaction Status Date / Time adhesive tape Allergy ALGY-Rash Verified 02/29/24 21:41 Tetracyclines Allergy ALGY-Rash Verified 02/29/24 21:41 PFSH ED 2 PFSH: Medical History Tobacco abuse Shortness of breath Urinary frequency Appendicitis Urolithiasis Left ureteral stone Greater trochanteric pain syndrome Left hip Right shoulder pain Asthma COPD (chronic obstructive pulmonary disease) Dyslipidemia Right renal stone Right flank pain Surgical History Status post laser ablation of incompetent vein Hx of section Hx of tonsillectomy Hx of exploratory laparotomy Hx of hysterectomy Hx of tubal ligation Family History Father Bleeding disorder Diabetes Hyperlipidemia CAD (coronary artery disease) Chronic kidney disease (CKD) Hypertension Seizure Family/Other Lung disease Liver disease Seizure Grandfather Lung disease Mother Stroke Migraines Liver disease Grandmother Cancer Social History Smoking and tobacco/nicotine status: never used tobacco/nicotine Second hand smoke exposure: No Alcohol intake: never Substance/Drug Use: never Lives independently: Yes Household members: children Marital status: Single Current occupational status: disabled Do you think of yourself as: Straight/Heterosexual Current gender identity: Female Course 2 Vital Signs: Vital signs: Vital Signs Temperature 98.0 F 02/29/24 21:35 Pulse Rate 94 03/01/24 06:30 Respiratory Rate 17 03/01/24 06:30 Blood Pressure 129/93 03/01/24 06:30 Pulse Oximetry 95 03/01/24 06:30 Oxygen Delivery Me thod Room Air 03/01/24 06:30 MDM - General Adult Medical Decision Making CBC and BMP were normal. Strep test negative. CT of the soft tissue neck was read by the radiologist. She does have prevertebral soft tissue swelling and a retropharyngeal fluid collection. Patient was given 4.5 g of Zosyn IV and 10 mg of Decadron IV. I did call Dr. Solomon with no response. Nurses tell me he is scheduled for surgery as this morning and should be in the hospital by 6 AM. He we will keep the patient here until he gets here for his evaluation and recommendations. She is stable. Care assumed at change of shift from Dr. Pettit. Patient is stable has [place] J collar in place. Remove the collar briefly to examine the site of the incision there is no dehiscence no significant erythema or induration no signs of infection no drainage. Dr. Pettit had been holding the patient until Dr. Solomon could be contacted to review the CT. Contacted [facility] and reviewed the CT with him he feels that the changes on the CT represent typical postoperative changes given the procedure when he met a time that is passed since the procedure. He does not feel that this represents an infection. He will see the patient tomorrow in his office. Patient was discharged home with steroid taper pack advised to call Dr. Solomon's office this morning to make arrangements for follow-up appointment tomorrow morning. At the time of discharge patient was observed able to swallow and speak without significant difficulty. Medical Records I reviewed the patient's medical records. Lab Data I reviewed the patient's lab results. 02/29/24 23:18 02/29/24 23:[address] 02/29/24 22:40 IMPRESSION: 1. Postop recent C3-C4 and C4-C5 multilevel ACDF with postsurgical changes and metallic hardware in place. 2. Prevertebral soft tissue swelling, edema and approximately 1.4 x 3.2 x 6.0 cm retropharyngeal collection containing fluid and a few tiny gas bubbles extending from the C3-C6 levels. Differential diagnosis includes postoperative retropharyngeal effusion versus developing retropharyngeal abscess. 3. Right neck postoperative soft tissue swelling, fat stranding, mild subcutaneous emphysema and nidia-incisional fluid extending in between the medial right sternocleidomastoid and strap muscles, lateral to the larynx and posteriorly to the prevertebral space. Differential diagnosis includes residual postoperative changes and nidia-incisional fluid versus developing infection. THIS REPORT CONTAINS FINDINGS THAT MAY BE CRITICAL TO PATIENT CARE. The findings were verbally communicated via telephone conference with JAMSHID Owens at 1:00 AM CDT on 03/01/2024. The findings were acknowledged and understood. Laboratory Results WBC 10.51 10^3/uL (3.29-11.43) 02/29/24 23:18 RBC 4.61 10^6/uL (3.85-5.65) 02/29/24 23:18 Hgb 14.00 g/dL (11.27-16.99) 02/29/24 23:18 Hct 41.8 % (36-47) 02/29/24 23:18 MCV 90.7 fl (85-98) 02/29/24 23:18 MCH 30.4 pg (27-33) 02/29/24 23:18 MCHC 33.5 g/dL (30-55) 02/29/24 23:18 RDW 12.3 % (12.1-15.1) 02/29/24 23:18 Plt Count 313 10^3/cmm (157-399) 02/29/24 23:18 MPV 8.9 fL (7.4-10.4) 02/29/24 23:18 Neut % (Auto) 67.6 % 02/29/24 23:18 Lymph % (Auto) 23.1 % 02/29/24 23:18 Angelina % (Auto) 5.9 % 02/29/24 23:18 Eos % (Auto) 2.5 % 02/29/24 23:18 Baso % (Auto) 0.5 % 02/29/24 23:18 Neut # (Auto) 7.11 10^3/uL (1.8-7.7) 02/29/24 23:18 Lymph # (Auto) 2.4 10^3/uL (0.8-4.8) 02/29/24 23:18 Angelina # (Auto) 0.6 10^3/uL (0.2-0.9) 02/29/24 23:18 Eos # (Auto) 0.3 10^3/uL (0.0-0.8) 02/29/24 23:18 Baso # (Auto) 0.1 10^3/uL (0.0-0.1) 02/29/24 23:18 Nucleated RBC % (auto) 0 % 02/29/24 23:18 Nucleated RBCs # 0.0 /100WBC 02/29/24 23:18 Sodium 135 mmol/L (136-145) L 02/29/24 23:18 Potassium 3.9 mmol/L (3.5-5.1) 02/29/24 23:18 Chloride 100 mmol/L (98-107) 02/29/24 23:18 Carbon Dioxide 25 mmol/L (22-29) 02/29/24 23:18 Anion Gap 13.9 (5-19) 02/29/24 23:18 BUN 17 mg/dL (6-20) 02/29/24 23:18 Creatinine 0.5 mg/dL (0.5-0.9) 02/29/24 23:18 GFR Calculation 135.3 mL/min (90-130) H 02/29/24 23:18 Glucose 101 mg/dL (65-115) 02/29/24 23:18 Calculated Osmolality 282 mOsm/kg (285-295) L 02/29/24 23:18 Calcium 8.6 mg/dL (8.5-10.5) 02/29/24 23:18 Group A Strep Rapid Negative (Negative) 02/29/24 23:45 All radiology interpretation(s) finalized by discharge Discharge Plan Discharge Patient Disposition: Home Clinical Impression: Dysphagia, Status post cervical discectomy Condition: Stable Prescriptions: New methylprednisolone [Medrol (Romero)] 4 mg tablets,dose pack See Rx Instructions .ROUTE .COMPLEX Qty: 21 0RF Rx Instructions: orally per package directions No Action spironolactone 25 mg tablet 25 mg PO DAILY bacitracin zinc [Antibiotic (bacitracin zinc)] 500 unit/gram ointment 1 applic topical DAILY PRN (Reason: unknown) mupirocin 2 % ointment 1 applic topical BID PRN (Reason: unknown) amitriptyline 100 mg tablet 100 mg PO BEDTIME PRN (Reason: unknown) diclofenac sodium 75 mg tablet,delayed release (DR/EC) 75 mg PO BID PRN (Reason: Pain) Hold Instructions: Resume on 02/28/24. zonisamide [Zonegran] 100 mg capsule 300 mg PO QAM cetirizine [All Day Allergy (cetirizine)] 10 mg tablet 10 mg PO DAILY PRN (Reason: Allergy Symptoms) cilostazol 50 mg tablet 50 mg PO BID Qty: 270 3RF isosorbide mononitrate 30 mg tablet extended release 24 hr 30 mg PO DAILY Qty: 90 3RF nitroglycerin 0.4 mg tablet, sublingual 0.4 mg sublingual Q5M PRN (Reason: chest pain) Qty: 20 3RF Rx Instructions: do not exceed 3 doses per episode montelukast [Singulair] 10 mg tablet 10 mg PO DAILY Qty: 90 6RF (DME) Diabetic shoes with 3 sets of insers and a heel lift to left 3/4 inch See Rx Instructions .Route .MEDSUPPLY Qty: 1 0RF Rx Instructions: As directed daily living medical albuterol sulfate 2.5 mg /3 mL (0.083 %) solution for nebulization 2.5 mg INHALATION QID PRN (Reason: Shortness Of Breath) Qty: 180 6RF fluticasone propionate [Flonase Allergy Relief] 50 mcg/actuation spray,suspension 1 spray intranasal BID Qty: 16 3RF Rx Instructions: administer into each nostril budesonide-formoterol [Symbicort] 160-4.5 mcg/actuation HFA aerosol inhaler 2 puff inhalation Q12H Qty: 10.2 6RF (DME) Compression Stockings See Rx Instructions .Route .MEDSUPPLY Qty: 1 0RF Rx Instructions: As directed (DME) Bone Growth Stimulator See Rx Instructions .Route .MEDSUPPLY Qty: 1 0RF Rx Instructions: As directed ibuprofen 800 mg Tablet 800 mg PO Q8H PRN (Reason: Pain) Hold Instructions: Resume on 02/27/24. atorvastatin 20 mg Tablet 20 mg PO QAM cyanocobalamin (vitamin B-12) [Vitamin B-12] 2,500 mcg Tablet, Sublingual 2,500 mcg PO Q7D Rx Instructions: on fri potassium chloride 10 mEq Tablet Extended Release 10 meq PO DAILY metformin 500 mg Tablet Extended Release 24 Hr 500 mg PO DAILY magnesium 200 mg Tablet 200 mg PO DAILY cholecalciferol (vitamin D3) [Dialyvite Vitamin D3 Max] 1,250 mcg (50,000 unit) Tablet 50,000 unit PO .TWICE A WEEK hydrocodone-acetaminophen 5-325 mg tablet 1 - 2 tab PO .Q4-6H Qty: 40 0RF Discharge Orders: Discharge ED (Routine); Ordered 03/01/24 Ordered By: Darrell Landa Referrals: Lj Joseph MD [Primary Care Provider] - Discharge Diet: Soft Mechanical Discharge Activity: Limit activity as instructed Patient Instructions: Opioid Safety, Pain Management Activity Restrictions/Additional Instructions: Thank you for choosing [facility] for your healthcare needs today. It is very important that you follow up as instructed or that you return to the Emergency Department should you have concerns or if your condition changes or worsens in any way. You are seen today with complaints of swelling and difficult swallowing after your neck surgery. CT of your neck was reviewed by radiology there is some postoperative fluid changes. Your white count is not elevated. We reviewed your CT findings with the surgeon who did the procedure Dr. Solomon. He feels these are postop changes. There is no sign of infection at this time. We did place you on a steroid taper packet to begin tomorrow. Dr. Solomon would like to see you in the office tomorrow. You should call his office to make arrangements for a follow-up appointment tomorrow morning. Continue your current restrictions given to you at the time of discharge from the hospital after your neck surgery. Continue your previously prescribed pain medications as well. Coding Level of Care Code ED Patient Assessment Coordinator for Nannette Levin
[2024-03-01] MEDS: dexamethasone 10 mg/mL INJ IVP (02:18)
[2024-03-01] MEDS: piperacillin-tazobactam 4.5 GM in sodium chloride 0.9% (plus) 50 ML IV (02:18)
--- NOTE | 2024-03-01 03:16 | PC.NURSE ---
Rounded on pt. Airway patent. Warm blanket provided.
--- NOTE | 2024-03-01 04:07 | PC.NURSE ---
Rounded on pt. Pt given mouth swabs. Call light in reach. Denies further needs at this time.
== END 2024-03-01 07:05 | disposition home or self-care (01) ==
PROVIDERS: Emergency Medicine; Emergency Provider Family Medicine; PCP Family Medicine
DX: R13.10 Dysphagia, unspecified (principal); Z98.890 Other specified postprocedural states; Z79.84 Long term (current) use of oral hypoglycemic drugs; E78.5 Hyperlipidemia, unspecified; J44.9 Chronic obstructive pulmonary disease, unspecified
CPT/HCPCS: 70491; 80048; 85025; 87081; 87880; 96365; 96375; 99285; J1100; J2543; J7030

== ENCOUNTER → 2024-03-09 10:45 | Outpatient (BNVA) | payer MEDICAID, SELFPAY | PROVIDERS: PCP Family Medicine; Visit Provider Orthopaedic Surgery | DX: Z98.1 Arthrodesis status (principal) | CPT/HCPCS: 99024 ==

== ENCOUNTER → 2024-03-23 14:45 | Outpatient (BNVA) | payer MEDICAID, SELFPAY | PROVIDERS: PCP Family Medicine; Visit Provider Podiatrist Foot & Ankle Surgery | DX: R26.9 Unspecified abnormalities of gait and mobility (principal); M72.2 Plantar fascial fibromatosis | CPT/HCPCS: 99213 ==

== ENCOUNTER → 2024-04-01 10:44 | Outpatient (BNVA) | payer MEDICAID, SELFPAY | PROVIDERS: PCP Family Medicine; Visit Provider Orthopaedic Surgery | DX: Z98.1 Arthrodesis status (principal) | CPT/HCPCS: 72040; 99024 ==

== ENCOUNTER 2024-04-04 21:12 | Emergency (ER) | payer MEDICAID, SELFPAY ==
--- NOTE | 2024-04-04 21:15 | XRR_ITS ---
PROCEDURE INFORMATION: Exam: XR Chest Exam date and time: 04/04/2024 9:31 PM Age: 43 years old Clinical indication: Chest pressure; Patient HX: Chest pain; Post op cervical fusion x 1 mo ago; Additional info: Cp TECHNIQUE: Imaging protocol: Radiologic exam of the chest. Views: 1 view. COMPARISON: CR (CHEST, ) 02/07/2024 12:07 AM FINDINGS: Lungs: No focal consolidation. Pleural spaces: No evidence of pneumothorax. No evidence of pleural effusion. Heart/Mediastinum: Cardiomediastinal silhouette is within normal limits. Bones/joints: No evidence of acute osseous abnormality. XR/XR chest 1V portable [id number] IMPRESSION: 1. No acute cardiopulmonary abnormality.
--- NOTE | 2024-04-04 21:20 | ECG_ITS ---
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: : 1980 Requested By: Eli Coburn Order Number: [id number] Reading MD: AMA BYERS Measurements Intervals [place] Rate: 103 P: 41 NM: 142 QRS: 73 QRSD: 100 T: 27 QT: 351 QTc: 460 Interpretive Statements SINUS TACHYCARDIA LOW QRS VOLTAGE IN PRECORDIAL LEADS [QRS DEFLECTION < 1.0 mV IN CHEST LEADS] ABNORMAL RHYTHM ECG Compared to ECG 02/07/2024 00:23:11 Low QRS voltage now present Sinus rhythm no longer present Incomplete right bundle-branch block no longer present Electronically Signed On 04-05-2024 18:55:46 PLUMBER'S HELPER by AMA BYERS [id number]
[2024-04-04 21:23] VITALS: BP 138/98; PULSE 103; RESP 18; TEMP 36.7; O2SAT 98; BMI 40.6
[2024-04-04 21:43] VITALS: BP 138/102; PULSE 101; RESP 16; O2SAT 97
--- NOTE | 2024-04-04 21:52 | ED_ITS ---
HPI - Chest Pain 2 General: Chief Complaint: Chest Pain Stated Complaint: CP Time Seen by Provider: 04/04/24 21:17 Source: patient Mode of arrival: ambulatory Limitations: no limitations History of Present Illness: 43-year-old female states she has been h aving chest pain since this afternoon. She states the pains been a sharp pain on the right side of her chest had some mild dyspnea as well. She states she taken nitro and the pain went away and came back she took a Tylenol and states the pain is minimal currently she rates her pain a 1 out of 10 she denies any vomiting or diarrhea. Associated symptoms: Reports dyspnea; Deny abdominal pain, fever(s), nausea or vomiting Related Data Home Medications Medication Instructions Recorded Confirmed cetirizine 10 mg tablet (All Day 10 mg PO DAILY PRN Allergy Symptoms 09/14/19 04/01/24 Allergy (cetirizine)) ibuprofen 800 mg tablet 800 mg PO Q8H PRN Pain 09/22/19 04/01/24 spironolactone 25 mg tablet 25 mg PO DAILY 01/02/21 04/01/24 bacitracin zinc 500 unit/gram 1 applic topical DAILY PRN unknown 01/24/21 04/01/24 topical ointment (Antibiotic (bacitracin zinc)) mupirocin 2 % topical ointment 1 applic topical BID PRN unknown 06/19/21 04/01/24 atorvastatin 20 mg tablet 20 mg PO QAM 11/02/21 04/01/24 cholecalciferol (vitamin D3) 1,250 50,000 unit PO .TWICE A WEEK 11/02/21 04/01/24 mcg (50,000 unit) tablet (Dialyvite Vitamin D3 Max) cyanocobalamin (vitamin B-12) 2,500 mcg PO Q7D 11/02/21 04/01/24 2,500 mcg sublingual tablet (Vitamin B-12) magnesium 200 mg tablet 200 mg PO DAILY 11/02/21 04/01/24 metformin 500 mg tablet,extended 500 mg PO DAILY 11/02/21 04/01/24 release 24 hr potassium chloride 10 mEq 10 meq PO DAILY 11/02/21 04/01/24 tablet,extended release Previous Rx's Medication Instructions Recorded montelukast 10 mg tablet 10 mg PO DAILY #90 tabs 07/15/23 (Singulair) Diabetic shoes with 3 sets of #1 ea 07/22/23 insers and a heel lift to left 3/4 inch albuterol sulfate 2.5 mg/3 mL 2.5 mg (3 mL) inhalation QID PRN 08/15/23 (0.083 %) solution for nebulization Shortness Of Breath #180 mL budesonide-formoterol HFA 160 2 puff inhalation Q12H asthma 08/15/23 mcg-4.5 mcg/actuation aerosol #10.2 grams inhaler (Symbicort) fluticasone propionate 50 1 spray intranasal BID #16 grams 08/15/23 mcg/actuation nasal spray,suspension (Flonase Allergy Relief) nitroglycerin 0.4 mg sublingual 0.4 mg sublingual Q5M PRN chest 01/15/24 tablet pain #20 tabs Compression Stockings #1 ea 02/03/24 Bone Growth Stimulator #1 ea 02/16/24 hydrocodone 5 mg-acetaminophen 325 1 - 2 tab PO .Q4-6H PRN pain 7 04/01/24 mg tablet days #40 tabs Allergies Allergy/AdvReac Type Severity Reaction Status Date / Time adhesive tape Allergy ALGY-Rash Verified 04/04/24 21:27 Tetracyclines Allergy ALGY-Rash Verified 04/04/24 21:27 Review of Systems 2 Const: Denies: fever(s), chills, body aches or change in appetite ENMT: Denies: throat pain or dental pain Card: Reports: chest pain Resp: Reports: dyspnea GI: Denies: abdominal pain, nausea, vomiting or diarrhea Musc: Denies: neck pain or back pain Skin/Breast: Denies: rash Neuro: Denies: headache(s) PFSH ED 2 PFSH: Medical History Tobacco abuse Shortness of breath Urinary frequency Appendicitis Urolithiasis Left ureteral stone Greater trochanteric pain syndrome Left hip Right shoulder pain Asthma COPD (chronic obstructive pulmonary disease) Dyslipidemia Right renal stone Right flank pain Surgical History Status post laser ablation of incompetent vein Hx of section Hx of tonsillectomy Hx of exploratory laparotomy Hx of hysterectomy Hx of tubal ligation Family History Father Bleeding disorder Diabetes Hyperlipidemia CAD (coronary artery disease) Chronic kidney disease (CKD) Hypertension Seizure Family/Other Lung disease Liver disease Seizure Grandfather Lung disease Mother Stroke Migraines Liver disease Grandmother Cancer Social History Smoking and tobacco/nicotine status: unknown if used tobacco/nicotine Second hand smoke exposure: No Alcohol intake: never Substance/Drug Use: never Lives independently: Yes Household members: children Marital status: Single Current occupational status: disabled Do you think of yourself as: Straight/Heterosexual Current gender identity: Female Physical Exam 2 Const: COMMON NORMALS: no acute distress, patient oriented x3 and healthy appearing HENMT: COMMON NORMALS: normocephalic and atraumatic HEAD & SCALP: n ormocephalic and atraumatic Eye: COMMON NORMALS: conjunctivae normal CONJUNCTIVA: Yes conjunctivae normal Neck/C-Spine: COMMON NORMALS: full ROM and supple Chest: COMMONS NORMALS: normal inspection of the chest Resp: COMMON NORMALS: normal respiratory effort, No retractions, No use of accessory muscles and clear to auscultation bilaterally AUSCULTATION: clear to auscultation bilaterally Cardio: COMMON NORMALS: regular rate, regular rhythm and No murmurs present (Cardio) RATE: regular rate RHYTHM: regular rhythm GI: COMMON NORMALS: Normal to inspection, nondistended, normoactive bowel sounds present, Soft to palpation, non-tender and no masses PALPATION: Yes Soft to palpation Extremity: COMMON NORMALS: normal to inspection and full ROM Neuro: COMMON NORMALS: patient oriented x3, moves all extremities and no focal motor deficits Psych: COMMON NORMALS: mental status grossly normal, Normal thought process present and cooperative THOUGHT PROCESS: Normal thought process present Skin: COMMON NORMALS: no rashes or lesions noted and no wounds GENERAL SKIN EXAM: no rashes or lesions noted Course 2 Vital Signs: Vital signs: Vital Signs Temperature 98.1 F 04/04/24 21:23 Pulse Rate 98 04/04/24 22:28 Respiratory Rate 16 04/04/24 22:28 Blood Pressure 138/91 04/04/24 22:28 Pulse Oximetry 95 04/04/24 22:28 Oxygen Delivery Me thod Room Air 04/04/24 22:28 MDM - Chest Pain Medical Decision Making Patient presents for chest pain is atypical she has been well-appearing here and pain-free D-dimer troponins are negative no signs of ACS she stable for discharge she is follow-up with PCP and return if worsening she understands agrees to plan Medical Records I reviewed the patient's medical records. Lab Data I reviewed the patient's lab results. 04/04/24 21:32 04/04/24 21:32 Radiology Impressions Chest X-Ray 04/04/24 21:15 IMPRESSION: 1. No acute cardiopulmonary abnormality. Laboratory Results WBC 9.75 10^3/uL (3.29-11.43) 04/04/24 21: RBC 4.92 10^6/uL (3.85-5.65) 04/04/24 21: Hgb 14.60 g/dL (11.27-16.99) 04/04/24 21: Hct 44.4 % (36-47) 04/04/24 21: MCV 90.2 fl (85-98) 04/04/24 21: MCH 29.7 pg (27-33) 04/04/24 21: MCHC 32.9 g/dL (30-55) 04/04/24 21: RDW 12.5 % (12.1-15.1) 04/04/24 21: Plt Count 316 10^3/cmm (157-399) 04/04/24 21:32 MPV 9.0 fL (7.4-10.4) 04/04/24 21: Neut % (Auto) 54.4 % 04/04/24 21: Lymph % (Auto) 37.4 % 04/04/24 21:32 [place] % (Auto) 4.9 % 04/04/24 21:32 Eos % (Auto) 2.3 % 04/04/24 21: Baso % (Auto) 0.7 % 04/04/24: Neut # (Auto) 5.30 10^3/uL (1.8-7.7) 04/04/24 21: Lymph # (Auto) 3.7 10^3/uL (0.8-4.8) 04/04/24 21: [place] # (Auto) 0.5 10^3/uL (0.2-0.9) 04/04/24 21:32 Eos # (Auto) 0.2 10^3/uL (0.0-0.8) 04/04/24 21:32 Baso # (Auto) 0.1 10^3/uL (0.0-0.1) 04/04/24 21:32 Nucleated RBC % (auto) 0 % 04/04/24 21:32 Nucleated RBCs # 0.0 /100WBC 04/04/24 21:32 PT 12.20 SECONDS (12.1-14.9) 04/04/24 21:32 INR 0.88 (0.8-1.2) 04/04/24 21:32 D-Dimer 0.48 ug/mLFEU (0-0.59) 04/04/24 21:32 Sodium 138 mmol/L (136-145) 04/04/24 21:32 Potassium 3.9 mmol/L (3.5-5.1) 04/04/24 21:32 Chloride 104 mmol/L (98-107) 04/04/24 21:32 Carbon Dioxide 21 mmol/L (22-29) L 04/04/24 21:32 Anion Gap 16.9 (5-19) 04/04/24 21:32 BUN 8 mg/dL (6-20) 04/04/24 21:32 Creatinine 0.5 mg/dL (0.5-0.9) 04/04/24 21:32 GFR Calculation 135.3 mL/min (90-130) H 04/04/24 21:32 Glucose 101 mg/dL (65-115) 04/04/24 21:32 Calculated Osmolality 284 mOsm/kg (285-295) L 04/04/24 21:32 Calcium 9.1 mg/dL (8.5-10.5) 04/04/24 21:32 Total Bilirubin 0.4 mg/dL (0.15-1.2) 04/04/24 21:32 AST 16 U/L (0-32) 04/04/24 21:32 ALT 17 U/L (0-33) 04/04/24 21:32 Alkaline Phosphatase 85 U/L (35-105) 04/04/24 21:32 Troponin T Baseline < 6 ng/L (0-10) 04/04/24 21:32 Troponin T 120 Minute 6.00 ng/L (0-10) 04/04/24 23:25 Delta Troponin T 0.58281 ABS# (0-10) 04/04/24 23:25 Total Protein 6.9 g/dL (6.6-8.7) 04/04/24 21:32 Albumin 4.5 g/dL (3.5-5.2) 04/04/24 21:32 Globulin 2.4 g/dL (1.3-4.6) 04/04/24 21:32 Lipase 25 U/L (13-60) 04/04/24 21:32 All radiology interpretation(s) finalized by discharge EKG Data EKG 1: I personally reviewed and interpreted this EKG as follows: EKG interpretation date: 04/04/24 EKG interpretation time: 22:51 Interpretation: nsr hr [address] or t wave abnormalities qrs 101 qtc 433 Discharge Plan Discharge Patient Disposition: Home Clinical Impression: Chest pain Qualifiers: Chest pain type: precordial pain Qualified Code(s): R07.2 - Precordial pain Condition: Stable Prescriptions: No Action spironolactone 25 mg tablet 25 mg PO DAILY bacitracin zinc [Antibiotic (bacitracin zinc)] 500 unit/gram ointment 1 applic topical DAILY PRN (Reason: unknown) mupirocin 2 % ointment 1 applic topical BID PRN (Reason: unknown) cetirizine [All Day Allergy (cetirizine)] 10 mg tablet 10 mg PO DAILY PRN (Reason: Allergy Symptoms) nitroglycerin 0.4 mg tablet, sublingual 0.4 mg sublingual Q5M PRN (Reason: chest pain) Qty: 20 3RF Rx Instructions: do not exceed 3 doses per episode hydrocodone-acetaminophen 5-325 mg tablet 1 - 2 tab PO .Q4-6H PRN (Reason: pain) 7 Days Qty: 40 0RF montelukast [Singulair] 10 mg tablet 10 mg PO DAILY Qty: 90 6RF (DME) Diabetic shoes with 3 sets of insers and a heel lift to left 3/4 inch See Rx Instructions .Route .MEDSUPPLY Qty: 1 0RF Rx Instructions: As directed daily living medical albuterol sulfate 2.5 mg /3 mL (0.083 %) solution for nebulization 2.5 mg INHALATION QID PRN (Reason: Shortness Of Breath) Qty: 180 6RF fluticasone propionate [Flonase Allergy Relief] 50 mcg/actuation spray,suspension 1 spray intranasal BID Qty: 16 3RF Rx Instructions: administer into each nostril budesonide-formoterol [Symbicort] 160-4.5 mcg/actuation HFA aerosol inhaler 2 puff inhalation Q12H Qty: 10.2 6RF (DME) Compression Stockings See Rx Instructions .Route .MEDSUPPLY Qty: 1 0RF Rx Instructions: As directed (DME) Bone Growth Stimulator See Rx Instructions .Route .MEDSUPPLY Qty: 1 0RF Rx Instructions: As directed ibuprofen 800 mg Tablet 800 mg PO Q8H PRN (Reason: Pain) Hold Instructions: Resume on 02/27/24. atorvastatin 20 mg Tablet 20 mg PO QAM cyanocobalamin (vitamin B-12) [Vitamin B-12] 2,500 mcg Tablet, Sublingual 2,500 mcg PO Q7D Rx Instructions: on fri potassium chloride 10 mEq Tablet Extended Release 10 meq PO DAILY metformin 500 mg Tablet Extended Release 24 Hr 500 mg PO DAILY magnesium 200 mg Tablet 200 mg PO DAILY cholecalciferol (vitamin D3) [Dialyvite Vitamin D3 Max] 1,250 mcg (50,000 unit) Tablet 50,000 unit PO .TWICE A WEEK Discharge Orders: Discharge ED (Routine); Ordered 04/05/24 Ordered By: Eli Coburn Referrals: Lj Joseph MD [Primary Care Provider] - 4-7 days Discharge Diet: Advance as tolerated Discharge Activity: Resume usual activity Patient Instructions: Chest Pain (ED) Coding Level of Care Code ED Meter Inspector for Nannette Levin
[2024-04-04 21:53] LABS: Basophils # 0.1 10^3/uL (0.0-0.1); Basophils % 0.7 %; Eosinophils # 0.2 10^3/uL (0.0-0.8); Eosinophils % 2.3 %; Hematocrit 44.4 % (36-47); Lymphocytes # 3.7 10^3/uL (0.8-4.8); Lymphocytes % 37.4 %; Mean Corpuscular HGB Conc 32.9 g/dL (30-55); Mean Corpuscular Hemoglobin 29.7 pg (27-33); Mean Corpuscular Volume 90.2 fl (85-98); Monocytes # 0.5 10^3/uL (0.2-0.9); Monocytes % 4.9 %; Neutrophils % 54.4 %; Nucleated Red Blood Cells % 0 %; Platelet Count 316 10^3/cmm (157-399); Red Blood Count 4.92 10^6/uL (3.85-5.65); Red Cell Distribution Width 12.5 % (12.1-15.1); White Blood Count 9.75 10^3/uL (3.29-11.43)
[2024-04-04 21:58] LABS: INR 0.88 (0.8-1.2)
[2024-04-04 22:04] LABS: Troponin(5th) Baseline < 6 ng/L (0-10)
[2024-04-04 22:05] LABS: Alanine Aminotransferase 17 U/L (0-33); Albumin Level 4.5 g/dL (3.5-5.2); Alkaline Phosphatase 85 U/L (35-105); Anion Gap 16.9 (5-19); Aspartate Amino Transferase 16 U/L (0-32); Blood Urea Nitrogen 8 mg/dL (6-20); Calcium 9.1 mg/dL (8.5-10.5); Carbon Dioxide 21 mmol/L (22-29); Chloride 104 mmol/L (98-107); Creatinine Clr Calc Pharmacy 156.6244; Globulin 2.4 g/dL (1.3-4.6); Glomerular Filtration Rate 135.3 mL/min (90-130); Glucose 101 mg/dL (65-115); Lipase 25 U/L (13-60); Osmolality Calculated 284 mOsm/kg (285-295); Potassium 3.9 mmol/L (3.5-5.1); Sodium 138 mmol/L (136-145); Total Bilirubin 0.4 mg/dL (0.15-1.2); Total Protein 6.9 g/dL (6.6-8.7)
[2024-04-04 22:22] LABS: D Dimer 0.48 ug/mLFEU (0-0.59)
[2024-04-04] MEDS: ondansetron 2 mg/ML SDV 2 mL 4 MG IVP (22:27)
[2024-04-04 22:28] VITALS: BP 138/91; PULSE 98; RESP 16; O2SAT 95
[2024-04-04 22:30] VITALS: BP 126/95; PULSE 99; RESP 19; O2SAT 93
--- NOTE | 2024-04-04 23:15 | ECG_ITS ---
[facility] [place] [place] [facility] Date: 2024-04[facility]04 Pat Name: Cindy Rodarte Department: Room: Gender: Female Bone Crusher: : 1980 Requested By: Eli Coburn Order Number: [id number] Omer MD: AMA BYERS Measurements Intervals [place] Rate: 92 P: 43 [place]: 144 QRS: 76 QRSD: 101 T: 46 QT: 384 QTc: 475 Interpretive Statements SINUS RHYTHM LOW QRS VOLTAGE IN PRECORDIAL LEADS [QRS DEFLECTION < 1.0 mV IN CHEST LEADS] INCOMPLETE RIGHT BUNDLE BRANCH BLOCK [90+ ms QRS DURATION, TERMINAL R IN V1/V2, 40+ ms S IN I/aVL/V4/V5/V6] Compared to ECG 04/04/2024 21:20:33 Incomplete right bundle-branch block now present Sinus tachycardia no longer present Electronically Signed On 04-05-2024 19:30:07 SCRUB TECHNICIAN by AMA BYERS [id number]
[2024-04-04 23:58] LABS: Troponin 5 2HR Delta 0.00001 ABS# (0-10)
[2024-04-05] VITALS: BP 121/86; PULSE 99; RESP 14; O2SAT 96
[2024-04-05 00:46] VITALS: BP 126/82; PULSE 89; RESP 16; O2SAT 96
== END 2024-04-05 00:48 | disposition home or self-care (01) ==
PROVIDERS: Emergency Provider Emergency Medicine; PCP Family Medicine
DX: R07.2 Precordial pain (principal); Z79.84 Long term (current) use of oral hypoglycemic drugs; J44.9 Chronic obstructive pulmonary disease, unspecified; E78.5 Hyperlipidemia, unspecified
CPT/HCPCS: 36415; 71045; 80053; 83690; 84484; 85025; 85378; 85610; 93005; 96374; 99285; J2405

== ENCOUNTER → 2024-04-16 09:13 | Outpatient (BNVA) | payer MEDICAID, SELFPAY | PROVIDERS: PCP Family Medicine; Visit Provider Nurse Practitioner Family | DX: L23.9 Allergic contact dermatitis, unspecified cause (principal); L73.2 Hidradenitis suppurativa; L29.89 Other pruritus; L90.5 Scar conditions and fibrosis of skin; L57.8 Other skin changes due to chronic exposure to nonionizing radiation; L81.3 Cafe au lait spots; L57.0 Actinic keratosis | CPT/HCPCS: 17000; 99214 ==

== ENCOUNTER → 2024-04-22 15:00 | Outpatient (BNVA) | payer MEDICAID, SELFPAY | PROVIDERS: PCP Family Medicine; Visit Provider Internal Medicine Cardiovascular Disease | DX: I47.10 Supraventricular tachycardia, unspecified (principal); E78.5 Hyperlipidemia, unspecified; F41.9 Anxiety disorder, unspecified; Z72.0 Tobacco use; I10 Essential (primary) hypertension | CPT/HCPCS: 99214 ==

== ENCOUNTER → 2024-05-20 08:19 | Outpatient (BNVA) | payer MEDICAID, SELFPAY | PROVIDERS: PCP Family Medicine; Visit Provider Orthopaedic Surgery | DX: Z98.1 Arthrodesis status (principal) | CPT/HCPCS: 72040; 99024 ==

== ENCOUNTER 2024-07-06 06:16 | Emergency (ER) | payer MEDICAID, SELFPAY ==
[2024-07-06 06:54] VITALS: BP 129/101; PULSE 99; RESP 16; TEMP 36.8; O2SAT 99
--- NOTE | 2024-07-06 06:59 | ECG_ITS ---
[facility] Test Date: 2024-07-06 Pat Name: Cindy Rodarte Department: Room: Gender: Female Agriculture Specialist: : 1980 Requested By: Darrell Boucher Order Number: [id number] Reading MD: AMA BYERS Measurements Intervals [place] Rate: 94 P: 48 IN: 145 QRS: 84 QRSD: 100 T: 54 QT: 381 QTc: 477 Interpretive Statements SINUS RHYTHM INCOMPLETE RIGHT BUNDLE BRANCH BLOCK [90+ ms QRS DURATION, TERMINAL R IN V1/V2, 40+ ms S IN I/aVL/V4/V5/V6] NONSPECIFIC T-WAVE ABNORMALITY Compared to ECG 04/04/2024 22:51:23 T-wave abnormality now present Electronically Signed On 07-06-2024 23:34:07 NET MVC DEVELOPER by AMA BYERS [email or web address] [id number]
--- NOTE | 2024-07-06 06:59 | XRR_ITS ---
PROCEDURE INFORMATION: Exam: XR Chest Exam date and time: 07/06/2024 7:42 AM Age: 43 years old Clinical indication: Cough and dyspnea; Chest pain, lightheadedness; Additional info: Dyspnea/cough TECHNIQUE: Imaging protocol: Radiologic exam of the chest. Views: 1 view. COMPARISON: CR XR chest 1V portable [id number] 04/04/2024 9:31 PM FINDINGS: Lungs: The lungs are clear. Pleural spaces: No pneumothorax or pleural effusion. Heart/Mediastinum: Cardiomediastinal silhouette is unremarkable. Bones/joints: No acute osseous or soft tissue abnormality. XR/XR chest 1V portable [id number] IMPRESSION: No acute cardiopulmonary abnormality.
[2024-07-06 07:07] VITALS: BP 126/93; PULSE 102; RESP 16; O2SAT 96
--- NOTE | 2024-07-06 07:19 | W.ED.GENADLT ---
HPI - General Adult General: Chief complaint: General Medical Stated complaint: headache,dizzy,poping feeling chest Time Seen by Provider: 07/06/24 06:47 History of Present Illness: 43-year-old female presents emergency room complaining of headache dizziness states her blood pressure has been elevated at home. States she feels a popping sensation in her chest this been going on for couple of weeks per her report. She intermittently has what she describes as a snapping sensation in her chest. She has not had any fever sweats or chills no productive cough. Stress test in February 2024 did not show any ischemia there is a question of decreased area of uptake that might have been artifactual versus old CA. Patient reports she has not previously had any stenting or angiogram. Echocardiogram done in January 2024 showed a normal EF no wall motion abnormalities. No valvular disease Associated symptoms: Deny chest pain, dyspnea or rash Related Data Home Medications ?Medication ?Instructions ?Recorded ?Confirmed cetirizine 10 mg tablet (All Day 10 mg PO DAILY PRN Allergy Symptoms 09/14/19 07/06/24 Allergy (cetirizine)) ibuprofen 800 mg tablet 800 mg PO Q8H PRN Pain 09/22/19 07/06/24 Held on 02/26/24. Instructions: Resume on 02/27/24. mupirocin 2 % topical ointment 1 applic topical BID PRN unknown 06/19/21 07/06/24 atorvastatin 20 mg tablet 20 mg PO QAM 11/02/21 07/06/24 cholecalciferol (vitamin D3) 1,250 50,000 unit PO .TWICE A WEEK 11/02/21 07/06/24 mcg (50,000 unit) tablet (Dialyvite Vitamin D3 Max) cyanocobalamin (vitamin B-12) 2,500 mcg PO Q7D 11/02/21 07/06/24 2,500 mcg sublingual tablet (Vitamin B-12) magnesium 200 mg tablet 200 mg PO DAILY 11/02/21 07/06/24 metformin 500 mg tablet,extended 500 mg PO DAILY 11/02/21 07/06/24 release 24 hr metoprolol tartrate 25 mg tablet 25 mg PO DAILY 04/22/24 07/06/24 albuterol sulfate 90 mcg/actuation 2 puff inhalation QID 07/06/24 07/06/24 aerosol inhaler (Ventolin HFA) alprazolam 0.25 mg tablet 0.25 mg PO TID 07/06/24 07/06/24 famotidine 20 mg tablet 20 mg PO BID 07/06/24 07/06/24 Previous Rx's ?Medication ?Instructions ?Recorded montelukast 10 mg tablet 10 mg PO DAILY #90 tabs 07/15/23 (Singulair) albuterol sulfate 2.5 mg/3 mL 2.5 mg (3 mL) inhalation QID PRN 08/15/23 (0.083 %) solution for nebulization Shortness Of Breath #180 mL budesonide-formoterol HFA 160 2 puff inhalation Q12H asthma 08/15/23 mcg-4.5 mcg/actuation aerosol #10.2 grams inhaler (Symbicort) fluticasone propionate 50 1 spray intranasal BID #16 grams 08/15/23 mcg/actuation nasal spray,suspension (Flonase Allergy Relief) nitroglycerin 0.4 mg sublingual 0.4 mg sublingual Q5M PRN chest 05/17/24 tablet pain #20 tabs hydrocodone 5 mg-acetaminophen 325 1 tab PO Q6H PRN pain 7 days #28 06/25/24 mg tablet tabs Allergies Allergy/AdvReac Type Severity Reaction Status Date / Time adhesive tape Allergy ALGY-Rash Verified 05/20/24 08:31 Tetracyclines Allergy ALGY-Rash Verified 05/20/24 08:31 Review of Systems Const: Denies: fever(s) or chills Card: Denies: chest pain Resp: Denies: dyspnea GI: Denies: abdominal pain : Denies: dysuria, urinary frequency or urinary urgency Musc: Denies: neck pain or back pain Skin/Breast: Denies: rash PFSH ED PFSH: Medical History Tobacco abuse Shortness of breath Urinary frequency Appendicitis Urolithiasis Left ureteral stone Greater trochanteric pain syndrome Left hip Right shoulder pain Asthma COPD (chronic obstructive pulmonary disease) Dyslipidemia Right renal stone Right flank pain Surgical History Status post laser ablation of incompetent vein Hx of section Hx of tonsillectomy Hx of exploratory laparotomy Hx of hysterectomy Hx of tubal ligation Family History Father Bleeding disorder Diabetes Hyperlipidemia CAD (coronary artery disease) Chronic kidney disease (CKD) Hypertension Seizure Family/Other Lung disease Liver disease Seizure Grandfather Lung disease Mother Stroke Migraines Liver disease Grandmother Cancer Social History Smoking and tobacco/nicotine status: current every day tobacco/nicotine user cigarettes Packs smoked per day: 1 Years cigarettes smoked: 23 [ Other cigarette details: started at age 17] Second hand smoke exposure: No Alcohol intake: never Substance/Drug Use: never Lives independently: Yes Household members: children Marital status: Single Current occupational status: disabled Do you think of yourself as: Straight/Heterosexual Current gender identity: Female Physical Exam Const: GENERAL APPEARANCE: cooperative ORIENTATION/CONSCIOUSNESS: Yes awake, Yes oriented to person, Yes oriented to place and Yes oriented to time HENMT: COMMON NORMALS: normocephalic, atraumatic and hearing grossly normal bilaterally HEAD & SCALP: normocephalic and atraumatic Resp: COMMON NORMALS: normal respiratory effort, No retractions, No use of accessory muscles and clear to auscultation bilaterally AUSCULTATION: clear to auscultation bilaterally Cardio: COMMON NORMALS: regular rate, regular rhythm and No murmurs present (Cardio) RATE: regular rate RHYTHM: regular rhythm GI: COMMON NORMALS: Soft to palpation and No hepatosplenomegaly present AUSCULTATION: Yes normoactive bowel sounds PALPATION: Yes Soft to palpation, No Tenderness to palpation present (GI), No Guarding due to palpation present (GI) and Yes No hepatosplenomegaly present Extremity: COMMON NORMALS: normal to inspection, capillary refill normal, no clubbing, cyanosis or edema, no calf tenderness and no pedal edema OTHER: Pain in the right arm sensation 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 equal deep tendon reflexes +2/4 at the triceps biceps difficult to elicit at the brachioradialis Neuro: SENSORIUM/ORIENTATION: Yes oriented to person, Yes oriented to place and Yes oriented to time Skin: COMMON NORMALS: no rashes or lesions noted GENERAL SKIN EXAM: no rashes or lesions noted Course Vital Signs: Vital signs: Vital Signs Temperature 98.2 F 07/06/24 06:54 Pulse Rate 87 07/06/24 11:31 Respiratory Rate 18 07/06/24 09:32 Blood Pressure 110/71 07/06/24 11:31 Pulse Oximetry 95 07/06/24 11:31 Oxygen Delivery Me thod Room Air 07/06/24 09:32 MDM - General Adult Medical Decision Making Cervical radiculopathy in the right arm consistent with he MRI findings. Treated in the emergency room with steroids and pain medications did have some relief of symptoms. When patient first arrived reviewed with Dr. Solomon is on-call with his orthopedic spine surgery he does not feel this is emergent at this time recommends medications for pain control he will see the patient back in the office in 2 days. Medical Records I reviewed the patient's medical records. Lab Data I reviewed the patient's lab results. 07/06/24 08:02 07/06/24 08:02 Radiology Impressions Chest X-Ray 07/06/24 06:59 IMPRESSION: No acute cardiopulmonary abnormality. Laboratory Results WBC 8.91 10^3/uL (3.29-11.43) 07/06/24 08:02 RBC 4.99 10^6/uL (3.85-5.65) 07/06/24 08:02 Hgb 14.40 g/dL (11.27-16.99) 07/06/24 08:02 Hct 44.5 % (36-47) 07/06/24 08:02 MCV 89.2 fl (85-98) 07/06/24 08:02 MCH 28.9 pg (27-33) 07/06/24 08:02 MCHC 32.4 g/dL (30-55) 07/06/24 08:02 RDW 12.3 % (12.1-15.1) 07/06/24 08:02 Plt Count 288 10^3/cmm (157-399) 07/06/24 08:02 MPV 8.8 fL (7.4-10.4) 07/06/24 08:02 Neut % (Auto) 46.0 % 07/06/24 08:02 Lymph % (Auto) 41.9 % 07/06/24 08:02 Graves % (Auto) 6.6 % 07/06/24 08:02 Eos % (Auto) 4.4 % 07/06/24 08:02 Baso % (Auto) 0.9 % 07/06/24 08:02 Neut # (Auto) 4.10 10^3/uL (1.8-7.7) 07/06/24 08:02 Lymph # (Auto) 3.7 10^3/uL (0.8-4.8) 07/06/24 08:02 Graves # (Auto) 0.6 10^3/uL (0.2-0.9) 07/06/24 08:02 Eos # (Auto) 0.4 10^3/uL (0.0-0.8) 07/06/24 08:02 Baso # (Auto) 0.1 10^3/uL (0.0-0.1) 07/06/24 08:02 Nucleated RBC % (auto) 0 % 07/06/24 08:02 Nucleated RBCs # 0.0 /100WBC 07/06/24 08:02 Sodium 136 mmol/L (136-145) 07/06/24 08:02 Potassium 4.1 mmol/L (3.5-5.1) 07/06/24 08:02 Chloride 104 mmol/L (98-107) 07/06/24 08:02 Carbon Dioxide 21 mmol/L (22-29) L 07/06/24 08:02 Anion Gap 15.1 (5-19) 07/06/24 08:02 BUN 14 mg/dL (6-20) 07/06/24 08:02 Creatinine 0.5 mg/dL (0.5-0.9) 07/06/24 08:02 GFR Calculation 135.3 mL/min (90-130) H 07/06/24 08:02 Glucose 127 mg/dL (65-115) H 07/06/24 08:02 Calculated Osmolality 284 mOsm/kg (285-295) L 07/06/24 08:02 Calcium 9.1 mg/dL (8.5-10.5) 07/06/24 08:02 Total Bilirubin 0.4 mg/dL (0.15-1.2) 07/06/24 08:02 AST 15 U/L (0-32) 07/06/24 08:02 ALT 19 U/L (0-33) 07/06/24 08:02 Alkaline Phosphatase 88 U/L (35-105) 07/06/24 08:02 Troponin T Baseline < 6 ng/L (0-10) 07/06/24 08:02 Troponin T 120 Minute 6.00 ng/L (0-10) 07/06/24 10:31 Delta Troponin T 0.25931 ABS# (0-10) 07/06/24 10:31 Total Protein 6.7 g/dL (6.6-8.7) 07/06/24 08:02 Albumin 4.2 g/dL (3.5-5.2) 07/06/24 08:02 Globulin 2.5 g/dL (1.3-4.6) 07/06/24 08:02 Influenza A (PCR) Negative (Negative) 07/06/24 07:20 Influenza Type B (PCR) Negative (Negative) 07/06/24 07:20 RSV (PCR) Negative (Negative) 07/06/24 07:20 SARS-CoV-2 (PCR) Negative (Negative) 07/06/24 07:20 All radiology interpretation(s) finalized by discharge Discharge Plan Discharge Patient Disposition: Home Clinical Impression: HTN (hypertension), Atypical chest pain Condition: Stable Prescriptions: No Action mupirocin 2 % ointment 1 applic topical BID PRN (Reason: unknown) cetirizine [All Day Allergy (cetirizine)] 10 mg tablet 10 mg PO DAILY PRN (Reason: Allergy Symptoms) metoprolol tartrate 25 mg tablet 25 mg PO DAILY montelukast [Singulair] 10 mg tablet 10 mg PO DAILY Qty: 90 6RF albuterol sulfate 2.5 mg /3 mL (0.083 %) solution for nebulization 2.5 mg INHALATION QID PRN (Reason: Shortness Of Breath) Qty: 180 6RF fluticasone propionate [Flonase Allergy Relief] 50 mcg/actuation spray,suspension 1 spray intranasal BID Qty: 16 3RF Rx Instructions: administer into each nostril budesonide-formoterol [Symbicort] 160-4.5 mcg/actuation HFA aerosol inhaler 2 puff inhalation Q12H Qty: 10.2 6RF nitroglycerin 0.4 mg tablet, sublingual 0.4 mg sublingual Q5M PRN (Reason: chest pain) Qty: 20 3RF Rx Instructions: do not exceed 3 doses per episode hydrocodone-acetaminophen 5-325 mg tablet 1 tab PO Q6H PRN (Reason: pain) 7 Days Qty: 28 0RF ibuprofen 800 mg Tablet 800 mg PO Q8H PRN (Reason: Pain) alprazolam 0.25 mg tablet 0.25 mg PO TID famotidine 20 mg tablet 20 mg PO BID albuterol sulfate [Ventolin HFA] 90 mcg/actuation HFA aerosol inhaler 2 puff INHALATION QID atorvastatin 20 mg Tablet 20 mg PO QAM cyanocobalamin (vitamin B-12) [Vitamin B-12] 2,500 mcg Tablet, Sublingual 2,500 mcg PO Q7D Rx Instructions: on fri metformin 500 mg Tablet Extended Release 24 Hr 500 mg PO DAILY magnesium 200 mg Tablet 200 mg PO DAILY cholecalciferol (vitamin D3) [Dialyvite Vitamin D3 Max] 1,250 mcg (50,000 unit) Tablet 50,000 unit PO .TWICE A WEEK Discharge Orders: Discharge ED (Routine); Ordered 07/06/24 Ordered By: Darrell Landa Referrals: Lj Joseph MD [Primary Care Provider] - Discharge Diet: Usual diet Discharge Activity: Resume usual activity Patient Instructions: Opioid Safety, Pain Management Print Language: [place]ican Coding Level of Care Code ED Structural Biologist for Nannette Levin
[2024-07-06 08:08] LABS: Influenza A NEGATIVE (Negative); Influenza B NEGATIVE (Negative); Respiratory Syncytial Virus Ce NEGATIVE (Negative); SARS-CoV-2 PCR NEGATIVE (Negative)
[2024-07-06 08:08] LABS: Basophils # 0.1 10^3/uL (0.0-0.1); Basophils % 0.9 %; Eosinophils # 0.4 10^3/uL (0.0-0.8); Eosinophils % 4.4 %; Hematocrit 44.5 % (36-47); Lymphocytes # 3.7 10^3/uL (0.8-4.8); Lymphocytes % 41.9 %; Mean Corpuscular HGB Conc 32.4 g/dL (30-55); Mean Corpuscular Hemoglobin 28.9 pg (27-33); Mean Corpuscular Volume 89.2 fl (85-98); Mean Platelet Volume 8.8 fL (7.4-10.4); Monocytes # 0.6 10^3/uL (0.2-0.9); Monocytes % 6.6 %; Nucleated Red Blood Cells % 0 %; Platelet Count 288 10^3/cmm (157-399); Red Blood Count 4.99 10^6/uL (3.85-5.65); Red Cell Distribution Width 12.3 % (12.1-15.1); White Blood Count 8.91 10^3/uL (3.29-11.43)
[2024-07-06 08:29] LABS: Troponin(5th) Baseline < 6 ng/L (0-10)
[2024-07-06 08:36] VITALS: BP 128/101; PULSE 86; RESP 16; O2SAT 96
[2024-07-06 08:37] LABS: Alanine Aminotransferase 19 U/L (0-33); Albumin Level 4.2 g/dL (3.5-5.2); Alkaline Phosphatase 88 U/L (35-105); Anion Gap 15.1 (5-19); Aspartate Amino Transferase 15 U/L (0-32); Blood Urea Nitrogen 14 mg/dL (6-20); Calcium 9.1 mg/dL (8.5-10.5); Carbon Dioxide 21 mmol/L (22-29); Chloride 104 mmol/L (98-107); Creatinine Clr Calc Pharmacy 158.7235; Globulin 2.5 g/dL (1.3-4.6); Glomerular Filtration Rate 135.3 mL/min (90-130); Glucose 127 mg/dL (65-115); Osmolality Calculated 284 mOsm/kg (285-295); Potassium 4.1 mmol/L (3.5-5.1); Sodium 136 mmol/L (136-145); Total Bilirubin 0.4 mg/dL (0.15-1.2); Total Protein 6.7 g/dL (6.6-8.7)
--- NOTE | 2024-07-06 09:29 | ECG_ITS ---
[facility] Pat Name: Cindy Rodarte Department: Room: Gender: Female Cinder Pitman: : 1980 Requested By: Darrell Boucher Order Number: [id number] Reading MD: AMA BYERS Measurements Intervals [place] Rate: 73 P: 56 ND: 175 QRS: 83 QRSD: 97 T: 53 QT: 407 QTc: 451 Interpretive Statements SINUS RHYTHM Compared to ECG 07/06/2024 07:01:24 Incomplete right bundle-branch block no longer present T-wave abnormality no longer present Electronically Signed On 07-06-2024 23:45:59 WET POUR MIXER by AMA BYERS [email or web address]
[2024-07-06 09:32] VITALS: BP 129/92; PULSE 84; RESP 18; O2SAT 98
[2024-07-06 11:02] LABS: Troponin 5 2HR Delta 0.00001 ABS# (0-10)
[2024-07-06 11:31] VITALS: BP 110/71; PULSE 87; O2SAT 95
== END 2024-07-06 11:34 | disposition home or self-care (01) ==
PROVIDERS: Emergency Provider Family Medicine; PCP Family Medicine
DX: R07.89 Other chest pain (principal); I10 Essential (primary) hypertension; Z79.84 Long term (current) use of oral hypoglycemic drugs; Z11.52 Encounter for screening for COVID-19; F17.210 Nicotine dependence, cigarettes, uncomplicated; J44.9 Chronic obstructive pulmonary disease, unspecified; E78.5 Hyperlipidemia, unspecified
CPT/HCPCS: 36415; 71045; 80053; 84484; 85025; 87637; 93005; 99285

== ENCOUNTER → 2024-08-11 10:02 | Outpatient (BNVA) | payer MEDICAID, SELFPAY | PROVIDERS: PCP Family Medicine; Visit Provider Podiatrist Foot & Ankle Surgery | DX: R26.9 Unspecified abnormalities of gait and mobility (principal); M72.2 Plantar fascial fibromatosis; E11.69 Type 2 diabetes mellitus with other specified complication; M21.70 Unequal limb length (acquired), unspecified site; Z79.84 Long term (current) use of oral hypoglycemic drugs | CPT/HCPCS: 99213 ==

== ENCOUNTER → 2024-08-19 12:54 | Outpatient (BNVA) | payer MEDICAID, SELFPAY | PROVIDERS: PCP Family Medicine; Visit Provider Orthopaedic Surgery | DX: Z98.1 Arthrodesis status (principal) | CPT/HCPCS: 72040; 99213 ==

== ENCOUNTER 2024-10-14 15:30 | Emergency (ER) | payer MEDICAID, SELFPAY ==
[2024-10-14 15:44] VITALS: BP 132/95; PULSE 93; RESP 16; TEMP 36.6; O2SAT 98; BMI 41.1
--- NOTE | 2024-10-14 15:51 | ECG_ITS ---
[facility] Date: 2024-10-14 Pat Name: Cindy Rodarte Department: Room: Gender: Female Behavioral Therapist: : 1980 Requested By: Darrell Boucher Order Number: [id number] Reading MD: AMA BYERS Measurements Intervals [place] Rate: 90 P: 70 CO: 147 QRS: 95 QRSD: 105 T: 72 QT: 362 QTc: 444 Interpretive Statements SINUS RHYTHM BORDERLINE RIGHT AXIS DEVIATION [QRS AXIS > 90] LOW QRS VOLTAGE IN PRECORDIAL LEADS [QRS DEFLECTION < 1.0 mV IN CHEST LEADS] Compared to ECG 07/06/2024 09:29:11 Low QRS voltage now present Electronically Signed On 10-16-2024 23:47:31 CDT by AMA BYERS [email or web address]
--- NOTE | 2024-10-14 16:02 | W.ED.DIZZY ---
Documented by User: Darrell Landa DO 10/18/24 06:46 HPI - Dizziness General: Chief Complaint: Dizziness Stated Complaint: dizzy nausea Time Seen by Provider: 10/14/24 15:58 History of Present Illness: HPI Narrative: 43-year-old female presents emergency room she just did not feel well today lightheaded and dizzy she got up from the toilet and had a orthostatic episode she fell to the ground she had a difficult time getting up she felt nauseous little bit diaphoretic Passed eventually family member found her and helped her up she took a shower and got very dizzy again she intermittently has had some chest pressure and discomfort she has not had any fever sweats or chills she is never actually vomited. Associated symptoms: Denies chest pain or chills Related Data Home Medications ?Medication ?Instructions ?Recorded ?Confirmed cetirizine 10 mg tablet (All Day 10 mg PO DAILY PRN Allergy Symptoms 09/14/19 08/19/24 Allergy (cetirizine)) ibuprofen 800 mg tablet 800 mg PO Q8H PRN Pain 09/22/19 08/19/24 Held on 02/26/24. Instructions: Resume on 02/27/24. mupirocin 2 % topical ointment 1 applic topical BID PRN unknown 06/19/21 08/19/24 atorvastatin 20 mg tablet 20 mg PO QAM 11/02/21 08/19/24 cholecalciferol (vitamin D3) 1,250 50,000 unit PO .TWICE A WEEK 11/02/21 08/19/24 mcg (50,000 unit) tablet (Dialyvite Vitamin D3 Max) cyanocobalamin (vitamin B-12) 2,500 mcg PO Q7D 11/02/21 08/19/24 2,500 mcg sublingual tablet (Vitamin B-12) magnesium 200 mg tablet 200 mg PO DAILY 11/02/21 08/19/24 metformin 500 mg tablet,extended 500 mg PO DAILY 11/02/21 08/19/24 release 24 hr albuterol sulfate 90 mcg/actuation 2 puff inhalation QID 07/06/24 08/19/24 aerosol inhaler (Ventolin HFA) alprazolam 0.25 mg tablet 0.25 mg PO TID 07/06/24 08/19/24 famotidine 20 mg tablet 20 mg PO BID 07/06/24 08/19/24 spironolactone 50 mg tablet mg PO 08/11/24 08/19/24 Previous Rx's ?Medication ?Instructions ?Recorded montelukast 10 mg tablet 10 mg PO DAILY #90 tabs 07/15/23 (Singulair) albuterol sulfate 2.5 mg/3 mL 2.5 mg (3 mL) inhalation QID PRN 08/15/23 (0.083 %) solution for nebulization Shortness Of Breath #180 mL budesonide-formoterol HFA 160 2 puff inhalation Q12H asthma 08/15/23 mcg-4.5 mcg/actuation aerosol #10.2 grams inhaler (Symbicort) fluticasone propionate 50 1 spray intranasal BID #16 grams 08/15/23 mcg/actuation nasal spray,suspension (Flonase Allergy Relief) metoprolol succinate 25 mg 12.5 mg (1/2 x 25 mg) PO .nightly 07/07/24 tablet,extended release 24 hr #30 tabs nitroglycerin 0.4 mg sublingual See Rx Instructions .Route 08/10/24 tablet .COMPLEX #25 tabs 0.8 cm heel lift to left #1 ea 08/11/24 Diabetic shoe with custom insoles #1 ea 08/11/24 hydrocodone 5 mg-acetaminophen 325 1 tab PO Q12H PRN pain 7 days #14 10/13/24 mg tablet tabs meclizine 25 mg tablet 25 mg PO QID PRN dizziness #14 tabs 10/14/24 Allergies Allergy/AdvReac Type Severity Reaction Status Date / Time adhesive tape Allergy ALGY-Rash Verified 08/19/24 12:59 Tetracyclines Allergy ALGY-Rash Verified 08/19/24 12:59 Review of Systems Const: Denies: fever(s) or chills Card: Denies: chest pain Resp: Denies: dyspnea GI: Denies: abdominal pain : Denies: dysuria, urinary frequency or urinary urgency Musc: Denies: neck pain or back pain Skin/Breast: Denies: rash PFSH ED PFSH: Medical History Tobacco abuse Shortness of breath Urinary frequency Appendicitis Urolithiasis Left ureteral stone Greater trochanteric pain syndrome Left hip Right shoulder pain Asthma COPD (chronic obstructive pulmonary disease) Dyslipidemia Right renal stone Right flank pain Surgical History Status post laser ablation of incompetent vein Hx of section Hx of tonsillectomy Hx of exploratory laparotomy Hx of hysterectomy Hx of tubal ligation Family History Father Bleeding disorder Diabetes Hyperlipidemia CAD (coronary artery disease) Chronic kidney disease (CKD) Hypertension Seizure Family/Other Lung disease Liver disease Seizure Grandfather Lung disease Mother Stroke Migraines Liver disease Grandmother Cancer Social History Smoking and tobacco/nicotine status: former use of tobacco/nicotine Second hand smoke exposure: No Alcohol intake: never Substance/Drug Use: never Lives independently: Yes Household members: children Marital status: Single Current occupational status: disabled Do you think of yourself as: Straight/Heterosexual Current gender identity: Female Physical Exam Const: GENERAL APPEARANCE: cooperative ORIENTATION/CONSCIOUSNESS: Yes awake, Yes oriented to person, Yes oriented to place and Yes oriented to time HENMT: COMMON NORMALS: normocephalic, atraumatic and hearing grossly normal bilaterally HEAD & SCALP: normocephalic and atraumatic Resp: COMMON NORMALS: normal respiratory effort, No retractions, No use of accessory muscles and clear to auscultation bilaterally AUSCULTATION: clear to auscultation bilaterally Cardio: COMMON NORMALS: regular rate, regular rhythm and No murmurs present (Cardio) RATE: regular rate RHYTHM: regular rhythm GI: COMMON NORMALS: Soft to palpation and No hepatosplenomegaly present AUSCULTATION: Yes normoactive bowel sounds PALPATION: Yes Soft to palpation, No Tenderness to palpation present (GI), No Guarding due to palpation present (GI) and Yes No hepatosplenomegaly present Extremity: COMMON NORMALS: normal to inspection, capillary refill normal, no clubbing, cyanosis or edema, no calf tenderness and no pedal edema Neuro: SENSORIUM/ORIENTATION: Yes oriented to person, Yes oriented to place and Yes oriented to time Skin: COMMON NORMALS: no rashes or lesions noted GENERAL SKIN EXAM: no rashes or lesions noted Course Vital Signs: Vital signs: Vital Signs Temperature 97.8 F 10/14/24 15:44 Pulse Rate 87 10/14/24 18:22 Respiratory Rate 18 10/14/24 18:22 Blood Pressure 124/82 10/14/24 18:22 Pulse Oximetry 98 10/14/24 18:22 Oxygen Delivery Me thod Room Air 10/14/24 15:44 MDM - Dizziness Medical Decision Making Care signed out to Dr. Leyva at change of shift. See final notes for diagnosis and disposition. Patient care transitioned me at shift change. Send up being discharged and received some fluids. Lab Data 10/14/24 16:35 10/14/24 16:35 Radiology Impressions Chest X-Ray 10/14/24 16:21 IMPRESSION: No acute findings. Laboratory Results WBC 9.77 10^3/uL (3.29-11.43) 10/14/24 16:35 RBC 5.15 10^6/uL (3.85-5.65) 10/14/24 16:35 Hgb 15.30 g/dL (11.27-16.99) 10/14/24 16:35 Hct 46.3 % (36-47) 10/14/24 16:35 MCV 89.9 fl (85-98) 10/14/24 16:35 MCH 29.7 pg (27-33) 10/14/24 16:35 MCHC 33.0 g/dL (30-55) 10/14/24 16:35 RDW 12.7 % (12.1-15.1) 10/14/24 16:35 Plt Count 269 10^3/cmm (157-399) 10/14/24 16:35 MPV 8.8 fL (7.4-10.4) 10/14/24 16:35 Neut % (Auto) 62.1 % 10/14/24 16:35 Lymph % (Auto) 29.7 % 10/14/24 16:35 [place] % (Auto) 5.1 % 10/14/24 16:35 Eos % (Auto) 2.3 % 10/14/24 16:35 Baso % (Auto) 0.6 % 10/14/24 16:35 Neut # (Auto) 6.07 10^3/uL (1.8-7.7) 10/14/24 16:35 Lymph # (Auto) 2.9 10^3/uL (0.8-4.8) 10/14/24 16:35 [place] # (Auto) 0.5 10^3/uL (0.2-0.9) 10/14/24 16:35 Eos # (Auto) 0.2 10^3/uL (0.0-0.8) 10/14/24 16:35 Baso # (Auto) 0.1 10^3/uL (0.0-0.1) 10/14/24 16:35 Nucleated RBC % (auto) 0 % 10/14/24 16:35 Nucleated RBCs # 0.0 /100WBC 10/14/24 16:35 Sodium 138 mmol/L (136-145) 10/14/24 16:35 Potassium 4.1 mmol/L (3.5-5.1) 10/14/24 16:35 Chloride 105 mmol/L (98-107) 10/14/24 16:35 Carbon Dioxide 20 mmol/L (22-29) L 10/14/24 16:35 Anion Gap 17.1 (5-19) 10/14/24 16:35 BUN 11 mg/dL (6-20) 10/14/24 16:35 Creatinine 0.5 mg/dL (0.5-0.9) 10/14/24 16:35 GFR Calculation 135.3 mL/min (90-130) H 10/14/24 16:35 Glucose 88 mg/dL (65-115) 10/14/24 16:35 Calculated Osmolality 285 mOsm/kg (285-295) 10/14/24 16:35 Calcium 9.1 mg/dL (8.5-10.5) 10/14/24 16:35 Total Bilirubin 0.6 mg/dL (0.15-1.2) 10/14/24 16:35 AST 16 U/L (0-32) 10/14/24 16:35 ALT 19 U/L (0-33) 10/14/24 16:35 Alkaline Phosphatase 88 U/L (35-105) 10/14/24 16:35 Total Protein 7.3 g/dL (6.6-8.7) 10/14/24 16:35 Albumin 4.1 g/dL (3.5-5.2) 10/14/24 16:35 Globulin 3.2 g/dL (1.3-4.6) 10/14/24 16:35 HCG, Qual Negative (Negative) 10/14/24 16:35 Urine Color Yellow (Yellow) 10/14/24 16:47 Urine Appearance Clear (CLEAR) 10/14/24 16:47 Urine pH 6.5 (5-7) 10/14/24 16:47 Ur Specific [place] 1.010 (1.005-1.030) 10/14/24 16:47 Urine Protein Negative (Negative) 10/14/24 16:47 Urine Glucose (UA) Negative (Normal) 10/14/24 16:47 Urine Ketones Negative (Negative) 10/14/24 16:47 Urine Blood Negative (Negative) 10/14/24 16:47 Urine Nitrate Negative (Negative) 10/14/24 16:47 Urine Bilirubin Negative (Negative) 10/14/24 16:47 Urine Urobilinogen 0.2 mg/dL (Negative) 10/14/24 16:47 Ur Leukocyte Esterase Negative (Negative) 10/14/24 16:47 Urine RBC 0-2 /hpf (0-2) 10/14/24 16:47 Urine WBC 0-5 /hpf (0-5) 10/14/24 16:47 Ur Squamous Epith Cells 0-5 /hpf (0-5) 10/14/24 16:47 Amorphous Sediment Not Reportable 10/14/24 16:47 Urine Bacteria None seen /hpf (NONE) 10/14/24 16:47 Hyaline Casts 0-4 /lpf H 10/14/24 16:47 EKG Data EKG 1: Interpretation: EKG 10/14/2024 1551 sinus rhythm no acute ST changes noted rate of 90 ME interval 147 QT 444. No significant change compared to 07/06/2024 Discharge Plan Discharge Patient Disposition: Home Clinical Impression: Orthostatic hypotension Condition: Stable Prescriptions: New meclizine 25 mg tablet 25 mg PO QID PRN (Reason: dizziness) Qty: 14 0RF No Action mupirocin 2 % ointment 1 applic topical BID PRN (Reason: unknown) cetirizine [All Day Allergy (cetirizine)] 10 mg tablet 10 mg PO DAILY PRN (Reason: Allergy Symptoms) spironolactone 50 mg tablet PO (DME) 0.8 cm heel lift to left See Rx Instructions .Route .MEDSUPPLY Qty: 1 0RF Rx Instructions: As directed (DME) Diabetic shoe with custom insoles See Rx Instructions .Route .MEDSUPPLY Qty: 1 0RF Rx Instructions: As directed montelukast [Singulair] 10 mg tablet 10 mg PO DAILY Qty: 90 6RF albuterol sulfate 2.5 mg /3 mL (0.083 %) solution for nebulization 2.5 mg INHALATION QID PRN (Reason: Shortness Of Breath) Qty: 180 6RF fluticasone propionate [Flonase Allergy Relief] 50 mcg/actuation spray,suspension 1 spray intranasal BID Qty: 16 3RF Rx Instructions: administer into each nostril budesonide-formoterol [Symbicort] 160-4.5 mcg/actuation HFA aerosol inhaler 2 puff inhalation Q12H Qty: 10.2 6RF metoprolol succinate 25 mg tablet extended release 24 hr 12.5 mg PO .nightly Qty: 30 1RF nitroglycerin 0.4 mg tablet, sublingual See Rx Instructions .ROUTE .COMPLEX Qty: 25 3RF Dose Instruction: DISSOLVE 1 TABLET UNDER THE TONGUE EVERY 5 MINUTES NEEDED FOR CHEST PAIN. DO NOT EXCEED A TOTAL OF 3 DOSES IN 15 MINUTES. Rx Instructions: DISSOLVE 1 TABLET UNDER THE TONGUE EVERY 5 MINUTES NEEDED FOR CHEST PAIN. DO NOT EXCEED A TOTAL OF 3 DOSES IN 15 MINUTES. hydrocodone-acetaminophen 5-325 mg tablet 1 tab PO Q12H PRN (Reason: pain) 7 Days Qty: 14 0RF ibuprofen 800 mg Tablet 800 mg PO Q8H PRN (Reason: Pain) alprazolam 0.25 mg tablet 0.25 mg PO TID famotidine 20 mg tablet 20 mg PO BID albuterol sulfate [Ventolin HFA] 90 mcg/actuation HFA aerosol inhaler 2 puff INHALATION QID atorvastatin 20 mg Tablet 20 mg PO QAM cyanocobalamin (vitamin B-12) [Vitamin B-12] 2,500 mcg Tablet, Sublingual 2,500 mcg PO Q7D Rx Instructions: on fri metformin 500 mg Tablet Extended Release 24 Hr 500 mg PO DAILY magnesium 200 mg Tablet 200 mg PO DAILY cholecalciferol (vitamin D3) [Dialyvite Vitamin D3 Max] 1,250 mcg (50,000 unit) Tablet 50,000 unit PO .TWICE A WEEK Discharge Orders: Discharge ED (Routine); Ordered 10/14/24 Ordered By: Darrell Landa Referrals: Lj Joseph MD [Primary Care Provider, Family Practice] Discharge Diet: Usual diet Discharge Activity: Increase activity as tolerated Patient Instructions: Opioid Safety, Pain Management Activity Restrictions/Additional Instructions: Thank you for choosing [facility] for your healthcare needs today. It is very important that you follow up as instructed or that you return to the Emergency Department should you have concerns or if your condition changes or worsens in any way. You were seen in the emergency room after orthostatic episode you are also complaining some dizziness with head movement. Blood pressure and laboratory tests were fine EKG does not show any abnormality. Will discharge you home with meclizine to use as needed for dizziness. Monitor your blood pressure closely at home. Return to your primary care doctor the next week to to follow-up. Print Language: [place] Coding Level of Care Code ED Stockfeed Miller for Chg Fwd Documented by User: Pavithra Lucero MD 10/15/24 00:54 HPI - Dizziness General: Chief Complaint: Dizziness Stated Complaint: dizzy nausea Time Seen by Provider: 10/14/24 15:58 Related Data Home Medications ?Medication ?Instructions ?Recorded ?Confirmed cetirizine 10 mg tablet (All Day 10 mg PO DAILY PRN Allergy Symptoms 09/14/19 08/19/24 Allergy (cetirizine)) ibuprofen 800 mg tablet 800 mg PO Q8H PRN Pain 09/22/19 08/19/24 Held on 02/26/24. Instructions: Resume on 02/27/24. mupirocin 2 % topical ointment 1 applic topical BID PRN unknown 06/19/21 08/19/24 atorvastatin 20 mg tablet 20 mg PO QAM 11/02/21 08/19/24 cholecalciferol (vitamin D3) 1,250 50,000 unit PO .TWICE A WEEK 11/02/21 08/19/24 mcg (50,000 unit) tablet (Dialyvite Vitamin D3 Max) cyanocobalamin (vitamin B-12) 2,500 mcg PO Q7D 11/02/21 08/19/24 2,500 mcg sublingual tablet (Vitamin B-12) magnesium 200 mg tablet 200 mg PO DAILY 11/02/21 08/19/24 metformin 500 mg tablet,extended 500 mg PO DAILY 11/02/21 08/19/24 release 24 hr albuterol sulfate 90 mcg/actuation 2 puff inhalation QID 07/06/24 08/19/24 aerosol inhaler (Ventolin HFA) alprazolam 0.25 mg tablet 0.25 mg PO TID 07/06/24 08/19/24 famotidine 20 mg tablet 20 mg PO BID 07/06/24 08/19/24 spironolactone 50 mg tablet mg PO 08/11/24 08/19/24 Previous Rx's ?Medication ?Instructions ?Recorded montelukast 10 mg tablet 10 mg PO DAILY #90 tabs 07/15/23 (Singulair) albuterol sulfate 2.5 mg/3 mL 2.5 mg (3 mL) inhalation QID PRN 08/15/23 (0.083 %) solution for nebulization Shortness Of Breath #180 mL budesonide-formoterol HFA 160 2 puff inhalation Q12H asthma 08/15/23 mcg-4.5 mcg/actuation aerosol #10.2 grams inhaler (Symbicort) fluticasone propionate 50 1 spray intranasal BID #16 grams 08/15/23 mcg/actuation nasal spray,suspension (Flonase Allergy Relief) metoprolol succinate 25 mg 12.5 mg (1/2 x 25 mg) PO .nightly 07/07/24 tablet,extended release 24 hr #30 tabs nitroglycerin 0.4 mg sublingual See Rx Instructions .Route 08/10/24 tablet .COMPLEX #25 tabs 0.8 cm heel lift to left #1 ea 08/11/24 Diabetic shoe with custom insoles #1 ea 08/11/24 hydrocodone 5 mg-acetaminophen 325 1 tab PO Q12H PRN pain 7 days #14 10/13/24 mg tablet tabs meclizine 25 mg tablet 25 mg PO QID PRN dizziness #14 tabs 10/14/24 Allergies Allergy/AdvReac Type Severity Reaction Status Date / Time adhesive tape Allergy ALGY-Rash Verified 08/19/24 12:59 Tetracyclines Allergy ALGY-Rash Verified 08/19/24 12:59 [facility]: Medical History Tobacco abuse Shortness of breath Urinary frequency Appendicitis Urolithiasis Left ureteral stone Greater trochanteric pain syndrome Left hip Right shoulder pain Asthma COPD (chronic obstructive pulmonary disease) Dyslipidemia Right renal stone Right flank pain Surgical History Status post laser ablation of incompetent vein Hx of section Hx of tonsillectomy Hx of exploratory laparotomy Hx of hysterectomy Hx of tubal ligation Family History Father Bleeding disorder Diabetes Hyperlipidemia CAD (coronary artery disease) Chronic kidney disease (CKD) Hypertension Seizure Family/Other Lung disease Liver disease Seizure Grandfather Lung disease Mother Stroke Migraines Liver disease Grandmother Cancer Social History Smoking and tobacco/nicotine status: former use of tobacco/nicotine Second hand smoke exposure: No Alcohol intake: never Substance/Drug Use: never Lives independently: Yes Household members: children Marital status: Single Current occupational status: disabled Do you think of yourself as: Straight/Heterosexual Current gender identity: Female Course Vital Signs: Vital signs: Vital Signs Temperature 97.8 F 10/14/24 15:44 Pulse Rate 87 10/14/24 18:22 Respiratory Rate 18 10/14/24 18:22 Blood Pressure 124/82 10/14/24 18:22 Pulse Oximetry 98 10/14/24 18:22 Oxygen Delivery Me thod Room Air 10/14/24 15:44 MDM - Dizziness Medical Decision Making Patient care transitioned me at shift change. Send up being discharged and received some fluids. Lab Data 10/14/24 16:35 10/14/24 16:35 Radiology Impressions Chest X-Ray 10/14/24 16:21 IMPRESSION: No acute findings. Laboratory Results WBC 9.77 10^3/uL (3.29-11.43) 10/14/24 16:35 RBC 5.15 10^6/uL (3.85-5.65) 10/14/24 16:35 Hgb 15.30 g/dL (11.27-16.99) 10/14/24 16:35 Hct 46.3 % (36-47) 10/14/24 16:35 MCV 89.9 fl (85-98) 10/14/24 16:35 MCH 29.7 pg (27-33) 10/14/24 16:35 MCHC 33.0 g/dL (30-55) 10/14/24 16:35 RDW 12.7 % (12.1-15.1) 10/14/24 16:35 Plt Count 269 10^3/cmm (157-399) 10/14/24 16:35 MPV 8.8 fL (7.4-10.4) 10/14/24 16:35 Neut % (Auto) 62.1 % 10/14/24 16:35 Lymph % (Auto) 29.7 % 10/14/24 16:35 [place] % (Auto) 5.1 % 10/14/24 16:35 Eos % (Auto) 2.3 % 10/14/24 16:35 Baso % (Auto) 0.6 % 10/14/24 16:35 Neut # (Auto) 6.07 10^3/uL (1.8-7.7) 10/14/24 16:35 Lymph # (Auto) 2.9 10^3/uL (0.8-4.8) 10/14/24 16:35 [place] # (Auto) 0.5 10^3/uL (0.2-0.9) 10/14/24 16:35 Eos # (Auto) 0.2 10^3/uL (0.0-0.8) 10/14/24 16:35 Baso # (Auto) 0.1 10^3/uL (0.0-0.1) 10/14/24 16:35 Nucleated RBC % (auto) 0 % 10/14/24 16:35 Nucleated RBCs # 0.0 /100WBC 10/14/24 16:35 Sodium 138 mmol/L (136-145) 10/14/24 16:35 Potassium 4.1 mmol/L (3.5-5.1) 10/14/24 16:35 Chloride 105 mmol/L (98-107) 10/14/24 16:35 Carbon Dioxide 20 mmol/L (22-29) L 10/14/24 16:35 Anion Gap 17.1 (5-19) 10/14/24 16:35 BUN 11 mg/dL (6-20) 10/14/24 16:35 Creatinine 0.5 mg/dL (0.5-0.9) 10/14/24 16:35 GFR Calculation 135.3 mL/min (90-130) H 10/14/24 16:35 Glucose 88 mg/dL (65-115) 10/14/24 16:35 Calculated Osmolality 285 mOsm/kg (285-295) 10/14/24 16:35 Calcium 9.1 mg/dL (8.5-10.5) 10/14/24 16:35 Total Bilirubin 0.6 mg/dL (0.15-1.2) 10/14/24 16:35 AST 16 U/L (0-32) 10/14/24 16:35 ALT 19 U/L (0-33) 10/14/24 16:35 Alkaline Phosphatase 88 U/L (35-105) 10/14/24 16:35 Total Protein 7.3 g/dL (6.6-8.7) 10/14/24 16:35 Albumin 4.1 g/dL (3.5-5.2) 10/14/24 16:35 Globulin 3.2 g/dL (1.3-4.6) 10/14/24 16:35 HCG, Qual Negative (Negative) 10/14/24 16:35 Urine Color Yellow (Yellow) 10/14/24 16:47 Urine Appearance Clear (CLEAR) 10/14/24 16:47 Urine pH 6.5 (5-7) 10/14/24 16:47 Ur Specific [place] 1.010 (1.005-1.030) 10/14/24 16:47 Urine Protein Negative (Negative) 10/14/24 16:47 Urine Glucose (UA) Negative (Normal) 10/14/24 16:47 Urine Ketones Negative (Negative) 10/14/24 16:47 Urine Blood Negative (Negative) 10/14/24 16:47 Urine Nitrate Negative (Negative) 10/14/24 16:47 Urine Bilirubin Negative (Negative) 10/14/24 16:47 Urine Urobilinogen 0.2 mg/dL (Negative) 10/14/24 16:47 Ur Leukocyte Esterase Negative (Negative) 10/14/24 16:47 Urine RBC 0-2 /hpf (0-2) 10/14/24 16:47 Urine WBC 0-5 /hpf (0-5) 10/14/24 16:47 Ur Squamous Epith Cells 0-5 /hpf (0-5) 10/14/24 16:47 Amorphous Sediment Not Reportable 10/14/24 16:47 Urine Bacteria None seen /hpf (NONE) 10/14/24 16:47 Hyaline Casts 0-4 /lpf H 10/14/24 16:47 All radiology interpretation(s) finalized by discharge Discharge Plan Discharge Patient Disposition: Home Clinical Impression: Orthostatic hypotension Condition: Stable Prescriptions: New meclizine 25 mg tablet 25 mg PO QID PRN (Reason: dizziness) Qty: 14 0RF No Action mupirocin 2 % ointment 1 applic topical BID PRN (Reason: unknown) cetirizine [All Day Allergy (cetirizine)] 10 mg tablet 10 mg PO DAILY PRN (Reason: Allergy Symptoms) spironolactone 50 mg tablet PO (DME) 0.8 cm heel lift to left See Rx Instructions .Route .MEDSUPPLY Qty: 1 0RF Rx Instructions: As directed (DME) Diabetic shoe with custom insoles See Rx Instructions .Route .MEDSUPPLY Qty: 1 0RF Rx Instructions: As directed montelukast [Singulair] 10 mg tablet 10 mg PO DAILY Qty: 90 6RF albuterol sulfate 2.5 mg /3 mL (0.083 %) solution for nebulization 2.5 mg INHALATION QID PRN (Reason: Shortness Of Breath) Qty: 180 6RF fluticasone propionate [Flonase Allergy Relief] 50 mcg/actuation spray,suspension 1 spray intranasal BID Qty: 16 3RF Rx Instructions: administer into each nostril budesonide-formoterol [Symbicort] 160-4.5 mcg/actuation HFA aerosol inhaler 2 puff inhalation Q12H Qty: 10.2 6RF metoprolol succinate 25 mg tablet extended release 24 hr 12.5 mg PO .nightly Qty: 30 1RF nitroglycerin 0.4 mg tablet, sublingual See Rx Instructions .ROUTE .COMPLEX Qty: 25 3RF Dose Instruction: DISSOLVE 1 TABLET UNDER THE TONGUE EVERY 5 MINUTES NEEDED FOR CHEST PAIN. DO NOT EXCEED A TOTAL OF 3 DOSES IN 15 MINUTES. Rx Instructions: DISSOLVE 1 TABLET UNDER THE TONGUE EVERY 5 MINUTES NEEDED FOR CHEST PAIN. DO NOT EXCEED A TOTAL OF 3 DOSES IN 15 MINUTES. hydrocodone-acetaminophen 5-325 mg tablet 1 tab PO Q12H PRN (Reason: pain) 7 Days Qty: 14 0RF ibuprofen 800 mg Tablet 800 mg PO Q8H PRN (Reason: Pain) alprazolam 0.25 mg tablet 0.25 mg PO TID famotidine 20 mg tablet 20 mg PO BID albuterol sulfate [Ventolin HFA] 90 mcg/actuation HFA aerosol inhaler 2 puff INHALATION QID atorvastatin 20 mg Tablet 20 mg PO QAM cyanocobalamin (vitamin B-12) [Vitamin B-12] 2,500 mcg Tablet, Sublingual 2,500 mcg PO Q7D Rx Instructions: on fri metformin 500 mg Tablet Extended Release 24 Hr 500 mg PO DAILY magnesium 200 mg Tablet 200 mg PO DAILY cholecalciferol (vitamin D3) [Dialyvite Vitamin D3 Max] 1,250 mcg (50,000 unit) Tablet 50,000 unit PO .TWICE A WEEK Discharge Orders: Discharge ED (Routine); Ordered 10/14/24 Ordered By: Darrell Landa Referrals: Lj Joseph MD [Primary Care Provider, Family Practice] Discharge Diet: Usual diet Discharge Activity: Increase activity as tolerated Patient Instructions: Opioid Safety, Pain Management Activity Restrictions/Additional Instructions: Thank you for choosing [facility] for your healthcare needs today. It is very important that you follow up as instructed or that you return to the Emergency Department should you have concerns or if your condition changes or worsens in any way. You were seen in the emergency room after orthostatic episode you are also complaining some dizziness with head movement. Blood pressure and laboratory tests were fine EKG does not show any abnormality. Will discharge you home with meclizine to use as needed for dizziness. Monitor your blood pressure closely at home. Return to your primary care doctor the next week to to follow-up. Print Language: [place] Coding Level of Care Code ED Stockfeed Miller for Nannette Levin
--- NOTE | 2024-10-14 16:14 | ECG_ITS ---
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: : 1980 Requested By: Darrell Boucher Order Number: [id number] Reading MD: AMA BYERS Measurements Intervals [place] Rate: 86 P: 69 AK: 147 QRS: 98 QRSD: 100 T: 74 QT: 369 QTc: 443 Interpretive Statements SINUS RHYTHM BORDERLINE RIGHT AXIS DEVIATION [QRS AXIS > 90] INCOMPLETE RIGHT BUNDLE BRANCH BLOCK [90+ ms QRS DURATION, TERMINAL R IN V1/V2, 40+ ms S IN I/aVL/V4/V5/V6] Compared to ECG 10/14/2024 15:51:54 Incomplete right bundle-branch block now present Electronically Signed On 10-16-2024 23:53:35 CDT by AMA BYERS [id number]
--- NOTE | 2024-10-14 16:21 | XRR_ITS ---
PROCEDURE INFORMATION: Exam: XR Chest Exam date and time: 10/14/2024 4:23 PM Age: 43 years old Clinical indication: Cough and dyspnea; Additional info: Dyspnea/cough TECHNIQUE: Imaging protocol: Radiologic exam of the chest. Views: 1 view. COMPARISON: CR XR chest 1V portable [id number] 07/06/2024 7:42 AM FINDINGS: Lungs: Unremarkable. No consolidation. Pleural spaces: Unremarkable. No pleural effusion. No pneumothorax. Heart/Mediastinum: Unremarkable. No cardiomegaly. Bones/joints: Unremarkable. XR/XR chest 1V portable [id number] IMPRESSION: No acute findings.
[2024-10-14 16:46] LABS: Basophils # 0.1 10^3/uL (0.0-0.1); Basophils % 0.6 %; Eosinophils # 0.2 10^3/uL (0.0-0.8); Eosinophils % 2.3 %; Hematocrit 46.3 % (36-47); Lymphocytes # 2.9 10^3/uL (0.8-4.8); Lymphocytes % 29.7 %; Mean Corpuscular Hemoglobin 29.7 pg (27-33); Mean Corpuscular Volume 89.9 fl (85-98); Mean Platelet Volume 8.8 fL (7.4-10.4); Monocytes # 0.5 10^3/uL (0.2-0.9); Monocytes % 5.1 %; Neutrophils # 6.07 10^3/uL (1.8-7.7); Neutrophils % 62.1 %; Nucleated Red Blood Cells % 0 %; Platelet Count 269 10^3/cmm (157-399); Red Blood Count 5.15 10^6/uL (3.85-5.65); Red Cell Distribution Width 12.7 % (12.1-15.1); White Blood Count 9.77 10^3/uL (3.29-11.43)
[2024-10-14 16:49] VITALS: BP 125/82; PULSE 82; O2SAT 98
[2024-10-14 16:57] LABS: Alanine Aminotransferase 19 U/L (0-33); Albumin Level 4.1 g/dL (3.5-5.2); Alkaline Phosphatase 88 U/L (35-105); Anion Gap 17.1 (5-19); Aspartate Amino Transferase 16 U/L (0-32); Blood Urea Nitrogen 11 mg/dL (6-20); Calcium 9.1 mg/dL (8.5-10.5); Carbon Dioxide 20 mmol/L (22-29); Chloride 105 mmol/L (98-107); Globulin 3.2 g/dL (1.3-4.6); Glomerular Filtration Rate 135.3 mL/min (90-130); Glucose 88 mg/dL (65-115); Osmolality Calculated 285 mOsm/kg (285-295); Potassium 4.1 mmol/L (3.5-5.1); Sodium 138 mmol/L (136-145); Total Bilirubin 0.6 mg/dL (0.15-1.2); Total Protein 7.3 g/dL (6.6-8.7)
[2024-10-14 16:58] LABS: HCG, Serum Qual Negative (Negative)
[2024-10-14 17:00] LABS: Bilirubin Urine Negative (Negative); Blood Urine Negative (Negative); Glucose Urine UA Negative (Normal); Ketones Urine Negative (Negative); Leukocyte Esterase Urine Negative (Negative); Nitrate Urine Negative (Negative); Protein Urine Negative (Negative); Urine Appearance Clear (CLEAR); Urine Color Yellow (Yellow); Urobilinogen Urine 0.2 mg/dL (Negative); pH Urine 6.5 (5-7)
[2024-10-14 17:06] LABS: Add Urine Microscopic? YES; Bacteria Urine None Seen /hpf; Hyaline Casts Urine 0-4 /lpf; RBC Urine 0-2 /hpf (0-2); Squamous Epithelial Cell Urine 0-5 /hpf (0-5); WBC Urine 0-5 /hpf (0-5)
[2024-10-14 17:09] LABS: Add Urine Culture? No
[2024-10-14 17:14] LABS: Slide Review Slide Review Perform
[2024-10-14 17:57] VITALS: PULSE 81; RESP 18; O2SAT 98
[2024-10-14 18:05] VITALS: BP 109/87; BP 124/87; BP 127/90; PULSE 115; PULSE 90; PULSE 93
[2024-10-14 18:06] VITALS: BP 109/87; PULSE 90; O2SAT 99
--- NOTE | 2024-10-14 18:21 | PC.NURSE ---
pt refused fluids, ready for discharge.
[2024-10-14 18:22] VITALS: BP 124/82; PULSE 87; RESP 18; O2SAT 98
== END 2024-10-14 18:24 | disposition home or self-care (01) ==
PROVIDERS: Emergency Provider Family Medicine; PCP Family Medicine
DX: I95.1 Orthostatic hypotension (principal); Z79.84 Long term (current) use of oral hypoglycemic drugs; Z87.891 Personal history of nicotine dependence; E78.5 Hyperlipidemia, unspecified; J44.9 Chronic obstructive pulmonary disease, unspecified
CPT/HCPCS: 36415; 71045; 80053; 81001; 84703; 85025; 93005; 99285

== ENCOUNTER 2024-10-15 10:48 | Outpatient (CLI) | payer MEDICAID, SELFPAY ==
[2024-10-15 12:08] LABS: Free T4 Free Thyroxine 0.99 ng/dL (0.82-1.77); Thyroid Stimulating Hormone 1.08 uIU/mL (0.27-4.20)
== END 2024-10-15 10:49 | disposition home or self-care (01) ==
LOC: LAB 10:50
PROVIDERS: PCP Family Medicine; Visit Provider Nurse Practitioner Family
DX: L29.89 Other pruritus (principal); L23.9 Allergic contact dermatitis, unspecified cause; L73.2 Hidradenitis suppurativa; L81.3 Cafe au lait spots; L90.5 Scar conditions and fibrosis of skin; L57.8 Other skin changes due to chronic exposure to nonionizing radiation
CPT/HCPCS: 84439; 84443; 99213

== ENCOUNTER 2024-11-04 16:33 | Outpatient (RCR) | payer MEDICAID, SELFPAY | END 2024-11-08 23:59 | disposition home or self-care (01) | LOC: SPT 16:33 | PROVIDERS: Visit Provider Orthopaedic Surgery | DX: M54.9 Dorsalgia, unspecified (principal); G89.29 Other chronic pain | CPT/HCPCS: 97110; 97161 ==

== ENCOUNTER → 2024-11-25 15:15 | Outpatient (BNVA) | payer MEDICAID, SELFPAY | PROVIDERS: PCP Family Medicine; Visit Provider Internal Medicine Cardiovascular Disease | DX: R00.2 Palpitations (principal); R60.9 Edema, unspecified; I83.893 Varicose veins of bilateral lower extremities with other complications; I10 Essential (primary) hypertension | CPT/HCPCS: 99214 ==

== ENCOUNTER 2025-03-10 00:25 | Emergency (ER) | payer MEDICAID, SELFPAY ==
[2025-03-10] VITALS (9 sets, daily range): BP systolic 116–144; BP diastolic 83–96; PULSE 89–104; RESP 15–16; TEMP 36.6; O2SAT 96–100; BMI 35.9
--- OUTSIDE RECORDS SUMMARY | 2025-03-10 00:30 | XMS_ITS | Encounter Summary ---
Author Organization [facility] Address [address] [place] [address] Care Team Providers Care Head Trimmer Name Role Phone Lenny Frias MD Primary Care Provider Unava ilable Reason for Referral * Outpatient Services (Routine) - Closed Specialty Diagnoses / Procedures Referred By Melanie garcia Referred To Contact Diagnoses Varicose veins of lower extremities with other complications Procedures US VENOUS DOPPLER LEG BILATERAL Addis Jain CNS Referral ID Status Reason Start Date Expiration Date Visits Re quested Visits Authorized [id number] Closed 11/08/2009 05/07/2010 1 1 Encounter Details Date Type Department Care Team (Latest Contact Info) Description 11/08/2009 Ancillary Orders [facility] Cardiac Thoracic Vascular Surg [address] [place] [id number] Addis Jain CNS NO ADDRESS ON FILE Varicose Veins of Lower Extremities with Other Complications Social History Tobacco Use Types Packs/Day Years Used Date Smoking Tobacco: Never Assessed Comments Unknown Sex and Gender Information Value Date Recorded Sex Assigned at Not on file Legal 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 Gender Identity Not on file Sexual Orientation Not on file documented as of this encounter Plan of Treatment Not on file documented as of this encounter Results * US VENOUS DOPPLER LEG BILATERAL (11/22/2009 10:52 AM CDT) Anatomical Region Laterality Modality Lower Extremity Ultrasound 11/22/2009 9:54 AM CDT Narrative 12/03/2009 5:05 PM CDT [facility] [place] [address] Noninvasive Vascular Lab Lower Extremity Vein mapping for Reflux Patient: Cindy Rodarte Study ID: US VENOUS DOPPLE Gender: F : 1980 Age: 29 Room: Height: Weight: BSA: Pt status: Outpatient Study Date: 11/22/2009 Study Time: 09:54 AM BSA: Ordering: Addis Jain Interpreting:Andrew Richard MD FACS, [facility] Cardiology Specialist: Joyce Steiner RVT Indications: 454.8. varicose veins c complications. Summary Impression: 1. Reflux consistent with venous insufficiency involving the left common femoral vein, left great saphenous vein, let posterior tibial vein, and left lesser saphenous vein > 4 sec. 2. Reflux consistent with venous insufficiency involving the right saphenofemoral junction, however the GSV has been stripped. The vein in this area runs down leg to communicate with the posterior arch. Study data: Lower extremity vein mapping for reflux. Location: Vascular laboratory. Patient status: Outpatient. Study status: Routine. Procedure: A vascular evaluation was performed. Image quality was good. Vein mapping: - Mid right greater saphenous - GSV has been stripped - Proximal right lesser saphenous - 3.00mm Depth: 6.40mm < 2 sec reflux - Right posterior arch - No reflux - Proximal left greater saphenous - Reflux greater than 4 sec 11.20mm Depth: 8.20mm - Mid left greater saphenous - Reflux greater than 4 sec 7.00mm Depth: 10.10mm - Distal left greater saphenous - Reflux greater than 4 sec 7.40mm Depth: 5.60mm - Left greater saphenous (calf) - Reflux greater than 4 sec 6.30mm Depth: 7.60mm GSV mid calf reflux > 4 sec, 4.7 mm diam, 6.8 depth - Proximal left lesser saphenous - Reflux greater than 4 sec 3.90mm Depth: 6.50mm - Mid left lesser saphenous - Reflux greater than 4 sec 3.60mm Depth: 7.00mm - Distal left lesser saphenous - Reflux greater than 4 sec 3.30mm Depth: 5.00mm - Left posterior medial - No reflux - L posterior arch - Reflux greater than 4 sec - Left Stonewall music adapter - No reflux - Left Cocketts 2 music adapter - Reflux greater than 4 sec - Left distal music adapter - Reflux greater than 2 sec [facility] is accredited with the Intersocietal Commission for the Accreditation of Vascular Laboratories (ICAVL) Prepared and Electronically Authenticated Andrew Richard MD, FACS, RPVI Confirmed 12/03/2009 17:05 Procedure Note Andrew Richard MD - 12/03/2009 [facility] [address] [place] [address] [place] [id number] Noninvasive Vascular Lab Lower Extremity Vein mapping for Reflux Patient: Cindy Rodarte Study ID: VENOUS DOPPLE Gender: F : 1980 Age: 29 Room: Height: Weight: BSA: Pt status: Outpatient Study Date: 11/22/2009 Study Time: 09:54 AM BSA: Ordering: Addis Jain Interpreting:Andrew Richard MD, FACS, [facility] Cardiology Specialist: Joyce Steiner RVT Indications: 454.8. varicose veins c complications. Summary Impression: 1. Reflux consistent with venous insufficiency involving the left common femoral vein, left great saphenous vein, let posterior tibial vein,and left lesser saphenous vein > 4 sec. 2. Reflux consistent with venous insufficiency involving the right saphenofemoral junction, however the GSV has been stripped. The veinin this area runs down leg to communicate with the posterior arch. Study data: Lower extremity vein mapping for reflux. Location: Vascular laboratory. Patient status: Outpatient. Study status: Routine. Procedure:A vascular evaluation was performed. Image quality was good. Vein mapping: - Mid right greater saphenous - GSV has been stripped - Proximal right lesser saphenous - 3.00mm Depth: 6.40mm < 2 sec reflux - Right posterior arch - No reflux - Proximal left greater saphenous - Reflux greater than 4 sec 11.20mm Depth: 8.20mm - Mid left greater saphenous - Reflux greater than 4 sec 7.00mm Depth: 10.10mm - Distal left greater saphenous - Reflux greater than 4 sec 7.40mmDepth: 5.60mm - Left greater saphenous (calf) - Reflux greater than 4 sec 6.30mmDepth: 7.60mm GSV mid calf reflux > 4 sec, 4.7 mm diam, 6.8 depth - Proximal left lesser saphenous - Reflux greater than 4 sec 3.90mmDepth: 6.50mm - Mid left lesser saphenous - Reflux greater than 4 sec 3.60mm Depth: 7.00mm - Distal left lesser saphenous - Reflux greater than 4 sec 3.30mm Depth: 5.00mm - Left posterior medial - No reflux - L posterior arch - Reflux greater than 4 sec - Left Stonewall music adapter - No reflux - Left Cocketts 2 music adapter - Reflux greater than 4 sec - Left distal music adapter - Reflux greater than 2 sec [facility] is accredited with theIntersocietal Commission for the Accreditation of Vascular Laboratories (ICAVL) Prepared and Electronically Authenticated Andrew Richard MD FACS, RPVI Confirmed 12/03/2009 17:05 us Addissa Keshia Jain [facility] US ORDERABLES Final Result documented in this encounter Visit Diagnoses Diagnosis Varicose veins of lower extremities with other complications documented in this encounter Care Teams Head Trimmer Relationship Specialty Start Date End Date Lenny Frias MD NO ADDRESS ON FILE PCP - General 11/18/06 documented as of this encounter
--- OUTSIDE RECORDS SUMMARY | 2025-03-10 00:30 | XMS_ITS | Clinical Summary ---
Author Organization [facility] Address [address] [place] [address] Care Team Providers Care Extract Wringer Name Role Phone Lenny Frias MD Primary Care Provider Unava ilable Allergies No known active allergies Medications Miscellaneous Medical Supply Misc Misc by [facility] [place] [facility].(Non-Drug; Combo Route) route. Graduated compression stockings 30-40 mmhg, Dx 454.8. Length of need, 3 mos. 1 pairs. Thigh high style for after surgery 1 Each 0 0 Active [facility]isc[facility] Misc by [facility].(Non-Drug; Combo Route) route. Graduated compression stockings 20-30 mmhg, Dx 454.8. Length of need, 12 mos. 2 pairs. Pantyhose style 2 Each prn 0 Active HYDROcodone-jacinto taminophen (NORCO) 5-325 mg Oral tablet Take 1-2 Tabs by mouth every 4 hours as needed for Pain. 20 Tab 0 0 Active Active Problems Problem Noted Date Diagnosed Date Varicose veins of lower extr emities with other complications 11/22/2009 Overview (11/22/2009): BLE Unspecified venous (peripheral) insufficiency Overview (11/22/2009): BLE Immunizations Immunization Administration Dates Next Due (ADACEL/BOOSTRIX)(10 YR UP) TDAP VACCINE, 0.5ML, IM 10/03/2009 Social History Tobacco Use Types Packs/Day Years Used Date Smoking Tobacco: Every Day Cigarettes 0.5 12 Alcohol Use Standard Drinks/Week Comments No 0 (1 standard drink = 0.6 oz pur e alcohol) Comments Unknown Sex and Gender Information Value Date Recorded Sex Assigned at Not on file 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 Gender Identity Not on file Sexual Orientation Not on file Last Filed Vital Signs Vital Sign Reading Time Taken Comments Blood Pressure 100/70 02/06/2010 10:00 AM CDT Pulse 75 02/06/2010 10:00 AM CDT Temperature 36.2 C (97.2 F) 02/06/2010 10:00 AM CDT Respiratory Rate 18 02/06/2010 10:00 AM CDT Oxygen Saturation 98% 02/06/2010 10:00 AM CDT Inhaled Oxygen Concentration - - Weight 69.4 kg (153 lb) 02/14/2010 10:37 AM CDT Height 157.5 cm (5' 2 ) 02/06/2010 5:22 AM CDT Body Mass Index 27.98 02/06/2010 5:22 AM CDT Plan of Treatment Health Maintenance Due Date Last Done Comments HEPATITIS B VACCINES (1 of 3 - 19+ 3-dose series) 10/2000 HPV/Cotest (21-29) 2002 HPV VACCINES (1 - 3-dose SCDM series) 2008 CERVICAL CANCER SCREENING 11/15/2011 HPV/Cotest (30-65) 11/15/2011 PAP SMEAR 11/15/2011 DTAP/TDAP/TD VACCINES (2 - Td or Tdap) 10/04/2019 BREAST CANCER SCREENING 2021 INFLUENZA VACCINE (#1) 2024 Insurance MEDICAID [place] Advance Directives For more information, please contact: [phone] * Full Code (Latest Code Status on File) Date Activated Date Inactivated Comments 02/06/2010 5:10 AM 02/06/2010 3:07 PM * Full Code Date Activated Date Inactivated Comments 01/09/2010 6:58 AM 01/10/2010 2:01 AM Care Teams Extract Wringer Relationship Specialty Start Date End Date Lenny Frias MD NO ADDRESS ON FILE PCP - General 11/18/06
--- OUTSIDE RECORDS SUMMARY | 2025-03-10 00:30 | XMS_ITS | Encounter Summary ---
Author Organization [facility] Address [address] [place] [address] Care Team Providers Care Sales Manager Prearranged Funerals Name Role Phone Lenny Frias MD Primary Care Provider Unava ilable Encounter Details Date Type Department Care Team (Latest Contact Info) Description 06/16/1998 Outpatient Historical [facility] Gen Spec Surg 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
--- OUTSIDE RECORDS SUMMARY | 2025-03-10 00:30 | XMS_ITS | Data Portability ---
Author Organization MONO Glynn Liu [facility] Address [address] [place] [address] Care Team Providers Care Dentist Private Practice Name Role Phone MARISELA JOSEPH Primary Care Provider [phone] Assessment No assessment recorded. Plan of Treatment Reminders Order Date Submit Date Provider Last Modified By Organization Details Last Modified Time Details Appointments OFFICE VISIT 20 2025 02:30P Rita Joseph MD Not available Not available Not available Lab respirato ry pathogens DNA and RNA panel, PCR, nasophary nx [address] [facility] ([facility]), [address] [place], [address], 03/09/2025 17:50:16 Referral None recorded. Procedures None recorded. Surgeries None recorded. Imaging None recorded. Medication Orders Ozempic 1 mg/dose (4 mg/3 mL) subcutane ous pen injector [address], [address], 02/18/2025 14:07:19 valacyclo vir 500 mg tablet 2024 025 [facility], [address] [place] [address], [id number], 02/08/2025 15:12:12 Patient TargetsNo targets recorded. Patient Instructions Encounter Date Encounter Id Patient Instructions Last Modified By Organization Details Last Modified Time 03/09/2025 [id number] May try some dayquil. Increase fluids and follow up for worsening [id number] Not available 03/09/2025 17:33:36 Reason for Referral None Reported. Results Created Date Observation Date Name Description Value Unit Range Abnormal Flag Note LastModifiedBy Organization Detail LastModifiedTime 03/09/2003/09/2025 respi rator y patho gens DNA and RNA panel , PCR, nasop haryn x Covid negati ve Not Available [facility] ([facility]) [address] [place], [address], 03/09/2025 16:53:24 03/09/2003/09/2025 respi rator y patho gens DNA and RNA panel , PCR, nasop haryn x Rhinovirus negati ve Not Available [facility] ([facility]) [address] [place], [address], 03/09/2025 16:53:24 03/09/2003/09/2025 respi rator y patho gens DNA and RNA panel , PCR, nasop haryn x Influenza A negati ve Not Available [facility] ([facility]) [address] [place], [address], 03/09/2025 16:53:24 03/09/2003/09/2025 respi rator y patho gens DNA and RNA panel , PCR, nasop haryn x Influenza B negati ve Not Available [facility] ([facility]) [address] [place], [address], 03/09/2025 16:53:24 03/09/2003/09/2025 respi rator y patho gens DNA and RNA panel , PCR, nasop haryn x RSV negati ve Not Available [facility] ([facility]) [address] [place], [address], 03/09/2025 16:53:24 Result Notes None recorded. Problems Name Problem SNOMED Code Status Onset Date Resolution Date Notes Provider Name and Address Organization Details Recorded Time [facility] Completed 199804/24/2017 [facility] - Status is Inactive ; Date: 1998; 11/11/19 9:12AM by Mansoor Rod, Office Visit; Promoted ; acuity set as *; Not Available [facility] 3 03:08:07 Backache [id number] Completed 202207/12/2024 CHRONIC BACK PAIN GREATER THAN 3 MONTHS DURATION ; Impressi on: stable. [facility] 14:26:22 Generali zed anxiety disorder 65327073 Active 2022 [facility] 14:24:42 Neuropat hy 979384197 Active 2022 NEUROPAT HY; Impressi on: possibly due to disc disease with osteophy te complexe s causing nerve impingem ent. [facility] 14:24:43 Labyrint hitis 13244748 Active 2022 MANSOOR ROD [facility] 5 14:26:48 Bilatera l bursitis of hips [id number] 120533 Completed 202207/12/2024 [facility] 14:26:22 Urinary incontin ence 706772775 Active 2022 [facility] 14:26:47 Recurren t skin infectio n 854074541 Completed 202207/12/2024 [facility] 14:26:22 Cramp [id number] Completed 202207/12/2024 [facility] ye, [facility] 14:25:29 Vitamin D deficien cy 26140981 Active 2022 MANSOOR ye, [facility] 5 14:24:42 Trochant cr bursitis of left hip 29798814650 9103 Completed 202207/12/2024 MANSO[facility] ye, [facility] 14:25:29 Asthma 930836380 Active 2022 [facility]HR[facility] 14:24:42 Pain of multiple joints 55480209 Completed 202207/12/2024 [facility] BAUGHRIS [facility] 14:25:29 Hypergly cemia 88805680 Completed 202207/12/2024 [facility] BAUGHRIS [facility] 14:25:29 Venous stasis edema of bilatera l lower limbs [id number] 833430 Completed 202207/12/2024 MANSOOR BAUGHRIS [facility] 14:25:29 Abdomina l pain 15490667 Completed 202207/12/2024 MANSOOR BAUGHRIS [facility] 14:25:29 Numbness of face 548667679 Completed 202307/12/2024 [facility] 14:25:29 Headache 96096162 Completed 202307/12/2024 MANSOOR ROD [facility] 5 14:25:29 Vitamin B12 deficien cy (non anemic) 21756446 Active 2023 MANSO[facility] ye [facility] 5 14:24:43 Apparent shorteni ng of leg 608922886 Completed 202307/12/2024 [facility]SO[facility] ye [facility] 5 14:25:29 Polycyst ic ovary syndrome 982331650 Active 2023 [facility] ye [facility] 5 14:24:42 Obesity 239717264 Active 2023 Marisela Joseph MD [address] [place] [address], [address] , [facility] 5 14:39:38 Breath smells unpleasa nt 58481943 Completed 202307/12/2024 [facility] ye [facility] 14:25:29 Peripher al edema 722860199 Completed 202307/12/2024 [facility] 5 11:28:35 Hydronep hrosis 65034790 Active 2023 MANSO[facility] ye [facility] 5 14:24:43 Degenera tion of lumbar interver tebral disc 19464038 Active 2023 [facility] ye [facility] 5 14:24:42 Chronic obstruct alirio pulmonar y disease 41810114 Active 2023 [facility] ye [facility] 14:24:42 Spinal stenosis in cervical region 09744226 Active 2023 MANSOOR ye, [facility] 5 14:24:43 Asthmati c pulmonar y eosinoph sage 187224007 Active 2023 MANSOOR ROD [facility] 5 14:26:48 Hidraden itis suppurat debra 55283931 Completed 202307/12/2024 [facility], [facility] 5 14:27:18 Intermit tent claudica tion 09809851 Active 2023 MANSOOR BAUGHRIS [facility] 14:26:48 Peripher al vascular disease 034014835 Active 2023 MANSOOR BAUGHRIS [facility] 14:24:43 Bilatera l trochant cr bursitis 14266515542 501826 Completed 202307/12/2024 [facility] BAUGHRIS [facility] 14:26:22 Hyperten sive disorder 70545173 Active 2023 MANSOOR BAUGHRIS [facility] 5 14:24:42 Degenera tion of cervical interver tebral disc 81780368 Active 2023 MANSO[facility] BAUGHRIS [facility] 5 14:24:43 Atypical chest pain 099577976 Active 2023 MANSOOR BAUGHRIS [facility] 5 14:24:42 Nicotine dependen ce 65880598 Active 2023 MANSOOR ROD [facility] 5 14:26:48 Sinus tachycar theo 14244799 Active 2023 [facility] R[facility] 5 14:24:42 Elevated blood-pr essure reading without diagnosi s of hyperten pato 069622883 Active 2023 [facility] MARCEL [facility] 5 14:24:42 Dyspnea on exertion 66963437 Active 2023 MAN[facility] MARCEL [facility] 14:24:43 Prediabe natasha 478840161 Active 2024 MAN[facility] MARCEL [facility] 5 11:28:35 Peripher al edema 068429130 Active 2024 [facility] MARCEL [facility] 5 11:28:35 Nerve root disorder 94797727 Active 2024 Marisela Joseph MD [address] [place] [address], [phone] , [facility] 12:22:09 Herpes labialis 6895968 Active 2024 Marisela Joseph MD [address] [place] [address], [phone] , [facility] 5 17:21:07 Chronic idiopath ic constipa tion 88524556 Active 2024 Marisela Joseph MD [address] [place] [address], [phone] , [facility] 17:21:22 Problem Notes None recorded. Procedures Surgical History Date Name Laterality Status Provider Name and Address Organization Details Recorded Time 02/25/20 excision of cervical intervertebral disc completed [facility] ROD [facility] 03/03/2024 11:53:22 Imaging Results None recorded. Procedure Notes None recorded. Medical Equipment None Reported. Allergies Allergen ID Allergen Name Allergen Category Reaction Reaction Severity Criticality Documentation Date Start Date Code Code System Note Provider Name and Address Organization Details Recorded Time 00204 tetracycl ine hydrochlo ride medicatio n rash Not available Not available 12/07/2022 72893 6 RxNorm React ion: Rash; Comme nt: Recor ded 06/06 10:18 AM by Evgeny Edouard Visit ; Bryan sosa; Krish duong ce: *; Reaso n: Drug aller gy; ; Nikki Gary [facility] 4 15:28:22 59142 Prometriu m medicatio n rash mild low 08/04/2023 62147 0 RxNorm Nikki Gary [facility] 4 15:28:48 40822 adhesive environme nt,medica tion hives mild low 08/04/2023 Nikki Gary [facility] 4 15:29:03 680 tetracycl ine medicatio n rash mild low 08/07/2022 31476 RxNorm Nikki Gary [facility] 4 15:28:24 Medications Name Sig Start Date Stop Date Status Note LastModified by Organization Details LastModified Time vit b-12 tab 1000mcg 21st 110 TAKE 1 TABLET BY MOUTH EVERY DAY FOR 30 DAYS 01/27 completed Not Available Not Available Not Available terbinafi ne HCl 1 % topical cream APPLY TO THE AFFECTED AND SURROUND ING AREAS OF SKIN BY TOPICAL ROUTE ONCE DAILY 08/03 completed Not Available Not Available Not Available potassium chloride ER 10 mEq capsule,e xtended release take 1 capsule BY MOUTH EVERY DAY active Not Available Not Available No t Available atorvasta tin 20 mg tablet TAKE 1 TABLET BY MOUTH EVERY DAY FOR 90 DAYS active Not Available Not Available No t Available albuterol sulfate 2.5 mg/3 mL (0.083 %) solution for nebulizat ion USE ONE vial via NEBULIZE R FOUR TIMES DAILY NEEDED active Not Available Not Available No t Available cetirizin e 10 mg tablet TAKE 1 TABLET BY MOUTH TWICE DAILY active Not Available Not Available No t Available azithromy cherie 250 mg tablet TAKE 2 TABLETS BY MOUTH TODAY, THEN TAKE 1 TABLET DAILY ON DAYS 2-5 10/11 completed Not Available Not Available Not Available ibuprofen 800 mg tablet TAKE 1 TABLET BY MOUTH THREE TIMES DAILY NEEDED active Not Available Not Available No t Available cilostazo l 50 mg tablet TAKE 1 TABLET BY MOUTH TWICE DAILY 03/03 completed Not Available Not Available Not Available benzonata te 200 mg capsule take 1 capsule BY MOUTH THREE TIMES DAILY NEEDED FOR COUGH 10/11 completed Not Available Not Available Not Available valacyclo vir 1 gram tablet Take by oral route for 1 day. active Not Available Not Available No t Available hydrocodo ne 5 mg-acetam inophen 325 mg tablet TAKE 1 TABLET BY MOUTH EVERY TWELVE HOURS NEEDED FOR PAIN for 7 days 02/08 completed Not Available Not Available Not Available fluconazo le 200 mg tablet TAKE 1 TABLET BY MOUTH every week FOR SIX MONTHS 12/10 completed Not Available Not Available Not Available phenazopy ridine 200 mg tablet TAKE 1 TABLET BY MOUTH TWICE DAILY active Not Available Not Available No t Available ondansetr on HCl 4 mg tablet TAKE 1 TABLET BY MOUTH EVERY 8 HOURS NEEDED 10/23 completed Not Available Not Available Not Available prednison e 20 mg tablet Take 2 tablets every day by oral route for 5 days. 10/04 completed Not Available Not Available Not Available isosorbid e mononitra te ER 30 mg tablet,ex tended release 24 hr TAKE 1 TABLET BY MOUTH EVERY DAY 03/03 completed Not Available Not Available Not Available clobetaso l 0.05 % topical cream APPLY TWICE DAILY TO RASH ON UPPER BACK FOR TWO WEEKS NEEDED. NOT FOR FACE, GROIN OR SKIN FOLDS. USE NO MORE THAN TWO WEEKS OF THE MONTH 04/15 completed Not Available Not Available Not Available Diflucan 150 mg tablet Take 1 tablet every day by oral route for 1 day. 10/23 completed Not Available Not Available Not Available potassium chloride ER 10 mEq tablet,ex tended release TAKE 1 TABLET BY MOUTH EVERY DAY 03/03 completed Not Available Not Available Not Available valacyclo vir 500 mg tablet TAKE 1 TABLET BY MOUTH DAILY active Not Available Not Available No t Available spironola ctone 25 mg tablet TAKE 1 TABLET BY MOUTH EVERY DAY 03/03 completed Not Available Not Available Not Available ketorolac 10 mg tablet TAKE 1 TABLET BY MOUTH EVERY 8 HOURS. max total duration of FIVE DAYS 01/27 completed Not Available Not Available Not Available zonisamid e 100 mg capsule take 1 capsule BY MOUTH FOUR TIMES DAILY 03/03 completed Not Available Not Available Not Available betametha sone acetate and sodium phos 6 mg/mL suspensio n for injection Take 6 mg every day by injectio n route for 1 day. 04/15 completed Not Available Not Available Not Available alprazola m 0.5 mg tablet TAKE 1 TABLET BY MOUTH THREE TIMES DAILY active Not Available Not Available No t Available amoxicill in 875 mg tablet TAKE 1 TABLET BY MOUTH TWICE DAILY 08/27 completed Not Available Not Available Not Available alprazola m 0.25 mg tablet TAKE 1 TABLET BY MOUTH THREE TIMES DAILY NEEDED 10/13 completed Not Available Not Available Not Available famotidin e 20 mg tablet TAKE 1 TABLET BY MOUTH TWICE DAILY FOR epigastr ic pain active Not Available Not Available No t Available magnesium oxide 400 mg (241.3 mg magnesium ) tablet take 1/2 tablet BY MOUTH EVERY DAY active Not Available Not Available No t Available tamsulosi n 0.4 mg capsule TAKE 1 CAPSULE BY MOUTH EVERY DAY 10/23 completed Not Available Not Available Not Available dicyclomi ne 20 mg tablet TAKE 1 TABLET BY MOUTH TWICE DAILY 01/27 completed Not Available Not Available Not Available meclizine 25 mg tablet TAKE 1 TABLET BY MOUTH FOUR TIMES DAILY NEEDED FOR dizzines s 12/10 completed Not Available Not Available Not Available triamcino lone acetonide 40 mg/mL suspensio n for injection Take 40 mg every day by injectio n route for 1 day. 03/04 completed taken from stock and injected into left greater trochant er with 1% lidocain e and alcohol prep. No complica tions. Arthroce ntesis. Not Available Not Available Not Available cephalexi n 500 mg capsule take 1 capsule BY MOUTH FOUR TIMES DAILY for 7 days 01/13 completed Not Available Not Available Not Available erythromy cherie 5 mg/gram (0.5 %) eye ointment APPLY 1 CM RIBBON INTO THE LOWER CONJUNCT IVAL SAC(S) IN THE AFFECTED EYE(S) BY OPHTHALM IC ROUTE 3 TIMES PER DAY 12/10 completed Not Available Not Available Not Available Desenex 2 % topical powder apply TO both FEET and shoes monthly NEEDED active Not Available Not Available No t Available Flovent 110 mcg/actua tion aerosol inhaler two times daily 03/04 completed Recorded 04/16/20 21 4:05PM by Martina Rao LPN, Office Visit; Refill Quantity : 1; Packet; Not Available Not Available Not Available nitroglyc gallito 0.4 mg sublingua l tablet DISSOLVE 1 TABLET UNDER THE TONGUE EVERY 5 MINUTES NEEDED FOR CHEST PAIN. DO NOT EXCEED A TOTAL OF 3 DOSES IN 15 MINUTES. active Not Available Not Available No t Available diclofena c sodium 75 mg tablet,de layed release TAKE 1 TABLET BY MOUTH TWICE DAILY 03/03 completed Not Available Not Available Not Available monteluka st 10 mg tablet TAKE 1 TABLET BY MOUTH EVERY DAY active Not Available Not Available No t Available mupirocin 2 % topical ointment APPLY TO THE AFFECTED AREA(S) TWICE DAILY NEEDED active Not Available Not Available No t Available furosemid e 20 mg tablet TAKE 1 TABLET BY MOUTH EVERY DAY active Not Available Not Available No t Available metoprolo l succinate ER 25 mg tablet,ex tended release 24 hr TAKE 1 TABLET BY MOUTH EVERY DAY active Not Available Not Available No t Available azelastin e 137 mcg (0.1 %) nasal spray USE 2 SPRAYS IN EACH NOSTRIL TWICE DAILY active Not Available Not Available No t Available benzoyl peroxide 5 % topical cleanser LATHER AND APPLY TO ENTIRE BACK. ALLOW TO SIT TWO MINUTES WHILE IN SHOWER AND THEN RINSE. USE ONCE DAILY active Not Available Not Available No t Available methylpre dnisolone 4 mg tablets in a dose pack Take as directed on package for 6 days 04/15 completed Not Available Not Available Not Available Vitamin D2 1,250 mcg (50,000 unit) capsule take 1 capsule BY MOUTH every week active Not Available Not Available No t Available fluticaso ne propionat e 50 mcg/actua tion nasal spray,dylon pension USE ONE SPRAY IN EACH NOSTRIL TWICE DAILY 12/10 completed Not Available Not Available Not Available metformin ER 500 mg tablet,ex tended release 24 hr TAKE 1 TABLET BY MOUTH EVERY DAY active Not Available Not Available No t Available amitripty line 100 mg tablet TAKE 1 TABLET BY MOUTH AT BEDTIME 03/03 completed Not Available Not Available Not Available spironola ctone 50 mg tablet TAKE 1 TABLET BY MOUTH EVERY DAY 12/10 completed Not Available Not Available Not Available amoxicill in 875 mg-potass ium clavulana te 125 mg tablet Take 1 tablet every 12 hours by oral route for 10 days. 08/27 completed Not Available Not Available Not Available Vitamin B-12 1,000 mcg tablet take ONE tablet BY MOUTH daily active Not Available Not Available No t Available Ventolin HFA 90 mcg/actua tion aerosol inhaler INHALE TWO PUFFS BY MOUTH FOUR TIMES DAILY NEEDED 2024 active Not Available Not Available Not Avai lable buspirone 15 mg tablet TAKE 1 TABLET BY MOUTH TWICE DAILY 03/03 completed Not Available Not Available Not Available clindamyc in 1 % lotion apply UP TO TWICE DAILY TO both underarm s and waist line as needed for flares active Not Available Not Available No t Available Bactrim DS 800 mg-160 mg tablet Take 1 tablet every 12 hours by oral route for 7 days. 04/05 completed Not Available Not Available Not Available ciclopiro x 0.77 % topical cream apply TO foot TWICE DAILY working in between TOES FOR THREE weeks active Not Available Not Available No t Available potassium chloride ER 10 mEq tablet,ex tended release(p art/cryst ) TAKE 1 TABLET BY MOUTH ONCE DAILY 10/02 completed Not Available Not Available Not Available bupropion HCl XL 300 mg 24 hr tablet, extended release TAKE 1 TABLET BY MOUTH EVERY DAY 03/03 completed Not Available Not Available Not Available bupropion HCl XL 150 mg 24 hr tablet, extended release TAKE ONE TABLET BY MOUTH DAILY 03/03 completed Not Available Not Available Not Available metoprolo l tartrate 25 mg tablet TAKE 1 TABLET BY MOUTH TWICE DAILY 07/12 completed Not Available Not Available Not Available topiramat e 50 mg tablet TAKE 1 TABLET BY MOUTH EVERY DAY 03/03 completed Not Available Not Available Not Available solifenac in 5 mg tablet TAKE 1 TABLET BY MOUTH EVERY DAY 03/03 completed Not Available Not Available Not Available sodium fluoride 1.1 % dental cream USE as toothpas te. brush FOR TWO minutes, EXPECTOR ATE and DO not RINSE. DO not drink or eat FOR 30 minutes AFTER USE 03/03 completed Not Available Not Available Not Available potassium chloride 10meq daily 03/04 completed Not Available Not Available Not Available atorvasta tin daily 01/10 completed RM/bn; 9; Recorded 01/17/20 1:57PM by Mansoor Rod (Authori zed through Marisela Joseph MD), Refill Request; Refill Quantity : 90; Tablet; Not Available Not Available Not Available Lasix active Not Available Not Availa ble Not Available dicyclomi ne two times daily 01/10 completed Recorded 05/13/19 23 7:33PM by Marisela Joseph MD, Refill Request; Refill Quantity : 60; Tablet; Not Available Not Available Not Available albuterol sulfate four times daily, as needed 01/10 completed may substitu te proair or ventolin dependin g on insuranc e.; Recorded 02/09/20 22 7:59AM by Marisela Joseph MD, Refill Request; Refill Quantity : 1; Packet; Not Available Not Available Not Available mupirocin calcium two times daily, as needed 01/10 completed Recorded 12/26/19 22 9:41AM by Mikki garcia, Office Visit; Refill Quantity : 60; Gram; Not Available Not Available Not Available azelastin e 03/09 completed Not Available Not Available Not Available Vitamin D3 weekly 04/05 completed or what is covered by insuranc e D2 ok RM/AV; 9; Recorded 05/31/19 23 11:43AM by Mikki garcia (Authori zed through Marisela Joseph MD), Annotati on/Adden dum; Refill Quantity : 5; Capsule; Not Available Not Available Not Available metformin daily 03/04 completed Recorded 10/04/19 22 12:59PM by Mansoor Rod, Office Visit; Refill Quantity : 100; Tablet; Not Available Not Available Not Available Azulfidin e two times daily 03/04 completed Recorded 03/15/20 22 1:02PM by Rafael Norton, Office Visit; Refill Quantity : 120; Tablet; Not Available Not Available Not Available bupropion HCl daily 01/10 completed RM/bn; Recorded 06/13/19 23 9:44AM by Marisela Joseph MD, Refill Request; Refill Quantity : 90; Tablet; Not Available Not Available Not Available Potassium Chloride ER daily 03/04 completed Recorded 02/14/20 22 7:57AM by Marisela Joseph MD, Refill Request; Refill Quantity : 90; Tablet; Not Available Not Available Not Available Mag-Ox daily 01/10 completed Recorded 03/11/20 22 10:58AM by Marisela Joseph MD, Refill Request; Refill Quantity : 30; Tablet; Not Available Not Available Not Available Mucinex D two times daily 03/04 completed Recorded 05/08/20 22 9:54AM by Mikki garcia, Office Visit; Refill Quantity : 18; Tablet; Not Available Not Available Not Available Symbicort 160 mcg-4.5 mcg/actua tion HFA aerosol inhaler INHALE TWO PUFFS into lungs TWICE DAILY active Not Available Not Available No t Available Calcium 600 + D(3) 600 mg-10 mcg (400 unit) tablet Take 1 tablet every day by oral route for 90 days. 08/03 completed Not Available Not Available Not Available orlistat 60 mg capsule Take 1 capsule twice a day by oral route as directed for 30 days. 03/03 completed Not Available Not Available Not Available levocetir izine 5 mg tablet TAKE 1 TABLET BY MOUTH TWICE DAILY active Not Available Not Available No t Available levocetir izine active Not Available Not Available Not Available ClearLax 17 gram/dose oral powder take 17 grams EVERY DAY FOR constipa tion active Not Available Not Available No t Available Solu-Medr ol (PF) 125 mg/2 mL solution for injection Take 125 mg by injectio n route. 01/22 completed Not Available Not Available Not Available ergocalci ferol (vitamin D2) 50 mcg (2,000 unit) tablet weekly 01/10 completed RM/AV; Recorded 06/03/19 4:16PM by Mikki garcia, Phone Encounte r; Refill Quantity : 90; Tablet; Not Available Not Available Not Available Vitamin B12 weekly 03/04 completed RM/BN; 9; Recorded 02/12/20 11:29AM by Mansoor Rod (Authori zed through Marisela Joseph MD), Refill Request; Refill Quantity : 5; Tablet; Not Available Not Available Not Available Narcan 4 mg/actuat ion nasal spray CALL 911. Use one full spray in one nostril one time. Repeat every 2-3 minutes as needed if no or minimal response . active Not Available Not Available No t Available magnesium 200 mg (as magnesium oxide) chewable tablet Take 1 tablet every day by oral route. 08/03 completed Not Available Not Available Not Available Ozempic 1 mg/dose (4 mg/3 mL) subcutane ous pen injector inject 1mg SUBCUTAN EOUSLY EVERY week active Not Available Not Available No t Available Wegovy 0.25 mg/0.5 mL subcutane ous pen injector Inject 0.5 mL every week by subcutan eous route for 28 days, for weight loss. 08/09 completed Not Available Not Available Not Available Wegovy 0.5 mg/0.5 mL subcutane ous pen injector Inject 0.5 mg every week by subcutan eous route for 28 days. 10/13 completed Not Available Not Available Not Available Ozempic 0.25 mg or 0.5 mg (2 mg/3 mL) subcutane ous pen injector inject 0.25mg SUBCUTAN EOUSLY every week FOR FOUR weeks THEN 0.5mg every week active Not Available Not Available No t Available Zepbound 5 mg/0.5 mL subcutane ous pen injector Inject 5 mg every week by subcutan eous route for 28 days. 10/13 completed Not Available Not Available Not Available Zepbound 2.5 mg/0.5 mL subcutane ous pen injector Inject 2.5 mg every week by subcutan eous route for 28 days. 10/13 completed Not Available Not Available Not Available Vitals Date Recorded Body height Body mass index (BMI) Body weight Oxygen saturation Oxygen saturation in Arterial blood by Pulse oximetry Heart rate Body temperature Respiratory rate Systolic And Diastolic Provider Name and Address Organization Details Last Updated DateTime 5 154.94 cm 41.2 kg/m2 19678.1 4 g 98 % 98 % 102 /min 98.1 [degF] 17 /min 112/68 mm[Hg] KATIA HUDSON [facility] 5 18:51:16 Date Recorded Body height Body mass index (BMI) Body weight Oxygen saturation Oxygen saturation in Arterial blood by Pulse oximetry Heart rate Systolic And Diastolic Provider Name and Address Organization Details Last Updated DateTime 5 154.94 cm 40.2 kg/m2 02292.1 7 g 97 % 97 % 93 /min 110/76 mm[Hg] MANSOOR ROD [facility] 5 11:31:12 Date Recorded Body height Body mass index (BMI) Body weight Heart rate Oxygen saturation Oxygen saturation in Arterial blood by Pulse oximetry Body temperature Systolic And Diastolic Provider Name and Address Organization Details Last Updated DateTime 5 154.94 cm 39.1 kg/m2 86252.3 2 g 90 /min 97 % 97 % 98.7 [degF] 126/74 mm[Hg] Neela Thomas [facility] 5 18:30:34 Date Recorded Body height Body mass index (BMI) Body weight Oxygen saturation Oxygen saturation in Arterial blood by Pulse oximetry Heart rate Systolic And Diastolic Provider Name and Address Organization Details Last Updated DateTime 5 154.94 cm 36.7 kg/m2 47265.9 2 g 94 % 94 % 96 /min 110/80 mm[Hg] MANSOOR ROD [facility] 5 14:22:25 Date Recorded Body height Body mass index (BMI) Body weight Body temperature Heart rate Oxygen saturation Oxygen saturation in Arterial blood by Pulse oximetry Systolic And Diastolic Provider Name and Address Organization Details Last Updated DateTime 5 154.94 cm 36 kg/m2 04814.6 5 g 98.6 [degF] 105 /min 98 % 98 % 142/72 mm[Hg] Neela William [facility] 5 17:02:18 Social History Question Answer Notes LastModified by [employer] Details LastModified Time Tobacco Smoking Status Current Every Day Smoker MANSOOR ye [facility] 08/27/2022 15:36:17 What Was The Date Of Your Most Recent Tobacco Screening? 03/09/2025 [email or web address] Information not available 03/09/2025 Sex: Unknown Functional Status Question Answer Note LastModified by [employer] Details LastModified Time Do you use any illicit or recreational drugs? No [email or web address] Information not available 08/27/2022 What is your level of alcohol consumption? None Information not available 08/27/2022 Mental Status None recorded. Family History Nothing Reported. Medical History No medical history recorded. Gynecological HistoryNo gynecological history recorded. Obstetrics History GPAL:G 0 P 0 0 0 0 Immunizations Vaccine Type Date Status Note Provider Nam e and Address Organization Details Recorded Time Influenza, split virus, trivalent, preservative 0 completed Not Available [facility] 06/04/2023 15:57:24 Influenza, split virus, trivalent, preservative 6 completed Not Available [facility] 06/04/2023 15:57:24 IPV 4 completed MANSOOR ye [facility] 03/04/2023 10:11:41 IPV 7 completed MANSOOR ROD null, [facility] 03/04/2023 10:11:42 IPV 2 completed MANSOOR ROD null, [facility] 03/04/2023 10:11:42 IPV 2 completed MANSOOR ROD null, [facility] 03/04/2023 10:11:42 MMRV 3 completed MANSOOR ROD null, [facility] 03/04/2023 10:11:42 Tdap 0 completed MANSOOR ROD null, [facility] 03/04/2023 10:11:42 Td (adult), 2 Lf tetanus toxoid, preservative free, adsorbed 8 completed MANSOOR ROD null, [facility] 03/04/2023 10:11:42 DTaP 3 completed MANSOOR ROD null, [facility] 03/04/2023 10:11:42 DTaP 4 completed MANSOOR ROD null, [facility] 03/04/2023 10:11:42 DTaP 7 completed MANSOOR ROD null, [facility] 03/04/2023 10:11:42 DTaP 2 completed MANSOOR ROD null, [facility] 03/04/2023 10:11:42 DTaP 2 completed MANSOOR ROD null, [facility] 03/04/2023 10:11:42 Past Encounters Encounter ID Performer Location Encounter Start Date Encounter Closed Date Diagnosis/Indication Diagnosis SNOMED-CT Code Diagnosis ICD10 Code Diagnosis IMO Codes Diagnosis Note [id number] NAYAN BARRETT [facility] ([facility]) [address] [place] [address] 07/30/2022 18:58:29 09/26/2022 08:43:36 [id number] Ridge Mccord DO [facility] ([facility]) [address] [place] [address] 08/07/2022 14:36:36 08/15/2022 11:12:01 Acute sinusitis 96615742 J01.90 I counseled pt on diagnosis and treatment. we will start abx, steroids, pt to take OTC antihistam ine. return if not improving in 1-2 wks. [id number] SHWETHA BASSETT [facility] ([facility]) [address] [place] [address] 08/17/2022 14:56:51 08/25/2022 17:50:20 Near syncope 661247420 R55 Family will take patient to the ER for further evaluation . Sugar is 99 by random check here in the office today. [id number] Marisela Joseph MD [facility] ([facility]) [address] [place] [address] 08/27/2022 15:25:02 09/02/2022 10:25:20 Labyrinthitis 15304835 H83.03 Allergic rhinitis 640857 04 J30.9 Bilateral bursitis of hips 0223106885 6559469 M70.71 M70.72 [id number] RON TRINIDAD [facility] ([facility]) [address] [place] [address] 09/12/2022 18:38:47 09/12/2022 20:15:14 Increased frequency of urination 765853393 R35.0 Pruritus of vagina 35596 003 L29.3 [id number] Marisela Joseph MD [facility] ([facility]) [address] [place] [address] 10/23/2022 16:15:07 10/23/2022 20:20:52 Low back pain 725254890 M54.50 chronic Urinary incontinence 165 032588 R32 Recurrent skin infection 631474460 L08.9 [id number] Marisela Joseph MD [facility] ([facility]) [address] [place] [address] 11/27/2022 16:29:20 11/27/2022 18:20:03 Muscle pain 52821570 M79.10 Cramp 61980949 R25.2 Vitamin D deficiency 347 37152 E55.9 Trochanter ic bursitis of left hip 1503125927 14415 M70.62 Asthma 217598104 J45.90 9 [id number] [place] RO [facility] ([facility]) [address] [place] [address] 01/02/2023 18:12:31 01/15/2023 06:34:03 Pain of right wrist 5475886155 90923 M25.531 Pain of le ft hip joint 4060091366 22279 M25.552 This pain is chronic. Discussed with patient that she needs to follow up with ortho to discuss other treatment options if physical therapy is not affordable . Patient is agreeable to this and will follow up with ortho next week. Carpal alfonzo denice syndrome of right wrist 4753310294 49181 G56.01 No x-ray today due to pain extending from elbow through fingers and no known injury. Wrist splint applied in clinic today. Should wear splint at all times for the next 2 weeks. Discussed with patient that this is likely early signs of carpal tunnel. If no improvemen t with the wrist splint, the next step will be to see ortho. Can take tylenol/ib uprofen PRN and should ice three times daily for pain relief. Patient is agreeable to plan of care. [id number] Marisela Joseph MD [facility] ([facility]) [address] [place] [address] 01/10/2023 16:51:45 01/10/2023 17:45:43 Bilateral bursitis of hips 5663636854 4323560 M70.71 M70.72 Pain of mu ltiple joints 64161946 M25.50 Hyperglycemia 08936904 R 73.9 Venous sta sis edema of bilateral lower limbs 9097940152 7225119 I87.2 needs support hose. [id number] Marisela Joseph MD [facility] ([facility]) [address] [place] [address] [place] [address] 03/04/2023 10:04:54 03/04/2023 14:22:43 Abdominal pain 21120912 R10.9 suprapubic to RLQ. Low back pain 533856453 M54.50 chronic Followed by Orthopedic surgeon. [id number] Shanique Gay MD [facility] ([facility]) [address] [place] [address] 03/20/2023 18:29:01 03/27/2023 11:03:16 Abscess of groin 81348989 L02.214 nonfluctua nt currently [id number] [place] [facility] ([facility]) [address] [place] [address] 04/05/2023 13:50:31 04/05/2023 14:54:14 Dyspnea 813284218 R06.00 COVID negative today Exacerbati on of moderate persistent asthma 922399271 J45.41 Will start Z-pack and prednisone today. Encouraged to continue inhalers and nebulizers at home. Recommend a follow up with PCP in 2 weeks. If chest pain or severe SOB occurs, should go to ED. Patient verbalizes understand ing. [id number] LIDYA WU PA-C [facility] ([facility]) [address] [place] [address] 05/18/2023 14:11:26 05/18/2023 15:12:28 Neck pain 68567810 M54.2 Rest. ice. Stretch . NSAIDs.I do not think xrays are needed today. Accidental fall 99917011 2 W19.XXXA [id number] Marisela Joseph MD [facility] ([facility]) [address] [place] [address] 5 06/04/2023 15:57:15 06/04/2023 18:13:51 Numbness of face 673509647 R20.0 Headache 04927188 R51.9 increased frequency. Vitamin B1 2 deficiency (non anemic) 46012398 E53.8 Apparent s hortening of leg 052259547 M21.70 [id number] Marisela Joseph MD [facility] ([facility]) [address] [place] [address] 07/11/2023 09:34:36 07/11/2023 10:27:24 Polycystic ovary syndrome 703291271 E28.2 Obesity 842796414 E66.9 Has attempted diet and exercise for weight loss with not much success. Breath sme lls unpleasant 62811071 R19.6 Peripheral edema 8822194 00 R60.9 I feel that weight loss is woodson for this. Asthma 615121875 J45.90 9 [id number] NAYAN SALCEDO [facility] ([facility]) [address] [place], [place] [address] 08/04/2023 15:20:06 08/04/2023 18:08:09 Removal of suture 00445902 Z48.02 1 suture removed today. No signs of infection. [id number] Marisela Joseph MD [facility] ([facility]) [address] [place], [place] [address] 09/15/2023 13:48:38 09/15/2023 15:05:35 Abdominal pain 03850384 R10.9 RUQ Hydronephrosis 41114334 N13.30 right[id number] Marisela Joseph MD [facility] ([facility]) [address] [place], [place] [address] 10/03/2023 15:58:47 10/03/2023 17:12:57 Obesity 247018823 E66.9 Has attempted diet and exercise for weight loss with not much success. Degenerati on of lumbar intervertebral disc 83995261 M51.[address] Solomon. She has appt. coming up to discuss results. Polycystic ovary syndrome 949529652 E28.2 Chronic ob structive pulmonary disease 84426120 J44.9 Asthma 091345696 J45.90 9 [id number] Marisela Joseph MD [facility] ([facility]) [address] [place] [address] 5 11/18/2023 14:29:09 11/18/2023 16:04:34 Chronic obstructive pulmonary disease 06160511 J44.9 Low back pain 626971478 M54.50 chronic Followed by Orthopedic surgeon. 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 Awaiting nerve conduction testing in then upper extremitie s. Asthmatic pulmonary eosinophilia 884238623 J82.83 pulmonolog y referral pending as her local pulmonolog ist left [facility]. [id number] NAYAN SALECDO [facility] ([facility]) [address] [place] [address] 5 01/14/2024 13:11:14 01/17/2024 08:00:48 Acute exacerbation of chronic obstructive pulmonary disease 101510865 J44.1 Discussed steroids for copd exac. Continue daily meds as prescribed . Keep f/u appt with PCP. [id number] NAYAN SALCEDO [facility] ([facility]) [address] [place] [address] 01/23/2024 16:24:37 01/23/2024 17:06:09 Acute bacterial bronchitis 113831147 J20.9 Discussed use of otc medication s for symptom management .Push oral fluids and rest.If you develop fever, sob, or start feeling worse then return for re-evaluat ion. [id number] Marisela Joseph MD [facility] ([facility]) [address] [place] [address] 5 01/28/2024 16:43:38 01/28/2024 17:54:31 Pre-surgery evaluation 671631794 Z01.818 cleared for surgery of cervical vertebrae. Intermitte nt claudication 78900034 I73.9 Peripheral vascular disease 422343489 I73.9 May benefit from intemitten t compressio n therapy for circulatio n on her legs for post surgery. Asthmatic pulmonary eosinophilia 964343796 J82.83 pulmonolog y referral pending as her local pulmonolog ist left town. Bilateral bursitis of hips 5760494511 9127318 M70.71 M70.72 stable At [facility] risk of polypharmacy 822303971 Z91.89 will attempt to wean some meds. Major depr essive disorder 141508927 F32.9 [id number] Marisela Joseph MD [facility] ([facility]) [address] [place] [address] 02/02/2024 16:50:43 02/02/2024 22:11:02 Bilateral bursitis of hips 8671969038 7687530 M70.71 M70.72 worsening. Bilateral trochanteric bursitis 4214911263 1103466 M70.61 M70.62 BIlateral trochanter ic bursae injected with betamethas one 6mg and 1ml lidocaine 1% without complicati ons. [id number] Marisela Joseph MD [facility] ([facility]) [address] [place], [place] [address] 03/03/2024 11:38:20 03/04/2024 11:20:09 Hypertensive disorder 91313960 I10 stable. Degenerati on of cervical intervertebral disc 65488187 M50.30 Now S/P anterior discectomy at C3-4 and C4-5 with cage fusion. Asthma 638621878 J45.90 9 Polycystic ovary syndrome 245853411 E28.2 [id number] SHWETHA BASSETT [employer] [facility] ([facility]) [address] [place], [place] [address] 04/15/2024 18:38:05 04/16/2024 18:46:28 [id number] Marisela Joseph MD [facility] ([facility]) [address] [place], [place] [address] 04/19/2024 15:16:15 04/19/2024 18:02:25 Atypical chest pain 897330429 R07.89 Will see if low dose metoprolol will help. Nicotine dependence 5629 4008 F17.200 smokes cr 1/2 ppd Sinus tachycardia 607195 01 R00.0 Elevated blood-pressure reading without diagnosis of hypertension 816338371 R03.0 BP is a little elevated at home. Family his tory of coronary arteriosclerosis 444438944 Z82.49 Dyspnea on exertion 6084 5006 R06.09 She had a normal stress test and normal Echocardio gram recently. [id number] NAYAN SALCEDO [facility] ([facility]) [address] [place] [address] 5 06/14/2024 18:38:41 06/15/2024 13:01:55 Dysuria 81248560 R30.0 Urine dip normal today. Discussed to push oral fluids, decrease caffeine. Will start Pyridium prn and contact with urine culture results.If pt develops increased pain, fever, or new/worsen ing symptoms then return for re-evaluat ion. [id number] Marisela Joseph MD [facility] ([facility]) [address] [place] [address] 5 07/12/2024 10:33:07 07/13/2024 09:49:19 Generalized anxiety disorder 83241621 F41.1 Polycystic ovary syndrome 607578145 E28.2 Asthma 805456707 J45.90 9 Degenerati on of cervical intervertebral disc 45920859 M50.30 Now S/P anterior discectomy at C3-4 and C4-5 with cage fusion. Hypertensive disorder 38 034167 I10 stable. Obesity 853497640 E66.9 Has attempted diet and exercise for weight loss with not much success. [id number] Marisela Joseph MD [facility] ([facility]) [address] [place] [address] 5 08/09/2024 14:59:25 08/09/2024 16:19:08 Asthma 739102820 J45.909 Chronic ob structive pulmonary disease 53887882 J44.9 continued dyspnea. Degenerati on of lumbar intervertebral disc 21663103 M51.369 Hypertensive disorder 38 727714 I10 stable. Sinus tachycardia 192682 01 R00.0 Prediabetes 974957717 R7 3.03 Obesity 854014800 E66.9 Has attempted diet and exercise for weight loss with not much success. WIth her climbing A1c I feel that she needs to use a GLP-1 for her weight loss and overall health. Peripheral edema 5091916 00 R60.9 I feel that weight loss is woodson for this. [id number] NAYAN MAGUIRE [facility] ([facility]) [address] [place] [address] 5 08/22/2024 14:31:55 08/23/2024 10:29:14 Corneal abrasion 29353610 S05.01XA Call office with any trouble seeing, eye pain or if having continued drainage after 3 days of treatment. Wash hands often with soap and water. Avoid touching your eyes. [id number] NAYAN MAGUIRE [facility] ([facility]) [address] [place] [address] 5 09/22/2024 17:07:43 09/22/2024 18:33:36 Acute bronchitis 44944376 J20.9 41561199 Increase po fluids. Take medication s as directed. Return to clinic with any new or worsening symptoms. [id number] NAYAN SALCEDO [facility] ([facility]) [address] [place] [address] 5 10/11/2024 18:46:02 10/13/2024 12:48:17 Tick bite 72740518 S70.361A W57.XXXA 18096830 No signs of bacterial infection. Leg appears normal on exam. Pt states no recent physical activity where she might have pulled a muscle. NO urinary symptoms. Discussed heating pad applicatio n and ibuprofen. F/u if you develop new/worsen ing s/s [id number] Marisela Joseph MD [facility] ([facility]) [address] [place] [address] 5 11/08/2024 11:12:37 11/08/2024 12:30:23 Sinus tachycardia 56770068 R00.0 stable and still mild. Followed by cardiology . Chronic ob structive pulmonary disease 37005137 J44.9 continued dyspnea. Stable. Nerve root disorder 7227 4001 M54.16 G89.29 53352478 Asthma 592615902 J45.90 9 [id number] NAYAN SALCEDO [facility] ([facility]) [address] [place] [address] 5 12/10/2024 18:15:58 12/14/2024 09:57:02 Acute abdominal pain 082640651 R10.9 03832 no signs of acute abd on exam today VSS. Pt will take a laxative tonight and see if her pain improves. [id number] Marisela Joseph MD [facility] ([facility]) [address] [place] [address] 5 02/08/2025 14:11:43 02/08/2025 15:16:02 Obesity 180053370 E66.9 Improved some with Ozempic. Herpes labialis 0055620 B00.1 38005 [id number] LAYLA SCHROEDER APRN [facility] ([facility]) [address] [place] [address] 03/09/2025 16:49:38 03/09/2025 17:35:27 Acute upper respiratory infection 13277760 J06.9 107927 Viral disease 57433739 B 34.9 60728 Health Concerns Section Related Observation LastModified by Organization Detai ls LastModified Time None Recorded Concern Status LastModified by Organization Details LastModified Time None Recorded Advance Directives Directive None Recorded Payers Insurance Date Sequence Insurance Name Policy Number Policy Barrientos Covered Member ID Barrientos Member ID Guarantor Name 07/23/2023 [place] [facility]IT[facility] ) Cindy Rodarte [id number] Cindy Rodarte 07/23/2023 [place] [facility] ) Cindy Rodarte [id number] Cindy Rodarte 07/23/2023 1 [place] Cindy Rodarte [id number] Cindy Rodarte 07/23/2023 1 [place] [id number] Cindy Rodarte [id number] Cindy Rodarte 03/09/2025 1 [place] Cindy Rodarte [id number] Cindy Rodarte 03/09/2025 [place] [facility] ([facility] ) Cindy Rodarte [id number] Cindy Rodarte Notes Date Note Type Note Provider Name and Address Organization Details Recorded Time 10/12/19 25 text/ht ml ROS as noted in the HPI Patient states she got a tick bite yesterday to her right inguinal region. Area is not red or irritated. She started having right leg pain today. Is concerned she has tick illness. denies rash, fever, or other symptoms. No meds taken. NAYAN SALCEDO [address] [place], [address], [facility], [place] 10/13/2024 11:08:57 11/09/19 25 text/ht ml Hypertension IM/FMReported by PatientHPIFor associated symptoms, patient reportsshortness of breathandtachycardiabut reportsno palpitationsandno chest pain. For quality, patient reportshere for check-up. For onset/timing, patient reportsgradual onset. For alleviating factors, patient reportsmedication. COPDReported by PatientHPI:For associated symptoms, patient reportsdyspnea,dyspnea during exertion, andwheezing. For onset/timing, patient reportsintermittentandmultiple times per day. Marisela Joseph MD [address] [place], [address], [facility] 11/08/2024 12:25:48 12/11/19 25 text/ht ml ROS as noted in the HPI walk in ptPt has a pain in right side of mid abdomen for 3 days. Feels like a burning pain.eat/drink does not change the symptoms. denies fever, vomiting, diarrhea. in the past constipation has caused these symptoms. denies urinary symptoms. NAYAN SALCEDO [address] [place], [address], [facility] 12/13/2024 18:32:59 02/09/20 25 text/ht ml Overweight/ObeseReported by PatientHPIFor patient information, patient reportsclass ii obesity (bmi 35-39.9). For onset/timing, patient reportsgradual onset. For lifestyle changes, patient reportslosing weight. For medication education, patient reportsunderstands potential side effectsandunderstands administration. Has been taking ozempic for a few months and has been doing okay with that. Marisela Joseph MD [address] [place] [address], [phone], [facility] 02/08/2025 14:45:35 03/09/20 25 text/ht ml walk in ptPt has a cough, chills, body aches and runny nose for 1 day. LAYLA SCHROEDER APRN [address] [place], [address], [facility] 03/09/2025 17:33:52 OBGyn Episode No OBEpisode recorded.
--- OUTSIDE RECORDS SUMMARY | 2025-03-10 00:30 | XMS_ITS | Encounter Summary ---
Author Organization [employer] [facility] Address [address] [facility] Attn: Epic [place] [address] Care Team Providers Care Telephone Lineman Name Role Phone Lenny Frias MD Primary Care Provider Unava ilable Encounter Details Date Type Department Care Team (Late st Contact Info) Description 11/24/2001 Outpatient Historical Haresh Ritter MD [address] [place] [address] Social History Tobacco Use Types Packs/Day Years Used Date Smoking Tobacco: Never Assessed Comments Unknown Sex and Gender Information Value Date Recorded Sex Assigned at Not on file Legal 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
--- OUTSIDE RECORDS SUMMARY | 2025-03-10 00:30 | XMS_ITS | Encounter Summary ---
Author Organization [employer] [facility] Address [address] [place] [address] Care Team Providers Care Top Lift Compresser Name Role Phone Lenny Frias MD Primary Care Provider Unava ilable Encounter Details Date Type Department Care Team (Late st Contact Info) Description 12/04/2001 Outpatient Historical [facility] [place] ORAL SURGERY Haresh Ritter MD [address] [place] [address] SURGERY FOLLOWUP, UNSPEC (Primary Dx) Social History Tobacco Use Types Packs/Day Years Used Date Smoking Tobacco: Never Assessed Comments Unknown Sex and Gender Information Value Date Recorded Sex Assigned at Not on file 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
--- OUTSIDE RECORDS SUMMARY | 2025-03-10 00:30 | XMS_ITS | Encounter Summary ---
Author Organization [facility] Address [address] [place] [address] Care Team Providers Care Lotus Notes Administrator Name Role Phone Lenny Frias MD Primary Care Provider Unava ilable Encounter Details Date Type Department Care Team (Latest Contact Info) Description 10/15/2006 Outpatient Historical [facility] Cardiac Thoracic Vascular S[facility] [place] [address] [place] [address] Andrew Richard MD [address] [address] Unspecified Venous (Peripheral) Insufficiency (Primary Dx); Varicose Veins of Lower Extremities with Other Complications Social History Tobacco Use Types Packs/Day Years Used Date Smoking Tobacco: Never Assessed Comments Unknown Sex and Gender Information Value Date Recorded Sex Assigned at Not on file 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
--- OUTSIDE RECORDS SUMMARY | 2025-03-10 00:30 | XMS_ITS | Encounter Summary ---
Author Organization [employer] [facility] Address [address] [place] [address] Care Team Providers Care Typewriter Tester Name Role Phone Lenny Frias MD Primary Care Provider Unava ilable Encounter Details Date Type Department Care Team (Late st Contact Info) Description 11/24/2001 Outpatient Historical HIS [facility] ORAL SURGERY Haresh Ritter MD [address] [place] [address] TOOTH POSITION ANOMALY (Primary Dx) Social History Tobacco Use Types Packs/Day Years Used Date Smoking Tobacco: Never Assessed Comments Unknown Sex and Gender Information Value Date Recorded Sex Assigned at Not on file Legal Sex Female 4:49 AM MANAGER CIVIL Gender Identity Not on file Sexual Orientation Not on file documented as of this encounter Plan of Treatment Not on file documented as of this encounter Visit Diagnoses Diagnosis 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
--- OUTSIDE RECORDS SUMMARY | 2025-03-10 00:30 | XMS_ITS | Encounter Summary ---
Author Organization [employer] [facility] Address [address] [place] [address] Care Team Providers Care Electric Arc Welder Name Role Phone Lenny Frias MD Primary Care Provider Unava ilable Encounter Details Date Type Department Care Team (Late st Contact Info) Description 10/21/2001 Outpatient Historical [facility]ERY Haresh Ritter MD [address] [place] [address] TOOTH POSITION ANOMALY (Primary Dx) Social History Tobacco Use Types Packs/Day Years Used Date Smoking Tobacco: Never Assessed Comments Unknown Sex and Gender Information Value Date Recorded Sex Assigned at Not on file 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
--- OUTSIDE RECORDS SUMMARY | 2025-03-10 00:30 | XMS_ITS | Encounter Summary ---
Author Organization [facility] Address [address] [place] [address] Care Team Providers Care Heavy Equipment Mechanic Name Role Phone Lenny Frias MD Primary Care Provider Unava ilable Encounter Details Date Type Department Care Team (Latest Contact Info) Description 10/15/2006 Outpatient Historical [facility] [place] [address] [address] Andrew Richard MD [address] [address] Unspecified Venous (Peripheral) Insufficiency (Primary Dx) Social History Tobacco Use Types Packs/Day Years Used Date Smoking Tobacco: Never Assessed Comments Unknown Sex and Gender Information Value Date Recorded Sex Assigned at Not on file Legal Sex Female 4:[address]PERVISOR Gender Identity Not on file Sexual Orientation Not on file documented as of this encounter Plan of Treatment Not on file documented as of this encounter Visit Diagnoses Diagnosis Unspecified venous (peripheral) insufficiency- Primary documented in this encounter Care Teams Heavy Equipment Mechanic Relationship Specialty Start Date End Date Lenny Frias MD NO ADDRESS ON FILE PCP - General 11/18/06 documented as of this encounter
--- OUTSIDE RECORDS SUMMARY | 2025-03-10 00:30 | XMS_ITS | Encounter Summary ---
Author Organization [facility] Address [address] [place] [address] Care Team Providers Care Jordan Man Name Role Phone Lenny Frias MD Primary Care Provider Unava ilable Encounter Details Date Type Department Care Team (Latest Contact Info) Description 11/18/2006 Outpatient Historical [facility] Operating Room [address] [place] [address] Andrew Richard MD [address] [place] [address] Unspecified Venous (Peripheral) Insufficiency (Primary Dx) Social History Tobacco Use Types Packs/Day Years Used Date Smoking Tobacco: Never Assessed Comments Unknown Sex and Gender Information Value Date Recorded Sex Assigned at Not on file 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 Gender Identity Not on file Sexual Orientation Not on file documented as of this encounter Plan of Treatment Not on file documented as of this encounter Procedures Procedure Name Priority Date/Time Associated Diagnosis Comments PT AND APTT Routine 11/18/2006 1:20 PM CDT CBC WITH DIFFERENTIAL Routine 11/18/2006 1:20 PM CDT HCG QUANTITATIVE, BLOOD Routine 11/18/2006 1:20 PM CDT BASIC METABOLIC PANEL Routine 11/18/2006 1:20 PM CDT documented in this encounter Results * BETA HCG QUANTITATIVE, BLOOD (11/18/2006 1:20 PM CDT) CHORIONIC GONADOTROPIN, TOTAL <2.0 0.0 - 10.0 mlU/ML INTERFACE SYSTEM Comment: Total HCG levels between 10 mIU/mL and 25 mIU/mL may be indicative of early but need to be correlated with other clinical findings. HCG ranges during normal , as reported by the team leader surgery, are summarized as follows: Gestational Age Expected hCG Values (mIU/ml) 0.2-1 Weeks 5 - 50 1-2 Weeks 50 - 500 2-3 Weeks 100 - 5,000 3-4 Weeks 1,000 - 50,000 5-6 Weeks 10,000 - 100,000 6-8 Weeks 15,000 - 200,000 2-3 Months 10,000 - 100,000 11/18/2006 1:20 PM CDT Andrew Richard MD CHEMISTRY ORDERABLES Edited INTERFACE SYSTEM Refer to clinic/hospital department * PT AND APTT (11/18/2006 1:20 PM CDT) PROTIME 15.6 13.0 - 15.7 Secs INTERFACE SYSTEM Comment: As of 06 note change in normal range. INR 1.1 INTERFACE SYSTEM Comment: Expected Values for INR: DVT/PE Goal INR 2.5; range 2.0 - 3.0 Valve Replacement Tissue Goal INR 2.5; range 2.0 - 3.0 Mechanical Goal INR 3.0; range 2.5 - 3.5 POST-AK Goal INR 2.5; range 2.0 - 3.0 or Goal 3.0; range 2.5 - 3.5 Atrial Fibrillation Goal INR 2.5; range 2.0 - 3.0 Ischemic Stroke Goal INR 2.5; range 2.0 - 3.0 For additional information see Guidelines for Anticoagulation available from the pharmacy [facility]. PTT 31.4 21.6 - 35.6 Secs INTERFACE SYSTEM Comment: Therapeutic Range: Hi-level PE/DVT heparin protocol 80.1 -95.0 sec Lo-level PE/DVT heparin protocol 67.1 - 80.0 sec Cardiac Heparin Protocol 67.1 - 85.0 sec Neuro Heparin Protocol 67.1 - 80.0 sec As of 04/17/2006 note change in APTT Normal Range. 11/18/2006 1:20 PM CDT Andrew Richard MD HEMATOLOGY ORDERABLES Edited Performing Organization Address [facility] de Phone Number INTERFACE SYSTEM Refer to clinic/hospital department * (ABNORMAL) BASIC METABOLIC PANEL (11/18/2006 1:20 PM CDT) GLUCOSE 87 70 - 110 mg/dL INTERFACE SYSTEM BUN 14 7 - 17 mg/dL INTERFACE SYSTEM CREATININE 0.7 0.7 - 1.2 mg/dL INTERFACE SYSTEM SODIUM 141 136 - 145 mEq/L INTERFACE SYSTEM POTASSIUM 3.7 3.5 - 5.0 mEq/L INTERFACE SYSTEM CHLORIDE 112(H) 95 - 110 mEq/L INTERFACE SYSTEM CO2 25 22 - 32 mmol/l INTERFACE SYSTEM CALCIUM 9.5 8.4 - 10.5 mg/dL INTERFACE SYSTEM ANION GAP 8(L) 9 - 20 mEq/L INTERFACE SYSTEM OSMOLALITY, CALCULATED 289 275 - 295 mOsm/Kg INTERFACE SYSTEM 11/18/2006 1:20 PM CDT Andrew Richard MD CHEMISTRY ORDERABLES Edited Performing Organization Address [facility] de Phone Number INTERFACE SYSTEM Refer to clinic/hospital department * CBC WITH DIFFERENTIAL (11/18/2006 1:20 PM CDT) WBC 7.9 4.5 - 11.0 K/ul INTERFACE SYSTEM RBC 4.73 4.20 - 5.40 Mil/ul INTERFACE SYSTEM HEMOGLOBIN 13.6 12.0 - 16.0 g/dL INTERFACE SYSTEM HEMATOCRIT 40.0 36.0 - 46.0 % INTERFACE SYSTEM MCV 84.6 84.0 - 103.0 Fl INTERFACE SYSTEM MCH 28.8 27.0 - 34.0 pg INTERFACE SYSTEM MCHC 34.0 30.0 - 35.0 g/dL INTERFACE SYSTEM RDW 12.8 11.0 - 14.5 % INTERFACE SYSTEM PLATELETS 228 140 - 440 K/ul INTERFACE SYSTEM MPV 10.1 8.9 - 12.8 Fl INTERFACE SYSTEM NEUTROPHILS 58.2 42.2 - 75.2 % INTERFACE SYSTEM LYMPHOCYTES 33.0 24.0 - 44.0 % INTERFACE SYSTEM MONOCYTES 4.9 2.0 - 10.0 % INTERFACE SYSTEM EOSINOPHILS 3.5 0.0 - 7.0 % INTERFACE SYSTEM BASOPHILS 0.4 0.0 - 1.0 % INTERFACE SYSTEM NEUTROPHIL ABSOLUTE 4.6 2.0 - 8.0 K/ul INTERFACE SYSTEM LYMPHOCYTE ABSOLUTE 2.6 1.2 - 4.0 K/ul INTERFACE SYSTEM MONOCYTE ABSOLUTE 0.4 0.1 - 0.6 K/ul INTERFACE SYSTEM EOSINOPHIL ABSOLUTE 0.3 0.0 - 0.7 K/ul INTERFACE SYSTEM BASOPHILS ABSOLUTE 0.0 0.0 - 0.2 K/ul INTERFACE SYSTEM 11/18/2006 1:20 PM CDT us Andrew Richard MD HEMATOLOGY ORDERABLES Edited INTERFACE SYSTEM Refer to clinic/hospital department documented in this encounter Visit Diagnoses Diagnosis Unspecified venous (peripheral) insufficiency- Primary documented in this encounter Care Teams Jordan Man Relationship Specialty Start Date End Date Lenny Frias MD NO ADDRESS ON FILE PCP - General 11/18/06 documented as of this encounter
--- OUTSIDE RECORDS SUMMARY | 2025-03-10 00:30 | XMS_ITS | Encounter Summary ---
Author Organization [facility] Address [address] [facility] Attn: Epic Prelude [place] [address] Care Team Providers Care Parts Cataloguer Name Role Phone Lenny Frias MD Primary Care Provider Unava ilable Encounter Details Date Type Department Care Team (Late st Contact Info) Description 11/30/2001 Outpatient Historical Haresh Ritter MD [address] [place] [address] Social History Tobacco Use Types Packs/Day Years Used Date Smoking Tobacco: Never Assessed Comments Unknown Sex and Gender Information Value Date Recorded Sex Assigned at Not on file Legal Sex Female 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
--- OUTSIDE RECORDS SUMMARY | 2025-03-10 00:30 | XMS_ITS | Encounter Summary ---
Author Organization [facility] Address [address] [place] [address] Care Team Providers Care Cafeteria Worker Name Role Phone Lenny Frias MD Primary Care Provider Unava ilable Encounter Details Date Type Department Care Team (Latest Contact Info) Description 04/10/1999 Outpatient Historical [facility] Gen Spec Surg [place] [address] [place] [address] Lenny Lucio MD [address] [place] [address] Diffus cystic mastopathy (Primary Dx) Social History Tobacco Use Types Packs/Day Years Used Date Smoking Tobacco: Never Assessed Comments Unknown Sex and Gender Information Value Date Recorded Sex Assigned at Not on file Legal Sex Female 4:49 AM QA SPECIALIST Gender Identity Not on file Sexual Orientation Not on file documented as of this encounter Plan of Treatment Not on file documented as of this encounter Visit Diagnoses Diagnosis Diffus cystic mastopathy- Primary Diffuse cystic mastopathy documented in this encounter Care Teams Cafeteria Worker Relationship Specialty Start Date End Date Lenny Frias MD NO ADDRESS ON FILE PCP - General 11/18/06 documented as of this encounter
--- OUTSIDE RECORDS SUMMARY | 2025-03-10 00:30 | XMS_ITS | Encounter Summary ---
Author Organization [facility] Address [address] [place] [address] Care Team Providers Care Athletic Training Internship Name Role Phone Lenny Frias MD Primary Care Provider Unava ilable Encounter Details Date Type Department Care Team (Latest Contact Info) Description 12/08/1998 Outpatient Historical [facility] Gen Spec Surg [place] 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
--- OUTSIDE RECORDS SUMMARY | 2025-03-10 00:30 | XMS_ITS | Continuity of Care Document ---
Author Organization [facility] Lana, Vamsi, [facility] ([facility]) Address [address] [place] [address] Care Team Providers Care Ecommerce Manager Name Role Phone MARISELA JOSEPH Primary Care Provider [phone] Assessment No assessment recorded. Plan of Treatment Reminders Order Date Submit Date Provider Last Modified By Organization Details Last Modified Time Details Appointments OFFICE VISIT 2025 02:30P Rita Joseph MD Not available Not available Not available Lab respirato ry pathogens DNA and RNA panel, PCR, nasophary nx 2024 025 YEFRI [facility] ([facility]), [address] [place], [address], 03/09/2025 17:50:16 Referral None recorded. Procedures None recorded. Surgeries None recorded. Imaging None recorded. Medication Orders None recorded. Patient TargetsNo targets recorded. Patient Instructions Encounter Date Encounter Id Patient Instructions Last Modified By Organization Details Last Modified Time 03/09/2025 [id number] May try some dayquil. Increase fluids and follow up for worsening [email or web address] Not available 03/09/2025 17:33:36 Reason for Referral None Reported. Results Created Date Observation Date Name Description Value Unit Range Abnormal Flag Note LastModifiedBy Organization Detail LastModifiedTime 03/09/20 25 03/09/2025 respi rator y patho gens DNA and RNA panel , PCR, nasop haryn x Covid negati ve Not Available [facility]) [address] [place], [address], 03/09/2025 16:53:24 03/09/20 25 03/09/2025 respi rator y patho gens DNA and RNA panel , PCR, nasop haryn x Rhinovirus negati ve Not Available [facility] ([facility]) [address] [place], [address], 03/09/2025 16:53:24 03/09/20 25 03/09/2025 respi rator y patho gens DNA and RNA panel , PCR, nasop haryn x Influenza A negati ve Not Available [facility] ([facility]) [address] [place], [address], 03/09/2025 16:53:24 03/09/20 25 03/09/2025 respi rator y patho gens DNA and RNA panel , PCR, nasop haryn x Influenza B negati ve Not Available [facility] ([facility]) [address] [place], [address], 03/09/2025 16:53:24 03/09/20 25 03/09/2025 respi rator y patho gens DNA and RNA panel , PCR, nasop haryn x RSV negati ve Not Available [facility] ([facility]) [address] [place], [address], 03/09/2025 16:53:24 Result Notes None recorded. Problems Name Problem SNOMED Code Status Onset Date Resolution Date Notes Provider Name and Address Organization Details Recorded Time [facility] ctomy Completed 199804/24/2017 [facility] ctomy - Status is Inactive ; Date: 1998; 11/11/19 21 9:12AM by Mansoor Stokes, Office Visit; Promoted ; acuity set as *; Not Available [employer] 03:08:07 Backache 679149671 Completed 202207/12/2024 CHRONIC BACK PAIN GREATER THAN 3 MONTHS DURATION ; Impressi on: stable. [facility], [facility] 5 14:26:22 Generali zed anxiety disorder 07232384 [facility] 2022 [facility] 14:24:42 Neuropat hy 157213634 Active 2022 NEUROPAT HY; Impressi on: possibly due to disc disease with osteophy te complexe s causing nerve impingem ent. [facility] 14:24:43 Labyrint hitis 94091420 Active 2022 [facility] 14:26:48 Bilatera l bursitis of hips 19199160393 139316 Completed 202207/12/2024 [facility] 14:26:22 Urinary incontin ence 034732230 Active 2022 [facility] 5 14:26:47 Recurren t skin infectio n 396220417 Completed 202207/12/2024 [facility] 14:26:22 Cramp 20539992 Completed 202207/12/2024 [facility] 5 14:25:29 Vitamin D deficien cy 42811427 Active 2022 [facility] 5 14:24:42 Trochant cr bursitis of left hip 11229541300 9103 Completed 202207/12/2024 [facility] 14:25:29 Asthma 418724920 Active 2022 [facility] 14:24:42 Pain of multiple joints 79687494 Completed 202207/12/2024 [facility] 14:25:29 Hypergly cemia 77308375 Completed 202207/12/2024 [facility] 5 14:25:29 Venous stasis edema of bilatera l lower limbs 00765123158 165025 Completed 202207/12/2024 [facility] 14:25:29 Abdomina l pain 18644254 Completed 202207/12/2024 [facility] 5 14:25:29 Numbness of face 404401378 Completed 202307/12/2024 [facility] 14:25:29 Headache 89142019 Completed 202307/12/2024 [facility] 14:25:29 Vitamin B12 deficien cy (non anemic) 21817862 Active 2023 [facility] 14:24:43 Apparent shorteni ng of leg 734306876 Completed 202307/12/2024 [facility] 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 14:24:42 Obesity 360467893 Active 2023 Marisela Joseph MD [address] [place] [address], [address] , [facility] 14:39:38 Breath smells unpleasa nt 22356006 Completed 202307/12/2024 [facility] 14:25:29 Peripher al edema 190639159 Completed 202307/12/2024 [facility] 11:28:35 Hydronep hrosis 60925353 Active 2023 [facility] 14:24:43 Degenera tion of lumbar interver tebral disc 42479477 Active 2023 [facility] 5 14:24:42 Chronic obstruct alirio pulmonar y disease 28927588 Active 2023 [facility] 14:24:42 Spinal stenosis in cervical region 73353153 Active 2023 [facility] 5 14:24:43 Asthmati c pulmonar y eosinoph sage 625756008 Active 2023 [facility] 14:26:48 Hidraden itis suppurat debra 48681726 Completed 202307/12/2024 [facility] 03/03/202 5 14:27:18 Intermit tent claudica tion 13690626 Active 2023 [facility] 5 14:26:48 Peripher al vascular disease 772942274 Active 2023 [facility] 5 14:24:43 Bilatera l trochant cr bursitis 33823560556 964488 Completed 202307/12/2024 [facility] 5 14:26:22 Hyperten sive disorder 45615098 Active 2023 [facility] 5 14:24:42 Degenera tion of cervical interver tebral disc 41386948 Active 2023 [facility] 5 14:24:43 Atypical chest pain 857862474 Active 2023 [facility] 5 14:24:42 Nicotine dependen ce 68644164 Active 2023 [facility] 5 14:26:48 Sinus tachycar theo 51085830 Active 2023 [facility] 5 14:24:42 Elevated blood-pr essure reading without diagnosi s of hyperten pato 412983032 Active 2023 [facility] 5 14:24:42 Dyspnea on exertion 50356921 Active 2023 [facility] 14:24:43 Prediabe natasha 360381975 Active 2024 [facility] 5 11:28:35 Peripher al edema 965939813 Active 2024 [facility] 11:28:35 Nerve root disorder 41490389 Active 2024 Marisela Joseph MD [address] [place] [address], [address] [place] [address] , [facility] 12:22:09 Herpes labialis 7251330 Active 2024 Marisela Joseph MD [address] [place] [address], [address] [place] [address] , [facility] 17:21:07 Chronic idiopath ic constipa tion 97684060 Active 2024 Marisela Joseph MD [address] [place] [address], [address] [place] [address] , [facility] 17:21:22 Problem Notes None recorded. Procedures Surgical History Date Name Laterality Status Provider Name and Address Organization Details Recorded Time 02/25/20 24 excision of cervical intervertebral disc completed [facility] 03/03/2024 11:53:22 Imaging Results None recorded. Procedure Notes None recorded. Medical Equipment None Reported. Allergies Allergen ID Allergen Name Allergen Category Reaction Reaction Severity Criticality Documentation Date Start Date Code Code System Note Provider Name and Address Organization Details Recorded Time 18258 tetracycl ine hydrochlo ride medicatio n rash Not available Not available 12/07/2022 56636 6 RxNorm React ion: Rash; Comme nt: Recor ded 06/06 10:18 AM by Evgeny Edouard Visit ; Bryan sheila; Signi rhoda ce: *; Reaso n: Drug aller gy; ; [facility] 4 15:28:22 01365 Prometriu m medicatio n rash mild low 08/04/2023 22710 0 RxNorm Nikki ye, [facility], Vamsi 4 15:28:48 09810 adhesive environme nt,medica tion hives mild low 08/04/2023 Nikki ye, [facility], Vamsi 4 15:29:03 680 tetracycl ine medicatio n rash mild low 08/07/2022 64181 RxNorm Nikki ye, [facility], [place]i 4 15:28:24 Medications Name Sig Start Date [...] daily 01/10 completed RM/bn; 9; Recorded 01/17/20 22 1:57PM by Mansoor Stokes (Authorclinton thrasher through Marisela Joseph MD), Refill Request; Refill [...] Recorded 05/31/19 23 11:43AM by Mikki garcia (Javier thrasher through Marisela Joseph MD), Annotati on/Adden dum; Refill Quantity : 5; Capsule; Not Available Not Available Not Available metformin daily 03/04 completed Recorded 10/04/19 22 12:59PM by Mansoor Stokes, Office Visit; Refill Quantity : 100; Tablet; [...] tablet weekly 01/10 completed RM/AV; Recorded 06/03/19 23 4:16PM by Mikki garcia, Phone Encounte r; Refill Quantity : 90; Tablet; Not Available Not Available Not Available Vitamin B12 weekly 03/04 completed RM/BN; 9; Recorded 02/12/20 11:29AM by Mansoor Stokes (Authori price through Marisela Joseph MD), Refill Request; Refill [...] and Address Organization Details Last Updated DateTime 154.94 cm 36 kg/m2 32280.6 5 g 98.6 [degF] 105 /min 98 % 98 % 142/72 mm[Hg] Neela Thomas [facility] 17:02:18 Social History Question Answer Notes LastModified by [employer] Details LastModified Time Tobacco Smoking Status Current Every Day Smoker [facility] 08/27/2022 15:36:17 What Was The Date Of Your Most Recent Tobacco Screening? 03/09/2025 [email or web address] Information not available 03/09/2025 Sex: Unknown Functional Status Question Answer Note LastModified by [employer] Details LastModified Time Do you use any illicit or recreational drugs? No Information not available 08/27/2022 What is your level of alcohol consumption? None [email or web address] Information not available 08/27/2022 Mental Status None recorded. Family History Nothing Reported. Medical History No medical history recorded. Gynecological HistoryNo gynecological history recorded. Obstetrics History GPAL:G 0 P 0 0 0 0 Immunizations Vaccine Type Date Status Note Provider Nam e and Address Organization Details Recorded Time Influenza, split virus, trivalent, preservative 0 completed Not Available [facility] 06/04/2023 15:57:24 Influenza, split virus, trivalent, preservative 6 completed Not Available [facility] 06/04/2023 15:57:24 IPV 4 completed [facility] 03/04/2023 10:11:41 IPV 7 completed [facility] 03/04/2023 10:11:42 IPV 2 completed [facility] 03/04/2023 10:11:42 IPV 2 completed [facility]SOOR STOKESJULIUS ye, [facility] 03/04/2023 10:11:42 MMRV 3 completed MANSOOR STOKESJULIUS ye, [facility] 03/04/2023 10:11:42 Tdap 0 completed MANSOOR STOKESJULIUS ye, [facility] 03/04/2023 10:11:42 Td (adult), 2 Lf tetanus toxoid, preservative free, adsorbed 8 completed MANSOOR ye, [facility] 03/04/2023 10:11:42 DTaP 3 completed [facility] ye [facility] 03/04/2023 10:11:42 DTaP 4 completed [facility]OR STOKES null, [facility] 03/04/2023 10:11:42 DTaP 7 completed MANSOOR ye, [facility] 03/04/2023 10:11:42 DTaP 2 completed [facility] ye [facility] 03/04/2023 10:11:42 DTaP 2 completed [facility] null, [facility] 03/04/2023 10:11:42 Past Encounters Encounter ID Performer Location Encounter Start Date Encounter Closed Date Diagnosis/Indication Diagnosis SNOMED-CT Code Diagnosis ICD10 Code Diagnosis IMO Codes Diagnosis Note [id number] Marisela Joseph MD [facility] ([facility]) [address] [place] [address] 02/08/2025 14:11:43 02/08/2025 15:16:02 Obesity 959469043 E66.9 Improved some with Ozempic. Herpes labialis 8767261 B00.1 38139 [id number] LAYLA SCHROEDER APRN [facility] ([facility]) [address] [place] [address] 03/09/2025 16:49:38 03/09/2025 17:35:27 Acute upper respiratory infection 17834010 J06.9 121619 Viral disease 00001140 B 34.9 08133 Health Concerns Section Related Observation LastModified by Organization Detai ls LastModified Time None Recorded Concern Status LastModified by Organization Details LastModified Time None Recorded Payers Encounter Date Sequence Insurance Name Policy Number Policy Barrientos Covered Member ID Barrientos Member ID Guarantor Name 03/09/2025 1 [place] Cindy Rodarte [id number] Cindy Rodarte Notes Date Note Type Note Provider Name and Address Organization Details Recorded Time 03/09/2025 text/html walk in ptPt has a cough, chills, body aches and runny nose for 1 day. LAYLA SCHROEDER APRN [address] [place] [address], [phone], [facility] 03/09/2025 17:33:52 OBGyn Episode No OBEpisode recorded.
--- OUTSIDE RECORDS SUMMARY | 2025-03-10 00:30 | XMS_ITS | Clinical Summary ---
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 11/22/2009 Overview (11/16/2020): BLE Unspecified venous (peripheral) insufficiency Overview (11/16/2020): BLE Immunizations Immunization Administration Dates Next Due (ADACEL/BOOSTRIX)(10 YR UP) TDAP VACCINE, 0.5ML, IM 10/03/2009 Social History Tobacco Use Types Packs/Day Years Used Date Smoking Tobacco: Every Day Cigarettes Alcohol Use Standard Drinks/Week Comments No 0 (1 standard drink = 0.6 oz pur e alcohol) Comments Unknown Sex and Gender Information Value Date Recorded Sex Assigned at Not on file 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
--- OUTSIDE RECORDS SUMMARY | 2025-03-10 00:30 | XMS_ITS | Encounter Summary ---
Author Organization [facility] Address [address] [place] [address] Care Team Providers Care Vp Cardiovascular Service Line Name Role Phone Lenny Frias MD Primary Care Provider Unava ilable Encounter Details Date Type Department Care Team (Latest Contact Info) Description 04/17/1998 Outpatient Historical [facility] Gen Spec S[place] 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
--- NOTE | 2025-03-10 01:03 | CTR_ITS ---
PROCEDURE INFORMATION: Exam: CT Abdomen And Pelvis With Contrast Exam date and time: 03/10/2025 2:06 AM Age: 44 years old Clinical indication: Abdominal pain; Prior surgery; Surgery date: 6+ months; Surgery type: 5x c section, partial hysterectomy, bladder stretching; Additional info: HX pcos and stones, worsening R CVA llq edda TECHNIQUE: Imaging protocol: Computed tomography of the abdomen and pelvis with contrast. Radiation optimization: All CT scans at this facility use at least one of these dose optimization techniques: automated exposure control; mA and/or kV adjustment per patient size (includes targeted exams where dose is matched to clinical indication); or iterative reconstruction. Contrast material: OMNI 350; Contrast volume: 100 ml; Contrast route: INTRAVENOUS (IV); COMPARISON: CT kidney stone [id number] 11/29/2023 2:52 AM RADIATION DOSE METRICS: Total DLP (mGy-cm): 877.93 FINDINGS: Liver: Fatty infiltration versus 3rd inflow artifact is noted at the anterior falciform ligament. The liver is otherwise within normal limits. Gallbladder and biliary ducts: Normal. No calcified stones. No ductal dilation. Pancreas: Normal. No ductal dilation. Spleen: Normal. No splenomegaly. A splenule is present. Adrenal glands: Normal. No mass. Kidneys and ureters: Multiple nonobstructive right renal stones are present. The largest measures up to 2 mm. A 2 mm nonobstructing left renal stone is present. The kidneys are otherwise normal. Stomach and bowel: Unremarkable. No obstruction. No mucosal thickening. Appendix: The appendix is normal. Intraperitoneal space: Unremarkable. No free air. No significant fluid collection. Vasculature: A retroaortic left renal vein is present. Pelvic phleboliths are present. Lymph nodes: Unremarkable. No enlarged lymph nodes. Urinary bladder: Unremarkable as visualized. Reproductive: The uterus is surgically absent. Bones/joints: Unremarkable. No acute fracture. Degenerative joint and disc disease is seen in the imaged spine. Soft tissues: Unremarkable. CT/CT abdomen pelvis w con* [id number] IMPRESSION: 1. Nonobstructive right nephrolithiasis, largest stone measuring up to 2 mm. 2. Nonobstructive left nephrolithiasis. 3. No findings of obstructive uropathy. 4. Otherwise, no acute process in the abdomen or pelvis to explain the patient's symptoms.
[2025-03-10] MEDS: morphine 4 mg/mL SDV 1 mL IVP (01:13)
[2025-03-10] MEDS: ondansetron 2 mg/ML SDV 2 mL 4 MG IVP (01:13)
[2025-03-10 01:17] LABS: Hematocrit 44.6 % (36-47); Hemoglobin 15.00 g/dL (11.27-16.99); Mean Corpuscular HGB Conc 33.6 g/dL (30-55); Mean Corpuscular Hemoglobin 29.4 pg (27-33); Mean Corpuscular Volume 87.5 fl (85-98); Nucleated Red Blood Cells % 0 %; Platelet Count 273 10^3/cmm (157-399); Red Blood Count 5.10 10^6/uL (3.85-5.65); White Blood Count 11.06 10^3/uL (3.29-11.43)
[2025-03-10 01:19] LABS: Glucose Urine UA Negative (Normal); Nitrate Urine Negative (Negative); Specific Gravity, Urine 1.027 (1.005-1.030)
[2025-03-10 01:28] LABS: Add Urine Microscopic? YES
[2025-03-10 01:55] LABS: Alanine Aminotransferase 18 U/L (0-33); Albumin Level 4.3 g/dL (3.5-5.2); Alkaline Phosphatase 104 U/L (35-105); Anion Gap 17.7 (5-19); Aspartate Amino Transferase 17 U/L (0-32); Blood Urea Nitrogen 8 mg/dL (6-20); Calcium 9.2 mg/dL (8.5-10.5); Carbon Dioxide 22 mmol/L (22-29); Chloride 103 mmol/L (98-107); Globulin 2.9 g/dL (1.3-4.6); Glucose 114 mg/dL (65-115); Lipase 23 U/L (13-60); Magnesium 2.1 mg/dL (1.7-2.3); Osmolality Calculated 287 mOsm/kg (285-295); Potassium 3.7 mmol/L (3.5-5.1); Sodium 139 mmol/L (136-145); Total Protein 7.2 g/dL (6.6-8.7)
[2025-03-10] MEDS: iohexol 350 mg/mL 500 mL Btl (per mL) IV (02:14)
--- NOTE | 2025-03-10 03:45 | W.ED.ABDPA2 ---
HPI - Abdominal Pain General: Chief Complaint: Abdominal Pain Stated Complaint: right abd, side pain, now also left low abd Time Seen by Provider: 03/10/25 00:38 History of Present Illness: Patient is a 44-year-old female with past medical history of kidney stones, COPD who presents to the ED with abdominal pain, for started in the right lower quadrant but now seemingly radiating to the left side as well, she denies any dysuria hematuria. She had some loose stools yesterday, she has had no fevers, changes in appetite, nausea or vomiting. No recent flulike symptoms, chest pains, shortness of breath, syncope. She has had a previous appendectomy, has never required surgical intervention for kidney stones. Related Data Home Medications ?Medication ?Instructions ?Recorded ?Confirmed ibuprofen 800 mg tablet 800 mg PO Q8H PRN Pain 09/22/19 03/29/25 Held on 02/26/24. Instructions: Resume on 02/27/24. mupirocin 2 % topical ointment 1 applic topical BID PRN unknown 06/19/21 03/29/25 atorvastatin 20 mg tablet 20 mg PO QAM 11/02/21 03/29/25 magnesium 200 mg tablet 200 mg PO DAILY 11/02/21 03/29/25 metformin 500 mg tablet,extended 500 mg PO DAILY 11/02/21 03/29/25 release 24 hr albuterol sulfate 90 mcg/actuation 2 puff inhalation QID 07/06/24 03/29/25 aerosol inhaler (Ventolin HFA) famotidine 20 mg tablet 20 mg PO BID 07/06/24 03/29/25 alprazolam 0.25 mg tablet 0.5 mg PO TID PRN 11/25/24 03/29/25 azelastine 137 mcg (0.1 %) nasal 1 spray intranasal BID 11/25/24 03/29/25 spray cholecalciferol (vitamin D3) 1,250 50,000 unit PO .weekly 11/25/24 03/29/25 mcg (50,000 unit) tablet (Dialyvite Vitamin D3 Max) ciclopirox 0.77 % topical cream 1 applic topical BID 11/25/24 03/29/25 (Ciclodan) clindamycin phosphate 1 % lotion 1 applic topical DAILY 11/25/24 03/29/25 cyanocobalamin (vitamin B-12) 2,500 mcg PO DAILY 11/25/24 03/29/25 2,500 mcg sublingual tablet (Vitamin B-12) levocetirizine 5 mg tablet 5 mg PO DAILY 11/25/24 03/29/25 semaglutide 0.25 mg or 0.5 mg (2 mg SUBCUT .weekly 11/25/24 03/29/25 mg/3 mL) subcutaneous pen injector (Ozempic) Previous Rx's ?Medication ?Instructions ?Recorded montelukast 10 mg tablet 10 mg PO DAILY #90 tabs 07/15/23 (Singulair) albuterol sulfate 2.5 mg/3 mL 2.5 mg (3 mL) inhalation QID PRN 08/15/23 (0.083 %) solution for nebulization Shortness Of Breath #180 mL budesonide-formoterol HFA 160 2 puff inhalation Q12H asthma 08/15/23 mcg-4.5 mcg/actuation aerosol #10.2 grams inhaler (Symbicort) fluticasone propionate 50 1 spray intranasal BID #16 grams 08/15/23 mcg/actuation nasal spray,suspension (Flonase Allergy Relief) 0.8 cm heel lift to left #1 ea 08/11/24 Diabetic shoe with custom insoles #1 ea 08/11/24 meclizine 25 mg tablet 25 mg PO QID PRN dizziness #14 tabs 10/14/24 furosemide 20 mg tablet (Lasix) 20 mg PO DAILY #90 tabs 11/25/24 metoprolol succinate 25 mg 25 mg PO DAILY #90 tabs 11/25/24 tablet,extended release 24 hr potassium chloride 10 mEq 10 meq PO DAILY #90 caps 11/25/24 capsule,extended release nitroglycerin 0.4 mg sublingual See Rx Instructions .Route 11/26/24 tablet .COMPLEX #25 tabs hydrocodone 5 mg-acetaminophen 325 1 tab PO Q12H PRN pain 7 days #14 12/13/24 mg tablet tabs tamsulosin 0.4 mg capsule (Flomax) 0.4 mg PO DAILY Kidney stone pain 03/10/25 #20 caps Allergies Allergy/AdvReac Type Severity Reaction Status Date / Time adhesive tape Allergy ALGY-Rash Verified 03/29/25 12:28 Tetracyclines Allergy ALGY-Rash Verified 03/29/25 12:28 Review of Systems General: Reports: 10 or more systems reviewed and unremarkable except in HPI and below Const: Reports: change in appetite GI: Reports: abdominal pain PFSH ED PFSH: Medical History Tobacco abuse Shortness of breath Urinary frequency Appendicitis Urolithiasis Left ureteral stone Greater trochanteric pain syndrome Left hip Right shoulder pain Asthma COPD (chronic obstructive pulmonary disease) Dyslipidemia Right renal stone Right flank pain Surgical History Status post laser ablation of incompetent vein Hx of section Hx of tonsillectomy Hx of exploratory laparotomy Hx of hysterectomy Hx of tubal ligation Family History Father Bleeding disorder Diabetes Hyperlipidemia CAD (coronary artery disease) Chronic kidney disease (CKD) Hypertension Seizure Family/Other Lung disease Liver disease Seizure Grandfather Lung disease Mother Stroke Migraines Liver disease Grandmother Cancer Social History Smoking and tobacco/nicotine status: current every day tobacco/nicotine user cigarettes Packs smoked per day: 1 Years cigarettes smoked: 23 [ Other cigarette details: started at age 17] Second hand smoke exposure: No Alcohol intake: never Substance/Drug Use: never Lives independently: Yes Household members: children Marital status: Single Current occupational status: disabled Do you think of yourself as: Straight/Heterosexual Current gender identity: Female Physical Exam Narrative: EXAM NARRATIVE: Overall well-appearing, afebrile, mildly sinus tachycardic but normotensive, no acute distress. Abdomen soft, mild diffuse tenderness throughout, negative Dutton and McBurney sign, not peritonitic, bowel sounds decreased but intact, no CVA tenderness. Normal sinus rhythm with slight sinus tachycardia, no leg swelling, 2+ pulses throughout, good cap refill. Breathing comfortably on room air, saturating well, able to speak in full sentences without getting short of breath, GCS 15. Course Vital Signs: Vital signs: Vital Signs Temperature 97.9 F 03/10/25 00:29 Pulse Rate 98 03/10/25 03:51 Respiratory Rate 15 03/10/25 01:02 Blood Pressure 122/83 03/10/25 03:51 Pulse Oximetry 97 03/10/25 03:51 Oxygen Delivery Me thod Room Air 03/10/25 01:02 MDM - Abdominal Pain Medical Decision Making -ddx: Nephrolithiasis, pyelonephritis, cystitis, ovarian cyst, diverticulitis, gastritis, cholecystitis, enteritis, dehydration, electrolyte abnormality - Patient with migratory abdominal pain, has history of kidney stones, no recent infectious symptoms, no vomiting has had some loose stool, no recent travel. With slight sinus tachycardia, migratory abdominal pain and history, will obtain abdominal labs, CT and treat symptomatically with fluids nausea and pain medication and reassess. - Patient with no leukocytosis but mild inflammatory marker elevation, urine negative for any signs of infection, no hematuria. Other labs reassuring for no systemic infection or inflammation, no severe blood cell line abnormality, no electrolyte abnormality, no ABI. CT scan with bilateral nonobstructing kidney stones, no other acute intra-abdominal pathology, patient had complete pain relief after above medications, she was thought to have just passed a kidney stone, had no leftover infection and was feeling well, tolerating p.o., she was able to be discharged with instructions to continue hydration, prescribed med therapy if seemingly recurrent symptoms develop, encouraged to follow-up with PCP as needed, discharged in stable condition with strict return precautions given. Lab Data 03/10/25 00:45 03/10/25 00:45 Labs/Radiology: Radiology Impressions Abdomen/Pelvis CT 03/10/25 01:03 IMPRESSION: 1. Nonobstructive right nephrolithiasis, largest stone measuring up to 2 mm. 2. Nonobstructive left nephrolithiasis. 3. No findings of obstructive uropathy. 4. Otherwise, no acute process in the abdomen or pelvis to explain the patient's symptoms. Laboratory Results WBC 11.06 10^3/uL (3.29-11.43) 03/10/25 00:45 RBC 5.10 10^6/uL (3.85-5.65) 03/10/25 00:45 Hgb 15.00 g/dL (11.27-16.99) 03/10/25 00:45 Hct 44.6 % (36-47) 03/10/25 00:45 MCV 87.5 fl (85-98) 03/10/25 00:45 MCH 29.4 pg (27-33) 03/10/25 00:45 MCHC 33.6 g/dL (30-55) 03/10/25 00:45 RDW 12.3 % (12.1-15.1) 03/10/25 00:45 Plt Count 273 10^3/cmm (157-399) 03/10/25 00:45 MPV 9.7 fL (7.4-10.4) 03/10/25 00:45 Neut % (Auto) 65.0 % 03/10/25 00:45 Lymph % (Auto) 25.1 % 03/10/25 00:45 [place] % (Auto) 7.0 % 03/10/25 00:45 Eos % (Auto) 2.0 % 03/10/25 00:45 Baso % (Auto) 0.5 % 03/10/25 00:45 Neut # (Auto) 7.19 10^3/uL (1.8-7.7) 03/10/25 00:45 Lymph # (Auto) 2.8 10^3/uL (0.8-4.8) 03/10/25 00:45 [place] # (Auto) 0.8 10^3/uL (0.2-0.9) 03/10/25 00:45 Eos # (Auto) 0.2 10^3/uL (0.0-0.8) 03/10/25 00:45 Baso # (Auto) 0.1 10^3/uL (0.0-0.1) 03/10/25 00:45 Nucleated RBC % (auto) 0 % 03/10/25 00:45 Nucleated RBCs # 0.0 /100WBC 03/10/25 00:45 Sodium 139 mmol/L (136-145) 03/10/25 00:45 Potassium 3.7 mmol/L (3.5-5.1) 03/10/25 00:45 Chloride 103 mmol/L (98-107) 03/10/25 00:45 Carbon Dioxide 22 mmol/L (22-29) 03/10/25 00:45 Anion Gap 17.7 (5-19) 03/10/25 00:45 BUN 8 mg/dL (6-20) 03/10/25 00:45 Creatinine 0.5 mg/dL (0.5-0.9) 03/10/25 00:45 GFR Calculation 134.7 mL/min (90-130) H 03/10/25 00:45 Glucose 114 mg/dL (65-115) 03/10/25 00:45 Calculated Osmolality 287 mOsm/kg (285-295) 03/10/25 00:45 Calcium 9.2 mg/dL (8.5-10.5) 03/10/25 00:45 Phosphorus 2.8 mg/dL (2.5-4.5) 03/10/25 00:45 Magnesium 2.1 mg/dL (1.7-2.3) 03/10/25 00:45 Total Bilirubin 0.7 mg/dL (0.15-1.2) 03/10/25 00:45 AST 17 U/L (0-32) 03/10/25:45 ALT 18 U/L (0-33) 03/10/25 00:45 Alkaline Phosphatase 104 U/L (35-105) 03/10/25 00:45 C-Reactive Protein 41.4 mg/L (0.0-4.9) H 03/10/25 00:45 Total Protein 7.2 g/dL (6.6-8.7) 03/10/25 00:45 Albumin 4.3 g/dL (3.5-5.2) 03/10/25 00:45 Globulin 2.9 g/dL (1.3-4.6) 03/10/25 00:45 Lipase 23 U/L (13-60) 03/10/25 00:45 Urine Color Yellow (Yellow) 03/10/25 00:45 Urine Appearance Clear (CLEAR) 03/10/25 00:45 Urine pH 6.0 (5-7) 03/10/25 00:45 Ur Specific [place] 1.027 (1.005-1.030) 03/10/25 00:45 Urine Protein Negative (Negative) 03/10/25 00:45 Urine Glucose (UA) Negative (Normal) 03/10/25:45 Urine Ketones Trace (Negative) 03/10/25 00: Urine Blood Negative (Negative) 03/10/25 00:45 Urine Nitrate Negative (Negative) 03/10/25 00:45 Urine Bilirubin Negative (Negative) 03/10/25 00: Urine Urobilinogen 1.0 mg/dL (Negative) 03/10/25 00:45 Ur Leukocyte Esterase Negative (Negative) 03/10/25 00:45 Urine RBC 0-2 /hpf (0-2) 03/10/25 00:45 Urine WBC 0-5 /hpf (0-5) 03/10/25 00:45 Ur Squamous Epith Cells 0-5 /hpf (0-5) 03/10/25 00:45 Amorphous Sediment Not Reportable 03/10/25 00:45 Urine Bacteria None seen /hpf (NONE) 03/10/25 00:45 Hyaline Casts 1.65 /lpf 03/10/25 00:45 All radiology interpretation(s) finalized by discharge Discharge Plan Discharge Patient Disposition: Home Clinical Impression: Bilateral nephrolithiasis Condition: Stable Prescriptions: New tamsulosin [Flomax] 0.4 mg capsule 0.4 mg PO DAILY Qty: 20 0RF No Action mupirocin 2 % ointment 1 applic topical BID PRN (Reason: unknown) (DME) 0.8 cm heel lift to left See Rx Instructions .Route .MEDSUPPLY Qty: 1 0RF Rx Instructions: As directed (DME) Diabetic shoe with custom insoles See Rx Instructions .Route .MEDSUPPLY Qty: 1 0RF Rx Instructions: As directed levocetirizine 5 mg tablet 5 mg PO DAILY azelastine 137 mcg (0.1 %) spray,non-aerosol 1 spray intranasal BID Rx Instructions: administer into each nostril clindamycin phosphate 1 % lotion 1 applic topical DAILY ciclopirox [Ciclodan] 0.77 % cream 1 applic topical BID Ozempic 0.25 mg or 0.5 mg (2 mg/3 mL) pen injector SUBCUT .weekly montelukast [Singulair] 10 mg tablet 10 mg PO DAILY Qty: 90 6RF albuterol sulfate 2.5 mg /3 mL (0.083 %) solution for nebulization 2.5 mg INHALATION QID PRN (Reason: Shortness Of Breath) Qty: 180 6RF fluticasone propionate [Flonase Allergy Relief] 50 mcg/actuation spray,suspension 1 spray intranasal BID Qty: 16 3RF Rx Instructions: administer into each nostril budesonide-formoterol [Symbicort] 160-4.5 mcg/actuation HFA aerosol inhaler 2 puff inhalation Q12H Qty: 10.2 6RF potassium chloride 10 mEq capsule, extended release 10 meq PO DAILY Qty: 90 3RF furosemide [Lasix] 20 mg tablet 20 mg PO DAILY Qty: 90 3RF metoprolol succinate 25 mg tablet extended release 24 hr 25 mg PO DAILY Qty: 90 3RF nitroglycerin 0.4 mg tablet, sublingual See Rx Instructions .ROUTE .COMPLEX Qty: 25 3RF Dose Instruction: DISSOLVE 1 TABLET UNDER THE TONGUE EVERY 5 MINUTES NEEDED FOR CHEST PAIN. DO NOT EXCEED A TOTAL OF 3 DOSES IN 15 MINUTES. Rx Instructions: DISSOLVE 1 TABLET UNDER THE TONGUE EVERY 5 MINUTES NEEDED FOR CHEST PAIN. DO NOT EXCEED A TOTAL OF 3 DOSES IN 15 MINUTES. hydrocodone-acetaminophen 5-325 mg tablet 1 tab PO Q12H PRN (Reason: pain) 7 Days Qty: 14 0RF ibuprofen 800 mg Tablet 800 mg PO Q8H PRN (Reason: Pain) famotidine 20 mg tablet 20 mg PO BID albuterol sulfate [Ventolin HFA] 90 mcg/actuation HFA aerosol inhaler 2 puff INHALATION QID alprazolam 0.25 mg tablet 0.5 mg PO TID PRN atorvastatin 20 mg Tablet 20 mg PO QAM metformin 500 mg Tablet Extended Release 24 Hr 500 mg PO DAILY magnesium 200 mg Tablet 200 mg PO DAILY cholecalciferol (vitamin D3) [Dialyvite Vitamin D3 Max] 1,250 mcg (50,000 unit) tablet 50,000 unit PO .weekly cyanocobalamin (vitamin B-12) [Vitamin B-12] 2,500 mcg tablet, sublingual 2,500 mcg PO DAILY Rx Instructions: on fri meclizine 25 mg tablet 25 mg PO QID PRN (Reason: dizziness) Qty: 14 0RF Discharge Orders: Discharge ED (Routine); Ordered 03/10/25 Ordered By: Domenico Velarde Referrals: Tho Rodriguez MD [Referring, Urology] Referral Note: If you seem to re-develop kidney stone pain, as needed Lj Joseph MD [Primary Care Provider, Family Practice] Patient Instructions: Abdominal Pain (ED), Opioid Safety, Pain Management, Patient Portal & [place] Instructions Activity Restrictions/Additional Instructions: You were seen for your abdominal and back pain, you were evaluated with labs and a CT scan which found you to have probably passed kidney stones on both sides, there are left over kidney stones on both sides as well but these are not causing any issues, the remainder of your workup was reassuring. You improved with medications and were deemed stable to be discharged home. If you seem to develop this pain in the future, start taking the Flomax once daily to help promote passage of the stone. Use the Toradol 10 mg every 8 hours as needed for pain relief and to help dilate the urinary system, this is in place of ibuprofen so do not take that with this medication. Additionally, use Zofran, 4 mg every 8 hours as needed for nausea. The urology clinic is listed above if you frequently develop these types of pains and want to have your kidney stones further evaluated. Return to the ED with severe worsening of the pain, continuous vomiting, fevers, inability to eat or drink, any other emergent concerns. Print Language: Occitan Coding Level of Care Code ED Starch [employer]er for Nannette Levin
== END 2025-03-10 03:52 | disposition home or self-care (01) ==
PROVIDERS: Emergency Provider Student in an Organized Health Care Education/Training Program; PCP Family Medicine
DX: N20.0 Calculus of kidney (principal); Z87.442 Personal history of urinary calculi; F17.210 Nicotine dependence, cigarettes, uncomplicated; Z79.84 Long term (current) use of oral hypoglycemic drugs; E78.5 Hyperlipidemia, unspecified; J44.9 Chronic obstructive pulmonary disease, unspecified
CPT/HCPCS: 74177; 80053; 81001; 83690; 83735; 84100; 85025; 86140; 96374; 96375; 99285; J2270; J2405; J7030

== ENCOUNTER → 2025-03-29 14:24 | Outpatient (BNVA) | payer MEDICAID, SELFPAY | PROVIDERS: PCP Family Medicine; Visit Provider Orthopaedic Surgery | DX: M47.22 Other spondylosis with radiculopathy, cervical region (principal); M48.061 Spinal stenosis, lumbar region without neurogenic claudication; M25.511 Pain in right shoulder; G89.29 Other chronic pain | CPT/HCPCS: 72040; 99214 ==

== ENCOUNTER → 2025-04-05 11:37 | Outpatient (BNVA) | payer MEDICAID, SELFPAY | PROVIDERS: PCP Family Medicine; Visit Provider Nurse Practitioner Family | DX: L23.9 Allergic contact dermatitis, unspecified cause (principal); L73.2 Hidradenitis suppurativa | CPT/HCPCS: 99214 ==

== ENCOUNTER 2025-04-12 14:32 | Outpatient (CLI) | payer MEDICAID, SELFPAY ==
--- NOTE | 2025-04-12 14:30 | MR_ITS ---
WS: [id number] MRI LUMBAR SPINE NONCONTRAST HISTORY: Lumbar back pain COMPARISON: 09/22/2023 TECHNIQUE: Sagittal and axial multisequence imaging is submitted. Examination is compromised by patient's body habitus. Normal lumbar alignment with no compression fractures or marrow edema. Disc spaces are well preserved. Small Schmorl's nodes and hemangiomas. Conus terminates normally at L1-2 disc level. L1-L2: Mild facet arthritis. No stenosis. L2-L3: Diffuse annular disc bulging with osteophytic ridging. Encroachment upon the ventral thecal sac and subarticular recesses. Mild central, subarticular recess and foraminal stenosis. Small bilateral foraminal disc protrusions. L3-L4: Mild disc bulging and mild ligamentum flavum hypertrophy. Moderate bilateral foraminal stenosis with bilateral foraminal disc protrusions. L4-L5: Mild annular disc bulging with ligamentum flavum and facet arthritis. Very mild central and subarticular recess stenosis. Moderate bilateral foraminal stenosis. L5-S1: Mild disc bulging with moderate ligamentum flavum and facet arthritis. Moderate bilateral foraminal stenosis with disc contacting the exiting L5 nerve roots. Paravertebral soft tissues are normal. MR/MR lumbar spine wo con* [id number] IMPRESSION: 1. No acute lumbar spine fracture. 2. No significant progression of stenosis as compared to the prior study. 3. Mild central, subarticular recess and foraminal stenosis at L2-3. Small laureen ateral foraminal disc protrusions. 4. Moderate bilateral foraminal stenosis with small bilateral foraminal disc p rotrusions. 5. Moderate bilateral foraminal stenosis at L4-5 with mild central and subarti cular recess stenosis. 6. Moderate bilateral foraminal stenosis at L5-S1 with disc protrusions contac ting the exiting L5 nerve roots.
== END 2025-04-12 14:33 | disposition home or self-care (01) ==
LOC: RAD 14:34
PROVIDERS: PCP Family Medicine; Visit Provider Orthopaedic Surgery
DX: M48.061 Spinal stenosis, lumbar region without neurogenic claudication (principal); M47.816 Spondylosis without myelopathy or radiculopathy, lumbar region; M51.26 Other intervertebral disc displacement, lumbar region; M51.17 Intervertebral disc disorders with radiculopathy, lumbosacral region; M51.369 Other intervertebral disc degeneration, lumbar region without mention of lumbar back pain or lower extremity pain
CPT/HCPCS: 72148

== ENCOUNTER → 2025-04-25 13:51 | Outpatient (BNVA) | payer MEDICAID, SELFPAY | PROVIDERS: PCP Family Medicine; Referring Provider Orthopaedic Surgery; Visit Provider Anesthesiology Pain Medicine | DX: M54.2 Cervicalgia (principal); M54.9 Dorsalgia, unspecified; G89.29 Other chronic pain; F17.210 Nicotine dependence, cigarettes, uncomplicated | CPT/HCPCS: 99204 ==

== ENCOUNTER → 2025-04-26 15:32 | Outpatient (BNVA) | payer MEDICAID, SELFPAY | PROVIDERS: PCP Family Medicine; Visit Provider Orthopaedic Surgery | DX: Z01.818 Encounter for other preprocedural examination (principal); M48.062 Spinal stenosis, lumbar region with neurogenic claudication | CPT/HCPCS: 36415; 72110; 81001; 85025; 87086; 99214 ==

== ENCOUNTER 2025-04-27 12:28 | Outpatient (CLI) | payer MEDICAID, SELFPAY ==
[2025-04-27 13:41] LABS: Alanine Aminotransferase 13 U/L (0-33); Albumin Level 4.3 g/dL (3.5-5.2); Alkaline Phosphatase 74 U/L (35-105); Anion Gap 13.6 (5-19); Aspartate Amino Transferase 15 U/L (0-32); Blood Urea Nitrogen 9 mg/dL (6-20); Calcium 9.2 mg/dL (8.5-10.5); Carbon Dioxide 25 mmol/L (22-29); Chloride 104 mmol/L (98-107); Globulin 2.1 g/dL (1.3-4.6); Glucose 76 mg/dL (65-115); Osmolality Calculated 285 mOsm/kg (285-295); Potassium 3.6 mmol/L (3.5-5.1); Sodium 139 mmol/L (136-145); Total Protein 6.4 g/dL (6.6-8.7)
== END 2025-04-27 12:29 | disposition home or self-care (01) ==
LOC: LAB 12:28
PROVIDERS: PCP Family Medicine; Visit Provider Orthopaedic Surgery
DX: Z01.818 Encounter for other preprocedural examination (principal)
CPT/HCPCS: 36415; 80053